=== PATIENT | female | born 1950 | race Caucasian/White ===

== ENCOUNTER 2018-10-01 01:01 | Inpatient (IN) | payer MEDICARE ==
[~2018-10-01] VITALS: Ht 170.2 cm; Wt 67.6 kg
[2018-10-01] MEDS ORDERED: METHYL SALICYLATE/MENTHOL TOPICAL OINTMENT 29GM TUBE. TP PRN (02:30)
[2018-10-01] MEDS ORDERED: MAGNESIUM HYDROXIDE 2,400 MG/30 ML ORAL.SUSP. PO PRN (02:30)
[2018-10-01] MEDS ORDERED: ACETAMINOPHEN 325 MG TABLET PO PRN (02:30)
[2018-10-01] MEDS ORDERED: MAG HYDROX/AL HYDROX/SIMETH 30 ML ORAL.SUSP PO PRN (02:30)
[2018-10-01] MEDS ORDERED: LEVO75TA PO (02:38)
[2018-10-01] MEDS ORDERED: DONE10TA61 PO (02:38)
[2018-10-01] MEDS ORDERED: FLUO40CA9 PO (02:38)
[2018-10-01] MEDS ORDERED: CLON0.5T PO (02:38)
[2018-10-01] MEDS ORDERED: QUET25TA5 PO (02:38)
[2018-10-01] MEDS ORDERED: CRESTOR5 MG PO (02:38)
[2018-10-01] MEDS ORDERED: MEMA5TAB PO (02:38)
[2018-10-01] MEDS ORDERED: QUEtiapine 25 MG TABLET. PO PRN (02:45)
[2018-10-01 02:50] VITALS: BP 130/72
[2018-10-01] MEDS: LEVOTHYROXINE 75 MCG TABLET PO SCH (05:40)
[2018-10-01] MEDS: clonazePAM 0.5 MG TABLET PO SCH ×2 (05:40→14:33)
[2018-10-01 05:45] VITALS: BP 130/67
[2018-10-01] MEDS: MEMANTINE 5 MG TABLET. PO SCH ×2 (08:22→19:58)
[2018-10-01] MEDS: FLUoxetine HCL 20 MG CAPSULE PO SCH (08:22)
[2018-10-01 13:23] LABS: BASO # 0.1 x10^3/uL (0.0-0.2); BASO % 1 % (0-3); EOS # 0.3 x10^3/uL (0.0-0.7); EOS % 3 % (0-3); HEMATOCRIT 48.5 % (36.0-47.0); LYMPH # 1.9 x10^3/uL (1.0-4.8); LYMPH % 21 % (24-48); MEAN CORPUSCULAR HEMOGLOBIN 28 pg (25-35); MEAN CORPUSCULAR HGB CONC 33 g/dL (31-37); MEAN CORPUSCULAR VOLUME 86 fL (79-100); MONO # 0.5 x10^3/uL (0.0-1.1); MONO % 6 % (0-9); NEUT # 6.1 x10^3uL (1.8-7.7); NEUT % 69 % (31-73); PLATELET COUNT 390 x10^3/uL (140-400); RED BLOOD COUNT 5.67 x10^6/uL (3.50-5.40); RED CELL DISTRIBUTION WIDTH 13.5 % (11.5-14.5); WHITE BLOOD COUNT 8.8 x10^3/uL (4.0-11.0)
[2018-10-01 13:30] LABS: ALBUMIN 3.3 g/dL (3.4-5.0); ALBUMIN/GLOBULIN RATIO 0.8 (1.0-1.7); CALCIUM 8.9 mg/dL (8.5-10.1); GFR 55.1; MAGNESIUM 2.1 mg/dL (1.8-2.4); POTASSIUM 3.5 mmol/L (3.5-5.1); TOTAL BILIRUBIN 0.4 mg/dL (0.2-1.0); TOTAL PROTEIN 7.6 g/dL (6.4-8.2)
[2018-10-01 16:58] VITALS: BP 112/73
--- NOTE | 2018-10-01 17:33 | EKG ---
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
--- NOTE | 2018-10-01 18:35 | PSYEV ---
DATE OF SERVICE: 10/01/2018 REASON FOR ADMISSION: This 68-year-old single female was admitted to inpatient program at [facility] at [facility] as a transfer from Emergency Room, [facility]. The patient was evaluated because of threatening suicide, wanting to overdose and also threatening to stab her daughter and also having hallucinations and also history of depression and extremely angry. HISTORY OF PRESENT ILLNESS: The patient apparently was kept in a quiet room today after she threatened her roommate because she was snoring and threatened her that she is going to stab her if she does not stopped snoring. The patient is unreliable informant at this time because she is not cooperative and not wants to talk about her problems. The patient admits to feeling depressed. The patient also admits to having problems with thinking, having mood swings, irritability and anger control. The patient does not want to share much information at this point. The patient denied of any alcohol or substance abuse. PAST PSYCHIATRIC HISTORY: None available. PAST MEDICAL HISTORY: The patient has a history of anxiety, asthma, breast cancer, chronic pain, depression, fibromyalgia, GERD, hyperlipidemia, hypothyroidism, insomnia, sleep apnea and Parkinson's disease. The patient also in past diagnosed with mild cognitive disorder. PSYCHOSOCIAL HISTORY: The patient states that she has a bachelor's degree in medical technology. 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 The patient states she was twice. The patient states she has 2 children. However, she is not willing to divulge any information. CURRENT MEDICATIONS: The patient has been on Klonopin 0.25 mg b.i.d., Aricept 10 mg at night, Prozac 80 mg daily, Namenda 5 mg b.i.d., Seroquel, started here at 12.5 mg q.i.d. p.r.n. FAMILY HISTORY: Not available. MENTAL STATUS EXAMINATION: The patient is withdrawn, isolating herself, avoiding any interaction with the staff or residents, extremely angry, irritable and desai. The patient was able to make eye contact. Her speech was clear, monotone, decreased rate and rhythm. Her affect and mood showed, she is irritable, angry, explosive temper, threatening others. The patient has some difficulty with the thinking process, but the patient has negative angry, not wanting to cooperate with the staff. The patient states that she needs to go back home with her family; however, is not able to give information why she is here and the problems that brought her here. The patient denies that she was suicidal. The patient is very concrete with thinking, seems to be paranoid and suspicious, but no overt psychotic symptoms. She is oriented to surroundings. She knew the month and year. The patient is not cooperating with any other testing at this time. The patient's judgment impaired. Insight limited. STRENGTH: In good health. The patient has a college degree. 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 WEAKNESSES: The patient currently not cooperating with the treatment. The patient also has problems with anger control, poor impulse control and low frustration tolerance. ADMITTING DIAGNOSES: AXIS I: 1. Psychotic disorder, not otherwise specified. 2. 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 AXIS II: None. AXIS III: History of breast cancer, chronic pain syndrome, fibromyalgia, GERD, hyperlipidemia, hypothyroidism, sleep apnea and chronic insomnia. The patient will be admitted to the unit. The patient will be seen by the primary care for a physical exam. The patient will be seen by the psychiatrist daily. MEDICATIONS: Patient's medications reviewed. The patient will continue on the Lipitor 20 mg daily, Aricept 10 mg at night, Namenda 5 mg b.i.d., fluoxetine 80 mg daily and will consider decreasing to 60 mg. Continue on the Klonopin 0.25 mg b.i.d., levothyroxine 75 mcg daily and Seroquel 12.5 mg q.i.d. p.r.n. ESTIMATED LENGTH OF STAY: 7-10 days. SAE WHITTINGTON MD DR: LEONARDO/manoj JOB#: [id number] / [id number]
[2018-10-01] MEDS: ATORVASTATIN CALCIUM 20 MG TABLET PO SCH (19:57)
[2018-10-01] MEDS: DONEPEZIL HCL 10 MG TABLET PO SCH (19:58)
[2018-10-02 03:13] LABS: HEMOGLOBIN A1C 5.5 % (4.8-5.6); THYROXINE 8.2 ug/dL (4.5-12.0)
[2018-10-02] MEDS: LEVOTHYROXINE 75 MCG TABLET PO SCH (06:03)
[2018-10-02 06:21] VITALS: BP 154/73
[2018-10-02 06:23] VITALS: BP 124/75
[2018-10-02] MEDS: MEMANTINE 5 MG TABLET. PO SCH ×2 (07:55→20:47)
[2018-10-02] MEDS: FLUoxetine HCL 20 MG CAPSULE PO SCH (07:58)
[2018-10-02] MEDS: clonazePAM 0.5 MG TABLET PO SCH ×2 (07:58→14:59)
[2018-10-02 13:40] LABS: THYROID STIM HORMONE (TSH) 2.866 uIU/mL (0.358-3.740)
[2018-10-02 15:59] VITALS: BP 106/70
[2018-10-02] MEDS ORDERED: CHOLECALCIFEROL (VITAMIN D3) 50,000 UNIT CAPSULE PO SCH (16:15)
[2018-10-02] MEDS: ATORVASTATIN CALCIUM 20 MG TABLET PO SCH (20:47)
[2018-10-02] MEDS: DONEPEZIL HCL 10 MG TABLET PO SCH (20:47)
[2018-10-02] MEDS: QUEtiapine 25 MG TABLET. PO SCH (20:47)
--- NOTE | 2018-10-02 21:13 | CONS ---
DATE OF CONSULTATION: 10/02/2018 REASON FOR CONSULTATION: Consult for medical management. HISTORY OF PRESENT ILLNESS: The patient is a 68-year-old female patient, who apparently was evaluated at [facility] and was transferred to [facility] as the patient has been threatening suicide, wanting to overdose and also threatening to stab her daughter. She has been having hallucination and history of depression and extremely angry. She apparently was kept in a quiet room. She threatened her roommate because she was snoring and threatened that she was going to stab her if she does not stop snoring. PAST MEDICAL HISTORY: Her past medical history is significant for bronchial asthma, breast cancer, chronic pain syndrome, fibromyalgia, gastroesophageal reflux disease, hyperlipidemia, hypothyroidism, insomnia, obstructive sleep apnea, Parkinson's disease. PAST PSYCHIATRIC HISTORY: Past psychiatric history is significant for anxiety, depression and mild cognitive disorder. FAMILY HISTORY: Unremarkable. SOCIAL HISTORY: The patient was twice, has 2 children. 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 ALLERGIES: She is ALLERGIC TO METOCLOPRAMIDE and PREGABALIN. MEDICATIONS: She is currently on following medications: She is on Tylenol 650 mg p.o. q.6. hourly p.r.n. for pain, fever, atorvastatin calcium 20 mg at bedtime, clonazepam 0.5 mg twice a day, Aricept 10 mg at bedtime, fluoxetine 80 mg once a day, levothyroxine 75 mcg daily and Mylanta 15 mL p.o. daily p.r.n. for constipation, magnesium hydroxide for milk of magnesia 30 mL p.o. daily, Namenda 5 mg twice a day and an analgesic balm 4 times a day, quetiapine fumarate for Seroquel 12.5 mg 4 times a day. PHYSICAL EXAMINATION: GENERAL: On examining her, she was resting flat, comfortably in bed, in no apparent respiratory distress. No pallor, jaundice, cyanosis, or thyromegaly. No jugular venous distension. No limb edema. VITAL SIGNS: Her heart rate was 80, blood pressure was 124/75, temperature was 96.8, respiratory rate was 18, and oxygen saturation was 95%. HEENT: Examination of the head, eyes, ears, nose and throat showed she is normocephalic, atraumatic. NECK: Supple. HEART: Showed normal first and second heart sounds. No gallop, rub or murmur. CHEST: Clear to auscultation. No crepitation or rhonchi. ABDOMEN: Distended, soft, nontender. No guarding or rigidity. No organomegaly. Her hernial orifices are intact and bowel sounds normal. NEUROLOGIC: She was sleepy, but arousable. She answered all questions appropriately. All her cranial nerves are intact. EXTREMITIES: She moves extremities without difficulty. She ambulates without assistance or assistive devices. LABORATORY DATA: Her lab work showed a white cell count of 8800, hemoglobin 16, hematocrit 48, MCV 86, and platelet count 390,000. Her chemistry showed a serum sodium 142, potassium 3.5, chloride 103, bicarbonate 25, anion gap of 14, BUN 9, creatinine 1, estimated GFR was 55 mL per minute. Her glucose was 143, calcium was 8.9, magnesium 2.1. Total bilirubin, AST, ALT were normal. Alkaline phosphatase was slightly elevated. Total protein was 7.6, albumin was 3.3. Her hemoglobin A1c was 5.5. Serum iron was 113, TIBC was 335, and iron saturation was 3-4. Her serum triglycerides were 154, total cholesterol was 235, LDL cholesterol was 148, VLDL was 30, HDL cholesterol was 57, and the ratio was 4. Her vitamin B12 was 601 picogram/mL. TSH and total T4 and free T4 are normal. Her 25-hydroxy vitamin D was low at 21.6. PLAN: My plan is to replenish her vitamin D. Otherwise, the patient seems to be all in all fairly medically stable. PEDRO DOW MD DR: DAYDAY/manoj JOB#: [id number] / [id number]
--- NOTE | 2018-10-02 22:02 | PN ---
DATE: 10/02/2018 SUBJECTIVE: The patient was seen today, met with the staff, chart reviewed. The patient apparently has been back in the room. She does not have a roommate, apparently was threatening her roommate yesterday because she was snoring. The patient less angry today, but still has some psychomotor retardation, still angry, wanting to go home. Staff noticed some improvement. She is much calmer, social, took her medication and cooperative. OBSERVATION: VITAL SIGNS: Temperature 97.2, pulse 106/70, respiration 18, pulse 78, O2 sat 94%. She slept about 10 hours last night. LABORATORY DATA: The patient's lab reviewed, which were all within normal range except for abnormal lipid profile. CURRENT MEDICATIONS: The patient's medications reviewed. Currently on Prozac 60 mg that was decreased from 80 mg daily, Seroquel 25 mg b.i.d., Aricept 10 mg at night, Namenda 5 mg b.i.d., Seroquel 12.5 mg q.i.d. p.r.n. She was also on clonazepam 0.25 mg b.i.d. p.r.n. The patient is not having any side effects. ASSESSMENT: AXIS I: Dementia, most likely vascular, mild with the depression and psychotic symptoms. AXIS II: None. AXIS III: History of breast cancer, chronic pain syndrome, fibromyalgia, GERD, hyperlipidemia, hypothyroidism, sleep apnea, chronic insomnia. PLAN: Continue with the treatment. SAE WHITTINGTON MD DR: LEONARDO/manoj JOB#: [id number] / [id number]
[2018-10-02 23:58] LABS: BACTERIA,URINE FEW /HPF (0-FEW); BILIRUBIN,URINE NEG (NEG); CLARITY,URINE CLOUDY; COLOR,URINE AMBER; GLUCOSE,URINE NEG (NEG); NITRITE,URINE NEG (NEG); RBC,URINE OCC /HPF (0-2); SQUAMOUS EPITHELIAL CELL,UR MOD /LPF; UROBILINOGEN,URINE 1 mg/dL (0.2 mg/dL)
[2018-10-02 23:59] LABS: AMORPHOUS SEDIMENT,UR PRESENT /HPF
[2018-10-03 05:43] VITALS: BP 144/74
[2018-10-03] MEDS: LEVOTHYROXINE 75 MCG TABLET PO SCH (06:01)
[2018-10-03] MEDS: QUEtiapine 25 MG TABLET. PO SCH ×2 (08:10→21:14)
[2018-10-03] MEDS: MEMANTINE 5 MG TABLET. PO SCH ×2 (08:11→21:14)
[2018-10-03] MEDS: FLUoxetine HCL 20 MG CAPSULE PO SCH (08:11)
[2018-10-03] MEDS: clonazePAM 0.5 MG TABLET PO SCH ×2 (08:11→14:13)
[2018-10-03] MEDS: CHOLECALCIFEROL (VITAMIN D3) 50,000 UNIT CAPSULE PO SCH ×2 (08:11→09:00)
[2018-10-03 16:02] VITALS: BP 103/69
[2018-10-03] MEDS: DONEPEZIL HCL 10 MG TABLET PO SCH (21:14)
[2018-10-03] MEDS: ATORVASTATIN CALCIUM 20 MG TABLET PO SCH (21:14)
--- NOTE | 2018-10-03 22:27 | PN ---
DATE: 10/03/2018 SUBJECTIVE: The patient was seen today, met with the staff, chart reviewed. Staff reports that she still withdrawn to her room, very quite, has slept all night, has not presented with any major behavior problems. OBSERVATION: VITAL SIGNS: Temperature 98.1, blood pressure 103/69, pulse 76, respirations 20, O2 sat 98%. The patient's appetite has improved. The patient is able to walk. Her gait is steady. The patient is able to make eye contact most of the time. She is very limited with her conversation, not wanting to share about what is going on with her. MEDICATIONS: The patient's medication reviewed. Currently, she is on Prozac 60 mg daily, Seroquel 25 mg b.i.d., Aricept 10 mg at night, Namenda 5 mg b.i.d. She is also on Klonopin 0.25 mg b.i.d. p.r.n. and Seroquel 12.5 mg q.i.d. p.r.n. for agitation. The patient is not having any side effects. ASSESSMENT: AXIS I: Dementia, most likely vascular mild with depression and psychotic symptoms. AXIS II: None. AXIS III: History of breast cancer, chronic pain syndrome, fibromyalgia, gastroesophageal reflux disease, hyperlipidemia, hypothyroidism, sleep apnea. PLAN: To continue with the treatment. SAE WHITTINGTON MD DR: LEONARDO/manoj JOB#: [id number] / [id number]
[2018-10-04] MEDS: LEVOTHYROXINE 75 MCG TABLET PO SCH (04:56)
[2018-10-04] MEDS: clonazePAM 0.5 MG TABLET PO SCH ×2 (04:56→17:26)
[2018-10-04 05:42] VITALS: BP 140/78
[2018-10-04] MEDS: FLUoxetine HCL 20 MG CAPSULE PO SCH (08:51)
[2018-10-04] MEDS: MEMANTINE 5 MG TABLET. PO SCH ×2 (08:51→20:56)
[2018-10-04] MEDS: QUEtiapine 25 MG TABLET. PO SCH ×2 (08:51→20:56)
--- NOTE | 2018-10-04 15:36 | PN ---
DATE: 10/04/2018 SUBJECTIVE: The patient was seen today. Met with the staff, chart reviewed. Staff reports the patient's behavior has improved. She is very quiet and follows the rules. The patient is able to go to lunch on her own and the patient does all the time stays in bed. OBSERVATION: VITAL SIGNS: Temperature 97.9, blood pressure 140/78, pulse 74, respirations 20, O2 sat 92%. Slept about 8 hours last night. CURRENT MEDICATIONS: The patient is compliant with the treatment. She is taking Prozac 60 mg daily, Seroquel 25 mg b.i.d., Aricept 10 mg at night, Namenda 5 mg b.i.d. The patient is also on Klonopin 0.25 mg b.i.d. p.r.n. and Seroquel 12.5 mg q.i.d. p.r.n. for agitation. The patient denies of any side effects. The patient finally admits that she has been having problems with memory forgetting things and situations where she gotten confused even she did not know where she was, sometimes remembering names. The patient is less paranoid and suspicious. The patient has not made any threats towards anyone and she is less agitated. The patient's lab reviewed. ASSESSMENT: Dementia, most likely vascular, mild with depression and psychotic symptoms. PLAN: To continue with the treatment. SAE WHITTINGTON MD DR: LEONARDO/manoj JOB#: [id number] / [id number]
[2018-10-04 17:13] VITALS: BP 121/73
[2018-10-04] MEDS: DONEPEZIL HCL 10 MG TABLET PO SCH (20:56)
[2018-10-04] MEDS: ATORVASTATIN CALCIUM 20 MG TABLET PO SCH (20:56)
[2018-10-05] MEDS: LEVOTHYROXINE 75 MCG TABLET PO SCH (04:55)
[2018-10-05] MEDS: clonazePAM 0.5 MG TABLET PO SCH ×2 (04:55→15:00)
[2018-10-05 06:07] VITALS: BP 133/72
[2018-10-05] MEDS: FLUoxetine HCL 20 MG CAPSULE PO SCH (07:37)
[2018-10-05] MEDS: QUEtiapine 25 MG TABLET. PO SCH ×2 (07:37→19:21)
[2018-10-05] MEDS: MEMANTINE 5 MG TABLET. PO SCH ×2 (07:37→19:21)
[2018-10-05 07:39] LABS: BASO % 1 % (0-3); EOS # 0.4 x10^3/uL (0.0-0.7); EOS % 5 % (0-3); HEMATOCRIT 44.4 % (36.0-47.0); HEMOGLOBIN 14.7 g/dL (12.0-15.5); LYMPH % 28 % (24-48); MEAN CORPUSCULAR HEMOGLOBIN 29 pg (25-35); MEAN CORPUSCULAR HGB CONC 33 g/dL (31-37); MEAN CORPUSCULAR VOLUME 86 fL (79-100); MONO # 0.6 x10^3/uL (0.0-1.1); MONO % 8 % (0-9); NEUT # 4.1 x10^3uL (1.8-7.7); NEUT % 58 % (31-73); PLATELET COUNT 321 x10^3/uL (140-400); RED BLOOD COUNT 5.14 x10^6/uL (3.50-5.40); RED CELL DISTRIBUTION WIDTH 13.5 % (11.5-14.5); WHITE BLOOD COUNT 7.1 x10^3/uL (4.0-11.0)
[2018-10-05 07:55] LABS: ALBUMIN/GLOBULIN RATIO 0.8 (1.0-1.7); CALCIUM 8.9 mg/dL (8.5-10.1); CREATININE 0.8 mg/dL (0.6-1.0); GFR 71.3; POTASSIUM 4.8 mmol/L (3.5-5.1); TOTAL BILIRUBIN 0.2 mg/dL (0.2-1.0); TOTAL PROTEIN 6.8 g/dL (6.4-8.2)
[2018-10-05 15:51] VITALS: BP 121/61
[2018-10-05] MEDS: ATORVASTATIN CALCIUM 20 MG TABLET PO SCH (19:21)
[2018-10-05] MEDS: DONEPEZIL HCL 10 MG TABLET PO SCH (19:21)
--- NOTE | 2018-10-05 19:51 | PDOC ---
Exam Note: Ricardo Note: Please also refer to the separate dictated note~for this date of service dictated separately.~Patient seen individually. Discussed the patient with Nursing staff reviewed the chart.~Reviewed interim history and current functioning. Reviewed vital signs,~Labs/ Radiology~and current medications noted below. Continue current treatment with the changes noted in the dictated addendum note Assessment: Vital Signs: Vital Signs Date Time Temp Pulse Resp B/P (MAP) Pulse Ox O2 Delivery O2 Flow Rate FiO2 10/05/18 15:51 98.5 80 20 121/61 (81) 94 10/04/18 05:42 Room Air I&O Intake and Output 10/05/18 07:00 Intake Total 860 ml Balance 860 ml Intake Oral 860 ml Labs: Laboratory Tests Test 10/05/18 06:54 White Blood Count 7.1 x10^3/uL (4.0-11.0) Red Blood Count 5.14 x10^6/uL (3.50-5.40) Hemoglobin 14.7 g/dL (12.0-15.5) Hematocrit 44.4 % (36.0-47.0) Mean Corpuscular Volume 86 fL (79-100) Mean Corpuscular Hemoglobin 29 pg (25-35) Mean Corpuscular Hemoglobin Concent 33 g/dL (31-37) Red Cell Distribution Width 13.5 % (11.5-14.5) Platelet Count 321 x10^3/uL (140-400) Neutrophils (%) (Auto) 58 % (31-73) Lymphocytes (%) (Auto) 28 % (24-48) Monocytes (%) (Auto) 8 % (0-9) Eosinophils (%) (Auto) 5 % (0-3) H Basophils (%) (Auto) 1 % (0-3) Neutrophils # (Auto) 4.1 x10^3uL (1.8-7.7) Lymphocytes # (Auto) 2.0 x10^3/uL (1.0-4.8) Monocytes # (Auto) 0.6 x10^3/uL (0.0-1.1) Eosinophils # (Auto) 0.4 x10^3/uL (0.0-0.7) Basophils # (Auto) 0.0 x10^3/uL (0.0-0.2) Sodium Level 145 mmol/L (136-145) Potassium Level 4.8 mmol/L (3.5-5.1) Chloride Level 107 mmol/L (98-107) Carbon Dioxide Level 30 mmol/L (21-32) Anion Gap 8 (6-14) Blood Urea Nitrogen 12 mg/dL (7-20) Creatinine 0.8 mg/dL (0.6-1.0) Estimated GFR (Cockcroft-Gault) 71.3 BUN/Creatinine Ratio 15 (6-20) Glucose Level 97 mg/dL (70-99) Calcium Level 8.9 mg/dL (8.5-10.1) Total Bilirubin 0.2 mg/dL (0.2-1.0) Aspartate Amino Transferase (AST) 20 U/L (15-37) Alanine Aminotransferase (ALT) 23 U/L (14-59) Alkaline Phosphatase 98 U/L (46-116) Total Protein 6.8 g/dL (6.4-8.2) Albumin 3.0 g/dL (3.4-5.0) L Albumin/Globulin Ratio 0.8 (1.0-1.7) L Current Medications: Meds: Current Medications Acetaminophen (Tylenol) 650 mg PRN Q6HRS PRN PO PAIN / TEMP; Start 10/01/18 at 02:30 Multi-Ingredient Ointment (Analgesic [place]) 1 debora PRN QID PRN TP MUSCLE PAIN; Start 10/01/18 at 02:30 Al Hydroxide/Mg Hydroxide (Mylanta Plus Xs) 15 ml PRN AFTMEALHC PRN PO DYSPEPSIA; Start 10/01/18 at 02:30 Magnesium Hydroxide (Milk Of Magnesia) 2,400 mg PRN QHS PRN PO CONSTIPATION; Start 10/01/18 at 02:30 Clonazepam (KlonoPIN) 0.25 mg BID@0700,1500 PO Last administered on 10/05/18at 04:55; Start 10/01/18 at 07:00 Levothyroxine Sodium (Synthroid) 75 mcg DAILY06 PO Last administered on at 04:55; Start 10/01/18 at 06:00 Donepezil HCl (Aricept) 10 mg QHS PO Last administered on 10/05/18at 19:21; Start 10/01/18 at 21:00 Fluoxetine HCl (PROzac) 80 mg DAILY PO Last administered on 10/02/18at 07:58; Start 10/01/18 at 09:00; Stop 10/02/18 at 17:33; Status DC Memantine (Namenda) 5 mg BID PO Last administered on 10/05/18at 19:21; Start 10/01/18 at 09:00 Quetiapine Fumarate (SEROquel) 12.5 mg PRN QID PRN PO ANXIETY / AGITATION; Start 10/01/18 at 02:45 Atorvastatin Calcium (Lipitor) 20 mg HS PO Last administered on 10/05/18at 19: 21; Start 10/01/18 at 21:00 Vitamin D (Vitamin D3) 50,000 unit WEEKLY PO ; Start 10/02/18 at 16:15; Stop 10/02/18 at 17:26; Status DC Vitamin D (Vitamin D3) 50,000 unit WEEKLY PO Last administered on 10/03/18at 09 :00; Start 10/03/18 at 08:00 Fluoxetine HCl (PROzac) 60 mg DAILY PO Last administered on 10/05/18at 07:37; Start 10/03/18 at 09:00 Quetiapine Fumarate (SEROquel) 25 mg BID PO Last administered on 10/05/18at 19: 21; Start 10/02/18 at 21:00 Active Scripts Active Reported Crestor (Rosuvastatin Calcium) 5 Mg Tablet 5 Mg PO DAILY Seroquel (Quetiapine Fumarate) 25 Mg Tablet 12.5 Mg PO PRN QID PRN Namenda (Memantine Hcl) 5 Mg Tablet 5 Mg PO BID Synthroid (Levothyroxine Sodium) 75 Mcg Tablet 75 Mcg PO DAILY06 Prozac (Fluoxetine Hcl) 40 Mg Capsule 80 Mg PO DAILY Aricept (Donepezil Hcl) 10 Mg Tablet 10 Mg PO QHS Klonopin (Clonazepam) 0.5 Mg Tablet 0.25 Mg PO BID@0700,1500 I have reviewed the current psychotropics carefully including drug interactions. Risk benefit ratio favors no change other than as noted in my dictated progress note. CYNDI LYN MD Oct 05, 2018 19:51
[2018-10-06] MEDS: clonazePAM 0.5 MG TABLET PO SCH ×2 (05:02→16:23)
[2018-10-06] MEDS: LEVOTHYROXINE 75 MCG TABLET PO SCH (05:02)
[2018-10-06 06:18] VITALS: BP 117/72
[2018-10-06] MEDS: FLUoxetine HCL 20 MG CAPSULE PO SCH (09:35)
[2018-10-06] MEDS: QUEtiapine 25 MG TABLET. PO SCH ×2 (09:35→19:30)
[2018-10-06] MEDS: MEMANTINE 5 MG TABLET. PO SCH ×2 (09:35→19:31)
[2018-10-06 16:17] VITALS: BP 128/81
--- NOTE | 2018-10-06 19:28 | PDOC ---
Exam Note: Ricardo Note: Please also refer to the separate dictated note~for this date of service dictated separately.~Patient seen individually. Discussed the patient with Nursing staff reviewed the chart.~Reviewed interim history and current functioning. Reviewed vital signs,~Labs/ Radiology~and current medications noted below. Continue current treatment with the changes noted in the dictated addendum note Assessment: Vital Signs: Vital Signs Date Time Temp Pulse Resp B/P (MAP) Pulse Ox O2 Delivery O2 Flow Rate FiO2 10/06/18 16:17 97.6 79 18 128/81 (97) 92 10/04/18 05:42 Room Air I&O Intake and Output 10/06/18 07:00 Intake Total 840 ml Balance 840 ml Intake Oral 840 ml Current Medications: Meds: Current Medications Acetaminophen (Tylenol) 650 mg PRN Q6HRS PRN PO PAIN / TEMP; Start 10/01/18 at 02:30 Multi-Ingredient Ointment (Analgesic [place]) 1 debora PRN QID PRN TP MUSCLE PAIN; Start 10/01/18 at 02:30 Al Hydroxide/Mg Hydroxide (Mylanta Plus Xs) 15 ml PRN AFTMEALHC PRN PO DYSPEPSIA; Start 10/01/18 at 02:30 Magnesium Hydroxide (Milk Of Magnesia) 2,400 mg PRN QHS PRN PO CONSTIPATION; Start 10/01/18 at 02:30 Clonazepam (KlonoPIN) 0.25 mg BID@0700,1500 PO Last administered on 10/06/18at 05:02; Start 10/01/18 at 07:00; Stop 10/06/18 at 16:47; Status DC Levothyroxine Sodium (Synthroid) 75 mcg DAILY06 PO Last administered on at 05:02; Start 10/01/18 at 06:00 Donepezil HCl (Aricept) 10 mg QHS PO Last administered on 10/05/18at 19:21; Start 10/01/18 at 21:00 Fluoxetine HCl (PROzac) 80 mg DAILY PO Last administered on 10/02/18at 07:58; Start 10/01/18 at 09:00; Stop 10/02/18 at 17:33; Status DC Memantine (Namenda) 5 mg BID PO Last administered on 10/06/18at 09:35; Start 10/01/18 at 09:00 Quetiapine Fumarate (SEROquel) 12.5 mg PRN QID PRN PO ANXIETY / AGITATION; Start 10/01/18 at 02:45 Atorvastatin Calcium (Lipitor) 20 mg HS PO Last administered on 10/05/18at 19: 21; Start 10/01/18 at 21:00 Vitamin D (Vitamin D3) 50,000 unit WEEKLY PO ; Start 10/02/18 at 16:15; Stop 10/02/18 at 17:26; Status DC Vitamin D (Vitamin D3) 50,000 unit WEEKLY PO Last administered on 10/03/18at 09 :00; Start 10/03/18 at 08:00 Fluoxetine HCl (PROzac) 60 mg DAILY PO Last administered on 10/06/18at 09:35; Start 10/03/18 at 09:00; Stop 10/06/18 at 16:47; Status DC Quetiapine Fumarate (SEROquel) 25 mg BID PO Last administered on 10/06/18at 09: 35; Start 10/02/18 at 21:00 Clonazepam (KlonoPIN) 0.25 mg DAILY@1500 PO ; Start 10/07/18 at 15:00 Fluoxetine HCl (PROzac) 20 mg DAILY PO ; Start 10/07/18 at 09:00 Bupropion HCl (Wellbutrin Xl) 150 mg DAILY PO ; Start 10/07/18 at 09:00 Active Scripts Active Reported Crestor (Rosuvastatin Calcium) 5 Mg Tablet 5 Mg PO DAILY Seroquel (Quetiapine Fumarate) 25 Mg Tablet 12.5 Mg PO PRN QID PRN Namenda (Memantine Hcl) 5 Mg Tablet 5 Mg PO BID Synthroid (Levothyroxine Sodium) 75 Mcg Tablet 75 Mcg PO DAILY06 Prozac (Fluoxetine Hcl) 40 Mg Capsule 80 Mg PO DAILY Aricept (Donepezil Hcl) 10 Mg Tablet 10 Mg PO QHS Klonopin (Clonazepam) 0.5 Mg Tablet 0.25 Mg PO BID@0700,1500 I have reviewed the current psychotropics carefully including drug interactions. Risk benefit ratio favors no change other than as noted in my dictated progress note. Diagnosis: Problems: (1) Agitated (2) Confusion (3) Hallucinations CYNDI LYN MD Oct 06, 2018 19:28
[2018-10-06] MEDS: ATORVASTATIN CALCIUM 20 MG TABLET PO SCH (19:30)
[2018-10-06] MEDS: DONEPEZIL HCL 10 MG TABLET PO SCH (19:30)
--- NOTE | 2018-10-06 22:04 | PN ---
DATE: 10/05/2018 PSYCHIATRIC PROGRESS NOTE This late entry 10/05/2018 covers elements not covered in my initial note. SUBJECTIVE: I met with the patient in the evening. Also discussed with Dr. Diggs who covered for me over the past week or so. The patient slept 7 hours previous evening. Reviewed her history at length. She is alert, oriented x 3, somewhat withdrawn, sleeps all day, went to groups for 15 minutes, then back in her bed. UA is negative. As I met with her, she said she just wants to go and live by herself. She feels her friends and other acquaintances will help to her grocery shopping and she can do her own cooking and cleaning. She is fairly non-practical with her ability functionally. Otherwise, she is oriented, knew it was 09/2018 that she lives in [place]. REVIEW OF SYSTEMS: Positive for tiredness. No CV, , pulmonary, eye, ENT system symptoms on review. MENTAL STATUS EXAM: Oriented to herself and situation. Speech has some latency, often responses monosyllabic. Abstraction fair, computation impaired, language function intact, attention span short. Mood and affect remains depressed. LABORATORY DATA: Reviewed. IMPRESSION: Major depressive disorder, recurrent; major neurocognitive disorder; early Alzheimer, vascular with depression, delusions; anxiety disorder, unspecified. PLAN: Continue current psychotropics for now, we will reassess and consider changing the Prozac to a lower dosage and augmentation with Wellbutrin and perhaps reducing the Klonopin since she is already quite withdrawn and sedated and is on Klonopin 0.25 mg b.i.d. Continue her Namenda and Aricept unchanged along with Seroquel for now. MAN Didi LYN MD DR: AMOS/manoj JOB#: [id number] / [id number]
[2018-10-07] MEDS: LEVOTHYROXINE 75 MCG TABLET PO SCH (05:35)
[2018-10-07 05:51] VITALS: BP 150/89
[2018-10-07] MEDS: MEMANTINE 5 MG TABLET. PO SCH ×2 (09:17→19:34)
[2018-10-07] MEDS: QUEtiapine 25 MG TABLET. PO SCH ×2 (09:17→19:35)
[2018-10-07] MEDS: buPROPion XL 150 MG TAB.ER.24H PO SCH (09:18)
[2018-10-07] MEDS: FLUoxetine HCL 20 MG CAPSULE PO SCH (09:18)
[2018-10-07 16:05] VITALS: BP 122/55
[2018-10-07] MEDS: clonazePAM 0.5 MG TABLET PO SCH (16:05)
[2018-10-07] MEDS: DONEPEZIL HCL 10 MG TABLET PO SCH (19:34)
[2018-10-07] MEDS: ATORVASTATIN CALCIUM 20 MG TABLET PO SCH (19:34)
--- NOTE | 2018-10-07 19:56 | PDOC ---
Exam Note: Ricardo Note: Please also refer to the separate dictated note~for this date of service dictated separately.~Patient seen individually. Discussed the patient with Nursing staff reviewed the chart.~Reviewed interim history and current functioning. Reviewed vital signs,~Labs/ Radiology~and current medications noted below. Continue current treatment with the changes noted in the dictated addendum note Assessment: Vital Signs: Vital Signs Date Time Temp Pulse Resp B/P (MAP) Pulse Ox O2 Delivery O2 Flow Rate FiO2 10/07/18 16:05 97.4 77 16 122/55 (77) 93 10/04/18 05:42 Room Air I&O Intake and Output 10/07/18 07:00 Intake Total 820 ml Balance 820 ml Intake Oral 820 ml Current Medications: Meds: Current Medications Acetaminophen (Tylenol) 650 mg PRN Q6HRS PRN PO PAIN / TEMP; Start 10/01/18 at 02:30 Multi-Ingredient Ointment (Analgesic [place]) 1 debora PRN QID PRN TP MUSCLE PAIN; Start 10/01/18 at 02:30 Al Hydroxide/Mg Hydroxide (Mylanta Plus Xs) 15 ml PRN AFTMEALHC PRN PO DYSPEPSIA; Start 10/01/18 at 02:30 Magnesium Hydroxide (Milk Of Magnesia) 2,400 mg PRN QHS PRN PO CONSTIPATION; Start 10/01/18 at 02:30 Clonazepam (KlonoPIN) 0.25 mg BID@0700,1500 PO Last administered on 10/06/18at 05:02; Start 10/01/18 at 07:00; Stop 10/06/18 at 16:47; Status DC Levothyroxine Sodium (Synthroid) 75 mcg DAILY06 PO Last administered on at 05:35; Start 10/01/18 at 06:00 Donepezil HCl (Aricept) 10 mg QHS PO Last administered on 10/07/18at 19:34; Start 10/01/18 at 21:00 Fluoxetine HCl (PROzac) 80 mg DAILY PO Last administered on 10/02/18at 07:58; Start 10/01/18 at 09:00; Stop 10/02/18 at 17:33; Status DC Memantine (Namenda) 5 mg BID PO Last administered on 10/07/18at 19:34; Start 10/01/18 at 09:00 Quetiapine Fumarate (SEROquel) 12.5 mg PRN QID PRN PO ANXIETY / AGITATION; Start 10/01/18 at 02:45 Atorvastatin Calcium (Lipitor) 20 mg HS PO Last administered on 10/07/18at 19: 34; Start 10/01/18 at 21:00 Vitamin D (Vitamin D3) 50,000 unit WEEKLY PO ; Start 10/02/18 at 16:15; Stop 10/02/18 at 17:26; Status DC Vitamin D (Vitamin D3) 50,000 unit WEEKLY PO Last administered on 10/03/18at 09 :00; Start 10/03/18 at 08:00 Fluoxetine HCl (PROzac) 60 mg DAILY PO Last administered on 10/06/18at 09:35; Start 10/03/18 at 09:00; Stop 10/06/18 at 16:47; Status DC Quetiapine Fumarate (SEROquel) 25 mg BID PO Last administered on 10/07/18at 19: 35; Start 10/02/18 at 21:00 Clonazepam (KlonoPIN) 0.25 mg DAILY@1500 PO Last administered on 10/07/18at 16: 05; Start 10/07/18 at 15:00 Fluoxetine HCl (PROzac) 20 mg DAILY PO Last administered on 10/07/18at 09:18; Start 10/07/18 at 09:00 Bupropion HCl (Wellbutrin Xl) 150 mg DAILY PO Last administered on 10/07/18at 09:18; Start 10/07/18 at 09:00 Active Scripts Active Reported Crestor (Rosuvastatin Calcium) 5 Mg Tablet 5 Mg PO DAILY Seroquel (Quetiapine Fumarate) 25 Mg Tablet 12.5 Mg PO PRN QID PRN Namenda (Memantine Hcl) 5 Mg Tablet 5 Mg PO BID Synthroid (Levothyroxine Sodium) 75 Mcg Tablet 75 Mcg PO DAILY06 Prozac (Fluoxetine Hcl) 40 Mg Capsule 80 Mg PO DAILY Aricept (Donepezil Hcl) 10 Mg Tablet 10 Mg PO QHS Klonopin (Clonazepam) 0.5 Mg Tablet 0.25 Mg PO BID@0700,1500 I have reviewed the current psychotropics carefully including drug interactions. Risk benefit ratio favors no change other than as noted in my dictated progress note. Diagnosis: Problems: (1) Dementia, vascular, with delusions (2) Depression (3) Impulse control disorder (4) Anxiety disorder (5) Confusion (6) Hallucinations (7) Agitated CYNDI LYN MD Oct 07, 2018 19:56
--- NOTE | 2018-10-07 21:11 | PN ---
DATE: 10/06/2018 This is a late entry for 10/06/2018 and covers elements not covered in my initial note. SUBJECTIVE: I met with the patient in the evening. The patient remains depressed, withdrawn, slept 8-1/2 hours previous night, sleeping off and on all day. REVIEW OF SYSTEMS: Positive for tiredness. No energy. No CV, , pulmonary, eye, ENT system symptoms on review. MENTAL STATUS EXAM: Oriented to herself and situation. Speech is coherent, has some latency. Abstraction fair, computation impaired, language function intact, attention span short. Mood and affect remain somewhat withdrawn, depressed, paranoid. LABORATORY DATA: Reviewed. IMPRESSION: Major depressive disorder with psychotic features; cognitive disorder, unspecified; anxiety disorder, unspecified. PLAN: The patient is on Prozac 60 mg a day. We will reduce it to 20 mg a day and augment with Wellbutrin-XL 150 mg in the morning, which should be an activating addition for her. She is on Klonopin 0.25 mg at 0700 hours and 1500 hours and we will stop the 0700 hours dosage and later consider stopping the 1500 hours given her sedation. Maintain Aricept 10 mg a day, Namenda 5 mg b.i.d. and for now, Seroquel 25 b.i.d. to augment the antidepressant. CYNDI LYN MD DR: AMOS/manoj JOB#: [id number] / [id number]
[2018-10-08] MEDS: LEVOTHYROXINE 75 MCG TABLET PO SCH (05:09)
[2018-10-08 05:39] VITALS: BP 134/76
[2018-10-08] MEDS: buPROPion XL 150 MG TAB.ER.24H PO SCH (07:38)
[2018-10-08] MEDS: QUEtiapine 25 MG TABLET. PO SCH ×2 (07:38→19:21)
[2018-10-08] MEDS: MEMANTINE 5 MG TABLET. PO SCH ×2 (07:39→19:21)
[2018-10-08] MEDS: FLUoxetine HCL 20 MG CAPSULE PO SCH (07:42)
[2018-10-08] MEDS: clonazePAM 0.5 MG TABLET PO SCH (15:02)
[2018-10-08 15:39] VITALS: BP 118/76
[2018-10-08] MEDS: DONEPEZIL HCL 10 MG TABLET PO SCH (19:21)
[2018-10-08] MEDS: ATORVASTATIN CALCIUM 20 MG TABLET PO SCH (19:21)
--- NOTE | 2018-10-08 22:56 | PDOC ---
Exam Note: Ricardo Note: Please also refer to the separate dictated note~for this date of service dictated separately.~Patient seen individually. Discussed the patient with Nursing staff reviewed the chart.~Reviewed interim history and current functioning. Reviewed vital signs,~Labs/ Radiology~and current medications noted below. Continue current treatment with the changes noted in the dictated addendum note Assessment: Vital Signs: Vital Signs Date Time Temp Pulse Resp B/P (MAP) Pulse Ox O2 Delivery O2 Flow Rate FiO2 10/08/18 15:39 98.2 74 18 118/76 (90) 98 Room Air I&O Intake and Output 10/08/18 07:01 Intake Total 480 ml Balance 480 ml Intake Oral 480 ml # Voids 1 Current Medications: Meds: Current Medications Acetaminophen (Tylenol) 650 mg PRN Q6HRS PRN PO PAIN / TEMP; Start 10/01/18 at 02:30 Multi-Ingredient Ointment (Analgesic [place]) 1 debora PRN QID PRN TP MUSCLE PAIN; Start 10/01/18 at 02:30 Al Hydroxide/Mg Hydroxide (Mylanta Plus Xs) 15 ml PRN AFTMEALHC PRN PO DYSPEPSIA; Start 10/01/18 at 02:30 Magnesium Hydroxide (Milk Of Magnesia) 2,400 mg PRN QHS PRN PO CONSTIPATION; Start 10/01/18 at 02:30 Clonazepam (KlonoPIN) 0.25 mg BID@0700,1500 PO Last administered on 10/06/18at 05:02; Start 10/01/18 at 07:00; Stop 10/06/18 at 16:47; Status DC Levothyroxine Sodium (Synthroid) 75 mcg DAILY06 PO Last administered on at 05:09; Start 10/01/18 at 06:00 Donepezil HCl (Aricept) 10 mg QHS PO Last administered on 10/08/18at 19:21; Start 10/01/18 at 21:00 Fluoxetine HCl (PROzac) 80 mg DAILY PO Last administered on 10/02/18at 07:58; Start 10/01/18 at 09:00; Stop 10/02/18 at 17:33; Status DC Memantine (Namenda) 5 mg BID PO Last administered on 10/08/18at 19:21; Start 10/01/18 at 09:00 Quetiapine Fumarate (SEROquel) 12.5 mg PRN QID PRN PO ANXIETY / AGITATION; Start 10/01/18 at 02:45 Atorvastatin Calcium (Lipitor) 20 mg HS PO Last administered on 10/08/18at 19: 21; Start 10/01/18 at 21:00 Vitamin D (Vitamin D3) 50,000 unit WEEKLY PO ; Start 10/02/18 at 16:15; Stop 10/02/18 at 17:26; Status DC Vitamin D (Vitamin D3) 50,000 unit WEEKLY PO Last administered on 10/03/18at 09 :00; Start 10/03/18 at 08:00 Fluoxetine HCl (PROzac) 60 mg DAILY PO Last administered on 10/06/18at 09:35; Start 10/03/18 at 09:00; Stop 10/06/18 at 16:47; Status DC Quetiapine Fumarate (SEROquel) 25 mg BID PO Last administered on 10/08/18at 07: 38; Start 10/02/18 at 21:00; Stop 10/08/18 at 10:33; Status DC Clonazepam (KlonoPIN) 0.25 mg DAILY@1500 PO Last administered on 10/08/18at 15: 02; Start 10/07/18 at 15:00 Fluoxetine HCl (PROzac) 20 mg DAILY PO Last administered on 10/08/18at 07:42; Start 10/07/18 at 09:00 Bupropion HCl (Wellbutrin Xl) 150 mg DAILY PO Last administered on 10/08/18at 07:38; Start 10/07/18 at 09:00 Quetiapine Fumarate (SEROquel) 25 mg QHS PO Last administered on 10/08/18at 19: 21; Start 10/08/18 at 21:00 Active Scripts Active Reported Crestor (Rosuvastatin Calcium) 5 Mg Tablet 5 Mg PO DAILY Seroquel (Quetiapine Fumarate) 25 Mg Tablet 12.5 Mg PO PRN QID PRN Namenda (Memantine Hcl) 5 Mg Tablet 5 Mg PO BID Synthroid (Levothyroxine Sodium) 75 Mcg Tablet 75 Mcg PO DAILY06 Prozac (Fluoxetine Hcl) 40 Mg Capsule 80 Mg PO DAILY Aricept (Donepezil Hcl) 10 Mg Tablet 10 Mg PO QHS Klonopin (Clonazepam) 0.5 Mg Tablet 0.25 Mg PO BID@0700,1500 I have reviewed the current psychotropics carefully including drug interactions. Risk benefit ratio favors no change other than as noted in my dictated progress note. Diagnosis: Problems: (1) Confusion (2) Hallucinations (3) Agitated (4) Anxiety disorder (5) Depression (6) Impulse control disorder (7) Dementia, vascular, with delusions CYNDI LYN MD Oct 08, 2018 22:56
[2018-10-09] MEDS: LEVOTHYROXINE 75 MCG TABLET PO SCH (05:52)
[2018-10-09 06:30] VITALS: BP 129/81
[2018-10-09] MEDS: buPROPion XL 150 MG TAB.ER.24H PO SCH (11:55)
[2018-10-09] MEDS: FLUoxetine HCL 20 MG CAPSULE PO SCH (11:55)
[2018-10-09] MEDS: MEMANTINE 5 MG TABLET. PO SCH ×2 (11:55→19:39)
[2018-10-09] MEDS: clonazePAM 0.5 MG TABLET PO SCH (14:50)
[2018-10-09 15:24] VITALS: BP 110/65
[2018-10-09] MEDS: QUEtiapine 25 MG TABLET. PO SCH (19:39)
[2018-10-09] MEDS: DONEPEZIL HCL 10 MG TABLET PO SCH (19:39)
[2018-10-09] MEDS: ATORVASTATIN CALCIUM 20 MG TABLET PO SCH (19:39)
--- NOTE | 2018-10-09 20:36 | PN ---
DATE: 10/07/2018 PSYCHIATRIC PROGRESS NOTE This late entry 10/07/2018 covers elements not covered in my initial note. SUBJECTIVE: I met with the patient in the evening. The patient slept 8-3/4 hours previous evening. The patient spends much time in her room. The patient has been less irritable, still withdrawn. Not very verbal as I met with her, still depressed. REVIEW OF SYSTEMS: No CV, , pulmonary, eye, ENT system symptoms on review. Reliability poor. She complains of being tired. MENTAL STATUS EXAM: Oriented to herself and situation. Speech moderate latency, often responses monosyllabic. Abstraction fair, computation impaired, language function intact, attention span short. Mood and affect withdrawn. LABORATORY DATA: Reviewed. IMPRESSION: Major depressive disorder, rule out psychotic features, dementia with delusion, depression. Rest unchanged. PLAN: No change from initial note. MAN Didi LYN MD DR: AMOS/manoj JOB#: [id number] / [id number]
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
--- NOTE | 2018-10-09 22:44 | PDOC ---
Exam Note: Ricardo Note: Please also refer to the separate dictated note~for this date of service dictated separately.~Patient seen individually. Discussed the patient with Nursing staff reviewed the chart.~Reviewed interim history and current functioning. Reviewed vital signs,~Labs/ Radiology~and current medications noted below. Continue current treatment with the changes noted in the dictated addendum note Assessment: Vital Signs: Vital Signs Date Time Temp Pulse Resp B/P (MAP) Pulse Ox O2 Delivery O2 Flow Rate FiO2 10/09/18 15:24 97.4 73 20 110/65 (80) 95 10/09/18 06:30 Room Air I&O Intake and Output 10/09/18 07:01 Intake Total 720 ml Balance 720 ml Intake Oral 720 ml Current Medications: Meds: Current Medications Acetaminophen (Tylenol) 650 mg PRN Q6HRS PRN PO PAIN / TEMP; Start 10/01/18 at 02:30 Multi-Ingredient Ointment (Analgesic [place]) 1 debora PRN QID PRN TP MUSCLE PAIN; Start 10/01/18 at 02:30 Al Hydroxide/Mg Hydroxide (Mylanta Plus Xs) 15 ml PRN AFTMEALHC PRN PO DYSPEPSIA; Start 10/01/18 at 02:30 Magnesium Hydroxide (Milk Of Magnesia) 2,400 mg PRN QHS PRN PO CONSTIPATION; Start 10/01/18 at 02:30 Clonazepam (KlonoPIN) 0.25 mg BID@0700,1500 PO Last administered on 10/06/18at 05:02; Start 10/01/18 at 07:00; Stop 10/06/18 at 16:47; Status DC Levothyroxine Sodium (Synthroid) 75 mcg DAILY06 PO Last administered on at 05:52; Start 10/01/18 at 06:00 Donepezil HCl (Aricept) 10 mg QHS PO Last administered on 10/09/18at 19:39; Start 10/01/18 at 21:00 Fluoxetine HCl (PROzac) 80 mg DAILY PO Last administered on 10/02/18at 07:58; Start 10/01/18 at 09:00; Stop 10/02/18 at 17:33; Status DC Memantine (Namenda) 5 mg BID PO Last administered on 10/09/18at 19:39; Start 10/01/18 at 09:00 Quetiapine Fumarate (SEROquel) 12.5 mg PRN QID PRN PO ANXIETY / AGITATION; Start 10/01/18 at 02:45 Atorvastatin Calcium (Lipitor) 20 mg HS PO Last administered on 10/09/18at 19: 39; Start 10/01/18 at 21:00 Vitamin D (Vitamin D3) 50,000 unit WEEKLY PO ; Start 10/02/18 at 16:15; Stop 10/02/18 at 17:26; Status DC Vitamin D (Vitamin D3) 50,000 unit WEEKLY PO Last administered on 10/03/18at 09 :00; Start 10/03/18 at 08:00 Fluoxetine HCl (PROzac) 60 mg DAILY PO Last administered on 10/06/18at 09:35; Start 10/03/18 at 09:00; Stop 10/06/18 at 16:47; Status DC Quetiapine Fumarate (SEROquel) 25 mg BID PO Last administered on 10/08/18at 07: 38; Start 10/02/18 at 21:00; Stop 10/08/18 at 10:33; Status DC Clonazepam (KlonoPIN) 0.25 mg DAILY@1500 PO Last administered on 10/09/18at 14: 50; Start 10/07/18 at 15:00 Fluoxetine HCl (PROzac) 20 mg DAILY PO Last administered on 10/09/18at 11:55; Start 10/07/18 at 09:00 Bupropion HCl (Wellbutrin Xl) 150 mg DAILY PO Last administered on 10/09/18at 11:55; Start 10/07/18 at 09:00; Stop 10/09/18 at 16:43; Status DC Quetiapine Fumarate (SEROquel) 25 mg QHS PO Last administered on 10/09/18at 19: 39; Start 10/08/18 at 21:00 Bupropion HCl (Wellbutrin Xl) 300 mg DAILY PO ; Start 10/10/18 at 09:00 Active Scripts Active Reported Crestor (Rosuvastatin Calcium) 5 Mg Tablet 5 Mg PO DAILY Seroquel (Quetiapine Fumarate) 25 Mg Tablet 12.5 Mg PO PRN QID PRN Namenda (Memantine Hcl) 5 Mg Tablet 5 Mg PO BID Synthroid (Levothyroxine Sodium) 75 Mcg Tablet 75 Mcg PO DAILY06 Prozac (Fluoxetine Hcl) 40 Mg Capsule 80 Mg PO DAILY Aricept (Donepezil Hcl) 10 Mg Tablet 10 Mg PO QHS Klonopin (Clonazepam) 0.5 Mg Tablet 0.25 Mg PO BID@0700,1500 I have reviewed the current psychotropics carefully including drug interactions. Risk benefit ratio favors no change other than as noted in my dictated progress note. Diagnosis: Problems: (1) Confusion (2) Hallucinations (3) Agitated (4) Anxiety disorder (5) Depression (6) Impulse control disorder (7) Dementia, vascular, with delusions CYNDI LYN MD Oct 09, 2018 22:44
[2018-10-10] MEDS: LEVOTHYROXINE 75 MCG TABLET PO SCH (04:56)
[2018-10-10 06:43] VITALS: BP 122/72
[2018-10-10] MEDS: MEMANTINE 5 MG TABLET. PO SCH ×2 (08:17→19:27)
[2018-10-10] MEDS: FLUoxetine HCL 20 MG CAPSULE PO SCH (08:17)
[2018-10-10] MEDS: CHOLECALCIFEROL (VITAMIN D3) 50,000 UNIT CAPSULE PO SCH (08:17)
[2018-10-10] MEDS: buPROPion XL 300 MG TAB.ER.24H. PO SCH (08:18)
[2018-10-10] MEDS: clonazePAM 0.5 MG TABLET PO SCH (14:02)
[2018-10-10 16:07] VITALS: BP 138/75
[2018-10-10] MEDS: QUEtiapine 25 MG TABLET. PO SCH (19:27)
[2018-10-10] MEDS: DONEPEZIL HCL 10 MG TABLET PO SCH (19:27)
[2018-10-10] MEDS: ATORVASTATIN CALCIUM 20 MG TABLET PO SCH (19:27)
--- NOTE | 2018-10-10 22:04 | PDOC ---
Exam Note: Ricardo Note: Please also refer to the separate dictated note~for this date of service dictated separately.~Patient seen individually. Discussed the patient with Nursing staff reviewed the chart.~Reviewed interim history and current functioning. Reviewed vital signs,~Labs/ Radiology~and current medications noted below. Continue current treatment with the changes noted in the dictated addendum note Assessment: Vital Signs: Vital Signs Date Time Temp Pulse Resp B/P (MAP) Pulse Ox O2 Delivery O2 Flow Rate FiO2 10/10/18 16:07 98.6 65 18 138/75 (96) 94 Room Air I&O Intake and Output 10/10/18 07:01 Intake Total 480 ml Balance 480 ml Intake Oral 480 ml Current Medications: Meds: Current Medications Acetaminophen (Tylenol) 650 mg PRN Q6HRS PRN PO PAIN / TEMP; Start 10/01/18 at 02:30 Multi-Ingredient Ointment (Analgesic [place]) 1 debora PRN QID PRN TP MUSCLE PAIN; Start 10/01/18 at 02:30 Al Hydroxide/Mg Hydroxide (Mylanta Plus Xs) 15 ml PRN AFTMEALHC PRN PO DYSPEPSIA; Start 10/01/18 at 02:30 Magnesium Hydroxide (Milk Of Magnesia) 2,400 mg PRN QHS PRN PO CONSTIPATION; Start 10/01/18 at 02:30 Clonazepam (KlonoPIN) 0.25 mg BID@0700,1500 PO Last administered on 10/06/18at 05:02; Start 10/01/18 at 07:00; Stop 10/06/18 at 16:47; Status DC Levothyroxine Sodium (Synthroid) 75 mcg DAILY06 PO Last administered on at 04:56; Start 10/01/18 at 06:00 Donepezil HCl (Aricept) 10 mg QHS PO Last administered on 10/10/18at 19:27; Start 10/01/18 at 21:00 Fluoxetine HCl (PROzac) 80 mg DAILY PO Last administered on 10/02/18at 07:58; Start 10/01/18 at 09:00; Stop 10/02/18 at 17:33; Status DC Memantine (Namenda) 5 mg BID PO Last administered on 10/10/18at 19:27; Start 10/01/18 at 09:00 Quetiapine Fumarate (SEROquel) 12.5 mg PRN QID PRN PO ANXIETY / AGITATION; Start 10/01/18 at 02:45 Atorvastatin Calcium (Lipitor) 20 mg HS PO Last administered on 10/10/18at 19: 27; Start 10/01/18 at 21:00 Vitamin D (Vitamin D3) 50,000 unit WEEKLY PO ; Start 10/02/18 at 16:15; Stop 10/02/18 at 17:26; Status DC Vitamin D (Vitamin D3) 50,000 unit WEEKLY PO Last administered on 10/10/18at 08 :17; Start 10/03/18 at 08:00 Fluoxetine HCl (PROzac) 60 mg DAILY PO Last administered on 10/06/18at 09:35; Start 10/03/18 at 09:00; Stop 10/06/18 at 16:47; Status DC Quetiapine Fumarate (SEROquel) 25 mg BID PO Last administered on 10/08/18at 07: 38; Start 10/02/18 at 21:00; Stop 10/08/18 at 10:33; Status DC Clonazepam (KlonoPIN) 0.25 mg DAILY@1500 PO Last administered on 10/10/18at 14: 02; Start 10/07/18 at 15:00; Stop 10/10/18 at 20:32; Status DC Fluoxetine HCl (PROzac) 20 mg DAILY PO Last administered on 10/10/18at 08:17; Start 10/07/18 at 09:00 Bupropion HCl (Wellbutrin Xl) 150 mg DAILY PO Last administered on 10/09/18at 11:55; Start 10/07/18 at 09:00; Stop 10/09/18 at 16:43; Status DC Quetiapine Fumarate (SEROquel) 25 mg QHS PO Last administered on 10/10/18at 19: 27; Start 10/08/18 at 21:00 Bupropion HCl (Wellbutrin Xl) 300 mg DAILY PO Last administered on 10/10/18at 08:18; Start 10/10/18 at 09:00 Trazodone HCl (Desyrel) 50 mg PRN QHS PRN PO INSOMNIA; Start 10/10/18 at 20:45 Active Scripts Active Reported Crestor (Rosuvastatin Calcium) 5 Mg Tablet 5 Mg PO DAILY Seroquel (Quetiapine Fumarate) 25 Mg Tablet 12.5 Mg PO PRN QID PRN Namenda (Memantine Hcl) 5 Mg Tablet 5 Mg PO BID Synthroid (Levothyroxine Sodium) 75 Mcg Tablet 75 Mcg PO DAILY06 Prozac (Fluoxetine Hcl) 40 Mg Capsule 80 Mg PO DAILY Aricept (Donepezil Hcl) 10 Mg Tablet 10 Mg PO QHS Klonopin (Clonazepam) 0.5 Mg Tablet 0.25 Mg PO BID@0700,1500 I have reviewed the current psychotropics carefully including drug interactions. Risk benefit ratio favors no change other than as noted in my dictated progress note. Diagnosis: Problems: (1) Confusion (2) Hallucinations (3) Agitated (4) Anxiety disorder (5) Depression (6) Impulse control disorder (7) Dementia, vascular, with delusions CYNDI LYN MD Oct 10, 2018 22:04
[2018-10-10] MEDS: traZODone 50 MG TABLET. PO PRN (22:52)
[2018-10-11] MEDS: LEVOTHYROXINE 75 MCG TABLET PO SCH (05:39)
[2018-10-11 06:17] VITALS: BP 112/60
[2018-10-11] MEDS: FLUoxetine HCL 20 MG CAPSULE PO SCH (07:44)
[2018-10-11] MEDS: buPROPion XL 300 MG TAB.ER.24H. PO SCH (07:44)
[2018-10-11] MEDS: MEMANTINE 5 MG TABLET. PO SCH ×2 (07:44→19:51)
[2018-10-11 11:20] LABS: BASO # 0.1 x10^3/uL (0.0-0.2); BASO % 1 % (0-3); EOS # 0.3 x10^3/uL (0.0-0.7); EOS % 4 % (0-3); HEMOGLOBIN 13.6 g/dL (12.0-15.5); LYMPH # 1.4 x10^3/uL (1.0-4.8); LYMPH % 19 % (24-48); MEAN CORPUSCULAR HEMOGLOBIN 29 pg (25-35); MEAN CORPUSCULAR HGB CONC 33 g/dL (31-37); MEAN CORPUSCULAR VOLUME 87 fL (79-100); MONO # 0.5 x10^3/uL (0.0-1.1); MONO % 7 % (0-9); NEUT # 5.1 x10^3uL (1.8-7.7); NEUT % 69 % (31-73); PLATELET COUNT 268 x10^3/uL (140-400); RED BLOOD COUNT 4.73 x10^6/uL (3.50-5.40); RED CELL DISTRIBUTION WIDTH 13.6 % (11.5-14.5); WHITE BLOOD COUNT 7.3 x10^3/uL (4.0-11.0)
[2018-10-11 11:30] LABS: ALBUMIN 2.9 g/dL (3.4-5.0); ALBUMIN/GLOBULIN RATIO 0.8 (1.0-1.7); CALCIUM 8.5 mg/dL (8.5-10.1); CREATININE 0.9 mg/dL (0.6-1.0); GFR 62.3; MAGNESIUM 1.8 mg/dL (1.8-2.4); POTASSIUM 3.6 mmol/L (3.5-5.1); TOTAL BILIRUBIN 0.3 mg/dL (0.2-1.0); TOTAL PROTEIN 6.5 g/dL (6.4-8.2)
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
--- NOTE | 2018-10-11 14:51 | PN ---
DATE: 10/09/2018 PSYCHIATRIC PROGRESS NOTE This late entry 10/09/2018 covers elements, not covered in my initial note. SUBJECTIVE: I met with the patient in the evening in her room. She remains withdrawn, spends much time in her room, slept 8-1/2 hours previous night. Asked for a PRN to help her sleep, but she sleeps much of the day and staff is encouraging her not to take any PRNs for sleep. Refused breakfast and lunch. REVIEW OF SYSTEMS: Positive for tiredness. No CV, , eye, ENT or pulmonary system symptoms on review. Reliability varies. MENTAL STATUS EXAM: Oriented to herself and situation. Speech has some latency, coherent. Abstraction fair, computation impaired, language function intact, attention span short. Mood and affect withdrawn. LABORATORY DATA: Reviewed. IMPRESSION: Major depressive disorder, recurrent; major neurocognitive disorder, early Alzheimer, vascular with depression, delusion. PLAN: Increase Wellbutrin-XL to 300 mg a day. Rest unchanged from initial note. MAN Didi LYN MD DR: AMOS/manoj JOB#: [id number] / [id number]
[2018-10-11 16:14] VITALS: BP 113/75
[2018-10-11] MEDS: ATORVASTATIN CALCIUM 20 MG TABLET PO SCH (19:52)
[2018-10-11] MEDS: DONEPEZIL HCL 10 MG TABLET PO SCH (19:52)
[2018-10-11] MEDS: ARIPiprazole 5 MG TABLET PO SCH (19:53)
--- NOTE | 2018-10-11 22:50 | PDOC ---
Exam Note: Ricardo Note: Please also refer to the separate dictated note~for this date of service dictated separately.~Patient seen individually. Discussed the patient with Nursing staff reviewed the chart.~Reviewed interim history and current functioning. Reviewed vital signs,~Labs/ Radiology~and current medications noted below. Continue current treatment with the changes noted in the dictated addendum note Assessment: Vital Signs: Vital Signs Date Time Temp Pulse Resp B/P (MAP) Pulse Ox O2 Delivery O2 Flow Rate FiO2 10/11/18 16:14 98.5 72 18 113/75 (88) 95 10/11/18 06:17 Room Air I&O Intake and Output 10/11/18 07:01 Intake Total 480 ml Balance 480 ml Intake Oral 480 ml Labs: Laboratory Tests Test 10/11/18 10:42 White Blood Count 7.3 x10^3/uL (4.0-11.0) Red Blood Count 4.73 x10^6/uL (3.50-5.40) Hemoglobin 13.6 g/dL (12.0-15.5) Hematocrit 41.0 % (36.0-47.0) Mean Corpuscular Volume 87 fL (79-100) Mean Corpuscular Hemoglobin 29 pg (25-35) Mean Corpuscular Hemoglobin Concent 33 g/dL (31-37) Red Cell Distribution Width 13.6 % (11.5-14.5) Platelet Count 268 x10^3/uL (140-400) Neutrophils (%) (Auto) 69 % (31-73) Lymphocytes (%) (Auto) 19 % (24-48) L Monocytes (%) (Auto) 7 % (0-9) Eosinophils (%) (Auto) 4 % (0-3) H Basophils (%) (Auto) 1 % (0-3) Neutrophils # (Auto) 5.1 x10^3uL (1.8-7.7) Lymphocytes # (Auto) 1.4 x10^3/uL (1.0-4.8) Monocytes # (Auto) 0.5 x10^3/uL (0.0-1.1) Eosinophils # (Auto) 0.3 x10^3/uL (0.0-0.7) Basophils # (Auto) 0.1 x10^3/uL (0.0-0.2) Sodium Level 143 mmol/L (136-145) Potassium Level 3.6 mmol/L (3.5-5.1) Chloride Level 106 mmol/L (98-107) Carbon Dioxide Level 26 mmol/L (21-32) Anion Gap 11 (6-14) Blood Urea Nitrogen 12 mg/dL (7-20) Creatinine 0.9 mg/dL (0.6-1.0) Estimated GFR (Cockcroft-Gault) 62.3 BUN/Creatinine Ratio 13 (6-20) Glucose Level 183 mg/dL (70-99) H Calcium Level 8.5 mg/dL (8.5-10.1) Magnesium Level 1.8 mg/dL (1.8-2.4) Total Bilirubin 0.3 mg/dL (0.2-1.0) Aspartate Amino Transferase (AST) 20 U/L (15-37) Alanine Aminotransferase (ALT) 25 U/L (14-59) Alkaline Phosphatase 91 U/L (46-116) Total Protein 6.5 g/dL (6.4-8.2) Albumin 2.9 g/dL (3.4-5.0) L Albumin/Globulin Ratio 0.8 (1.0-1.7) L Current Medications: Meds: Current Medications Acetaminophen (Tylenol) 650 mg PRN Q6HRS PRN PO PAIN / TEMP; Start 10/01/18 at 02:30 Multi-Ingredient Ointment (Analgesic [place]) 1 debora PRN QID PRN TP MUSCLE PAIN; Start 10/01/18 at 02:30 Al Hydroxide/Mg Hydroxide (Mylanta Plus Xs) 15 ml PRN AFTMEALHC PRN PO DYSPEPSIA; Start 10/01/18 at 02:30 Magnesium Hydroxide (Milk Of Magnesia) 2,400 mg PRN QHS PRN PO CONSTIPATION; Start 10/01/18 at 02:30 Clonazepam (KlonoPIN) 0.25 mg BID@0700,1500 PO Last administered on 10/06/18at 05:02; Start 10/01/18 at 07:00; Stop 10/06/18 at 16:47; Status DC Levothyroxine Sodium (Synthroid) 75 mcg DAILY06 PO Last administered on at 05:39; Start 10/01/18 at 06:00 Donepezil HCl (Aricept) 10 mg QHS PO Last administered on 10/11/18at 19:52; Start 10/01/18 at 21:00 Fluoxetine HCl (PROzac) 80 mg DAILY PO Last administered on 10/02/18at 07:58; Start 10/01/18 at 09:00; Stop 10/02/18 at 17:33; Status DC Memantine (Namenda) 5 mg BID PO Last administered on 10/11/18at 19:51; Start 10/01/18 at 09:00 Quetiapine Fumarate (SEROquel) 12.5 mg PRN QID PRN PO ANXIETY / AGITATION; Start 10/01/18 at 02:45 Atorvastatin Calcium (Lipitor) 20 mg HS PO Last administered on 10/11/18at 19: 52; Start 10/01/18 at 21:00 Vitamin D (Vitamin D3) 50,000 unit WEEKLY PO ; Start 10/02/18 at 16:15; Stop 10/02/18 at 17:26; Status DC Vitamin D (Vitamin D3) 50,000 unit WEEKLY PO Last administered on 10/10/18at 08 :17; Start 10/03/18 at 08:00 Fluoxetine HCl (PROzac) 60 mg DAILY PO Last administered on 10/06/18at 09:35; Start 10/03/18 at 09:00; Stop 10/06/18 at 16:47; Status DC Quetiapine Fumarate (SEROquel) 25 mg BID PO Last administered on 10/08/18at 07: 38; Start 10/02/18 at 21:00; Stop 10/08/18 at 10:33; Status DC Clonazepam (KlonoPIN) 0.25 mg DAILY@1500 PO Last administered on 10/10/18at 14: 02; Start 10/07/18 at 15:00; Stop 10/10/18 at 20:32; Status DC Fluoxetine HCl (PROzac) 20 mg DAILY PO Last administered on 10/11/18at 07:44; Start 10/07/18 at 09:00 Bupropion HCl (Wellbutrin Xl) 150 mg DAILY PO Last administered on 10/09/18at 11:55; Start 10/07/18 at 09:00; Stop 10/09/18 at 16:43; Status DC Quetiapine Fumarate (SEROquel) 25 mg QHS PO Last administered on 10/10/18at 19: 27; Start 10/08/18 at 21:00; Stop 10/11/18 at 18:11; Status DC Bupropion HCl (Wellbutrin Xl) 300 mg DAILY PO Last administered on 10/11/18at 07:44; Start 10/10/18 at 09:00 Trazodone HCl (Desyrel) 50 mg PRN QHS PRN PO INSOMNIA Last administered on at 22:52; Start 10/10/18 at 20:45 Aripiprazole (Abilify) 2.5 mg QHS PO Last administered on 10/11/18at 19:53; Start 10/11/18 at 21:00 Active Scripts Active Reported Crestor (Rosuvastatin Calcium) 5 Mg Tablet 5 Mg PO DAILY Seroquel (Quetiapine Fumarate) 25 Mg Tablet 12.5 Mg PO PRN QID PRN Namenda (Memantine Hcl) 5 Mg Tablet 5 Mg PO BID Synthroid (Levothyroxine Sodium) 75 Mcg Tablet 75 Mcg PO DAILY06 Prozac (Fluoxetine Hcl) 40 Mg Capsule 80 Mg PO DAILY Aricept (Donepezil Hcl) 10 Mg Tablet 10 Mg PO QHS Klonopin (Clonazepam) 0.5 Mg Tablet 0.25 Mg PO BID@0700,1500 I have reviewed the current psychotropics carefully including drug interactions. Risk benefit ratio favors no change other than as noted in my dictated progress note. Diagnosis: Problems: (1) Confusion (2) Hallucinations (3) Agitated (4) Anxiety disorder (5) Depression (6) Impulse control disorder (7) Dementia, vascular, with delusions CYNDI LYN MD Oct 11, 2018 22:50
[2018-10-11] MEDS: traZODone 50 MG TABLET. PO PRN (23:21)
[2018-10-12] MEDS: LEVOTHYROXINE 75 MCG TABLET PO SCH (03:56)
[2018-10-12 06:26] VITALS: BP 94/57
[2018-10-12] MEDS: MEMANTINE 5 MG TABLET. PO SCH ×2 (07:32→20:44)
[2018-10-12] MEDS: FLUoxetine HCL 20 MG CAPSULE PO SCH (07:32)
[2018-10-12] MEDS: buPROPion XL 300 MG TAB.ER.24H. PO SCH (07:32)
[2018-10-12 16:12] VITALS: BP 126/62
--- NOTE | 2018-10-12 18:53 | PDOC ---
Exam Note: Ricardo Note: Please also refer to the separate dictated note~for this date of service dictated separately.~Patient seen individually. Discussed the patient with Nursing staff reviewed the chart.~Reviewed interim history and current functioning. Reviewed vital signs,~Labs/ Radiology~and current medications noted below. Continue current treatment with the changes noted in the dictated addendum note Assessment: Vital Signs: Vital Signs Date Time Temp Pulse Resp B/P (MAP) Pulse Ox O2 Delivery O2 Flow Rate FiO2 10/12/18 16:12 98.3 68 20 126/62 (83) 95 Room Air I&O Intake and Output 10/12/18 07:01 Intake Total 1440 ml Balance 1440 ml Intake Oral 1440 ml Current Medications: Meds: Current Medications Acetaminophen (Tylenol) 650 mg PRN Q6HRS PRN PO PAIN / TEMP Last administered on 10/12/18at 00:14; Start 10/01/18 at 02:30 Multi-Ingredient Ointment (Analgesic [place]) 1 debora PRN QID PRN TP MUSCLE PAIN; Start 10/01/18 at 02:30 Al Hydroxide/Mg Hydroxide (Mylanta Plus Xs) 15 ml PRN AFTMEALHC PRN PO DYSPEPSIA; Start 10/01/18 at 02:30 Magnesium Hydroxide (Milk Of Magnesia) 2,400 mg PRN QHS PRN PO CONSTIPATION; Start 10/01/18 at 02:30 Clonazepam (KlonoPIN) 0.25 mg BID@0700,1500 PO Last administered on 10/06/18at 05:02; Start 10/01/18 at 07:00; Stop 10/06/18 at 16:47; Status DC Levothyroxine Sodium (Synthroid) 75 mcg DAILY06 PO Last administered on at 03:56; Start 10/01/18 at 06:00 Donepezil HCl (Aricept) 10 mg QHS PO Last administered on 10/11/18at 19:52; Start 10/01/18 at 21:00 Fluoxetine HCl (PROzac) 80 mg DAILY PO Last administered on 10/02/18at 07:58; Start 10/01/18 at 09:00; Stop 10/02/18 at 17:33; Status DC Memantine (Namenda) 5 mg BID PO Last administered on 10/12/18at 07:32; Start 10/01/18 at 09:00 Quetiapine Fumarate (SEROquel) 12.5 mg PRN QID PRN PO ANXIETY / AGITATION Last administered on 10/12/18at 00:14; Start 10/01/18 at 02:45 Atorvastatin Calcium (Lipitor) 20 mg HS PO Last administered on 10/11/18at 19: 52; Start 10/01/18 at 21:00 Vitamin D (Vitamin D3) 50,000 unit WEEKLY PO ; Start 10/02/18 at 16:15; Stop 10/02/18 at 17:26; Status DC Vitamin D (Vitamin D3) 50,000 unit WEEKLY PO Last administered on 10/10/18at 08 :17; Start 10/03/18 at 08:00 Fluoxetine HCl (PROzac) 60 mg DAILY PO Last administered on 10/06/18at 09:35; Start 10/03/18 at 09:00; Stop 10/06/18 at 16:47; Status DC Quetiapine Fumarate (SEROquel) 25 mg BID PO Last administered on 10/08/18at 07: 38; Start 10/02/18 at 21:00; Stop 10/08/18 at 10:33; Status DC Clonazepam (KlonoPIN) 0.25 mg DAILY@1500 PO Last administered on 10/10/18at 14: 02; Start 10/07/18 at 15:00; Stop 10/10/18 at 20:32; Status DC Fluoxetine HCl (PROzac) 20 mg DAILY PO Last administered on 10/12/18at 07:32; Start 10/07/18 at 09:00 Bupropion HCl (Wellbutrin Xl) 150 mg DAILY PO Last administered on 10/09/18at 11:55; Start 10/07/18 at 09:00; Stop 10/09/18 at 16:43; Status DC Quetiapine Fumarate (SEROquel) 25 mg QHS PO Last administered on 10/10/18at 19: 27; Start 10/08/18 at 21:00; Stop 10/11/18 at 18:11; Status DC Bupropion HCl (Wellbutrin Xl) 300 mg DAILY PO Last administered on 10/12/18at 07:32; Start 10/10/18 at 09:00 Trazodone HCl (Desyrel) 50 mg PRN QHS PRN PO INSOMNIA Last administered on at 23:21; Start 10/10/18 at 20:45 Aripiprazole (Abilify) 2.5 mg QHS PO Last administered on 10/11/18at 19:53; Start 10/11/18 at 21:00 Active Scripts Active Reported Crestor (Rosuvastatin Calcium) 5 Mg Tablet 5 Mg PO DAILY Seroquel (Quetiapine Fumarate) 25 Mg Tablet 12.5 Mg PO PRN QID PRN Namenda (Memantine Hcl) 5 Mg Tablet 5 Mg PO BID Synthroid (Levothyroxine Sodium) 75 Mcg Tablet 75 Mcg PO DAILY06 Prozac (Fluoxetine Hcl) 40 Mg Capsule 80 Mg PO DAILY Aricept (Donepezil Hcl) 10 Mg Tablet 10 Mg PO QHS Klonopin (Clonazepam) 0.5 Mg Tablet 0.25 Mg PO BID@0700,1500 I have reviewed the current psychotropics carefully including drug interactions. Risk benefit ratio favors no change other than as noted in my dictated progress note. Diagnosis: Problems: (1) Confusion (2) Hallucinations (3) Agitated (4) Anxiety disorder (5) Depression (6) Impulse control disorder (7) Dementia, vascular, with delusions CYNDI LYN MD Oct 12, 2018 18:53
[2018-10-12] MEDS: DONEPEZIL HCL 10 MG TABLET PO SCH (20:44)
[2018-10-12] MEDS: ATORVASTATIN CALCIUM 20 MG TABLET PO SCH (20:44)
[2018-10-12] MEDS: ARIPiprazole 5 MG TABLET PO SCH (20:45)
[2018-10-13] MEDS: traZODone 50 MG TABLET. PO PRN ×2 (01:18→22:07)
[2018-10-13 05:31] VITALS: BP 125/79
[2018-10-13] MEDS: LEVOTHYROXINE 75 MCG TABLET PO SCH (05:40)
[2018-10-13] MEDS: MEMANTINE 5 MG TABLET. PO SCH ×2 (07:43→18:54)
[2018-10-13] MEDS: buPROPion XL 300 MG TAB.ER.24H. PO SCH (07:43)
[2018-10-13] MEDS: FLUoxetine HCL 20 MG CAPSULE PO SCH (07:43)
[2018-10-13 16:39] VITALS: BP 137/79
[2018-10-13 16:47] VITALS: BP 137/79
--- NOTE | 2018-10-13 17:21 | PN ---
DATE: 10/11/2018 PSYCHIATRIC PROGRESS NOTE This late entry 10/11/2018 covers elements not covered in my initial note. SUBJECTIVE: I met with the patient in the evening. The patient slept 7 hours previous night. The patient spends much time in her room, withdrawn, still depressed, minimizes this when I questioned her, but very isolative. REVIEW OF SYSTEMS: Positive for tiredness. No CV, , pulmonary, eye system symptoms on review. MENTAL STATUS EXAM: Oriented to herself and situation. Speech has some latency, often responses monosyllabic. Abstraction fair, computation impaired, language function intact, attention span short. Mood and affect still withdrawn. She is disappointed that nursing staff have not been able to arrange reading glasses for her either themselves or from her daughter as I discussed with nursing staff the day before. She has had 2-3 books lying on the bed, but states she cannot read it and has no interest because of having no glasses. No CV, , pulmonary, eye system symptoms on review. MENTAL STATUS EXAM: Oriented to herself and situation. Speech moderate latency, often responses monosyllabic. Abstraction fair, computation impaired. No suicidal ideation. Mood and affect remains withdrawn. LABORATORY DATA: Reviewed. IMPRESSION: Major depressive disorder, recurrent with psychotic features; cognitive disorder, unspecified. Rest unchanged. PLAN: Change the Seroquel 25 mg at bedtime to Abilify 2.5 mg a day, to augment Prozac 20 mg a day, and to avoid sedation from the Seroquel. Rest unchanged from initial note. CYNDI LYN MD DR: AMOS/manoj JOB#: [id number] / [id number]
--- NOTE | 2018-10-13 17:24 | PN ---
DATE: 10/12/2018 PSYCHIATRIC PROGRESS NOTE This late entry 10/12/2018 covers elements not covered in my initial note. SUBJECTIVE: I met with the patient in the evening. The patient slept 8 hours previous night. She spends much time in her bed, again wanting some reading glasses and I have once again discussed with nursing staff to help arrange either from her daughter or we can get some readers for the unit that she could use. REVIEW OF SYSTEMS: Positive for tiredness. No CV, , pulmonary, eye system symptoms on review. MENTAL STATUS EXAM: Oriented to herself and situation. Speech coherent, has some latency, low in volume. Abstraction fair, computation impaired, language function intact. Short term memory is impaired. No suicidal or homicidal ideation. LABORATORY DATA: Reviewed. IMPRESSION: Unchanged from initial note. PLAN: No change from initial note. MAN Didi LYN MD DR: AMOS/manoj JOB#: [id number] / [id number]
[2018-10-13] MEDS: DONEPEZIL HCL 10 MG TABLET PO SCH (18:54)
[2018-10-13] MEDS: ATORVASTATIN CALCIUM 20 MG TABLET PO SCH (18:54)
[2018-10-13] MEDS: ARIPiprazole 5 MG TABLET PO SCH (18:54)
--- NOTE | 2018-10-13 19:01 | PDOC ---
Exam Note: Ricardo Note: Please also refer to the separate dictated note~for this date of service dictated separately.~Patient seen individually. Discussed the patient with Nursing staff reviewed the chart.~Reviewed interim history and current functioning. Reviewed vital signs,~Labs/ Radiology~and current medications noted below. Continue current treatment with the changes noted in the dictated addendum note Assessment: Vital Signs: Vital Signs Date Time Temp Pulse Resp B/P (MAP) Pulse Ox O2 Delivery O2 Flow Rate FiO2 10/13/18 16:47 98.3 94 17 137/79 (98) 98 10/13/18 05:31 Room Air I&O Intake and Output 10/13/18 07:01 Intake Total 1320 ml Balance 1320 ml Intake Oral 1320 ml Current Medications: Meds: Current Medications Acetaminophen (Tylenol) 650 mg PRN Q6HRS PRN PO PAIN / TEMP Last administered on 10/12/18at 00:14; Start 10/01/18 at 02:30 Multi-Ingredient Ointment (Analgesic [place]) 1 debora PRN QID PRN TP MUSCLE PAIN; Start 10/01/18 at 02:30 Al Hydroxide/Mg Hydroxide (Mylanta Plus Xs) 15 ml PRN AFTMEALHC PRN PO DYSPEPSIA; Start 10/01/18 at 02:30 Magnesium Hydroxide (Milk Of Magnesia) 2,400 mg PRN QHS PRN PO CONSTIPATION; Start 10/01/18 at 02:30 Clonazepam (KlonoPIN) 0.25 mg BID@0700,1500 PO Last administered on 10/06/18at 05:02; Start 10/01/18 at 07:00; Stop 10/06/18 at 16:47; Status DC Levothyroxine Sodium (Synthroid) 75 mcg DAILY06 PO Last administered on at 05:40; Start 10/01/18 at 06:00 Donepezil HCl (Aricept) 10 mg QHS PO Last administered on 10/13/18at 18:54; Start 10/01/18 at 21:00 Fluoxetine HCl (PROzac) 80 mg DAILY PO Last administered on 10/02/18at 07:58; Start 10/01/18 at 09:00; Stop 10/02/18 at 17:33; Status DC Memantine (Namenda) 5 mg BID PO Last administered on 10/13/18at 18:54; Start 10/01/18 at 09:00 Quetiapine Fumarate (SEROquel) 12.5 mg PRN QID PRN PO ANXIETY / AGITATION Last administered on 10/12/18at 00:14; Start 10/01/18 at 02:45 Atorvastatin Calcium (Lipitor) 20 mg HS PO Last administered on 10/13/18at 18: 54; Start 10/01/18 at 21:00 Vitamin D (Vitamin D3) 50,000 unit WEEKLY PO ; Start 10/02/18 at 16:15; Stop 10/02/18 at 17:26; Status DC Vitamin D (Vitamin D3) 50,000 unit WEEKLY PO Last administered on 10/10/18at 08 :17; Start 10/03/18 at 08:00 Fluoxetine HCl (PROzac) 60 mg DAILY PO Last administered on 10/06/18at 09:35; Start 10/03/18 at 09:00; Stop 10/06/18 at 16:47; Status DC Quetiapine Fumarate (SEROquel) 25 mg BID PO Last administered on 10/08/18at 07: 38; Start 10/02/18 at 21:00; Stop 10/08/18 at 10:33; Status DC Clonazepam (KlonoPIN) 0.25 mg DAILY@1500 PO Last administered on 10/10/18at 14: 02; Start 10/07/18 at 15:00; Stop 10/10/18 at 20:32; Status DC Fluoxetine HCl (PROzac) 20 mg DAILY PO Last administered on 10/13/18at 07:43; Start 10/07/18 at 09:00 Bupropion HCl (Wellbutrin Xl) 150 mg DAILY PO Last administered on 10/09/18at 11:55; Start 10/07/18 at 09:00; Stop 10/09/18 at 16:43; Status DC Quetiapine Fumarate (SEROquel) 25 mg QHS PO Last administered on 10/10/18at 19: 27; Start 10/08/18 at 21:00; Stop 10/11/18 at 18:11; Status DC Bupropion HCl (Wellbutrin Xl) 300 mg DAILY PO Last administered on 10/13/18at 07:43; Start 10/10/18 at 09:00 Trazodone HCl (Desyrel) 50 mg PRN QHS PRN PO INSOMNIA Last administered on at 01:18; Start 10/10/18 at 20:45 Aripiprazole (Abilify) 2.5 mg QHS PO Last administered on 10/13/18at 18:54; Start 10/11/18 at 21:00 Active Scripts Active Reported Crestor (Rosuvastatin Calcium) 5 Mg Tablet 5 Mg PO DAILY Seroquel (Quetiapine Fumarate) 25 Mg Tablet 12.5 Mg PO PRN QID PRN Namenda (Memantine Hcl) 5 Mg Tablet 5 Mg PO BID Synthroid (Levothyroxine Sodium) 75 Mcg Tablet 75 Mcg PO DAILY06 Prozac (Fluoxetine Hcl) 40 Mg Capsule 80 Mg PO DAILY Aricept (Donepezil Hcl) 10 Mg Tablet 10 Mg PO QHS Klonopin (Clonazepam) 0.5 Mg Tablet 0.25 Mg PO BID@0700,1500 I have reviewed the current psychotropics carefully including drug interactions. Risk benefit ratio favors no change other than as noted in my dictated progress note. Diagnosis: Problems: (1) Confusion (2) Hallucinations (3) Agitated (4) Anxiety disorder (5) Depression (6) Impulse control disorder (7) Dementia, vascular, with delusions CYNDI LYN MD Oct 13, 2018 19:01
[2018-10-14 06:03] VITALS: BP 119/75
[2018-10-14] MEDS: LEVOTHYROXINE 75 MCG TABLET PO SCH (06:26)
[2018-10-14] MEDS: MEMANTINE 5 MG TABLET. PO SCH ×2 (08:00→19:32)
[2018-10-14] MEDS: buPROPion XL 300 MG TAB.ER.24H. PO SCH (08:01)
[2018-10-14] MEDS: FLUoxetine HCL 20 MG CAPSULE PO SCH (08:01)
[2018-10-14 16:47] VITALS: BP 121/54
[2018-10-14] MEDS: DONEPEZIL HCL 10 MG TABLET PO SCH (19:32)
[2018-10-14] MEDS: ATORVASTATIN CALCIUM 20 MG TABLET PO SCH (19:32)
[2018-10-14] MEDS: traZODone 50 MG TABLET. PO PRN ×2 (19:35→22:15)
[2018-10-14] MEDS: ARIPiprazole 5 MG TABLET PO SCH (19:35)
--- NOTE | 2018-10-14 22:40 | PN ---
DATE: 10/13/2018 PSYCHIATRIC PROGRESS NOTE This late entry 10/13/2018 covers elements not covered in my initial note. SUBJECTIVE: I met with the patient in the evening. The patient slept 5-1/4 hours previous night. The patient remains isolative, withdrawn to her room, which is where I met with her. She still wanting some reading glasses and I have once again asked the nursing staff to contact her daughter for this. REVIEW OF SYSTEMS: No CV, , pulmonary, eye, ENT system symptoms on review. She is fixated on wanting to go home and I discussed options. She wants to live alone by herself. MENTAL STATUS EXAM: Oriented to herself and situation. Speech has some latency, coherent. Abstraction fair, computation impaired, language function intact, attention span short. Mood and affect still quite withdrawn, depressed, but improved. No active suicidal ideation. LABORATORY DATA: Reviewed. IMPRESSION: Major depressive disorder, recurrent; severe major neurocognitive disorder, Alzheimer, vascular with depression. Rest unchanged. PLAN: No change from initial note. CYNDI LYN MD DR: AMOS/manoj JOB#: [id number] / [id number]
--- NOTE | 2018-10-14 22:46 | PDOC ---
Exam Note: Ricardo Note: Please also refer to the separate dictated note~for this date of service dictated separately.~Patient seen individually. Discussed the patient with Nursing staff reviewed the chart.~Reviewed interim history and current functioning. Reviewed vital signs,~Labs/ Radiology~and current medications noted below. Continue current treatment with the changes noted in the dictated addendum note Assessment: Vital Signs: Vital Signs Date Time Temp Pulse Resp B/P (MAP) Pulse Ox O2 Delivery O2 Flow Rate FiO2 10/14/18 16:47 97.9 70 18 121/54 (76) 95 10/13/18 05:31 Room Air I&O Intake and Output 10/14/18 07:01 Intake Total 1320 ml Balance 1320 ml Intake Oral 1320 ml # Bowel Movements 1 Current Medications: Meds: Current Medications Acetaminophen (Tylenol) 650 mg PRN Q6HRS PRN PO PAIN / TEMP Last administered on 10/12/18at 00:14; Start 10/01/18 at 02:30 Multi-Ingredient Ointment (Analgesic [place]) 1 debora PRN QID PRN TP MUSCLE PAIN; Start 10/01/18 at 02:30 Al Hydroxide/Mg Hydroxide (Mylanta Plus Xs) 15 ml PRN AFTMEALHC PRN PO DYSPEPSIA; Start 10/01/18 at 02:30 Magnesium Hydroxide (Milk Of Magnesia) 2,400 mg PRN QHS PRN PO CONSTIPATION; Start 10/01/18 at 02:30 Clonazepam (KlonoPIN) 0.25 mg BID@0700,1500 PO Last administered on 10/06/18at 05:02; Start 10/01/18 at 07:00; Stop 10/06/18 at 16:47; Status DC Levothyroxine Sodium (Synthroid) 75 mcg DAILY06 PO Last administered on at 06:26; Start 10/01/18 at 06:00 Donepezil HCl (Aricept) 10 mg QHS PO Last administered on 10/14/18at 19:32; Start 10/01/18 at 21:00 Fluoxetine HCl (PROzac) 80 mg DAILY PO Last administered on 10/02/18at 07:58; Start 10/01/18 at 09:00; Stop 10/02/18 at 17:33; Status DC Memantine (Namenda) 5 mg BID PO Last administered on 10/14/18at 19:32; Start 10/01/18 at 09:00 Quetiapine Fumarate (SEROquel) 12.5 mg PRN QID PRN PO ANXIETY / AGITATION Last administered on 10/12/18at 00:14; Start 10/01/18 at 02:45 Atorvastatin Calcium (Lipitor) 20 mg HS PO Last administered on 10/14/18at 19: 32; Start 10/01/18 at 21:00 Vitamin D (Vitamin D3) 50,000 unit WEEKLY PO ; Start 10/02/18 at 16:15; Stop 10/02/18 at 17:26; Status DC Vitamin D (Vitamin D3) 50,000 unit WEEKLY PO Last administered on 10/10/18at 08 :17; Start 10/03/18 at 08:00 Fluoxetine HCl (PROzac) 60 mg DAILY PO Last administered on 10/06/18at 09:35; Start 10/03/18 at 09:00; Stop 10/06/18 at 16:47; Status DC Quetiapine Fumarate (SEROquel) 25 mg BID PO Last administered on 10/08/18at 07: 38; Start 10/02/18 at 21:00; Stop 10/08/18 at 10:33; Status DC Clonazepam (KlonoPIN) 0.25 mg DAILY@1500 PO Last administered on 10/10/18at 14: 02; Start 10/07/18 at 15:00; Stop 10/10/18 at 20:32; Status DC Fluoxetine HCl (PROzac) 20 mg DAILY PO Last administered on 10/14/18at 08:01; Start 10/07/18 at 09:00 Bupropion HCl (Wellbutrin Xl) 150 mg DAILY PO Last administered on 10/09/18at 11:55; Start 10/07/18 at 09:00; Stop 10/09/18 at 16:43; Status DC Quetiapine Fumarate (SEROquel) 25 mg QHS PO Last administered on 10/10/18at 19: 27; Start 10/08/18 at 21:00; Stop 10/11/18 at 18:11; Status DC Bupropion HCl (Wellbutrin Xl) 300 mg DAILY PO Last administered on 10/14/18at 08:01; Start 12/22/18 at 09:00 Trazodone HCl (Desyrel) 50 mg PRN QHS PRN PO INSOMNIA Last administered on at 22:15; Start 10/10/18 at 20:45 Aripiprazole (Abilify) 2.5 mg QHS PO Last administered on 10/14/18at 19:35; Start 10/11/18 at 21:00 Active Scripts Active Reported Crestor (Rosuvastatin Calcium) 5 Mg Tablet 5 Mg PO DAILY Seroquel (Quetiapine Fumarate) 25 Mg Tablet 12.5 Mg PO PRN QID PRN Namenda (Memantine Hcl) 5 Mg Tablet 5 Mg PO BID Synthroid (Levothyroxine Sodium) 75 Mcg Tablet 75 Mcg PO DAILY06 Prozac (Fluoxetine Hcl) 40 Mg Capsule 80 Mg PO DAILY Aricept (Donepezil Hcl) 10 Mg Tablet 10 Mg PO QHS Klonopin (Clonazepam) 0.5 Mg Tablet 0.25 Mg PO BID@0700,1500 I have reviewed the current psychotropics carefully including drug interactions. Risk benefit ratio favors no change other than as noted in my dictated progress note. Diagnosis: Problems: (1) Confusion (2) Hallucinations (3) Agitated (4) Anxiety disorder (5) Depression (6) Impulse control disorder (7) Dementia, vascular, with delusions CYNDI LYN MD Oct 14, 2018 22:46
[2018-10-15 05:46] VITALS: BP 119/73
[2018-10-15] MEDS: LEVOTHYROXINE 75 MCG TABLET PO SCH (06:21)
[2018-10-15] MEDS: buPROPion XL 300 MG TAB.ER.24H. PO SCH (07:29)
[2018-10-15] MEDS: FLUoxetine HCL 20 MG CAPSULE PO SCH (07:29)
[2018-10-15] MEDS: MEMANTINE 5 MG TABLET. PO SCH ×2 (07:29→19:20)
[2018-10-15 16:09] VITALS: BP 119/69
[2018-10-15] MEDS: ATORVASTATIN CALCIUM 20 MG TABLET PO SCH (19:20)
[2018-10-15] MEDS: DONEPEZIL HCL 10 MG TABLET PO SCH (19:20)
[2018-10-15] MEDS: ARIPiprazole 5 MG TABLET PO SCH (19:21)
--- NOTE | 2018-10-15 22:42 | PDOC ---
Exam Note: Ricardo Note: Please also refer to the separate dictated note~for this date of service dictated separately.~Patient seen individually. Discussed the patient with Nursing staff reviewed the chart.~Reviewed interim history and current functioning. Reviewed vital signs,~Labs/ Radiology~and current medications noted below. Continue current treatment with the changes noted in the dictated addendum note Assessment: Vital Signs: Vital Signs Date Time Temp Pulse Resp B/P (MAP) Pulse Ox O2 Delivery O2 Flow Rate FiO2 10/15/18 16:09 97.6 68 18 119/69 (86) 96 10/13/18 05:31 Room Air I&O Intake and Output 10/15/18 07:01 Intake Total 820 ml Balance 820 ml Intake Oral 820 ml Current Medications: Meds: Current Medications Acetaminophen (Tylenol) 650 mg PRN Q6HRS PRN PO PAIN / TEMP Last administered on 10/12/18at 00:14; Start 10/01/18 at 02:30 Multi-Ingredient Ointment (Analgesic [place]) 1 debora PRN QID PRN TP MUSCLE PAIN; Start 10/01/18 at 02:30 Al Hydroxide/Mg Hydroxide (Mylanta Plus Xs) 15 ml PRN AFTMEALHC PRN PO DYSPEPSIA; Start 10/01/18 at 02:30 Magnesium Hydroxide (Milk Of Magnesia) 2,400 mg PRN QHS PRN PO CONSTIPATION; Start 10/01/18 at 02:30 Clonazepam (KlonoPIN) 0.25 mg BID@0700,1500 PO Last administered on 10/06/18at 05:02; Start 10/01/18 at 07:00; Stop 10/06/18 at 16:47; Status DC Levothyroxine Sodium (Synthroid) 75 mcg DAILY06 PO Last administered on at 06:21; Start 10/01/18 at 06:00 Donepezil HCl (Aricept) 10 mg QHS PO Last administered on 10/15/18at 19:20; Start 10/01/18 at 21:00 Fluoxetine HCl (PROzac) 80 mg DAILY PO Last administered on 10/02/18at 07:58; Start 10/01/18 at 09:00; Stop 10/02/18 at 17:33; Status DC Memantine (Namenda) 5 mg BID PO Last administered on 10/15/18 19:20; Start 10/01/18 at 09:00 Quetiapine Fumarate (SEROquel) 12.5 mg PRN QID PRN PO ANXIETY / AGITATION Last administered on 10/12/18at 00:14; Start 10/01/18 at 02:45 Atorvastatin Calcium (Lipitor) 20 mg HS PO Last administered on 10/15/18at 19: 20; Start 10/01/18 at 21:00 Vitamin D (Vitamin D3) 50,000 unit WEEKLY PO ; Start 10/02/18 at 16:15; Stop 10/02/18 at 17:26; Status DC Vitamin D (Vitamin D3) 50,000 unit WEEKLY PO Last administered on 10/10/18at 08 :17; Start 10/03/18 at 08:00 Fluoxetine HCl (PROzac) 60 mg DAILY PO Last administered on 10/06/18at 09:35; Start 10/03/18 at 09:00; Stop 10/06/18 at 16:47; Status DC Quetiapine Fumarate (SEROquel) 25 mg BID PO Last administered on 10/08/18at 07: 38; Start 10/02/18 at 21:00; Stop 10/08/18 at 10:33; Status DC Clonazepam (KlonoPIN) 0.25 mg DAILY@1500 PO Last administered on 10/10/18at 14: 02; Start 10/07/18 at 15:00; Stop 10/10/18 at 20:32; Status DC Fluoxetine HCl (PROzac) 20 mg DAILY PO Last administered on 10/15/18at 07:29; Start 10/07/18 at 09:00 Bupropion HCl (Wellbutrin Xl) 150 mg DAILY PO Last administered on 10/09/18at 11:55; Start 10/07/18 at 09:00; Stop 10/09/18 at 16:43; Status DC Quetiapine Fumarate (SEROquel) 25 mg QHS PO Last administered on 10/10/18at 19: 27; Start 10/08/18 at 21:00; Stop 10/11/18 at 18:11; Status DC Bupropion HCl (Wellbutrin Xl) 300 mg DAILY PO Last administered on 10/15/18at 07:29; Start 10/10/18 at 09:00 Trazodone HCl (Desyrel) 50 mg PRN QHS PRN PO INSOMNIA Last administered on at 22:15; Start 10/10/18 at 20:45 Aripiprazole (Abilify) 2.5 mg QHS PO Last administered on 10/15/18at 19:21; Start 10/11/18 at 21:00 Active Scripts Active Reported Crestor (Rosuvastatin Calcium) 5 Mg Tablet 5 Mg PO DAILY Seroquel (Quetiapine Fumarate) 25 Mg Tablet 12.5 Mg PO PRN QID PRN Namenda (Memantine Hcl) 5 Mg Tablet 5 Mg PO BID Synthroid (Levothyroxine Sodium) 75 Mcg Tablet 75 Mcg PO DAILY06 Prozac (Fluoxetine Hcl) 40 Mg Capsule 80 Mg PO DAILY Aricept (Donepezil Hcl) 10 Mg Tablet 10 Mg PO QHS Klonopin (Clonazepam) 0.5 Mg Tablet 0.25 Mg PO BID@0700,1500 I have reviewed the current psychotropics carefully including drug interactions. Risk benefit ratio favors no change other than as noted in my dictated progress note. Diagnosis: Problems: (1) Confusion (2) Hallucinations (3) Agitated (4) Anxiety disorder (5) Depression (6) Impulse control disorder (7) Dementia, vascular, with delusions CYNDI LYN MD Oct 15, 2018 22:42
[2018-10-16] MEDS: LEVOTHYROXINE 75 MCG TABLET PO SCH (04:54)
[2018-10-16 06:02] VITALS: BP 115/68
[2018-10-16] MEDS: MEMANTINE 5 MG TABLET. PO SCH (07:25)
[2018-10-16] MEDS: buPROPion XL 300 MG TAB.ER.24H. PO SCH (07:25)
[2018-10-16] MEDS: FLUoxetine HCL 20 MG CAPSULE PO SCH (07:25)
--- NOTE | 2018-10-16 07:51 | PDOC ---
Exam Note: Ricardo Note: S/O: This is a late entry of 10/14/2018. This note covers elements not covered in my initial note. I met with the patient in the evening at length in her room. She slept five and quarter hours previous night, somewhat withdrawn. She is still looking for some reading glasses and I once again asked the nursing staff to obtain these for her from her daughter or otherwise. She is compliant with the medications, spent some time in the dayroom and later per nursing report she had slept in fact seven and a half hours. ROS: No CV, GI/, pulmonary, eye system symptoms on review. Does admit to some tiredness. MSE: Oriented to herself and situation. Speech has some latency, coherent. Abstraction is fair. Computation impaired. Language function intact. Attention span is short. Mood and affect still depressed, but much improved, very much more verbal, animated as I met with her. Labs: Reviewed. Imp: Major depressive disorder with psychotic features in partial remission. 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 Rest unchanged. Plan: No change from initial note. We have added Abilify to augment the Prozac and we may increase the Prozac gradually as well. Please also refer to the separate dictated note~for this date of service dictated separately.~Patient seen individually. Discussed the patient with Nursing staff reviewed the chart.~Reviewed interim history and current functioning. Reviewed vital signs,~Labs/ Radiology~and current medications noted below. Continue current treatment with the changes noted in the dictated addendum note Assessment: Vital Signs: Vital Signs Date Time Temp Pulse Resp B/P (MAP) Pulse Ox O2 Delivery O2 Flow Rate FiO2 10/16/18 06:02 97.5 62 20 115/68 (84) 95 10/13/18 05:31 Room Air I&O Intake and Output 10/16/18 07:01 Intake Total 960 ml Balance 960 ml Intake Oral 960 ml Current Medications: Meds: Current Medications Acetaminophen (Tylenol) 650 mg PRN Q6HRS PRN PO PAIN / TEMP Last administered on 10/12/18at 00:14; Start 10/01/18 at 02:30 Multi-Ingredient Ointment (Analgesic [place]) 1 debora PRN QID PRN TP MUSCLE PAIN; Start 10/01/18 at 02:30 Al Hydroxide/Mg Hydroxide (Mylanta Plus Xs) 15 ml PRN AFTMEALHC PRN PO DYSPEPSIA; Start 10/01/18 at 02:30 Magnesium Hydroxide (Milk Of Magnesia) 2,400 mg PRN QHS PRN PO CONSTIPATION; Start 10/01/18 at 02:30 Clonazepam (KlonoPIN) 0.25 mg BID@0700,1500 PO Last administered on 10/06/18at 05:02; Start 10/01/18 at 07:00; Stop 10/06/18 at 16:47; Status DC Levothyroxine Sodium (Synthroid) 75 mcg DAILY06 PO Last administered on at 04:54; Start 10/01/18 at 06:00 Donepezil HCl (Aricept) 10 mg QHS PO Last administered on 10/15/18at 19:20; Start 10/01/18 at 21:00 Fluoxetine HCl (PROzac) 80 mg DAILY PO Last administered on 10/02/18at 07:58; Start 10/01/18 at 09:00; Stop 10/02/18 at 17:33; Status DC Memantine (Namenda) 5 mg BID PO Last administered on 10/16/18at 07:25; Start 10/01/18 at 09:00 Quetiapine Fumarate (SEROquel) 12.5 mg PRN QID PRN PO ANXIETY / AGITATION Last administered on 10/12/18at 00:14; Start 10/01/18 at 02:45 Atorvastatin Calcium (Lipitor) 20 mg HS PO Last administered on 10/15/18at 19: 20; Start 10/01/18 at 21:00 Vitamin D (Vitamin D3) 50,000 unit WEEKLY PO ; Start 10/02/18 at 16:15; Stop 10/02/18 at 17:26; Status DC Vitamin D (Vitamin D3) 50,000 unit WEEKLY PO Last administered on 10/10/18at 08 :17; Start 10/03/18 at 08:00 Fluoxetine HCl (PROzac) 60 mg DAILY PO Last administered on 10/06/18at 09:35; Start 10/03/18 at 09:00; Stop 10/06/18 at 16:47; Status DC Quetiapine Fumarate (SEROquel) 25 mg BID PO Last administered on 10/08/18at 07: 38; Start 10/02/18 at 21:00; Stop 10/08/18 at 10:33; Status DC Clonazepam (KlonoPIN) 0.25 mg DAILY@1500 PO Last administered on 10/10/18at 14: 02; Start 10/07/18 at 15:00; Stop 10/10/18 at 20:32; Status DC Fluoxetine HCl (PROzac) 20 mg DAILY PO Last administered on 10/16/18at 07:25; Start 10/07/18 at 09:00 Bupropion HCl (Wellbutrin Xl) 150 mg DAILY PO Last administered on 10/09/18at 11:55; Start 10/07/18 at 09:00; Stop 10/09/18 at 16:43; Status DC Quetiapine Fumarate (SEROquel) 25 mg QHS PO Last administered on 10/10/18at 19: 27; Start 10/08/18 at 21:00; Stop 10/11/18 at 18:11; Status DC Bupropion HCl (Wellbutrin Xl) 300 mg DAILY PO Last administered on 10/16/18at 07:25; Start 10/10/18 at 09:00 Trazodone HCl (Desyrel) 50 mg PRN QHS PRN PO INSOMNIA Last administered on at 22:15; Start 10/10/18 at 20:45 Aripiprazole (Abilify) 2.5 mg QHS PO Last administered on 10/15/18at 19:21; Start 10/11/18 at 21:00 Active Scripts Active Reported Crestor (Rosuvastatin Calcium) 5 Mg Tablet 5 Mg PO DAILY Seroquel (Quetiapine Fumarate) 25 Mg Tablet 12.5 Mg PO PRN QID PRN Namenda (Memantine Hcl) 5 Mg Tablet 5 Mg PO BID Synthroid (Levothyroxine Sodium) 75 Mcg Tablet 75 Mcg PO DAILY06 Prozac (Fluoxetine Hcl) 40 Mg Capsule 80 Mg PO DAILY Aricept (Donepezil Hcl) 10 Mg Tablet 10 Mg PO QHS Klonopin (Clonazepam) 0.5 Mg Tablet 0.25 Mg PO BID@0700,1500 I have reviewed the current psychotropics carefully including drug interactions. Risk benefit ratio favors no change other than as noted in my dictated progress note. Diagnosis: Problems: (1) Confusion (2) Hallucinations (3) Agitated (4) Anxiety disorder (5) Depression (6) Impulse control disorder (7) Dementia, vascular, with delusions CYNDI LYN MD Oct 16, 2018 07:51
--- NOTE | 2018-10-16 07:55 | PDOC ---
Exam Note: Ricardo Note: S/O: This is a late entry of 10/14/2018. This note covers elements not covered in my initial note. I met with the patient in the evening at length in her room. She slept five and quarter hours previous night, somewhat withdrawn. She is still looking for some reading glasses and I once again asked the nursing staff to obtain these for her from her daughter or otherwise. She is compliant with the medications, spent some time in the dayroom and later per nursing report she had slept in fact seven and a half hours. ROS: No CV, GI/, pulmonary, eye system symptoms on review. Does admit to some tiredness. MSE: Oriented to herself and situation. Speech has some latency, coherent. Abstraction is fair. Computation impaired. Language function intact. Attention span is short. Mood and affect still depressed, but much improved, very much more verbal, animated as I met with her. Labs: Reviewed. Imp: Major depressive disorder with psychotic features in partial remission. 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 Rest unchanged. Plan: No change from initial note. We have added Abilify to augment the Prozac and we may increase the Prozac gradually as well. Maintain Wellbutrin, Aricept, Namenda along with Seroquel p.r.n. and trazodone for insomnia. Assessment: Vital Signs: Vital Signs Date Time Temp Pulse Resp B/P (MAP) Pulse Ox O2 Delivery O2 Flow Rate FiO2 10/16/18 06:02 97.5 62 20 115/68 (84) 95 10/13/18 05:31 Room Air I&O Intake and Output 10/16/18 07:01 Intake Total 960 ml Balance 960 ml Intake Oral 960 ml Current Medications: Meds: Current Medications Acetaminophen (Tylenol) 650 mg PRN Q6HRS PRN PO PAIN / TEMP Last administered on 10/12/18at 00:14; Start 10/01/18 at 02:30 Multi-Ingredient Ointment (Analgesic [place]) 1 debora PRN QID PRN TP MUSCLE PAIN; Start 10/01/18 at 02:30 Al Hydroxide/Mg Hydroxide (Mylanta Plus Xs) 15 ml PRN AFTMEALHC PRN PO DYSPEPSIA; Start 10/01/18 at 02:30 Magnesium Hydroxide (Milk Of Magnesia) 2,400 mg PRN QHS PRN PO CONSTIPATION; Start 10/01/18 at 02:30 Clonazepam (KlonoPIN) 0.25 mg BID@0700,1500 PO Last administered on 10/06/18at 05:02; Start 10/01/18 at 07:00; Stop 10/06/18 at 16:47; Status DC Levothyroxine Sodium (Synthroid) 75 mcg DAILY06 PO Last administered on at 04:54; Start 10/01/18 at 06:00 Donepezil HCl (Aricept) 10 mg QHS PO Last administered on 10/15/18at 19:20; Start 10/01/18 at 21:00 Fluoxetine HCl (PROzac) 80 mg DAILY PO Last administered on 10/02/18at 07:58; Start 10/01/18 at 09:00; Stop 10/02/18 at 17:33; Status DC Memantine (Namenda) 5 mg BID PO Last administered on 10/16/18at 07:25; Start 10/01/18 at 09:00 Quetiapine Fumarate (SEROquel) 12.5 mg PRN QID PRN PO ANXIETY / AGITATION Last administered on 10/12/18at 00:14; Start 10/01/18 at 02:45 Atorvastatin Calcium (Lipitor) 20 mg HS PO Last administered on 10/15/18at 19: 20; Start 10/01/18 at 21:00 Vitamin D (Vitamin D3) 50,000 unit WEEKLY PO ; Start 10/02/18 at 16:15; Stop 10/02/18 at 17:26; Status DC Vitamin D (Vitamin D3) 50,000 unit WEEKLY PO Last administered on 10/10/18at 08 :17; Start 10/03/18 at 08:00 Fluoxetine HCl (PROzac) 60 mg DAILY PO Last administered on 10/06/18at 09:35; Start 10/03/18 at 09:00; Stop 10/06/18 at 16:47; Status DC Quetiapine Fumarate (SEROquel) 25 mg BID PO Last administered on 10/08/18at 07: 38; Start 10/02/18 at 21:00; Stop 10/08/18 at 10:33; Status DC Clonazepam (KlonoPIN) 0.25 mg DAILY@1500 PO Last administered on 10/10/18at 14: 02; Start 10/07/18 at 15:00; Stop 10/10/18 at 20:32; Status DC Fluoxetine HCl (PROzac) 20 mg DAILY PO Last administered on 10/16/18at 07:25; Start 10/07/18 at 09:00 Bupropion HCl (Wellbutrin Xl) 150 mg DAILY PO Last administered on 10/09/18at 11:55; Start 10/07/18 at 09:00; Stop 10/09/18 at 16:43; Status DC Quetiapine Fumarate (SEROquel) 25 mg QHS PO Last administered on 10/10/18at 19: 27; Start 10/08/18 at 21:00; Stop 10/11/18 at 18:11; Status DC Bupropion HCl (Wellbutrin Xl) 300 mg DAILY PO Last administered on 10/16/18at 07:25; Start 10/10/18 at 09:00 Trazodone HCl (Desyrel) 50 mg PRN QHS PRN PO INSOMNIA Last administered on at 22:15; Start 10/10/18 at 20:45 Aripiprazole (Abilify) 2.5 mg QHS PO Last administered on 10/15/18at 19:21; Start 10/11/18 at 21:00 Active Scripts Active Reported Crestor (Rosuvastatin Calcium) 5 Mg Tablet 5 Mg PO DAILY Seroquel (Quetiapine Fumarate) 25 Mg Tablet 12.5 Mg PO PRN QID PRN Namenda (Memantine Hcl) 5 Mg Tablet 5 Mg PO BID Synthroid (Levothyroxine Sodium) 75 Mcg Tablet 75 Mcg PO DAILY06 Prozac (Fluoxetine Hcl) 40 Mg Capsule 80 Mg PO DAILY Aricept (Donepezil Hcl) 10 Mg Tablet 10 Mg PO QHS Klonopin (Clonazepam) 0.5 Mg Tablet 0.25 Mg PO BID@0700,1500 I have reviewed the current psychotropics carefully including drug interactions. Risk benefit ratio favors no change other than as noted in my dictated progress note. Diagnosis: Problems: (1) Confusion (2) Hallucinations (3) Agitated (4) Anxiety disorder (5) Depression (6) Impulse control disorder (7) Dementia, vascular, with delusions CYNDI LYN MD Oct 16, 2018 07:54
[2018-10-16 16:38] VITALS: BP 114/74
[2018-10-16] MEDS: DONEPEZIL HCL 10 MG TABLET PO SCH (19:38)
[2018-10-16] MEDS: ATORVASTATIN CALCIUM 20 MG TABLET PO SCH (19:38)
[2018-10-16] MEDS: ARIPiprazole 5 MG TABLET PO SCH (19:39)
[2018-10-16] MEDS: MEMANTINE 10 MG TABLET. PO SCH (19:43)
--- NOTE | 2018-10-16 20:51 | PN ---
DATE: 10/15/2018 PSYCHIATRIC PROGRESS NOTE This late entry 10/15/2018 covers elements not covered in my initial note. SUBJECTIVE: I met with the patient in the evening. The patient slept 8 hours previous night. She spends much time in her room, but did come out to the dayroom earlier in the afternoon. I met with her in her room at length. REVIEW OF SYSTEMS: No CV, , pulmonary, eye, ENT system symptoms on review. MENTAL STATUS EXAM: Oriented to herself and situation. Speech has some latency, coherent. Abstraction fair, computation impaired. Mood and affect still somewhat withdrawn, but she has for the first time told me "I feel better." She is still frustrated. She does not have reading glasses to read the books that she has on her bed. I have asked the nursing staff again to contact the daughter for this. No active suicidal ideation. LABORATORY DATA: Reviewed. IMPRESSION: Major depressive disorder, recurrent, in partial remission; major neurocognitive disorder, early Alzheimer, vascular with depression. Rest unchanged. PLAN: No change from initial note. CYNDI LYN MD DR: AMOS/manjo JOB#: [id number] / [id number]
--- NOTE | 2018-10-16 22:52 | PDOC ---
Exam Note: Ricardo Note: Please also refer to the separate dictated note~for this date of service dictated separately.~Patient seen individually. Discussed the patient with Nursing staff reviewed the chart.~Reviewed interim history and current functioning. Reviewed vital signs,~Labs/ Radiology~and current medications noted below. Continue current treatment with the changes noted in the dictated addendum note Assessment: Vital Signs: Vital Signs Date Time Temp Pulse Resp B/P (MAP) Pulse Ox O2 Delivery O2 Flow Rate FiO2 10/16/18 16:38 97.9 69 16 114/74 (87) 98 Room Air I&O Intake and Output 10/16/18 07:01 Intake Total 960 ml Balance 960 ml Intake Oral 960 ml Current Medications: Meds: Current Medications Acetaminophen (Tylenol) 650 mg PRN Q6HRS PRN PO PAIN / TEMP Last administered on 10/12/18at 00:14; Start 10/01/18 at 02:30 Multi-Ingredient Ointment (Analgesic [place]) 1 debora PRN QID PRN TP MUSCLE PAIN; Start 10/01/18 at 02:30 Al Hydroxide/Mg Hydroxide (Mylanta Plus Xs) 15 ml PRN AFTMEALHC PRN PO DYSPEPSIA; Start 10/01/18 at 02:30 Magnesium Hydroxide (Milk Of Magnesia) 2,400 mg PRN QHS PRN PO CONSTIPATION; Start 10/01/18 at 02:30 Clonazepam (KlonoPIN) 0.25 mg BID@0700,1500 PO Last administered on 10/06/18at 05:02; Start 10/01/18 at 07:00; Stop 10/06/18 at 16:47; Status DC Levothyroxine Sodium (Synthroid) 75 mcg DAILY06 PO Last administered on at 04:54; Start 10/01/18 at 06:00 Donepezil HCl (Aricept) 10 mg QHS PO Last administered on 10/16/18at 19:38; Start 10/01/18 at 21:00 Fluoxetine HCl (PROzac) 80 mg DAILY PO Last administered on 10/02/18at 07:58; Start 10/01/18 at 09:00; Stop 10/02/18 at 17:33; Status DC Memantine (Namenda) 5 mg BID PO Last administered on 10/16/18at 07:25; Start 10/01/18 at 09:00; Stop 10/16/18 at 13:30; Status DC Quetiapine Fumarate (SEROquel) 12.5 mg PRN QID PRN PO ANXIETY / AGITATION Last administered on 10/12/18at 00:14; Start 10/01/18 at 02:45 Atorvastatin Calcium (Lipitor) 20 mg HS PO Last administered on 10/16/18at 19: 38; Start 10/01/18 at 21:00 Vitamin D (Vitamin D3) 50,000 unit WEEKLY PO ; Start 10/02/18 at 16:15; Stop 10/02/18 at 17:26; Status DC Vitamin D (Vitamin D3) 50,000 unit WEEKLY PO Last administered on 10/10/18at 08 :17; Start 10/03/18 at 08:00 Fluoxetine HCl (PROzac) 60 mg DAILY PO Last administered on 10/06/18at 09:35; Start 10/03/18 at 09:00; Stop 10/06/18 at 16:47; Status DC Quetiapine Fumarate (SEROquel) 25 mg BID PO Last administered on 10/08/18at 07: 38; Start 10/02/18 at 21:00; Stop 10/08/18 at 10:33; Status DC Clonazepam (KlonoPIN) 0.25 mg DAILY@1500 PO Last administered on 10/10/18at 14: 02; Start 10/07/18 at 15:00; Stop 10/10/18 at 20:32; Status DC Fluoxetine HCl (PROzac) 20 mg DAILY PO Last administered on 10/16/18at 07:25; Start 10/07/18 at 09:00; Stop 10/16/18 at 13:30; Status DC Bupropion HCl (Wellbutrin Xl) 150 mg DAILY PO Last administered on 10/09/18at 11:55; Start 10/07/18 at 09:00; Stop 10/09/18 at 16:43; Status DC Quetiapine Fumarate (SEROquel) 25 mg QHS PO Last administered on 10/10/18at 19: 27; Start 10/08/18 at 21:00; Stop 10/11/18 at 18:11; Status DC Bupropion HCl (Wellbutrin Xl) 300 mg DAILY PO Last administered on 10/16/18at 07:25; Start 10/10/18 at 09:00 Trazodone HCl (Desyrel) 50 mg PRN QHS PRN PO INSOMNIA Last administered on at 22:15; Start 10/10/18 at 20:45 Aripiprazole (Abilify) 2.5 mg QHS PO Last administered on 10/16/18at 19:39; Start 10/11/18 at 21:00 Fluoxetine HCl (PROzac) 30 mg DAILY PO ; Start 10/17/18 at 09:00 Memantine (Namenda) 10 mg BID PO Last administered on 10/16/18at 19:43; Start 10/16/18 at 21:00 Active Scripts Active Reported Crestor (Rosuvastatin Calcium) 5 Mg Tablet 5 Mg PO DAILY Seroquel (Quetiapine Fumarate) 25 Mg Tablet 12.5 Mg PO PRN QID PRN Namenda (Memantine Hcl) 5 Mg Tablet 5 Mg PO BID Synthroid (Levothyroxine Sodium) 75 Mcg Tablet 75 Mcg PO DAILY06 Prozac (Fluoxetine Hcl) 40 Mg Capsule 80 Mg PO DAILY Aricept (Donepezil Hcl) 10 Mg Tablet 10 Mg PO QHS Klonopin (Clonazepam) 0.5 Mg Tablet 0.25 Mg PO BID@0700,1500 I have reviewed the current psychotropics carefully including drug interactions. Risk benefit ratio favors no change other than as noted in my dictated progress note. Diagnosis: Problems: (1) Confusion (2) Hallucinations (3) Agitated (4) Anxiety disorder (5) Depression (6) Impulse control disorder (7) Dementia, vascular, with delusions CYNDI LYN MD Oct 16, 2018 22:52
[2018-10-16] MEDS: traZODone 50 MG TABLET. PO PRN (23:23)
[2018-10-17] MEDS: traZODone 50 MG TABLET. PO PRN (00:58)
[2018-10-17] MEDS: LEVOTHYROXINE 75 MCG TABLET PO SCH (04:52)
[2018-10-17 05:42] VITALS: BP 114/70
[2018-10-17 07:26] LABS: BASO % 1 % (0-3); EOS # 0.3 x10^3/uL (0.0-0.7); EOS % 5 % (0-3); HEMATOCRIT 40.8 % (36.0-47.0); HEMOGLOBIN 13.5 g/dL (12.0-15.5); LYMPH # 1.9 x10^3/uL (1.0-4.8); LYMPH % 30 % (24-48); MEAN CORPUSCULAR HEMOGLOBIN 29 pg (25-35); MEAN CORPUSCULAR HGB CONC 33 g/dL (31-37); MEAN CORPUSCULAR VOLUME 87 fL (79-100); MONO # 0.6 x10^3/uL (0.0-1.1); MONO % 9 % (0-9); NEUT # 3.5 x10^3uL (1.8-7.7); NEUT % 56 % (31-73); PLATELET COUNT 266 x10^3/uL (140-400); RED BLOOD COUNT 4.71 x10^6/uL (3.50-5.40); RED CELL DISTRIBUTION WIDTH 13.5 % (11.5-14.5); WHITE BLOOD COUNT 6.3 x10^3/uL (4.0-11.0)
[2018-10-17] MEDS: buPROPion XL 300 MG TAB.ER.24H. PO SCH (07:26)
[2018-10-17] MEDS: MEMANTINE 10 MG TABLET. PO SCH ×2 (07:26→20:03)
[2018-10-17] MEDS: CHOLECALCIFEROL (VITAMIN D3) 50,000 UNIT CAPSULE PO SCH (07:26)
[2018-10-17] MEDS: FLUoxetine HCL 10 MG CAPSULE PO SCH (07:36)
[2018-10-17 07:43] LABS: ALBUMIN/GLOBULIN RATIO 0.9 (1.0-1.7); CALCIUM 8.7 mg/dL (8.5-10.1); CREATININE 0.9 mg/dL (0.6-1.0); GFR 62.3; POTASSIUM 3.7 mmol/L (3.5-5.1); TOTAL BILIRUBIN 0.3 mg/dL (0.2-1.0); TOTAL PROTEIN 6.4 g/dL (6.4-8.2)
[2018-10-17 15:45] VITALS: BP 120/60
[2018-10-17] MEDS: ATORVASTATIN CALCIUM 20 MG TABLET PO SCH (20:02)
[2018-10-17] MEDS: DONEPEZIL HCL 10 MG TABLET PO SCH (20:02)
[2018-10-17] MEDS: ARIPiprazole 5 MG TABLET PO SCH (20:03)
--- NOTE | 2018-10-17 22:02 | PDOC ---
Exam Note: Ricardo Note: Please also refer to the separate dictated note~for this date of service dictated separately.~Patient seen individually. Discussed the patient with Nursing staff reviewed the chart.~Reviewed interim history and current functioning. Reviewed vital signs,~Labs/ Radiology~and current medications noted below. Continue current treatment with the changes noted in the dictated addendum note Assessment: Vital Signs: Vital Signs Date Time Temp Pulse Resp B/P (MAP) Pulse Ox O2 Delivery O2 Flow Rate FiO2 10/17/18 15:45 97.8 71 16 120/60 (80) 94 Room Air I&O Intake and Output 10/17/18 07:01 Intake Total 540 ml Balance 540 ml Intake Oral 540 ml Labs: Laboratory Tests Test 10/17/18 06:44 White Blood Count 6.3 x10^3/uL (4.0-11.0) Red Blood Count 4.71 x10^6/uL (3.50-5.40) Hemoglobin 13.5 g/dL (12.0-15.5) Hematocrit 40.8 % (36.0-47.0) Mean Corpuscular Volume 87 fL (79-100) Mean Corpuscular Hemoglobin 29 pg (25-35) Mean Corpuscular Hemoglobin Concent 33 g/dL (31-37) Red Cell Distribution Width 13.5 % (11.5-14.5) Platelet Count 266 x10^3/uL (140-400) Neutrophils (%) (Auto) 56 % (31-73) Lymphocytes (%) (Auto) 30 % (24-48) Monocytes (%) (Auto) 9 % (0-9) Eosinophils (%) (Auto) 5 % (0-3) H Basophils (%) (Auto) 1 % (0-3) Neutrophils # (Auto) 3.5 x10^3uL (1.8-7.7) Lymphocytes # (Auto) 1.9 x10^3/uL (1.0-4.8) Monocytes # (Auto) 0.6 x10^3/uL (0.0-1.1) Eosinophils # (Auto) 0.3 x10^3/uL (0.0-0.7) Basophils # (Auto) 0.0 x10^3/uL (0.0-0.2) Sodium Level 145 mmol/L (136-145) Potassium Level 3.7 mmol/L (3.5-5.1) Chloride Level 107 mmol/L (98-107) Carbon Dioxide Level 30 mmol/L (21-32) Anion Gap 8 (6-14) Blood Urea Nitrogen 10 mg/dL (7-20) Creatinine 0.9 mg/dL (0.6-1.0) Estimated GFR (Cockcroft-Gault) 62.3 BUN/Creatinine Ratio 11 (6-20) Glucose Level 91 mg/dL (70-99) Calcium Level 8.7 mg/dL (8.5-10.1) Magnesium Level 2.1 mg/dL (1.8-2.4) Total Bilirubin 0.3 mg/dL (0.2-1.0) Aspartate Amino Transferase (AST) 19 U/L (15-37) Alanine Aminotransferase (ALT) 29 U/L (14-59) Alkaline Phosphatase 85 U/L (46-116) Total Protein 6.4 g/dL (6.4-8.2) Albumin 3.0 g/dL (3.4-5.0) L Albumin/Globulin Ratio 0.9 (1.0-1.7) L Current Medications: Meds: Current Medications Acetaminophen (Tylenol) 650 mg PRN Q6HRS PRN PO PAIN / TEMP Last administered on 10/12/18at 00:14; Start 10/01/18 at 02:30 Multi-Ingredient Ointment (Analgesic [place]) 1 debora PRN QID PRN TP MUSCLE PAIN; Start 10/01/18 at 02:30 Al Hydroxide/Mg Hydroxide (Mylanta Plus Xs) 15 ml PRN AFTMEALHC PRN PO DYSPEPSIA; Start 10/01/18 at 02:30 Magnesium Hydroxide (Milk Of Magnesia) 2,400 mg PRN QHS PRN PO CONSTIPATION; Start 10/01/18 at 02:30 Clonazepam (KlonoPIN) 0.25 mg BID@0700,1500 PO Last administered on 10/06/18at 05:02; Start 10/01/18 at 07:00; Stop 10/06/18 at 16:47; Status DC Levothyroxine Sodium (Synthroid) 75 mcg DAILY06 PO Last administered on at 04:52; Start 10/01/18 at 06:00 Donepezil HCl (Aricept) 10 mg QHS PO Last administered on 10/17/18at 20:02; Start 10/01/18 at 21:00 Fluoxetine HCl (PROzac) 80 mg DAILY PO Last administered on 10/02/18at 07:58; Start 10/01/18 at 09:00; Stop 10/02/18 at 17:33; Status DC Memantine (Namenda) 5 mg BID PO Last administered on 10/16/18at 07:25; Start 10/01/18 at 09:00; Stop 10/16/18 at 13:30; Status DC Quetiapine Fumarate (SEROquel) 12.5 mg PRN QID PRN PO ANXIETY / AGITATION Last administered on 10/12/18at 00:14; Start 10/01/18 at 02:45 Atorvastatin Calcium (Lipitor) 20 mg HS PO Last administered on 10/17/18at 20: 02; Start 10/01/18 at 21:00 Vitamin D (Vitamin D3) 50,000 unit WEEKLY PO ; Start 10/02/18 at 16:15; Stop 10/02/18 at 17:26; Status DC Vitamin D (Vitamin D3) 50,000 unit WEEKLY PO Last administered on 10/17/18at 07 :26; Start 10/03/18 at 08:00 Fluoxetine HCl (PROzac) 60 mg DAILY PO Last administered on 10/06/18at 09:35; Start 10/03/18 at 09:00; Stop 10/06/18 at 16:47; Status DC Quetiapine Fumarate (SEROquel) 25 mg BID PO Last administered on 10/08/18at 07: 38; Start 10/02/18 at 21:00; Stop 10/08/18 at 10:33; Status DC Clonazepam (KlonoPIN) 0.25 mg DAILY@1500 PO Last administered on 10/10/18at 14: 02; Start 10/07/18 at 15:00; Stop 10/10/18 at 20:32; Status DC Fluoxetine HCl (PROzac) 20 mg DAILY PO Last administered on 10/16/18at 07:25; Start 10/07/18 at 09:00; Stop 10/16/18 at 13:30; Status DC Bupropion HCl (Wellbutrin Xl) 150 mg DAILY PO Last administered on 10/09/18at 11:55; Start 10/07/18 at 09:00; Stop 10/09/18 at 16:43; Status DC Quetiapine Fumarate (SEROquel) 25 mg QHS PO Last administered on 10/10/18at 19: 27; Start 10/08/18 at 21:00; Stop 10/11/18 at 18:11; Status DC Bupropion HCl (Wellbutrin Xl) 300 mg DAILY PO Last administered on 10/17/18at 07:26; Start 10/10/18 at 09:00 Trazodone HCl (Desyrel) 50 mg PRN QHS PRN PO INSOMNIA Last administered on at 00:58; Start 10/10/18 at 20:45 Aripiprazole (Abilify) 2.5 mg QHS PO Last administered on 10/17/18at 20:03; Start 10/11/18 at 21:00 Fluoxetine HCl (PROzac) 30 mg DAILY PO Last administered on 10/17/18at 07:36; Start 10/17/18 at 09:00 Memantine (Namenda) 10 mg BID PO Last administered on 10/17/18at 20:03; Start 10/16/18 at 21:00 Active Scripts Active Reported Crestor (Rosuvastatin Calcium) 5 Mg Tablet 5 Mg PO DAILY Seroquel (Quetiapine Fumarate) 25 Mg Tablet 12.5 Mg PO PRN QID PRN Namenda (Memantine Hcl) 5 Mg Tablet 5 Mg PO BID Synthroid (Levothyroxine Sodium) 75 Mcg Tablet 75 Mcg PO DAILY06 Prozac (Fluoxetine Hcl) 40 Mg Capsule 80 Mg PO DAILY Aricept (Donepezil Hcl) 10 Mg Tablet 10 Mg PO QHS Klonopin (Clonazepam) 0.5 Mg Tablet 0.25 Mg PO BID@0700,1500 I have reviewed the current psychotropics carefully including drug interactions. Risk benefit ratio favors no change other than as noted in my dictated progress note. Diagnosis: Problems: (1) Confusion (2) Hallucinations (3) Agitated (4) Anxiety disorder (5) Depression (6) Impulse control disorder (7) Dementia, vascular, with delusions CYNDI LYN MD Oct 17, 2018 22:02
[2018-10-18] MEDS: LEVOTHYROXINE 75 MCG TABLET PO SCH (06:11)
[2018-10-18 06:37] VITALS: BP 115/79
[2018-10-18] MEDS: FLUoxetine HCL 10 MG CAPSULE PO SCH (07:21)
[2018-10-18] MEDS: MEMANTINE 10 MG TABLET. PO SCH ×2 (07:21→19:26)
[2018-10-18] MEDS: buPROPion XL 300 MG TAB.ER.24H. PO SCH (07:22)
[2018-10-18 16:11] VITALS: BP 124/57
[2018-10-18] MEDS: ARIPiprazole 5 MG TABLET PO SCH (19:26)
[2018-10-18] MEDS: ATORVASTATIN CALCIUM 20 MG TABLET PO SCH (19:26)
[2018-10-18] MEDS: DONEPEZIL HCL 10 MG TABLET PO SCH (19:26)
[2018-10-18] MEDS: traZODone 50 MG TABLET. PO PRN (19:28)
--- NOTE | 2018-10-18 23:13 | PDOC ---
Exam Note: Ricardo Note: Please also refer to the separate dictated note~for this date of service dictated separately.~Patient seen individually. Discussed the patient with Nursing staff reviewed the chart.~Reviewed interim history and current functioning. Reviewed vital signs,~Labs/ Radiology~and current medications noted below. Continue current treatment with the changes noted in the dictated addendum note Assessment: Vital Signs: Vital Signs Date Time Temp Pulse Resp B/P (MAP) Pulse Ox O2 Delivery O2 Flow Rate FiO2 10/18/18 16:11 98.3 67 20 124/57 (79) 95 10/18/18 06:37 Room Air I&O Intake and Output 10/18/18 07:01 Intake Total 720 ml Balance 720 ml Intake Oral 720 ml # Bowel Movements 1 Current Medications: Meds: Current Medications Acetaminophen (Tylenol) 650 mg PRN Q6HRS PRN PO PAIN / TEMP Last administered on 10/12/18at 00:14; Start 10/01/18 at 02:30 Multi-Ingredient Ointment (Analgesic [place]) 1 debora PRN QID PRN TP MUSCLE PAIN; Start 10/01/18 at 02:30 Al Hydroxide/Mg Hydroxide (Mylanta Plus Xs) 15 ml PRN AFTMEALHC PRN PO DYSPEPSIA; Start 10/01/18 at 02:30 Magnesium Hydroxide (Milk Of Magnesia) 2,400 mg PRN QHS PRN PO CONSTIPATION; Start 10/01/18 at 02:30 Clonazepam (KlonoPIN) 0.25 mg BID@0700,1500 PO Last administered on 10/06/18at 05:02; Start 10/01/18 at 07:00; Stop 10/06/18 at 16:47; Status DC Levothyroxine Sodium (Synthroid) 75 mcg DAILY06 PO Last administered on at 06:11; Start 10/01/18 at 06:00 Donepezil HCl (Aricept) 10 mg QHS PO Last administered on 10/18/18at 19:26; Start 10/01/18 at 21:00 Fluoxetine HCl (PROzac) 80 mg DAILY PO Last administered on 10/02/18at 07:58; Start 10/01/18 at 09:00; Stop 10/02/18 at 17:33; Status DC Memantine (Namenda) 5 mg BID PO Last administered on 10/16/18at 07:25; Start 10/01/18 at 09:00; Stop 10/16/18 at 13:30; Status DC Quetiapine Fumarate (SEROquel) 12.5 mg PRN QID PRN PO ANXIETY / AGITATION Last administered on 10/12/18at 00:14; Start 10/01/18 at 02:45 Atorvastatin Calcium (Lipitor) 20 mg HS PO Last administered on 10/18/18at 19: 26; Start 10/01/18 at 21:00 Vitamin D (Vitamin D3) 50,000 unit WEEKLY PO ; Start 10/02/18 at 16:15; Stop 10/02/18 at 17:26; Status DC Vitamin D (Vitamin D3) 50,000 unit WEEKLY PO Last administered on 10/17/18at 07 :26; Start 10/03/18 at 08:00 Fluoxetine HCl (PROzac) 60 mg DAILY PO Last administered on 10/06/18at 09:35; Start 10/03/18 at 09:00; Stop 10/06/18 at 16:47; Status DC Quetiapine Fumarate (SEROquel) 25 mg BID PO Last administered on 10/08/18at 07: 38; Start 10/02/18 at 21:00; Stop 10/08/18 at 10:33; Status DC Clonazepam (KlonoPIN) 0.25 mg DAILY@1500 PO Last administered on 10/10/18at 14: 02; Start 10/07/18 at 15:00; Stop 10/10/18 at 20:32; Status DC Fluoxetine HCl (PROzac) 20 mg DAILY PO Last administered on 10/16/18at 07:25; Start 10/07/18 at 09:00; Stop 10/16/18 at 13:30; Status DC Bupropion HCl (Wellbutrin Xl) 150 mg DAILY PO Last administered on 10/09/18at 11:55; Start 10/07/18 at 09:00; Stop 10/09/18 at 16:43; Status DC Quetiapine Fumarate (SEROquel) 25 mg QHS PO Last administered on 10/10/18at 19: 27; Start 10/08/18 at 21:00; Stop 10/11/18 at 18:11; Status DC Bupropion HCl (Wellbutrin Xl) 300 mg DAILY PO Last administered on 10/18/18 07:22; Start 10/10/18 at 09:00 Trazodone HCl (Desyrel) 50 mg PRN QHS PRN PO INSOMNIA Last administered on 19:28; Start 10/10/18 at 20:45 Aripiprazole (Abilify) 2.5 mg QHS PO Last administered on 10/18/18 19:26; Start 10/11/18 at 21:00 Fluoxetine HCl (PROzac) 30 mg DAILY PO Last administered on 10/18/18 07:21; Start 10/17/18 at 09:00 Memantine (Namenda) 10 mg BID PO Last administered on 10/18/18 19:26; Start 10/16/18 at 21:00 Active Scripts Active Reported Crestor (Rosuvastatin Calcium) 5 Mg Tablet 5 Mg PO DAILY Seroquel (Quetiapine Fumarate) 25 Mg Tablet 12.5 Mg PO PRN QID PRN Namenda (Memantine Hcl) 5 Mg Tablet 5 Mg PO BID Synthroid (Levothyroxine Sodium) 75 Mcg Tablet 75 Mcg PO DAILY06 Prozac (Fluoxetine Hcl) 40 Mg Capsule 80 Mg PO DAILY Aricept (Donepezil Hcl) 10 Mg Tablet 10 Mg PO QHS Klonopin (Clonazepam) 0.5 Mg Tablet 0.25 Mg PO BID@0700,1500 I have reviewed the current psychotropics carefully including drug interactions. Risk benefit ratio favors no change other than as noted in my dictated progress note. Diagnosis: Problems: (1) Confusion (2) Hallucinations (3) Agitated (4) Anxiety disorder (5) Depression (6) Impulse control disorder (7) Dementia, vascular, with delusions CYNDI LYN MD Oct 18, 2018 23:13
[2018-10-19] MEDS: LEVOTHYROXINE 75 MCG TABLET PO SCH (05:03)
[2018-10-19 05:44] VITALS: BP 136/63
[2018-10-19] MEDS: buPROPion XL 300 MG TAB.ER.24H. PO SCH (07:34)
[2018-10-19] MEDS: FLUoxetine HCL 10 MG CAPSULE PO SCH (07:34)
[2018-10-19] MEDS: MEMANTINE 10 MG TABLET. PO SCH ×2 (07:34→19:39)
[2018-10-19 16:50] VITALS: BP 105/56
[2018-10-19] MEDS: ARIPiprazole 5 MG TABLET PO SCH (19:39)
[2018-10-19] MEDS: ATORVASTATIN CALCIUM 20 MG TABLET PO SCH (19:39)
[2018-10-19] MEDS: DONEPEZIL HCL 10 MG TABLET PO SCH (19:39)
--- NOTE | 2018-10-19 20:22 | PN ---
DATE: 10/16/2018 PSYCHIATRIC PROGRESS NOTE This late entry 10/16/2018 covers elements not covered in my initial note. SUBJECTIVE: I met with the patient in the evening and staffed at a treatment team meeting with the entire team earlier in the day. Overall, the patient slept 5-3/4 hours previous night. She spends much time in her room, but is coming out to the day room, little bit more. REVIEW OF SYSTEMS: No CV, , pulmonary, eye, ENT system symptoms on review. MENTAL STATUS EXAM: Oriented to herself and situation. Speech has some latency, often responses monosyllabic. Abstraction fair, computation impaired, language function intact, attention span short. Mood and affect still quite withdrawn. LABORATORY DATA: Reviewed. IMPRESSION: Major depressive disorder, recurrent; major neurocognitive disorder, Alzheimer, vascular with delusion, depression. PLAN: Increase Prozac from 20 mg a day to 30 mg a day, Namenda from 5 b.i.d. to 10 mg b.i.d. Continue Aricept, Wellbutrin, Abilify, unchanged for now. MAN Didi LYN MD DR: AMOS/manoj JOB#: [id number] / [id number]
--- NOTE | 2018-10-19 22:45 | PDOC ---
Exam Note: Ricardo Note: Please also refer to the separate dictated note~for this date of service dictated separately.~Patient seen individually. Discussed the patient with Nursing staff reviewed the chart.~Reviewed interim history and current functioning. Reviewed vital signs,~Labs/ Radiology~and current medications noted below. Continue current treatment with the changes noted in the dictated addendum note Assessment: Vital Signs: Vital Signs Date Time Temp Pulse Resp B/P (MAP) Pulse Ox O2 Delivery O2 Flow Rate FiO2 10/19/18 16:50 98.1 79 18 105/56 (72) 99 10/18/18 06:37 Room Air I&O Intake and Output 10/19/18 07:01 Intake Total 600 ml Balance 600 ml Intake Oral 600 ml Current Medications: Meds: Current Medications Acetaminophen (Tylenol) 650 mg PRN Q6HRS PRN PO PAIN / TEMP Last administered on 10/12/18at 00:14; Start 10/01/18 at 02:30 Multi-Ingredient Ointment (Analgesic [place]) 1 debora PRN QID PRN TP MUSCLE PAIN; Start 10/01/18 at 02:30 Al Hydroxide/Mg Hydroxide (Mylanta Plus Xs) 15 ml PRN AFTMEALHC PRN PO DYSPEPSIA; Start 10/01/18 at 02:30 Magnesium Hydroxide (Milk Of Magnesia) 2,400 mg PRN QHS PRN PO CONSTIPATION; Start 10/01/18 at 02:30 Clonazepam (KlonoPIN) 0.25 mg BID@0700,1500 PO Last administered on 10/06/18at 05:02; Start 10/01/18 at 07:00; Stop 10/06/18 at 16:47; Status DC Levothyroxine Sodium (Synthroid) 75 mcg DAILY06 PO Last administered on at 05:03; Start 10/01/18 at 06:00 Donepezil HCl (Aricept) 10 mg QHS PO Last administered on 10/19/18at 19:39; Start 10/01/18 at 21:00 Fluoxetine HCl (PROzac) 80 mg DAILY PO Last administered on 10/02/18at 07:58; Start 10/01/18 at 09:00; Stop 10/02/18 at 17:33; Status DC Memantine (Namenda) 5 mg BID PO Last administered on 10/16/18at 07:25; Start 10/01/18 at 09:00; Stop 10/16/18 at 13:30; Status DC Quetiapine Fumarate (SEROquel) 12.5 mg PRN QID PRN PO ANXIETY / AGITATION Last administered on 10/12/18at 00:14; Start 10/01/18 at 02:45 Atorvastatin Calcium (Lipitor) 20 mg HS PO Last administered on 10/19/18at 19: 39; Start 10/01/18 at 21:00 Vitamin D (Vitamin D3) 50,000 unit WEEKLY PO ; Start 10/02/18 at 16:15; Stop 10/02/18 at 17:26; Status DC Vitamin D (Vitamin D3) 50,000 unit WEEKLY PO Last administered on 10/17/18at 07 :26; Start 10/03/18 at 08:00 Fluoxetine HCl (PROzac) 60 mg DAILY PO Last administered on 10/06/18at 09:35; Start 10/03/18 at 09:00; Stop 10/06/18 at 16:47; Status DC Quetiapine Fumarate (SEROquel) 25 mg BID PO Last administered on 10/08/18at 07: 38; Start 10/02/18 at 21:00; Stop 10/08/18 at 10:33; Status DC Clonazepam (KlonoPIN) 0.25 mg DAILY@1500 PO Last administered on 10/10/18at 14: 02; Start 10/07/18 at 15:00; Stop 10/10/18 at 20:32; Status DC Fluoxetine HCl (PROzac) 20 mg DAILY PO Last administered on 10/16/18at 07:25; Start 10/07/18 at 09:00; Stop 10/16/18 at 13:30; Status DC Bupropion HCl (Wellbutrin Xl) 150 mg DAILY PO Last administered on 10/09/18at 11:55; Start 10/07/18 at 09:00; Stop 10/09/18 at 16:43; Status DC Quetiapine Fumarate (SEROquel) 25 mg QHS PO Last administered on 10/10/18at 19: 27; Start 10/08/18 at 21:00; Stop 10/11/18 at 18:11; Status DC Bupropion HCl (Wellbutrin Xl) 300 mg DAILY PO Last administered on 10/19/18 07:34; Start 10/10/18 at 09:00 Trazodone HCl (Desyrel) 50 mg PRN QHS PRN PO INSOMNIA Last administered on 19:28; Start 10/10/18 at 20:45 Aripiprazole (Abilify) 2.5 mg QHS PO Last administered on 10/19/18 19:39; Start 10/11/18 at 21:00 Fluoxetine HCl (PROzac) 30 mg DAILY PO Last administered on 10/19/18at 07:34; Start 10/17/18 at 09:00 Memantine (Namenda) 10 mg BID PO Last administered on 10/19/18 19:39; Start 10/16/18 at 21:00 Active Scripts Active Reported Crestor (Rosuvastatin Calcium) 5 Mg Tablet 5 Mg PO DAILY Seroquel (Quetiapine Fumarate) 25 Mg Tablet 12.5 Mg PO PRN QID PRN Namenda (Memantine Hcl) 5 Mg Tablet 5 Mg PO BID Synthroid (Levothyroxine Sodium) 75 Mcg Tablet 75 Mcg PO DAILY06 Prozac (Fluoxetine Hcl) 40 Mg Capsule 80 Mg PO DAILY Aricept (Donepezil Hcl) 10 Mg Tablet 10 Mg PO QHS Klonopin (Clonazepam) 0.5 Mg Tablet 0.25 Mg PO BID@0700,1500 I have reviewed the current psychotropics carefully including drug interactions. Risk benefit ratio favors no change other than as noted in my dictated progress note. Diagnosis: Problems: (1) Confusion (2) Hallucinations (3) Agitated (4) Anxiety disorder (5) Depression (6) Impulse control disorder (7) Dementia, vascular, with delusions CYNDI LYN MD Oct 19, 2018 22:45
--- NOTE | 2018-10-19 23:50 | PN ---
DATE: 10/17/2018 PSYCHIATRIC PROGRESS NOTE This late entry 10/17/2018 covers elements not covered in my initial note. SUBJECTIVE: I met with the patient at length in her room. She slept 7 hours previous evening. She does have reading glasses and states she has been reading the book. She does come out to group areas, but only briefly. REVIEW OF SYSTEMS: No CV, , pulmonary, eyes, ENT system symptoms on review. MENTAL STATUS EXAM: Oriented to herself, situation. Eye contact is poor. Speech; moderate latency, often responses monosyllabic. Abstraction fair, computation impaired, language function intact. Short term memory is impaired. Mood and affect still withdrawn, depressed, but improved. LABORATORY DATA: Reviewed. IMPRESSION: Unchanged from initial note. PLAN: No change from initial note. MAN Didi LYN MD DR: AMOS/manoj JOB#: [id number] / [id number]
[2018-10-20] MEDS: traZODone 50 MG TABLET. PO PRN ×2 (00:31→22:42)
--- NOTE | 2018-10-20 02:26 | PN ---
DATE: 10/18/2018 PSYCHIATRIC PROGRESS NOTE This late entry of 10/18/2018 covers elements not covered in my initial note. SUBJECTIVE: I met with the patient in the evening. I met with her in her room. She is still withdrawn, but coming out a little bit more for activities and said she has been reading a book and has readers now. She still fixated on wanting to be discharged. We processed this. REVIEW OF SYSTEMS: No CV, , pulmonary, eye, ENT system symptoms on review. MENTAL STATUS EXAM: Oriented to herself and situation. Speech moderate latency, often responses monosyllabic. Abstraction fair, computation impaired, language function intact, attention span short. Mood and affect are somewhat withdrawn. LABORATORY DATA: Reviewed. IMPRESSION: Unchanged from initial note. PLAN: No change from initial note. She slept 5-1/2 hours previous night. MAN Didi LYN MD DR: AMOS/manoj JOB#: [id number] / [id number]
[2018-10-20] MEDS: LEVOTHYROXINE 75 MCG TABLET PO SCH (05:59)
[2018-10-20 06:02] VITALS: BP 106/67
[2018-10-20] MEDS: buPROPion XL 300 MG TAB.ER.24H. PO SCH (09:20)
[2018-10-20] MEDS: FLUoxetine HCL 10 MG CAPSULE PO SCH (09:20)
[2018-10-20] MEDS: MEMANTINE 10 MG TABLET. PO SCH ×2 (09:20→20:28)
[2018-10-20 16:27] VITALS: BP 121/72
[2018-10-20] MEDS: ATORVASTATIN CALCIUM 20 MG TABLET PO SCH (20:26)
[2018-10-20] MEDS: ARIPiprazole 5 MG TABLET PO SCH (20:27)
[2018-10-20] MEDS: DONEPEZIL HCL 10 MG TABLET PO SCH (20:29)
--- NOTE | 2018-10-20 22:56 | PDOC ---
Exam Note: Ricardo Note: Please also refer to the separate dictated note~for this date of service dictated separately.~Patient seen individually. Discussed the patient with Nursing staff reviewed the chart.~Reviewed interim history and current functioning. Reviewed vital signs,~Labs/ Radiology~and current medications noted below. Continue current treatment with the changes noted in the dictated addendum note Assessment: Vital Signs: Vital Signs Date Time Temp Pulse Resp B/P (MAP) Pulse Ox O2 Delivery O2 Flow Rate FiO2 10/20/18 16:27 97.7 68 18 121/72 (88) 98 10/18/18 06:37 Room Air I&O Intake and Output 10/20/18 07:01 Intake Total 840 ml Balance 840 ml Intake Oral 840 ml Current Medications: Meds: Current Medications Acetaminophen (Tylenol) 650 mg PRN Q6HRS PRN PO PAIN / TEMP Last administered on 10/12/18at 00:14; Start 10/01/18 at 02:30 Multi-Ingredient Ointment (Analgesic [place]) 1 debora PRN QID PRN TP MUSCLE PAIN; Start 10/01/18 at 02:30 Al Hydroxide/Mg Hydroxide (Mylanta Plus Xs) 15 ml PRN AFTMEALHC PRN PO DYSPEPSIA; Start 10/01/18 at 02:30 Magnesium Hydroxide (Milk Of Magnesia) 2,400 mg PRN QHS PRN PO CONSTIPATION; Start 10/01/18 at 02:30 Clonazepam (KlonoPIN) 0.25 mg BID@0700,1500 PO Last administered on 10/06/18at 05:02; Start 10/01/18 at 07:00; Stop 10/06/18 at 16:47; Status DC Levothyroxine Sodium (Synthroid) 75 mcg DAILY06 PO Last administered on at 05:59; Start 10/01/18 at 06:00 Donepezil HCl (Aricept) 10 mg QHS PO Last administered on 10/20/18at 20:29; Start 10/01/18 at 21:00 Fluoxetine HCl (PROzac) 80 mg DAILY PO Last administered on 10/02/18at 07:58; Start 10/01/18 at 09:00; Stop 10/02/18 at 17:33; Status DC Memantine (Namenda) 5 mg BID PO Last administered on 10/16/18at 07:25; Start 10/01/18 at 09:00; Stop 10/16/18 at 13:30; Status DC Quetiapine Fumarate (SEROquel) 12.5 mg PRN QID PRN PO ANXIETY / AGITATION Last administered on 10/12/18at 00:14; Start 10/01/18 at 02:45 Atorvastatin Calcium (Lipitor) 20 mg HS PO Last administered on 10/20/18at 20:26 ; Start 10/01/18 at 21:00 Vitamin D (Vitamin D3) 50,000 unit WEEKLY PO ; Start 10/02/18 at 16:15; Stop 10/02/18 at 17:26; Status DC Vitamin D (Vitamin D3) 50,000 unit WEEKLY PO Last administered on 10/17/18at 07 :26; Start 10/03/18 at 08:00 Fluoxetine HCl (PROzac) 60 mg DAILY PO Last administered on 10/06/18at 09:35; Start 10/03/18 at 09:00; Stop 10/06/18 at 16:47; Status DC Quetiapine Fumarate (SEROquel) 25 mg BID PO Last administered on 10/08/18at 07: 38; Start 10/02/18 at 21:00; Stop 10/08/18 at 10:33; Status DC Clonazepam (KlonoPIN) 0.25 mg DAILY@1500 PO Last administered on 10/10/18at 14: 02; Start 10/07/18 at 15:00; Stop 10/10/18 at 20:32; Status DC Fluoxetine HCl (PROzac) 20 mg DAILY PO Last administered on 10/16/18at 07:25; Start 10/07/18 at 09:00; Stop 10/16/18 at 13:30; Status DC Bupropion HCl (Wellbutrin Xl) 150 mg DAILY PO Last administered on 10/09/18at 11:55; Start 10/07/18 at 09:00; Stop 10/09/18 at 16:43; Status DC Quetiapine Fumarate (SEROquel) 25 mg QHS PO Last administered on 10/10/18at 19: 27; Start 10/08/18 at 21:00; Stop 10/11/18 at 18:11; Status DC Bupropion HCl (Wellbutrin Xl) 300 mg DAILY PO Last administered on 10/20/18 09: 20; Start 10/10/18 at 09:00 Trazodone HCl (Desyrel) 50 mg PRN QHS PRN PO INSOMNIA Last administered on 22:42; Start 10/10/18 at 20:45 Aripiprazole (Abilify) 2.5 mg QHS PO Last administered on 10/20/18 20:27; Start 10/11/18 at 21:00 Fluoxetine HCl (PROzac) 30 mg DAILY PO Last administered on 10/20/18 09:20; Start 10/17/18 at 09:00 Memantine (Namenda) 10 mg BID PO Last administered on 10/20/18 20:28; Start at 21:00 Active Scripts Active Reported Crestor (Rosuvastatin Calcium) 5 Mg Tablet 5 Mg PO DAILY Seroquel (Quetiapine Fumarate) 25 Mg Tablet 12.5 Mg PO PRN QID PRN Namenda (Memantine Hcl) 5 Mg Tablet 5 Mg PO BID Synthroid (Levothyroxine Sodium) 75 Mcg Tablet 75 Mcg PO DAILY06 Prozac (Fluoxetine Hcl) 40 Mg Capsule 80 Mg PO DAILY Aricept (Donepezil Hcl) 10 Mg Tablet 10 Mg PO QHS Klonopin (Clonazepam) 0.5 Mg Tablet 0.25 Mg PO BID@0700,1500 I have reviewed the current psychotropics carefully including drug interactions. Risk benefit ratio favors no change other than as noted in my dictated progress note. Diagnosis: Problems: (1) Confusion (2) Hallucinations (3) Agitated (4) Anxiety disorder (5) Depression (6) Impulse control disorder (7) Dementia, vascular, with delusions CYNDI LYN MD Oct 20, 2018 22:56
--- NOTE | 2018-10-20 23:33 | PN ---
DATE: 10/19/2018 PSYCHIATRIC PROGRESS NOTE This late entry 10/19/2018 covers elements, not covered in my initial note. SUBJECTIVE: I met with the patient in the evening at some length in her room. The patient slept 9-1/2 hours previous night. She has been somewhat withdrawn, isolative, still extremely depressed about her home situation. REVIEW OF SYSTEMS: No CV, , pulmonary, eye, ENT system symptoms on review. MENTAL STATUS EXAM: Oriented to herself and situation. Speech has some latency, often responses monosyllabic, coherent. Abstraction fair, computation impaired, language function intact, attention span short. Mood and affect withdrawn. LABORATORY DATA: Reviewed. IMPRESSION: Major depressive disorder, recurrent; anxiety disorder, unspecified; major neurocognitive disorder, Alzheimer, vascular with depression. Rest unchanged. PLAN: Continue psychotropics from initial note and she is on Prozac, Aricept, Namenda; Wellbutrin to augment the Prozac along with Abilify 2.5 mg at bedtime to augment the Prozac. MAN Didi LYN MD DR: AMOS/manoj JOB#: [id number] / [id number]
[2018-10-21 05:36] VITALS: BP 126/57
[2018-10-21] MEDS: LEVOTHYROXINE 75 MCG TABLET PO SCH (05:47)
[2018-10-21] MEDS: MEMANTINE 10 MG TABLET. PO SCH ×2 (09:06→20:04)
[2018-10-21] MEDS: buPROPion XL 300 MG TAB.ER.24H. PO SCH (09:06)
[2018-10-21] MEDS: FLUoxetine HCL 10 MG CAPSULE PO SCH (09:06)
[2018-10-21 16:13] VITALS: BP 122/72
[2018-10-21 16:18] VITALS: BP 122/72
[2018-10-21] MEDS: DONEPEZIL HCL 10 MG TABLET PO SCH (20:03)
[2018-10-21] MEDS: ATORVASTATIN CALCIUM 20 MG TABLET PO SCH (20:03)
[2018-10-21] MEDS: ARIPiprazole 5 MG TABLET PO SCH (20:03)
--- NOTE | 2018-10-21 22:46 | PDOC ---
Exam Note: Ricardo Note: Please also refer to the separate dictated note~for this date of service dictated separately.~Patient seen individually. Discussed the patient with Nursing staff reviewed the chart.~Reviewed interim history and current functioning. Reviewed vital signs,~Labs/ Radiology~and current medications noted below. Continue current treatment with the changes noted in the dictated addendum note Assessment: Vital Signs: Vital Signs Date Time Temp Pulse Resp B/P (MAP) Pulse Ox O2 Delivery O2 Flow Rate FiO2 10/21/18 16:18 98.4 69 122/72 (89) 94 10/21/18 16:13 18 Room Air I&O Intake and Output 10/21/18 07:01 Intake Total 1080 ml Balance 1080 ml Intake Oral 1080 ml # Bowel Movements 2 Current Medications: Meds: Current Medications Acetaminophen (Tylenol) 650 mg PRN Q6HRS PRN PO PAIN / TEMP Last administered on 10/12/18at 00:14; Start 10/01/18 at 02:30 Multi-Ingredient Ointment (Analgesic [place]) 1 debora PRN QID PRN TP MUSCLE PAIN; Start 10/01/18 at 02:30 Al Hydroxide/Mg Hydroxide (Mylanta Plus Xs) 15 ml PRN AFTMEALHC PRN PO DYSPEPSIA; Start 10/01/18 at 02:30 Magnesium Hydroxide (Milk Of Magnesia) 2,400 mg PRN QHS PRN PO CONSTIPATION; Start 10/01/18 at 02:30 Clonazepam (KlonoPIN) 0.25 mg BID@0700,1500 PO Last administered on 10/06/18at 05:02; Start 10/01/18 at 07:00; Stop 10/06/18 at 16:47; Status DC Levothyroxine Sodium (Synthroid) 75 mcg DAILY06 PO Last administered on at 05:47; Start 10/01/18 at 06:00 Donepezil HCl (Aricept) 10 mg QHS PO Last administered on 10/21/18at 20:03; Start 10/01/18 at 21:00 Fluoxetine HCl (PROzac) 80 mg DAILY PO Last administered on 10/02/18at 07:58; Start 10/01/18 at 09:00; Stop 10/02/18 at 17:33; Status DC Memantine (Namenda) 5 mg BID PO Last administered on 10/16/18at 07:25; Start 10/01/18 at 09:00; Stop 10/16/18 at 13:30; Status DC Quetiapine Fumarate (SEROquel) 12.5 mg PRN QID PRN PO ANXIETY / AGITATION Last administered on 10/12/18at 00:14; Start 10/01/18 at 02:45 Atorvastatin Calcium (Lipitor) 20 mg HS PO Last administered on 10/21/18at 20:03 ; Start 10/01/18 at 21:00 Vitamin D (Vitamin D3) 50,000 unit WEEKLY PO ; Start 10/02/18 at 16:15; Stop 10/02/18 at 17:26; Status DC Vitamin D (Vitamin D3) 50,000 unit WEEKLY PO Last administered on 10/17/18at 07 :26; Start 10/03/18 at 08:00 Fluoxetine HCl (PROzac) 60 mg DAILY PO Last administered on 10/06/18at 09:35; Start 10/03/18 at 09:00; Stop 10/06/18 at 16:47; Status DC Quetiapine Fumarate (SEROquel) 25 mg BID PO Last administered on 10/08/18at 07: 38; Start 10/02/18 at 21:00; Stop 10/08/18 at 10:33; Status DC Clonazepam (KlonoPIN) 0.25 mg DAILY@1500 PO Last administered on 10/10/18at 14: 02; Start 10/07/18 at 15:00; Stop 10/10/18 at 20:32; Status DC Fluoxetine HCl (PROzac) 20 mg DAILY PO Last administered on 10/16/18at 07:25; Start 10/07/18 at 09:00; Stop 10/16/18 at 13:30; Status DC Bupropion HCl (Wellbutrin Xl) 150 mg DAILY PO Last administered on 10/09/18at 11:55; Start 10/07/18 at 09:00; Stop 10/09/18 at 16:43; Status DC Quetiapine Fumarate (SEROquel) 25 mg QHS PO Last administered on 10/10/18at 19: 27; Start 10/08/18 at 21:00; Stop 10/11/18 at 18:11; Status DC Bupropion HCl (Wellbutrin Xl) 300 mg DAILY PO Last administered on 10/21/18 09: 06; Start 10/10/18 at 09:00 Trazodone HCl (Desyrel) 50 mg PRN QHS PRN PO INSOMNIA Last administered on 22:42; Start 10/10/18 at 20:45 Aripiprazole (Abilify) 2.5 mg QHS PO Last administered on 10/21/18 20:03; Start 10/11/18 at 21:00 Fluoxetine HCl (PROzac) 30 mg DAILY PO Last administered on 10/21/18 09:06; Start 10/17/18 at 09:00 Memantine (Namenda) 10 mg BID PO Last administered on 10/21/18 20:04; Start at 21:00 Active Scripts Active Reported Crestor (Rosuvastatin Calcium) 5 Mg Tablet 5 Mg PO DAILY Seroquel (Quetiapine Fumarate) 25 Mg Tablet 12.5 Mg PO PRN QID PRN Namenda (Memantine Hcl) 5 Mg Tablet 5 Mg PO BID Synthroid (Levothyroxine Sodium) 75 Mcg Tablet 75 Mcg PO DAILY06 Prozac (Fluoxetine Hcl) 40 Mg Capsule 80 Mg PO DAILY Aricept (Donepezil Hcl) 10 Mg Tablet 10 Mg PO QHS Klonopin (Clonazepam) 0.5 Mg Tablet 0.25 Mg PO BID@0700,1500 I have reviewed the current psychotropics carefully including drug interactions. Risk benefit ratio favors no change other than as noted in my dictated progress note. Diagnosis: Problems: (1) Confusion (2) Hallucinations (3) Agitated (4) Anxiety disorder (5) Depression (6) Impulse control disorder (7) Dementia, vascular, with delusions CYNDI LYN MD Oct 21, 2018 22:46
--- NOTE | 2018-10-21 23:21 | PN ---
DATE: 10/20/2018 PSYCHIATRIC PROGRESS NOTE This late entry 10/20/2018 covers elements not covered in my initial note. SUBJECTIVE: I met with the patient in the evening. The patient slept 6-3/4 hours previous night. She has been withdrawn, but compliant with medications, takes it whole. I met with her in her room, but she has been coming out into the day area much more per nursing report. REVIEW OF SYSTEMS: No CV, , pulmonary, eye, ENT system symptoms on review. Reliability fair. MENTAL STATUS EXAM: Oriented to herself and situation. Speech has moderate latency, often responses monosyllabic. Abstraction fair, computation impaired, language function intact. Mood and affect withdrawn. LABORATORY DATA: Reviewed. IMPRESSION: Major depressive disorder, recurrent with psychotic features; cognitive disorder, unspecified; psychotic disorder, unspecified. Rest unchanged. PLAN: No change from initial note. MAN Didi LYN MD DR: AMOS/manoj JOB#: [id number] / [id number]
[2018-10-22] MEDS: traZODone 50 MG TABLET. PO PRN ×2 (02:22→02:33)
[2018-10-22 05:48] VITALS: BP 117/75
[2018-10-22] MEDS: LEVOTHYROXINE 75 MCG TABLET PO SCH (06:51)
[2018-10-22] MEDS: buPROPion XL 300 MG TAB.ER.24H. PO SCH (08:39)
[2018-10-22] MEDS: MEMANTINE 10 MG TABLET. PO SCH ×2 (08:39→20:07)
[2018-10-22] MEDS: FLUoxetine HCL 10 MG CAPSULE PO SCH (08:39)
[2018-10-22 15:59] VITALS: BP 105/67
[2018-10-22] MEDS: DONEPEZIL HCL 10 MG TABLET PO SCH (20:06)
[2018-10-22] MEDS: ATORVASTATIN CALCIUM 20 MG TABLET PO SCH (20:07)
--- NOTE | 2018-10-22 22:14 | PN ---
DATE: 10/21/2018 PSYCHIATRIC PROGRESS NOTE This late entry 10/21/2018 covers elements not covered in my initial note. SUBJECTIVE: I met with the patient in the evening. The patient slept 6 hours previous night. I met with her in her room at length. She has been coming out the dayroom, little more animated, verbal, wanting the nursing staff to turn on the television set, talking a little more, interacting more with the nursing staff, although which is a slight improvement. REVIEW OF SYSTEMS: Positive for some tiredness. No CV, , pulmonary, eye, ENT system symptoms on review. She does not have any overt tremors. MENTAL STATUS EXAM: Oriented to herself and situation. Speech, moderate latency, often responses monosyllabic. Abstraction fair, computation impaired, language function intact, attention span short. Mood and affect still somewhat dysphoric, but no suicidal ideation. LABORATORY DATA: Reviewed. IMPRESSION: Major depressive disorder, recurrent major neurocognitive disorder, early Alzheimer, vascular with depression. Rest unchanged. PLAN: Continue current psychotropics. She is tolerating the Abilify 2.5 mg a day, to augment the Prozac 30 mg a day and Wellbutrin-XL 300 mg a day, again to augment the Prozac and Seroquel p.r.n., Namenda and Aricept. She is using trazodone for insomnia. We will continue to assess this and adjust as clinically indicated. Social service staff is looking for appropriate placement and coordination with the family. CYNDI LYN MD DR: AMOS/manoj JOB#: [id number] / [id number]
--- NOTE | 2018-10-22 22:55 | PDOC ---
Exam Note: Ricardo Note: Please also refer to the separate dictated note~for this date of service dictated separately.~Patient seen individually. Discussed the patient with Nursing staff reviewed the chart.~Reviewed interim history and current functioning. Reviewed vital signs,~Labs/ Radiology~and current medications noted below. Continue current treatment with the changes noted in the dictated addendum note Assessment: Vital Signs: Vital Signs Date Time Temp Pulse Resp B/P (MAP) Pulse Ox O2 Delivery O2 Flow Rate FiO2 10/22/18 15:59 97.5 74 18 105/67 (80) 95 Room Air I&O Intake and Output 10/22/18 07:01 Intake Total 960 ml Balance 960 ml Intake Oral 960 ml # Voids 1 Current Medications: Meds: Current Medications Acetaminophen (Tylenol) 650 mg PRN Q6HRS PRN PO PAIN / TEMP Last administered on 10/12/18at 00:14; Start 10/01/18 at 02:30 Multi-Ingredient Ointment (Analgesic [place]) 1 debora PRN QID PRN TP MUSCLE PAIN; Start 10/01/18 at 02:30 Al Hydroxide/Mg Hydroxide (Mylanta Plus Xs) 15 ml PRN AFTMEALHC PRN PO DYSPEPSIA; Start 10/01/18 at 02:30 Magnesium Hydroxide (Milk Of Magnesia) 2,400 mg PRN QHS PRN PO CONSTIPATION; Start 10/01/18 at 02:30 Clonazepam (KlonoPIN) 0.25 mg BID@0700,1500 PO Last administered on 10/06/18at 05:02; Start 10/01/18 at 07:00; Stop 10/06/18 at 16:47; Status DC Levothyroxine Sodium (Synthroid) 75 mcg DAILY06 PO Last administered on at 06:51; Start 10/01/18 at 06:00 Donepezil HCl (Aricept) 10 mg QHS PO Last administered on 10/22/18 20:06; Start 10/01/18 at 21:00 Fluoxetine HCl (PROzac) 80 mg DAILY PO Last administered on 10/02/18at 07:58; Start 10/01/18 at 09:00; Stop 10/02/18 at 17:33; Status DC Memantine (Namenda) 5 mg BID PO Last administered on 10/16/18at 07:25; Start 10/01/18 at 09:00; Stop 10/16/18 at 13:30; Status DC Quetiapine Fumarate (SEROquel) 12.5 mg PRN QID PRN PO ANXIETY / AGITATION Last administered on 10/12/18at 00:14; Start 10/01/18 at 02:45 Atorvastatin Calcium (Lipitor) 20 mg HS PO Last administered on 10/22/18at 20:07 ; Start 10/01/18 at 21:00 Vitamin D (Vitamin D3) 50,000 unit WEEKLY PO ; Start 10/02/18 at 16:15; Stop 10/02/18 at 17:26; Status DC Vitamin D (Vitamin D3) 50,000 unit WEEKLY PO Last administered on 10/17/18at 07 :26; Start 10/03/18 at 08:00 Fluoxetine HCl (PROzac) 60 mg DAILY PO Last administered on 10/06/18at 09:35; Start 10/03/18 at 09:00; Stop 10/06/18 at 16:47; Status DC Quetiapine Fumarate (SEROquel) 25 mg BID PO Last administered on 10/08/18at 07: 38; Start 10/02/18 at 21:00; Stop 10/08/18 at 10:33; Status DC Clonazepam (KlonoPIN) 0.25 mg DAILY@1500 PO Last administered on 10/10/18at 14: 02; Start 10/07/18 at 15:00; Stop 10/10/18 at 20:32; Status DC Fluoxetine HCl (PROzac) 20 mg DAILY PO Last administered on 10/16/18at 07:25; Start 10/07/18 at 09:00; Stop 10/16/18 at 13:30; Status DC Bupropion HCl (Wellbutrin Xl) 150 mg DAILY PO Last administered on 10/09/18at 11:55; Start 10/07/18 at 09:00; Stop 10/09/18 at 16:43; Status DC Quetiapine Fumarate (SEROquel) 25 mg QHS PO Last administered on 10/10/18at 19: 27; Start 10/08/18 at 21:00; Stop 10/11/18 at 18:11; Status DC Bupropion HCl (Wellbutrin Xl) 300 mg DAILY PO Last administered on 10/22/18 08: 39; Start 10/10/18 at 09:00; Stop 10/22/18 at 11:11; Status DC Trazodone HCl (Desyrel) 50 mg PRN QHS PRN PO INSOMNIA Last administered on 02:33; Start 10/10/18 at 20:45 Aripiprazole (Abilify) 2.5 mg QHS PO Last administered on 10/21/18 20:03; Start 10/11/18 at 21:00; Stop 10/22/18 at 11:11; Status DC Fluoxetine HCl (PROzac) 30 mg DAILY PO Last administered on 10/22/18 08:39; Start 10/17/18 at 09:00 Memantine (Namenda) 10 mg BID PO Last administered on 10/22/18 20:07; Start at 21:00 Active Scripts Active Reported Crestor (Rosuvastatin Calcium) 5 Mg Tablet 5 Mg PO DAILY Seroquel (Quetiapine Fumarate) 25 Mg Tablet 12.5 Mg PO PRN QID PRN Namenda (Memantine Hcl) 5 Mg Tablet 5 Mg PO BID Synthroid (Levothyroxine Sodium) 75 Mcg Tablet 75 Mcg PO DAILY06 Prozac (Fluoxetine Hcl) 40 Mg Capsule 80 Mg PO DAILY Aricept (Donepezil Hcl) 10 Mg Tablet 10 Mg PO QHS Klonopin (Clonazepam) 0.5 Mg Tablet 0.25 Mg PO BID@0700,1500 I have reviewed the current psychotropics carefully including drug interactions. Risk benefit ratio favors no change other than as noted in my dictated progress note. Diagnosis: Problems: (1) Confusion (2) Hallucinations (3) Agitated (4) Anxiety disorder (5) Depression (6) Impulse control disorder (7) Dementia, vascular, with delusions CYNDI LYN MD Oct 22, 2018 22:55
[2018-10-23 05:36] VITALS: BP 145/84
[2018-10-23] MEDS: LEVOTHYROXINE 75 MCG TABLET PO SCH (05:55)
[2018-10-23] MEDS: MEMANTINE 10 MG TABLET. PO SCH ×2 (08:08→20:24)
[2018-10-23] MEDS: FLUoxetine HCL 10 MG CAPSULE PO SCH (08:08)
[2018-10-23 16:47] VITALS: BP 119/71
--- NOTE | 2018-10-23 18:16 | PN ---
DATE: 10/22/2018 PSYCHIATRIC PROGRESS NOTE This late entry 10/22/2018 covers elements not covered in my initial note. SUBJECTIVE: I met with the patient in the evening and staffed at a treatment team meeting with the entire team in the morning. The patient has been sleeping reasonably well, is quite isolated, sleeps off and on during the day, does come out for some groups and activities. Reviewed her history at the treatment team meeting at length. REVIEW OF SYSTEMS: No CV, , pulmonary, eye, ENT system symptoms on review does admit to some tiredness. MENTAL STATUS EXAM: Oriented to herself and situation. Speech, moderate latency, often responses monosyllabic. Abstraction fair, computation impaired, language function intact, attention span short. Mood and affect somewhat withdrawn, but she seems to have responded positively to the addition of Abilify to augment the Prozac 30 mg a day along with Wellbutrin XL 300 mg a day. IMPRESSION: Major depressive disorder, recurrent with psychotic features, in partial remission; major neurocognitive disorder, early Alzheimer, vascular with delusion, depression. Rest unchanged. PLAN: After my attendance at the treatment team meeting, I did have e-mail from the daughter forwarded to me by Cindy social services manager. Daughter indicating the patient had been on Wellbutrin in the past and it caused tremors and she would like this discontinued and also would like the Abilify discontinued because the patient had been unable to tolerate this in the past, consequent to tremors and parkinsonian-like symptoms. A left a detailed message for the daughter on her voice mail [phone] indicating that Abilify was at a very low dosage 2.5 mg a day just enough to augment the Prozac and Wellbutrin-XL at 300 mg a day again to augment the Prozac and she was having no tremors and generally doing somewhat better, but it seemed quite clear that the daughter's perception was patient had not tolerated these meds in the past and we will go ahead and discontinue it anyway. We will monitor it closely and if symptoms of depression resurface we may have to restart with the daughter's consent and further education. Continue rest unchanged from initial note including Namenda, Prozac, Aricept along with trazodone 50 mg at bedtime p.r.n. insomnia. MAN Didi LYN MD DR: [place] JOB#: [id number] / [id number]
[2018-10-23] MEDS: DONEPEZIL HCL 10 MG TABLET PO SCH (20:24)
[2018-10-23] MEDS: ATORVASTATIN CALCIUM 20 MG TABLET PO SCH (20:24)
[2018-10-23] MEDS: traZODone 50 MG TABLET. PO PRN (20:26)
--- NOTE | 2018-10-23 22:40 | PDOC ---
Exam Note: Ricardo Note: Please also refer to the separate dictated note~for this date of service dictated separately.~Patient seen individually. Discussed the patient with Nursing staff reviewed the chart.~Reviewed interim history and current functioning. Reviewed vital signs,~Labs/ Radiology~and current medications noted below. Continue current treatment with the changes noted in the dictated addendum note Assessment: Vital Signs: Vital Signs Date Time Temp Pulse Resp B/P (MAP) Pulse Ox O2 Delivery O2 Flow Rate FiO2 10/23/18 16:47 97.9 77 18 119/71 (87) 95 10/22/18 15:59 Room Air I&O Intake and Output 10/23/18 07:01 Intake Total 840 ml Balance 840 ml Intake Oral 840 ml Current Medications: Meds: Current Medications Acetaminophen (Tylenol) 650 mg PRN Q6HRS PRN PO PAIN / TEMP Last administered on 10/12/18at 00:14; Start 10/01/18 at 02:30 Multi-Ingredient Ointment (Analgesic [place]) 1 debora PRN QID PRN TP MUSCLE PAIN; Start 10/01/18 at 02:30 Al Hydroxide/Mg Hydroxide (Mylanta Plus Xs) 15 ml PRN AFTMEALHC PRN PO DYSPEPSIA; Start 10/01/18 at 02:30 Magnesium Hydroxide (Milk Of Magnesia) 2,400 mg PRN QHS PRN PO CONSTIPATION; Start 10/01/18 at 02:30 Clonazepam (KlonoPIN) 0.25 mg BID@0700,1500 PO Last administered on 10/06/18at 05:02; Start 10/01/18 at 07:00; Stop 10/06/18 at 16:47; Status DC Levothyroxine Sodium (Synthroid) 75 mcg DAILY06 PO Last administered on at 05:55; Start 10/01/18 at 06:00 Donepezil HCl (Aricept) 10 mg QHS PO Last administered on 10/23/18 20:24; Start 10/01/18 at 21:00 Fluoxetine HCl (PROzac) 80 mg DAILY PO Last administered on 10/02/18at 07:58; Start 10/01/18 at 09:00; Stop 10/02/18 at 17:33; Status DC Memantine (Namenda) 5 mg BID PO Last administered on 10/16/18at 07:25; Start 10/01/18 at 09:00; Stop 10/16/18 at 13:30; Status DC Quetiapine Fumarate (SEROquel) 12.5 mg PRN QID PRN PO ANXIETY / AGITATION Last administered on 10/12/18at 00:14; Start 10/01/18 at 02:45 Atorvastatin Calcium (Lipitor) 20 mg HS PO Last administered on 10/23/18at 20:24 ; Start 10/01/18 at 21:00 Vitamin D (Vitamin D3) 50,000 unit WEEKLY PO ; Start 10/02/18 at 16:15; Stop 10/02/18 at 17:26; Status DC Vitamin D (Vitamin D3) 50,000 unit WEEKLY PO Last administered on 10/17/18at 07 :26; Start 10/03/18 at 08:00 Fluoxetine HCl (PROzac) 60 mg DAILY PO Last administered on 10/06/18at 09:35; Start 10/03/18 at 09:00; Stop 10/06/18 at 16:47; Status DC Quetiapine Fumarate (SEROquel) 25 mg BID PO Last administered on 10/08/18at 07: 38; Start 10/02/18 at 21:00; Stop 10/08/18 at 10:33; Status DC Clonazepam (KlonoPIN) 0.25 mg DAILY@1500 PO Last administered on 10/10/18at 14: 02; Start 10/07/18 at 15:00; Stop 10/10/18 at 20:32; Status DC Fluoxetine HCl (PROzac) 20 mg DAILY PO Last administered on 10/16/18at 07:25; Start 10/07/18 at 09:00; Stop 10/16/18 at 13:30; Status DC Bupropion HCl (Wellbutrin Xl) 150 mg DAILY PO Last administered on 10/09/18at 11:55; Start 10/07/18 at 09:00; Stop 10/09/18 at 16:43; Status DC Quetiapine Fumarate (SEROquel) 25 mg QHS PO Last administered on 10/10/18at 19: 27; Start 10/08/18 at 21:00; Stop 10/11/18 at 18:11; Status DC Bupropion HCl (Wellbutrin Xl) 300 mg DAILY PO Last administered on 10/22/18 08: 39; Start 10/10/18 at 09:00; Stop 10/22/18 at 11:11; Status DC Trazodone HCl (Desyrel) 50 mg PRN QHS PRN PO INSOMNIA Last administered on 20:26; Start 10/10/18 at 20:45 Aripiprazole (Abilify) 2.5 mg QHS PO Last administered on 10/21/18 20:03; Start 10/11/18 at 21:00; Stop 10/22/18 at 11:11; Status DC Fluoxetine HCl (PROzac) 30 mg DAILY PO Last administered on 10/23/18 08:08; Start 10/17/18 at 09:00 Memantine (Namenda) 10 mg BID PO Last administered on 10/23/18 20:24; Start at 21:00 Active Scripts Active Reported Crestor (Rosuvastatin Calcium) 5 Mg Tablet 5 Mg PO DAILY Seroquel (Quetiapine Fumarate) 25 Mg Tablet 12.5 Mg PO PRN QID PRN Namenda (Memantine Hcl) 5 Mg Tablet 5 Mg PO BID Synthroid (Levothyroxine Sodium) 75 Mcg Tablet 75 Mcg PO DAILY06 Prozac (Fluoxetine Hcl) 40 Mg Capsule 80 Mg PO DAILY Aricept (Donepezil Hcl) 10 Mg Tablet 10 Mg PO QHS Klonopin (Clonazepam) 0.5 Mg Tablet 0.25 Mg PO BID@0700,1500 I have reviewed the current psychotropics carefully including drug interactions. Risk benefit ratio favors no change other than as noted in my dictated progress note. Diagnosis: Problems: (1) Confusion (2) Hallucinations (3) Agitated (4) Anxiety disorder (5) Depression (6) Impulse control disorder (7) Dementia, vascular, with delusions CYNDI LYN MD Oct 23, 2018 22:40
[2018-10-24] MEDS: traZODone 50 MG TABLET. PO PRN ×2 (00:51→19:36)
[2018-10-24] MEDS: LEVOTHYROXINE 75 MCG TABLET PO SCH (04:59)
[2018-10-24 05:42] VITALS: BP 114/76
[2018-10-24 07:06] LABS: BASO # 0.1 x10^3/uL (0.0-0.2); BASO % 1 % (0-3); EOS # 0.4 x10^3/uL (0.0-0.7); EOS % 5 % (0-3); HEMATOCRIT 40.1 % (36.0-47.0); HEMOGLOBIN 13.5 g/dL (12.0-15.5); LYMPH % 29 % (24-48); MEAN CORPUSCULAR HEMOGLOBIN 29 pg (25-35); MEAN CORPUSCULAR HGB CONC 34 g/dL (31-37); MEAN CORPUSCULAR VOLUME 86 fL (79-100); MONO # 0.6 x10^3/uL (0.0-1.1); MONO % 9 % (0-9); NEUT # 3.8 x10^3uL (1.8-7.7); NEUT % 56 % (31-73); PLATELET COUNT 279 x10^3/uL (140-400); RED BLOOD COUNT 4.66 x10^6/uL (3.50-5.40); RED CELL DISTRIBUTION WIDTH 13.1 % (11.5-14.5); WHITE BLOOD COUNT 6.8 x10^3/uL (4.0-11.0)
[2018-10-24 07:16] LABS: ALBUMIN 2.8 g/dL (3.4-5.0); ALBUMIN/GLOBULIN RATIO 0.8 (1.0-1.7); CALCIUM 8.5 mg/dL (8.5-10.1); CREATININE 0.9 mg/dL (0.6-1.0); GFR 62.3; POTASSIUM 3.8 mmol/L (3.5-5.1); TOTAL BILIRUBIN 0.2 mg/dL (0.2-1.0); TOTAL PROTEIN 6.4 g/dL (6.4-8.2)
[2018-10-24] MEDS: FLUoxetine HCL 10 MG CAPSULE PO SCH (08:05)
[2018-10-24] MEDS: MEMANTINE 10 MG TABLET. PO SCH ×2 (08:05→19:36)
[2018-10-24] MEDS: CHOLECALCIFEROL (VITAMIN D3) 50,000 UNIT CAPSULE PO SCH (08:06)
[2018-10-24 16:16] VITALS: BP 125/65
[2018-10-24] MEDS: ATORVASTATIN CALCIUM 20 MG TABLET PO SCH (19:36)
[2018-10-24] MEDS: DONEPEZIL HCL 10 MG TABLET PO SCH (19:36)
--- NOTE | 2018-10-24 21:01 | PDOC ---
Exam Note: Ricardo Note: Please also refer to the separate dictated note~for this date of service dictated separately.~Patient seen individually. Discussed the patient with Nursing staff reviewed the chart.~Reviewed interim history and current functioning. Reviewed vital signs,~Labs/ Radiology~and current medications noted below. Continue current treatment with the changes noted in the dictated addendum note Assessment: Vital Signs: Vital Signs Date Time Temp Pulse Resp B/P (MAP) Pulse Ox O2 Delivery O2 Flow Rate FiO2 10/24/18 16:16 97.7 69 18 125/65 (85) 97 Room Air I&O Intake and Output 10/24/18 07:01 Intake Total 720 ml Balance 720 ml Intake Oral 720 ml Labs: Laboratory Tests Test 10/24/18 06:35 White Blood Count 6.8 x10^3/uL (4.0-11.0) Red Blood Count 4.66 x10^6/uL (3.50-5.40) Hemoglobin 13.5 g/dL (12.0-15.5) Hematocrit 40.1 % (36.0-47.0) Mean Corpuscular Volume 86 fL (79-100) Mean Corpuscular Hemoglobin 29 pg (25-35) Mean Corpuscular Hemoglobin Concent 34 g/dL (31-37) Red Cell Distribution Width 13.1 % (11.5-14.5) Platelet Count 279 x10^3/uL (140-400) Neutrophils (%) (Auto) 56 % (31-73) Lymphocytes (%) (Auto) 29 % (24-48) Monocytes (%) (Auto) 9 % (0-9) Eosinophils (%) (Auto) 5 % (0-3) H Basophils (%) (Auto) 1 % (0-3) Neutrophils # (Auto) 3.8 x10^3uL (1.8-7.7) Lymphocytes # (Auto) 2.0 x10^3/uL (1.0-4.8) Monocytes # (Auto) 0.6 x10^3/uL (0.0-1.1) Eosinophils # (Auto) 0.4 x10^3/uL (0.0-0.7) Basophils # (Auto) 0.1 x10^3/uL (0.0-0.2) Sodium Level 147 mmol/L (136-145) H Potassium Level 3.8 mmol/L (3.5-5.1) Chloride Level 109 mmol/L (98-107) H Carbon Dioxide Level 30 mmol/L (21-32) Anion Gap 8 (6-14) Blood Urea Nitrogen 11 mg/dL (7-20) Creatinine 0.9 mg/dL (0.6-1.0) Estimated GFR (Cockcroft-Gault) 62.3 BUN/Creatinine Ratio 12 (6-20) Glucose Level 106 mg/dL (70-99) H Calcium Level 8.5 mg/dL (8.5-10.1) Total Bilirubin 0.2 mg/dL (0.2-1.0) Aspartate Amino Transferase (AST) 18 U/L (15-37) Alanine Aminotransferase (ALT) 25 U/L (14-59) Alkaline Phosphatase 83 U/L (46-116) Total Protein 6.4 g/dL (6.4-8.2) Albumin 2.8 g/dL (3.4-5.0) L Albumin/Globulin Ratio 0.8 (1.0-1.7) L Current Medications: Meds: Current Medications Acetaminophen (Tylenol) 650 mg PRN Q6HRS PRN PO PAIN / TEMP Last administered on 10/12/18at 00:14; Start 10/01/18 at 02:30 Multi-Ingredient Ointment (Analgesic [place]) 1 debora PRN QID PRN TP MUSCLE PAIN; Start 10/01/18 at 02:30 Al Hydroxide/Mg Hydroxide (Mylanta Plus Xs) 15 ml PRN AFTMEALHC PRN PO DYSPEPSIA; Start 10/01/18 at 02:30 Magnesium Hydroxide (Milk Of Magnesia) 2,400 mg PRN QHS PRN PO CONSTIPATION; Start 10/01/18 at 02:30 Clonazepam (KlonoPIN) 0.25 mg BID@0700,1500 PO Last administered on 10/06/18at 05:02; Start 10/01/18 at 07:00; Stop 10/06/18 at 16:47; Status DC Levothyroxine Sodium (Synthroid) 75 mcg DAILY06 PO Last administered on at 04:59; Start 10/01/18 at 06:00 Donepezil HCl (Aricept) 10 mg QHS PO Last administered on 10/24/18 19:36; Start 10/01/18 at 21:00 Fluoxetine HCl (PROzac) 80 mg DAILY PO Last administered on 10/02/18at 07:58; Start 10/01/18 at 09:00; Stop 10/02/18 at 17:33; Status DC Memantine (Namenda) 5 mg BID PO Last administered on 10/16/18at 07:25; Start 10/01/18 at 09:00; Stop 10/16/18 at 13:30; Status DC Quetiapine Fumarate (SEROquel) 12.5 mg PRN QID PRN PO ANXIETY / AGITATION Last administered on 10/12/18at 00:14; Start 10/01/18 at 02:45 Atorvastatin Calcium (Lipitor) 20 mg HS PO Last administered on 10/24/18at 19:36 ; Start 10/01/18 at 21:00 Vitamin D (Vitamin D3) 50,000 unit WEEKLY PO ; Start 10/02/18 at 16:15; Stop 10/02/18 at 17:26; Status DC Vitamin D (Vitamin D3) 50,000 unit WEEKLY PO Last administered on 10/24/18at 08: 06; Start 10/03/18 at 08:00 Fluoxetine HCl (PROzac) 60 mg DAILY PO Last administered on 10/06/18at 09:35; Start 10/03/18 at 09:00; Stop 10/06/18 at 16:47; Status DC Quetiapine Fumarate (SEROquel) 25 mg BID PO Last administered on 10/08/18at 07: 38; Start 10/02/18 at 21:00; Stop 10/08/18 at 10:33; Status DC Clonazepam (KlonoPIN) 0.25 mg DAILY@1500 PO Last administered on 10/10/18at 14: 02; Start 10/07/18 at 15:00; Stop 10/10/18 at 20:32; Status DC Fluoxetine HCl (PROzac) 20 mg DAILY PO Last administered on 10/16/18at 07:25; Start 10/07/18 at 09:00; Stop 10/16/18 at 13:30; Status DC Bupropion HCl (Wellbutrin Xl) 150 mg DAILY PO Last administered on 10/09/18at 11:55; Start 10/07/18 at 09:00; Stop 10/09/18 at 16:43; Status DC Quetiapine Fumarate (SEROquel) 25 mg QHS PO Last administered on 10/10/18at 19: 27; Start 10/08/18 at 21:00; Stop 10/11/18 at 18:11; Status DC Bupropion HCl (Wellbutrin Xl) 300 mg DAILY PO Last administered on 10/22/18 08: 39; Start 10/10/18 at 09:00; Stop 10/22/18 at 11:11; Status DC Trazodone HCl (Desyrel) 50 mg PRN QHS PRN PO INSOMNIA Last administered on 19:36; Start 10/10/18 at 20:45 Aripiprazole (Abilify) 2.5 mg QHS PO Last administered on 10/21/18 20:03; Start 10/11/18 at 21:00; Stop 10/22/18 at 11:11; Status DC Fluoxetine HCl (PROzac) 30 mg DAILY PO Last administered on 10/24/18 08:05; Start 10/17/18 at 09:00 Memantine (Namenda) 10 mg BID PO Last administered on 10/24/18 19:36; Start at 21:00 Active Scripts Active Reported Crestor (Rosuvastatin Calcium) 5 Mg Tablet 5 Mg PO DAILY Seroquel (Quetiapine Fumarate) 25 Mg Tablet 12.5 Mg PO PRN QID PRN Namenda (Memantine Hcl) 5 Mg Tablet 5 Mg PO BID Synthroid (Levothyroxine Sodium) 75 Mcg Tablet 75 Mcg PO DAILY06 Prozac (Fluoxetine Hcl) 40 Mg Capsule 80 Mg PO DAILY Aricept (Donepezil Hcl) 10 Mg Tablet 10 Mg PO QHS Klonopin (Clonazepam) 0.5 Mg Tablet 0.25 Mg PO BID@0700,1500 I have reviewed the current psychotropics carefully including drug interactions. Risk benefit ratio favors no change other than as noted in my dictated progress note. Diagnosis: Problems: (1) Confusion (2) Hallucinations (3) Agitated (4) Anxiety disorder (5) Depression (6) Impulse control disorder (7) Dementia, vascular, with delusions CYNDI LYN MD Oct 24, 2018 21:01
--- NOTE | 2018-10-24 21:59 | PN ---
DATE: 10/24/2018 PSYCHIATRIC PROGRESS NOTE This note covers elements not covered in my initial note, 10/24/2018. SUBJECTIVE: I met with the patient in the evening in her room. The patient slept 7-1/4 hours previous evening. She has been withdrawn, did come out to the day room for a short period of time, not combative. Compliant with medications. As I met with her in her room, her primary focus was wanting to know when she can be discharged and we addressed this at some length. REVIEW OF SYSTEMS: No CV, , pulmonary, eye, ENT system symptoms on review. Reliability varies. MENTAL STATUS EXAM: Oriented to herself and situation. Speech moderate latency, often responses monosyllabic. Abstraction fair, computation impaired, language function intact, attention span short. Mood and affect withdrawn. LABORATORY DATA: Reviewed. IMPRESSION: Major depressive disorder, recurrent with psychotic features; major neurocognitive disorder, Alzheimer, vascular with delusion, depression. PLAN: No change from a psychiatric standpoint. Maintain Aricept, Prozac, Namenda, Seroquel along with trazodone for now. MAN Didi LYN MD DR: AMOS/manoj JOB#: [id number] / [id number]
[2018-10-25] MEDS: LEVOTHYROXINE 75 MCG TABLET PO SCH (05:06)
[2018-10-25 06:01] VITALS: BP 165/71
[2018-10-25] MEDS: MEMANTINE 10 MG TABLET. PO SCH ×2 (07:54→20:02)
[2018-10-25] MEDS: FLUoxetine HCL 10 MG CAPSULE PO SCH (07:54)
--- NOTE | 2018-10-25 10:24 | PN ---
DATE: 10/23/2018 This late entry, dater of service, 10/23/2018, covers elements not covered in my initial note. SUBJECTIVE: I met with the patient in the evening. The patient remains withdrawn, spends much time in her room. She was agitated one time early in the morning as the staff opened her room door to check on her. They also found several of her Prozac hidden in her bed and having even mouth checks to make sure she is compliant. She comes out for meals and back to her room. We are encouraging her to come out for groups. Slept 6-3/4 hours previous night, wanted to sleep in the day room. REVIEW OF SYSTEMS: No CV, , pulmonary, eye system symptoms on review. MENTAL STATUS EXAM: Oriented to herself and situation. Speech has some latency, often responses monosyllabic. Abstraction fair, computation impaired, language function intact, attention span short. Mood and affect somewhat withdrawn. LABORATORY DATA: Reviewed. IMPRESSION: Unchanged from initial note. PLAN: No change from initial note. CYNDI LYN MD DR: AMOS/manoj JOB#: [id number] / [id number]
[2018-10-25 16:05] VITALS: BP 147/84
[2018-10-25] MEDS: DONEPEZIL HCL 10 MG TABLET PO SCH (20:02)
[2018-10-25] MEDS: ATORVASTATIN CALCIUM 20 MG TABLET PO SCH (20:02)
--- NOTE | 2018-10-25 22:42 | PDOC ---
Exam Note: Ricardo Note: Please also refer to the separate dictated note~for this date of service dictated separately.~Patient seen individually. Discussed the patient with Nursing staff reviewed the chart.~Reviewed interim history and current functioning. Reviewed vital signs,~Labs/ Radiology~and current medications noted below. Continue current treatment with the changes noted in the dictated addendum note Assessment: Vital Signs: Vital Signs Date Time Temp Pulse Resp B/P (MAP) Pulse Ox O2 Delivery O2 Flow Rate FiO2 10/25/18 16:05 97.6 65 18 147/84 (105) 95 10/25/18 06:01 Room Air I&O Intake and Output 10/25/18 07:01 Intake Total 840 ml Balance 840 ml Intake Oral 840 ml Current Medications: Meds: Current Medications Acetaminophen (Tylenol) 650 mg PRN Q6HRS PRN PO PAIN / TEMP Last administered on 10/12/18at 00:14; Start 10/01/18 at 02:30 Multi-Ingredient Ointment (Analgesic [place]) 1 debora PRN QID PRN TP MUSCLE PAIN; Start 10/01/18 at 02:30 Al Hydroxide/Mg Hydroxide (Mylanta Plus Xs) 15 ml PRN AFTMEALHC PRN PO DYSPEPSIA; Start 10/01/18 at 02:30 Magnesium Hydroxide (Milk Of Magnesia) 2,400 mg PRN QHS PRN PO CONSTIPATION; Start 10/01/18 at 02:30 Clonazepam (KlonoPIN) 0.25 mg BID@0700,1500 PO Last administered on 10/06/18at 05:02; Start 10/01/18 at 07:00; Stop 10/06/18 at 16:47; Status DC Levothyroxine Sodium (Synthroid) 75 mcg DAILY06 PO Last administered on 05:06; Start 10/01/18 at 06:00 Donepezil HCl (Aricept) 10 mg QHS PO Last administered on 10/25/18at 20:02; Start 10/01/18 at 21:00 Fluoxetine HCl (PROzac) 80 mg DAILY PO Last administered on 10/02/18at 07:58; Start 10/01/18 at 09:00; Stop 10/02/18 at 17:33; Status DC Memantine (Namenda) 5 mg BID PO Last administered on 10/16/18at 07:25; Start 10/01/18 at 09:00; Stop 10/16/18 at 13:30; Status DC Quetiapine Fumarate (SEROquel) 12.5 mg PRN QID PRN PO ANXIETY / AGITATION Last administered on 10/12/18at 00:14; Start 10/01/18 at 02:45 Atorvastatin Calcium (Lipitor) 20 mg HS PO Last administered on 10/25/18at 20:02 ; Start 10/01/18 at 21:00 Vitamin D (Vitamin D3) 50,000 unit WEEKLY PO ; Start 10/02/18 at 16:15; Stop 10/02/18 at 17:26; Status DC Vitamin D (Vitamin D3) 50,000 unit WEEKLY PO Last administered on 10/24/18at 08: 06; Start 10/03/18 at 08:00 Fluoxetine HCl (PROzac) 60 mg DAILY PO Last administered on 10/06/18at 09:35; Start 10/03/18 at 09:00; Stop 10/06/18 at 16:47; Status DC Quetiapine Fumarate (SEROquel) 25 mg BID PO Last administered on 10/08/18at 07: 38; Start 10/02/18 at 21:00; Stop 10/08/18 at 10:33; Status DC Clonazepam (KlonoPIN) 0.25 mg DAILY@1500 PO Last administered on 10/10/18at 14: 02; Start 10/07/18 at 15:00; Stop 10/10/18 at 20:32; Status DC Fluoxetine HCl (PROzac) 20 mg DAILY PO Last administered on 10/16/18at 07:25; Start 10/07/18 at 09:00; Stop 10/16/18 at 13:30; Status DC Bupropion HCl (Wellbutrin Xl) 150 mg DAILY PO Last administered on 10/09/18at 11:55; Start 10/07/18 at 09:00; Stop 10/09/18 at 16:43; Status DC Quetiapine Fumarate (SEROquel) 25 mg QHS PO Last administered on 10/10/18at 19: 27; Start 10/08/18 at 21:00; Stop 10/11/18 at 18:11; Status DC Bupropion HCl (Wellbutrin Xl) 300 mg DAILY PO Last administered on 10/22/18 08: 39; Start 10/10/18 at 09:00; Stop 10/22/18 at 11:11; Status DC Trazodone HCl (Desyrel) 50 mg PRN QHS PRN PO INSOMNIA Last administered on 19:36; Start 10/10/18 at 20:45 Aripiprazole (Abilify) 2.5 mg QHS PO Last administered on 10/21/18 20:03; Start 10/11/18 at 21:00; Stop 10/22/18 at 11:11; Status DC Fluoxetine HCl (PROzac) 30 mg DAILY PO Last administered on 10/25/18 07:54; Start 10/17/18 at 09:00 Memantine (Namenda) 10 mg BID PO Last administered on 10/25/18 20:02; Start at 21:00 Active Scripts Active Reported Crestor (Rosuvastatin Calcium) 5 Mg Tablet 5 Mg PO DAILY Seroquel (Quetiapine Fumarate) 25 Mg Tablet 12.5 Mg PO PRN QID PRN Namenda (Memantine Hcl) 5 Mg Tablet 5 Mg PO BID Synthroid (Levothyroxine Sodium) 75 Mcg Tablet 75 Mcg PO DAILY06 Prozac (Fluoxetine Hcl) 40 Mg Capsule 80 Mg PO DAILY Aricept (Donepezil Hcl) 10 Mg Tablet 10 Mg PO QHS Klonopin (Clonazepam) 0.5 Mg Tablet 0.25 Mg PO BID@0700,1500 I have reviewed the current psychotropics carefully including drug interactions. Risk benefit ratio favors no change other than as noted in my dictated progress note. Diagnosis: Problems: (1) Confusion (2) Hallucinations (3) Agitated (4) Anxiety disorder (5) Depression (6) Impulse control disorder (7) Dementia, vascular, with delusions CYNDI LYN MD Oct 25, 2018 22:42
[2018-10-26 05:39] VITALS: BP 145/77
[2018-10-26] MEDS: LEVOTHYROXINE 75 MCG TABLET PO SCH (06:03)
[2018-10-26] MEDS: MEMANTINE 10 MG TABLET. PO SCH ×2 (07:24→19:52)
[2018-10-26] MEDS: FLUoxetine HCL 10 MG CAPSULE PO SCH (07:25)
[2018-10-26 16:04] VITALS: BP 148/83
[2018-10-26] MEDS: ATORVASTATIN CALCIUM 20 MG TABLET PO SCH (19:53)
[2018-10-26] MEDS: DONEPEZIL HCL 10 MG TABLET PO SCH (19:53)
--- NOTE | 2018-10-26 22:36 | PDOC ---
Exam Note: Ricardo Note: Please also refer to the separate dictated note~for this date of service dictated separately.~Patient seen individually. Discussed the patient with Nursing staff reviewed the chart.~Reviewed interim history and current functioning. Reviewed vital signs,~Labs/ Radiology~and current medications noted below. Continue current treatment with the changes noted in the dictated addendum note Assessment: Vital Signs: Vital Signs Date Time Temp Pulse Resp B/P (MAP) Pulse Ox O2 Delivery O2 Flow Rate FiO2 10/26/18 16:04 98.3 68 18 148/83 (104) 97 10/25/18 06:01 Room Air I&O Intake and Output 10/26/18 07:01 Intake Total 960 ml Balance 960 ml Intake Oral 960 ml Current Medications: Meds: Current Medications Acetaminophen (Tylenol) 650 mg PRN Q6HRS PRN PO PAIN / TEMP Last administered on 10/12/18at 00:14; Start 10/01/18 at 02:30 Multi-Ingredient Ointment (Analgesic [place]) 1 debora PRN QID PRN TP MUSCLE PAIN; Start 10/01/18 at 02:30 Al Hydroxide/Mg Hydroxide (Mylanta Plus Xs) 15 ml PRN AFTMEALHC PRN PO DYSPEPSIA; Start 10/01/18 at 02:30 Magnesium Hydroxide (Milk Of Magnesia) 2,400 mg PRN QHS PRN PO CONSTIPATION; Start 10/01/18 at 02:30 Clonazepam (KlonoPIN) 0.25 mg BID@0700,1500 PO Last administered on 10/06/18at 05:02; Start 10/01/18 at 07:00; Stop 10/06/18 at 16:47; Status DC Levothyroxine Sodium (Synthroid) 75 mcg DAILY06 PO Last administered on at 06:03; Start 10/01/18 at 06:00 Donepezil HCl (Aricept) 10 mg QHS PO Last administered on 10/26/18at 19:53; Start 10/01/18 at 21:00 Fluoxetine HCl (PROzac) 80 mg DAILY PO Last administered on 10/02/18at 07:58; Start 10/01/18 at 09:00; Stop 10/02/18 at 17:33; Status DC Memantine (Namenda) 5 mg BID PO Last administered on 10/16/18at 07:25; Start 10/01/18 at 09:00; Stop 10/16/18 at 13:30; Status DC Quetiapine Fumarate (SEROquel) 12.5 mg PRN QID PRN PO ANXIETY / AGITATION Last administered on 10/12/18at 00:14; Start 10/01/18 at 02:45 Atorvastatin Calcium (Lipitor) 20 mg HS PO Last administered on 10/26/18at 19:53 ; Start 10/01/18 at 21:00 Vitamin D (Vitamin D3) 50,000 unit WEEKLY PO ; Start 10/02/18 at 16:15; Stop 10/02/18 at 17:26; Status DC Vitamin D (Vitamin D3) 50,000 unit WEEKLY PO Last administered on 10/24/18at 08: 06; Start 10/03/18 at 08:00 Fluoxetine HCl (PROzac) 60 mg DAILY PO Last administered on 10/06/18at 09:35; Start 10/03/18 at 09:00; Stop 10/06/18 at 16:47; Status DC Quetiapine Fumarate (SEROquel) 25 mg BID PO Last administered on 10/08/18at 07: 38; Start 10/02/18 at 21:00; Stop 10/08/18 at 10:33; Status DC Clonazepam (KlonoPIN) 0.25 mg DAILY@1500 PO Last administered on 10/10/18at 14: 02; Start 10/07/18 at 15:00; Stop 10/10/18 at 20:32; Status DC Fluoxetine HCl (PROzac) 20 mg DAILY PO Last administered on 10/16/18at 07:25; Start 10/07/18 at 09:00; Stop 10/16/18 at 13:30; Status DC Bupropion HCl (Wellbutrin Xl) 150 mg DAILY PO Last administered on 10/09/18at 11:55; Start 10/07/18 at 09:00; Stop 10/09/18 at 16:43; Status DC Quetiapine Fumarate (SEROquel) 25 mg QHS PO Last administered on 10/10/18at 19: 27; Start 10/08/18 at 21:00; Stop 10/11/18 at 18:11; Status DC Bupropion HCl (Wellbutrin Xl) 300 mg DAILY PO Last administered on 10/22/18 08: 39; Start 10/10/18 at 09:00; Stop 10/22/18 at 11:11; Status DC Trazodone HCl (Desyrel) 50 mg PRN QHS PRN PO INSOMNIA Last administered on 19:36; Start 10/10/18 at 20:45 Aripiprazole (Abilify) 2.5 mg QHS PO Last administered on 10/21/18 20:03; Start 10/11/18 at 21:00; Stop 10/22/18 at 11:11; Status DC Fluoxetine HCl (PROzac) 30 mg DAILY PO Last administered on 10/26/18 07:25; Start 10/17/18 at 09:00 Memantine (Namenda) 10 mg BID PO Last administered on 10/26/18 19:52; Start at 21:00 Active Scripts Active Reported Crestor (Rosuvastatin Calcium) 5 Mg Tablet 5 Mg PO DAILY Seroquel (Quetiapine Fumarate) 25 Mg Tablet 12.5 Mg PO PRN QID PRN Namenda (Memantine Hcl) 5 Mg Tablet 5 Mg PO BID Synthroid (Levothyroxine Sodium) 75 Mcg Tablet 75 Mcg PO DAILY06 Prozac (Fluoxetine Hcl) 40 Mg Capsule 80 Mg PO DAILY Aricept (Donepezil Hcl) 10 Mg Tablet 10 Mg PO QHS Klonopin (Clonazepam) 0.5 Mg Tablet 0.25 Mg PO BID@0700,1500 I have reviewed the current psychotropics carefully including drug interactions. Risk benefit ratio favors no change other than as noted in my dictated progress note. Diagnosis: Problems: (1) Confusion (2) Hallucinations (3) Agitated (4) Anxiety disorder (5) Depression (6) Impulse control disorder (7) Dementia, vascular, with delusions CYNDI LYN MD Oct 26, 2018 22:36
[2018-10-27 05:36] VITALS: BP 135/80
[2018-10-27] MEDS: LEVOTHYROXINE 75 MCG TABLET PO SCH (05:38)
[2018-10-27] MEDS: MEMANTINE 10 MG TABLET. PO SCH ×2 (07:45→19:22)
[2018-10-27] MEDS: FLUoxetine HCL 10 MG CAPSULE PO SCH (07:46)
[2018-10-27 15:45] VITALS: BP 120/84
[2018-10-27] MEDS: traZODone 50 MG TABLET. PO PRN (19:22)
[2018-10-27] MEDS: ATORVASTATIN CALCIUM 20 MG TABLET PO SCH (19:22)
[2018-10-27] MEDS: DONEPEZIL HCL 10 MG TABLET PO SCH (19:22)
--- NOTE | 2018-10-27 22:56 | PDOC ---
Exam Note: Ricardo Note: Please also refer to the separate dictated note~for this date of service dictated separately.~Patient seen individually. Discussed the patient with Nursing staff reviewed the chart.~Reviewed interim history and current functioning. Reviewed vital signs,~Labs/ Radiology~and current medications noted below. Continue current treatment with the changes noted in the dictated addendum note Assessment: Vital Signs: Vital Signs Date Time Temp Pulse Resp B/P (MAP) Pulse Ox O2 Delivery O2 Flow Rate FiO2 10/27/18 15:45 97.8 69 16 120/84 (96) 95 10/25/18 06:01 Room Air I&O Intake and Output 10/27/18 07:01 Intake Total 360 ml Balance 360 ml Intake Oral 360 ml Current Medications: Meds: Current Medications Acetaminophen (Tylenol) 650 mg PRN Q6HRS PRN PO PAIN / TEMP Last administered on 10/12/18at 00:14; Start 10/01/18 at 02:30 Multi-Ingredient Ointment (Analgesic [place]) 1 debora PRN QID PRN TP MUSCLE PAIN; Start 10/01/18 at 02:30 Al Hydroxide/Mg Hydroxide (Mylanta Plus Xs) 15 ml PRN AFTMEALHC PRN PO DYSPEPSIA; Start 10/01/18 at 02:30 Magnesium Hydroxide (Milk Of Magnesia) 2,400 mg PRN QHS PRN PO CONSTIPATION; Start 10/01/18 at 02:30 Clonazepam (KlonoPIN) 0.25 mg BID@0700,1500 PO Last administered on 10/06/18at 05:02; Start 10/01/18 at 07:00; Stop 10/06/18 at 16:47; Status DC Levothyroxine Sodium (Synthroid) 75 mcg DAILY06 PO Last administered on at 05:38; Start 10/01/18 at 06:00 Donepezil HCl (Aricept) 10 mg QHS PO Last administered on 10/27/18 19:22; Start 10/01/18 at 21:00 Fluoxetine HCl (PROzac) 80 mg DAILY PO Last administered on 10/02/18at 07:58; Start 10/01/18 at 09:00; Stop 10/02/18 at 17:33; Status DC Memantine (Namenda) 5 mg BID PO Last administered on 10/16/18at 07:25; Start 10/01/18 at 09:00; Stop 10/16/18 at 13:30; Status DC Quetiapine Fumarate (SEROquel) 12.5 mg PRN QID PRN PO ANXIETY / AGITATION Last administered on 10/12/18at 00:14; Start 10/01/18 at 02:45 Atorvastatin Calcium (Lipitor) 20 mg HS PO Last administered on 10/27/18at 19:22 ; Start 10/01/18 at 21:00 Vitamin D (Vitamin D3) 50,000 unit WEEKLY PO ; Start 10/02/18 at 16:15; Stop 10/02/18 at 17:26; Status DC Vitamin D (Vitamin D3) 50,000 unit WEEKLY PO Last administered on 10/24/18at 08: 06; Start 10/03/18 at 08:00 Fluoxetine HCl (PROzac) 60 mg DAILY PO Last administered on 10/06/18at 09:35; Start 10/03/18 at 09:00; Stop 10/06/18 at 16:47; Status DC Quetiapine Fumarate (SEROquel) 25 mg BID PO Last administered on 10/08/18at 07: 38; Start 10/02/18 at 21:00; Stop 10/08/18 at 10:33; Status DC Clonazepam (KlonoPIN) 0.25 mg DAILY@1500 PO Last administered on 10/10/18at 14: 02; Start 10/07/18 at 15:00; Stop 10/10/18 at 20:32; Status DC Fluoxetine HCl (PROzac) 20 mg DAILY PO Last administered on 10/16/18at 07:25; Start 10/07/18 at 09:00; Stop 10/16/18 at 13:30; Status DC Bupropion HCl (Wellbutrin Xl) 150 mg DAILY PO Last administered on 10/09/18at 11:55; Start 10/07/18 at 09:00; Stop 10/09/18 at 16:43; Status DC Quetiapine Fumarate (SEROquel) 25 mg QHS PO Last administered on 10/10/18at 19: 27; Start 10/08/18 at 21:00; Stop 10/11/18 at 18:11; Status DC Bupropion HCl (Wellbutrin Xl) 300 mg DAILY PO Last administered on 10/22/18 08: 39; Start 10/10/18 at 09:00; Stop 10/22/18 at 11:11; Status DC Trazodone HCl (Desyrel) 50 mg PRN QHS PRN PO INSOMNIA Last administered on 19:22; Start 10/10/18 at 20:45 Aripiprazole (Abilify) 2.5 mg QHS PO Last administered on 10/21/18 20:03; Start 10/11/18 at 21:00; Stop 10/22/18 at 11:11; Status DC Fluoxetine HCl (PROzac) 30 mg DAILY PO Last administered on 10/27/18 07:46; Start 10/17/18 at 09:00 Memantine (Namenda) 10 mg BID PO Last administered on 10/27/18 19:22; Start at 21:00 Active Scripts Active Reported Crestor (Rosuvastatin Calcium) 5 Mg Tablet 5 Mg PO DAILY Seroquel (Quetiapine Fumarate) 25 Mg Tablet 12.5 Mg PO PRN QID PRN Namenda (Memantine Hcl) 5 Mg Tablet 5 Mg PO BID Synthroid (Levothyroxine Sodium) 75 Mcg Tablet 75 Mcg PO DAILY06 Prozac (Fluoxetine Hcl) 40 Mg Capsule 80 Mg PO DAILY Aricept (Donepezil Hcl) 10 Mg Tablet 10 Mg PO QHS Klonopin (Clonazepam) 0.5 Mg Tablet 0.25 Mg PO BID@0700,1500 I have reviewed the current psychotropics carefully including drug interactions. Risk benefit ratio favors no change other than as noted in my dictated progress note. Diagnosis: Problems: (1) Confusion (2) Hallucinations (3) Agitated (4) Anxiety disorder (5) Depression (6) Impulse control disorder (7) Dementia, vascular, with delusions CYNDI LYN MD Oct 27, 2018 22:56
--- NOTE | 2018-10-28 00:50 | PN ---
DATE: 10/26/2018 PSYCHIATRIC PROGRESS NOTE This late entry 10/26/2018 covers elements, not covered in my initial note. SUBJECTIVE: I met with the patient in the evening. The patient slept 8-1/4 hours previous night. She was in her room as I met with her in the evening, still withdrawn. She has not been aggressive, however. REVIEW OF SYSTEMS: No CV, , pulmonary, eye system symptoms on review. MENTAL STATUS EXAM: Oriented to herself and situation. Speech has some latency, low in volume, often responses monosyllabic. Abstraction fair, computation impaired, language function intact. Mood and affect still depressed, withdrawn. Nursing staff passed on to me a message from the patient's daughter, indicating that the daughter herself had done well on Celexa and wanted the mother to have a trial on Celexa. We had initially considered increasing the Prozac, but the request by the daughter is not unreasonable and we will change Prozac to Celexa 20 mg a day. Wellbutrin and Abilify, which were used to augment the SSRIs in the past, were discontinued at the daughter's insistence. LABORATORY DATA: Reviewed. IMPRESSION: Major depressive disorder with psychotic features, major neurocognitive disorder, early Alzheimer, vascular with delusion, depression; rest unchanged. PLAN: Change Prozac to Celexa; maintain Namenda, Aricept along with trazodone and Seroquel, the latter to appearance. CYNDI LYN MD DR: AMOS/manoj JOB#: [id number] / [id number]
[2018-10-28] MEDS: LEVOTHYROXINE 75 MCG TABLET PO SCH (05:43)
[2018-10-28 05:53] VITALS: BP 132/72
[2018-10-28] MEDS: FLUoxetine HCL 10 MG CAPSULE PO SCH (09:23)
[2018-10-28] MEDS: MEMANTINE 10 MG TABLET. PO SCH ×2 (09:23→20:45)
--- NOTE | 2018-10-28 12:03 | PN ---
DATE: 10/27/2018 PSYCHIATRIC PROGRESS NOTE This is a late entry for 10/27/2018 and covers elements not covered in my initial note. SUBJECTIVE: I met with the patient in her room. She remains isolative, slept 8-3/4 hours previous evening, did come out for lunch. We are still waiting clarification from the daughter before starting Celexa in place of the Prozac. REVIEW OF SYSTEMS: Positive for tiredness. No CV, , pulmonary, eye, ENT system symptoms on review. MENTAL STATUS EXAM: Oriented to herself and situation. Speech moderate latency, often responses monosyllabic. Abstraction fair, computation impaired, language function intact, attention span short. Mood and affect withdrawn. LABORATORY DATA: Reviewed. IMPRESSION: Major depressive disorder, recurrent with psychotic features; major neurocognitive disorder, Alzheimer, vascular with delusion, depression. Rest unchanged. PLAN: No change from initial note and we may change the Prozac to Celexa depending on her progress and daughter's agreement. MAN Didi LYN MD DR: AMOS/manoj JOB#: [id number] / [id number]
[2018-10-28 16:19] VITALS: BP 115/72
[2018-10-28] MEDS: ATORVASTATIN CALCIUM 20 MG TABLET PO SCH (20:45)
[2018-10-28] MEDS: DONEPEZIL 23 MG TABLET PO SCH (20:46)
--- NOTE | 2018-10-28 22:45 | PDOC ---
Exam Note: Ricardo Note: Please also refer to the separate dictated note~for this date of service dictated separately.~Patient seen individually. Discussed the patient with Nursing staff reviewed the chart.~Reviewed interim history and current functioning. Reviewed vital signs,~Labs/ Radiology~and current medications noted below. Continue current treatment with the changes noted in the dictated addendum note Assessment: Vital Signs: Vital Signs Date Time Temp Pulse Resp B/P (MAP) Pulse Ox O2 Delivery O2 Flow Rate FiO2 10/28/18 16:19 98.2 64 18 115/72 (86) 93 10/25/18 06:01 Room Air I&O Intake and Output 10/28/18 07:01 Intake Total 240 ml Balance 240 ml Intake Oral 240 ml Current Medications: Meds: Current Medications Acetaminophen (Tylenol) 650 mg PRN Q6HRS PRN PO PAIN / TEMP Last administered on 10/12/18at 00:14; Start 10/01/18 at 02:30 Multi-Ingredient Ointment (Analgesic [place]) 1 debora PRN QID PRN TP MUSCLE PAIN; Start 10/01/18 at 02:30 Al Hydroxide/Mg Hydroxide (Mylanta Plus Xs) 15 ml PRN AFTMEALHC PRN PO DYSPEPSIA; Start 10/01/18 at 02:30 Magnesium Hydroxide (Milk Of Magnesia) 2,400 mg PRN QHS PRN PO CONSTIPATION; Start 10/01/18 at 02:30 Clonazepam (KlonoPIN) 0.25 mg BID@0700,1500 PO Last administered on 10/06/18at 05:02; Start 10/01/18 at 07:00; Stop 10/06/18 at 16:47; Status DC Levothyroxine Sodium (Synthroid) 75 mcg DAILY06 PO Last administered on at 05:43; Start 10/01/18 at 06:00 Donepezil HCl (Aricept) 10 mg QHS PO Last administered on 10/27/18at 19:22; Start 10/01/18 at 21:00; Stop 10/28/18 at 18:38; Status DC Fluoxetine HCl (PROzac) 80 mg DAILY PO Last administered on 10/02/18at 07:58; Start 10/01/18 at 09:00; Stop 10/02/18 at 17:33; Status DC Memantine (Namenda) 5 mg BID PO Last administered on 10/16/18at 07:25; Start 10/01/18 at 09:00; Stop 10/16/18 at 13:30; Status DC Quetiapine Fumarate (SEROquel) 12.5 mg PRN QID PRN PO ANXIETY / AGITATION Last administered on 10/12/18at 00:14; Start 10/01/18 at 02:45 Atorvastatin Calcium (Lipitor) 20 mg HS PO Last administered on 10/28/18at 20:45 ; Start 10/01/18 at 21:00 Vitamin D (Vitamin D3) 50,000 unit WEEKLY PO ; Start 10/02/18 at 16:15; Stop 10/02/18 at 17:26; Status DC Vitamin D (Vitamin D3) 50,000 unit WEEKLY PO Last administered on 10/24/18at 08: 06; Start 10/03/18 at 08:00 Fluoxetine HCl (PROzac) 60 mg DAILY PO Last administered on 10/06/18at 09:35; Start 10/03/18 at 09:00; Stop 10/06/18 at 16:47; Status DC Quetiapine Fumarate (SEROquel) 25 mg BID PO Last administered on 10/08/18at 07: 38; Start 10/02/18 at 21:00; Stop 10/08/18 at 10:33; Status DC Clonazepam (KlonoPIN) 0.25 mg DAILY@1500 PO Last administered on 10/10/18at 14: 02; Start 10/07/18 at 15:00; Stop 10/10/18 at 20:32; Status DC Fluoxetine HCl (PROzac) 20 mg DAILY PO Last administered on 10/16/18at 07:25; Start 10/07/18 at 09:00; Stop 10/16/18 at 13:30; Status DC Bupropion HCl (Wellbutrin Xl) 150 mg DAILY PO Last administered on 10/09/18at 11:55; Start 10/07/18 at 09:00; Stop 10/09/18 at 16:43; Status DC Quetiapine Fumarate (SEROquel) 25 mg QHS PO Last administered on 10/10/18at 19: 27; Start 10/08/18 at 21:00; Stop 10/11/18 at 18:11; Status DC Bupropion HCl (Wellbutrin Xl) 300 mg DAILY PO Last administered on 10/22/18 08: 39; Start 10/10/18 at 09:00; Stop 10/22/18 at 11:11; Status DC Trazodone HCl (Desyrel) 50 mg PRN QHS PRN PO INSOMNIA Last administered on 19:22; Start 10/10/18 at 20:45 Aripiprazole (Abilify) 2.5 mg QHS PO Last administered on 10/21/18 20:03; Start 10/11/18 at 21:00; Stop 10/22/18 at 11:11; Status DC Fluoxetine HCl (PROzac) 30 mg DAILY PO Last administered on 10/28/18 09:23; Start 10/17/18 at 09:00; Stop 10/28/18 at 18:38; Status DC Memantine (Namenda) 10 mg BID PO Last administered on 10/28/18 20:45; Start at 21:00 Donepezil HCl (Aricept) 23 mg QHS PO Last administered on 10/28/18 20:46; Start 10/28/18 at 21:00 Citalopram Hydrobromide (CeleXA) 20 mg DAILY PO ; Start 10/29/18 at 09:00 Active Scripts Active Reported Crestor (Rosuvastatin Calcium) 5 Mg Tablet 5 Mg PO DAILY Seroquel (Quetiapine Fumarate) 25 Mg Tablet 12.5 Mg PO PRN QID PRN Namenda (Memantine Hcl) 5 Mg Tablet 5 Mg PO BID Synthroid (Levothyroxine Sodium) 75 Mcg Tablet 75 Mcg PO DAILY06 Prozac (Fluoxetine Hcl) 40 Mg Capsule 80 Mg PO DAILY Aricept (Donepezil Hcl) 10 Mg Tablet 10 Mg PO QHS Klonopin (Clonazepam) 0.5 Mg Tablet 0.25 Mg PO BID@0700,1500 I have reviewed the current psychotropics carefully including drug interactions. Risk benefit ratio favors no change other than as noted in my dictated progress note. Diagnosis: Problems: (1) Confusion (2) Hallucinations (3) Agitated (4) Anxiety disorder (5) Depression (6) Impulse control disorder (7) Dementia, vascular, with delusions CYNDI LYN MD Oct 28, 2018 22:45
[2018-10-29 05:48] VITALS: BP 131/74
[2018-10-29] MEDS: LEVOTHYROXINE 75 MCG TABLET PO SCH (06:27)
[2018-10-29 06:57] LABS: BASO # 0.1 x10^3/uL (0.0-0.2); BASO % 1 % (0-3); EOS # 0.3 x10^3/uL (0.0-0.7); EOS % 4 % (0-3); HEMATOCRIT 44.3 % (36.0-47.0); HEMOGLOBIN 14.8 g/dL (12.0-15.5); LYMPH # 1.8 x10^3/uL (1.0-4.8); LYMPH % 26 % (24-48); MEAN CORPUSCULAR HEMOGLOBIN 29 pg (25-35); MEAN CORPUSCULAR HGB CONC 33 g/dL (31-37); MEAN CORPUSCULAR VOLUME 85 fL (79-100); MONO # 0.6 x10^3/uL (0.0-1.1); MONO % 9 % (0-9); NEUT # 4.1 x10^3uL (1.8-7.7); NEUT % 59 % (31-73); PLATELET COUNT 289 x10^3/uL (140-400); RED BLOOD COUNT 5.18 x10^6/uL (3.50-5.40); RED CELL DISTRIBUTION WIDTH 12.9 % (11.5-14.5); WHITE BLOOD COUNT 6.9 x10^3/uL (4.0-11.0)
[2018-10-29 07:07] LABS: ALBUMIN 3.1 g/dL (3.4-5.0); ALBUMIN/GLOBULIN RATIO 0.8 (1.0-1.7); CALCIUM 8.7 mg/dL (8.5-10.1); CREATININE 0.7 mg/dL (0.6-1.0); GFR 83.2; POTASSIUM 3.7 mmol/L (3.5-5.1); TOTAL BILIRUBIN 0.4 mg/dL (0.2-1.0); TOTAL PROTEIN 6.9 g/dL (6.4-8.2)
[2018-10-29] MEDS: MEMANTINE 10 MG TABLET. PO SCH ×2 (08:21→19:21)
[2018-10-29] MEDS: CITALOPRAM 20 MG TABLET. PO SCH (08:21)
[2018-10-29 15:54] VITALS: BP 133/76
[2018-10-29] MEDS: DONEPEZIL 23 MG TABLET PO SCH (19:21)
[2018-10-29] MEDS: ATORVASTATIN CALCIUM 20 MG TABLET PO SCH (19:21)
--- NOTE | 2018-10-29 19:48 | PN ---
DATE: 10/28/2018 PSYCHIATRIC PROGRESS NOTE This late entry 10/28/2018 covers elements not covered in my initial note. SUBJECTIVE: I met with the patient in the evening and staffed at a treatment team meeting with the entire team in the afternoon. The patient slept 9 hours previous evening. She has been less tearful, still withdrawn, depressed. She has not been aggressive however. She does have short-term memory deficits. REVIEW OF SYSTEMS: No CV, , pulmonary, eye, ENT system symptoms on review. MENTAL STATUS EXAM: Oriented to herself, situation. I met with her in her room. Speech has some latency, coherent. She is again wanting to know her discharge plans via the nursing staff in order to have the social service staff discuss this with the patient. Other than tiredness, no CV, , pulmonary, eye, ENT system symptoms on review. MENTAL STATUS EXAM: Oriented to herself and situation. Speech moderate latency, often responses monosyllabic. Abstraction fair, computation somewhat impaired, language function intact. Attention span short. No active suicidal or homicidal ideation. LABORATORY DATA: Reviewed. IMPRESSION: Major depressive disorder, recurrent; cognitive disorder, unspecified versus early major neurocognitive disorder, early Alzheimer, vascular with depression. PLAN: We will increase the Aricept from 10 mg a day to 23 mg a day. Maintain Namenda 10 b.i.d., Seroquel p.r.n., trazodone 50 mg at bedtime p.r.n., february repeat x 1. The daughter had indicated preference for Celexa as opposed to Prozac and we are still awaiting consent before we do this. At the time of this dictation, we received information that daughter is pursuing guardianship for the patient. We will request a neuropsychological testing by Dr. Landon for clarification on her ability/capacity to make decisions for herself. CYNDI LYN MD DR: AMOS/manoj JOB#: [id number] / [id number]
--- NOTE | 2018-10-29 22:09 | PN ---
DATE: 10/29/2018 This note covers elements not covered in my initial note of 10/29/2018. SUBJECTIVE: I met with the patient in her room in the afternoon. The patient slept 7-1/2 hours previous night. If she is woken up in the morning, she is quite grouchy and irritable. I have received a request for completion of forms for guardianship hearing. We will have neuropsychological testing done by Dr. Landon to help clarify her capacity to make safe decisions for herself for finances and health reason. REVIEW OF SYSTEMS: Positive for some tiredness. No CV, , pulmonary, eye, ENT system symptoms on review. She is focused on wanting to go home. MENTAL STATUS EXAM: Oriented to herself and situation. Speech moderate latency, often responses monosyllabic. Abstraction fair, computation impaired, language function intact. Mood and affect somewhat withdrawn. LABORATORY DATA: Reviewed. IMPRESSION: Major depressive disorder, major neurocognitive disorder, early Alzheimer, vascular with delusion, depression. Rest unchanged. PLAN: Continue psychotropics from initial note. We have had an approval from the DPOA for the change of antidepressants to Celexa and will start 20 mg a day. She remains on Aricept 23 mg a day, Namenda 10 b.i.d., Seroquel p.r.n., trazodone p.r.n. CYNDI LYN MD DR: AMOS/manoj JOB#: [id number] / [id number]
--- NOTE | 2018-10-29 22:53 | PDOC ---
Exam Note: Ricardo Note: Please also refer to the separate dictated note~for this date of service dictated separately.~Patient seen individually. Discussed the patient with Nursing staff reviewed the chart.~Reviewed interim history and current functioning. Reviewed vital signs,~Labs/ Radiology~and current medications noted below. Continue current treatment with the changes noted in the dictated addendum note Assessment: Vital Signs: Vital Signs Date Time Temp Pulse Resp B/P (MAP) Pulse Ox O2 Delivery O2 Flow Rate FiO2 10/29/18 15:54 97.5 63 20 133/76 (95) 95 Room Air I&O Intake and Output 10/29/18 07:01 Intake Total 680 ml Balance 680 ml Intake Oral 680 ml Labs: Laboratory Tests Test 10/29/18 06:47 White Blood Count 6.9 x10^3/uL (4.0-11.0) Red Blood Count 5.18 x10^6/uL (3.50-5.40) Hemoglobin 14.8 g/dL (12.0-15.5) Hematocrit 44.3 % (36.0-47.0) Mean Corpuscular Volume 85 fL (79-100) Mean Corpuscular Hemoglobin 29 pg (25-35) Mean Corpuscular Hemoglobin Concent 33 g/dL (31-37) Red Cell Distribution Width 12.9 % (11.5-14.5) Platelet Count 289 x10^3/uL (140-400) Neutrophils (%) (Auto) 59 % (31-73) Lymphocytes (%) (Auto) 26 % (24-48) Monocytes (%) (Auto) 9 % (0-9) Eosinophils (%) (Auto) 4 % (0-3) H Basophils (%) (Auto) 1 % (0-3) Neutrophils # (Auto) 4.1 x10^3uL (1.8-7.7) Lymphocytes # (Auto) 1.8 x10^3/uL (1.0-4.8) Monocytes # (Auto) 0.6 x10^3/uL (0.0-1.1) Eosinophils # (Auto) 0.3 x10^3/uL (0.0-0.7) Basophils # (Auto) 0.1 x10^3/uL (0.0-0.2) Sodium Level 142 mmol/L (136-145) Potassium Level 3.7 mmol/L (3.5-5.1) Chloride Level 106 mmol/L (98-107) Carbon Dioxide Level 28 mmol/L (21-32) Anion Gap 8 (6-14) Blood Urea Nitrogen 13 mg/dL (7-20) Creatinine 0.7 mg/dL (0.6-1.0) Estimated GFR (Cockcroft-Gault) 83.2 BUN/Creatinine Ratio 19 (6-20) Glucose Level 102 mg/dL (70-99) H Calcium Level 8.7 mg/dL (8.5-10.1) Total Bilirubin 0.4 mg/dL (0.2-1.0) Aspartate Amino Transferase (AST) 16 U/L (15-37) Alanine Aminotransferase (ALT) 25 U/L (14-59) Alkaline Phosphatase 91 U/L (46-116) Total Protein 6.9 g/dL (6.4-8.2) Albumin 3.1 g/dL (3.4-5.0) L Albumin/Globulin Ratio 0.8 (1.0-1.7) L Current Medications: Meds: Current Medications Acetaminophen (Tylenol) 650 mg PRN Q6HRS PRN PO PAIN / TEMP Last administered on 10/12/18at 00:14; Start 10/01/18 at 02:30 Multi-Ingredient Ointment (Analgesic [place]) 1 debora PRN QID PRN TP MUSCLE PAIN; Start 10/01/18 at 02:30 Al Hydroxide/Mg Hydroxide (Mylanta Plus Xs) 15 ml PRN AFTMEALHC PRN PO DYSPEPSIA; Start 10/01/18 at 02:30 Magnesium Hydroxide (Milk Of Magnesia) 2,400 mg PRN QHS PRN PO CONSTIPATION; Start 10/01/18 at 02:30 Clonazepam (KlonoPIN) 0.25 mg BID@0700,1500 PO Last administered on 10/06/18at 05:02; Start 10/01/18 at 07:00; Stop 10/06/18 at 16:47; Status DC Levothyroxine Sodium (Synthroid) 75 mcg DAILY06 PO Last administered on at 06:27; Start 10/01/18 at 06:00 Donepezil HCl (Aricept) 10 mg QHS PO Last administered on 1/8/19at 19:22; Start 10/01/18 at 21:00; Stop 10/28/18 at 18:38; Status DC Fluoxetine HCl (PROzac) 80 mg DAILY PO Last administered on 10/02/18at 07:58; Start 10/01/18 at 09:00; Stop 10/02/18 at 17:33; Status DC Memantine (Namenda) 5 mg BID PO Last administered on 10/16/18at 07:25; Start 10/01/18 at 09:00; Stop 10/16/18 at 13:30; Status DC Quetiapine Fumarate (SEROquel) 12.5 mg PRN QID PRN PO ANXIETY / AGITATION Last administered on 10/12/18at 00:14; Start 10/01/18 at 02:45 Atorvastatin Calcium (Lipitor) 20 mg HS PO Last administered on 10/29/18at 19:21 ; Start 10/01/18 at 21:00 Vitamin D (Vitamin D3) 50,000 unit WEEKLY PO ; Start 10/02/18 at 16:15; Stop 10/02/18 at 17:26; Status DC Vitamin D (Vitamin D3) 50,000 unit WEEKLY PO Last administered on 10/24/18at 08: 06; Start 10/03/18 at 08:00 Fluoxetine HCl (PROzac) 60 mg DAILY PO Last administered on 10/06/18at 09:35; Start 10/03/18 at 09:00; Stop 10/06/18 at 16:47; Status DC Quetiapine Fumarate (SEROquel) 25 mg BID PO Last administered on 10/08/18at 07: 38; Start 10/02/18 at 21:00; Stop 10/08/18 at 10:33; Status DC Clonazepam (KlonoPIN) 0.25 mg DAILY@1500 PO Last administered on 10/10/18at 14: 02; Start 10/07/18 at 15:00; Stop 10/10/18 at 20:32; Status DC Fluoxetine HCl (PROzac) 20 mg DAILY PO Last administered on 10/16/18at 07:25; Start 10/07/18 at 09:00; Stop 10/16/18 at 13:30; Status DC Bupropion HCl (Wellbutrin Xl) 150 mg DAILY PO Last administered on 10/09/18at 11:55; Start 10/07/18 at 09:00; Stop 10/09/18 at 16:43; Status DC Quetiapine Fumarate (SEROquel) 25 mg QHS PO Last administered on 10/10/18at 19: 27; Start 10/08/18 at 21:00; Stop 10/11/18 at 18:11; Status DC Bupropion HCl (Wellbutrin Xl) 300 mg DAILY PO Last administered on 10/22/18 08: 39; Start 10/10/18 at 09:00; Stop 10/22/18 at 11:11; Status DC Trazodone HCl (Desyrel) 50 mg PRN QHS PRN PO INSOMNIA Last administered on 19:22; Start 10/10/18 at 20:45 Aripiprazole (Abilify) 2.5 mg QHS PO Last administered on 10/21/18 20:03; Start 10/11/18 at 21:00; Stop 10/22/18 at 11:11; Status DC Fluoxetine HCl (PROzac) 30 mg DAILY PO Last administered on 10/28/18at 09:23; Start 10/17/18 at 09:00; Stop 10/28/18 at 18:38; Status DC Memantine (Namenda) 10 mg BID PO Last administered on 10/29/18 19:21; Start 10/16/18 at 21:00 Donepezil HCl (Aricept) 23 mg QHS PO Last administered on 10/29/18 19:21; Start 10/28/18 at 21:00 Citalopram Hydrobromide (CeleXA) 20 mg DAILY PO Last administered on 10/29/18 08:21; Start 10/29/18 at 09:00 Active Scripts Active Reported Crestor (Rosuvastatin Calcium) 5 Mg Tablet 5 Mg PO DAILY Seroquel (Quetiapine Fumarate) 25 Mg Tablet 12.5 Mg PO PRN QID PRN Namenda (Memantine Hcl) 5 Mg Tablet 5 Mg PO BID Synthroid (Levothyroxine Sodium) 75 Mcg Tablet 75 Mcg PO DAILY06 Prozac (Fluoxetine Hcl) 40 Mg Capsule 80 Mg PO DAILY Aricept (Donepezil Hcl) 10 Mg Tablet 10 Mg PO QHS Klonopin (Clonazepam) 0.5 Mg Tablet 0.25 Mg PO BID@0700,1500 I have reviewed the current psychotropics carefully including drug interactions. Risk benefit ratio favors no change other than as noted in my dictated progress note. Diagnosis: Problems: (1) Confusion (2) Hallucinations (3) Agitated (4) Anxiety disorder (5) Depression (6) Impulse control disorder (7) Dementia, vascular, with delusions CYNDI LYN MD Oct 29, 2018 22:53
[2018-10-30] MEDS: LEVOTHYROXINE 75 MCG TABLET PO SCH (05:01)
[2018-10-30 05:30] VITALS: BP 119/65
[2018-10-30] MEDS: MEMANTINE 10 MG TABLET. PO SCH ×2 (08:18→19:26)
[2018-10-30] MEDS: CITALOPRAM 20 MG TABLET. PO SCH (08:18)
[2018-10-30 15:19] VITALS: BP 133/57
[2018-10-30] MEDS: ATORVASTATIN CALCIUM 20 MG TABLET PO SCH (19:25)
[2018-10-30] MEDS: DONEPEZIL 23 MG TABLET PO SCH (19:26)
[2018-10-31] MEDS: traZODone 50 MG TABLET. PO PRN ×2 (00:57→19:23)
[2018-10-31 06:11] VITALS: BP 147/78
[2018-10-31] MEDS: LEVOTHYROXINE 75 MCG TABLET PO SCH (06:26)
[2018-10-31] MEDS: MEMANTINE 10 MG TABLET. PO SCH ×2 (09:00→19:22)
[2018-10-31] MEDS: CHOLECALCIFEROL (VITAMIN D3) 50,000 UNIT CAPSULE PO SCH (09:00)
[2018-10-31] MEDS: CITALOPRAM 20 MG TABLET. PO SCH (09:00)
--- NOTE | 2018-10-31 13:15 | PN ---
DATE: 10/30/2018 SUBJECTIVE: The patient was seen today, met with the staff, chart reviewed and also covering for Dr. Goodson. Staff reports continued behavior problems, social isolation, wanting to stay in bed. She was angry because she cannot leave the hospital. The patient is not interacting with the staff, refusing to participate in activities. OBSERVATION: Vital signs: Temperature 97.5, blood pressure 119/65, pulse 71, respiration 18, O2 sat 95%. Slept about 10 hours last night. CURRENT MEDICATIONS: The patient's medications reviewed and she is currently on Celexa 20 mg daily, Aricept 23 mg daily, Namenda 10 mg b.i.d., trazodone 50 mg at night p.r.n., Seroquel 12.5 mg q.i.d. p.r.n. The patient is not having any side effects. The patient is not exhibiting any overt psychotic symptoms. LABORATORY DATA: The patient's lab reviewed, no significant change from the previous reports. ASSESSMENT: Dementia, most likely vascular mild with the depression and delusional thinking. PLAN: To continue with the current treatment. SAE WHITTINGTON MD DR: LEONARDO/manoj JOB#: [id number] / [id number]
[2018-10-31 15:40] VITALS: BP 115/71
[2018-10-31] MEDS: DONEPEZIL 23 MG TABLET PO SCH (19:22)
[2018-10-31] MEDS: ATORVASTATIN CALCIUM 20 MG TABLET PO SCH (19:22)
[2018-11-01] MEDS: LEVOTHYROXINE 75 MCG TABLET PO SCH (05:50)
[2018-11-01 05:57] VITALS: BP 128/68
[2018-11-01] MEDS: MEMANTINE 10 MG TABLET. PO SCH ×2 (08:07→19:48)
[2018-11-01] MEDS: CITALOPRAM 20 MG TABLET. PO SCH (08:07)
--- NOTE | 2018-11-01 12:24 | PN ---
DATE: 11/01/2018 SUBJECTIVE: The patient was seen today, met with the staff, chart reviewed. The patient continues to isolate herself, stays in her room most of the time, avoids eye contact. Staff also reports they found few pills in her bag, apparently she has been spitting out some of her medications. The patient is still paranoid and says she does not have a conversation with regard to her problems or needs. The patient also becomes very defensive. The patient has complained of chronic pain including fibromyalgia, inability to sleep. OBSERVATION: VITAL SIGNS: Temperature 97.5, blood pressure 128/68, pulse 63, respirations 17, O2 sat 97%. Slept about 6 hours last night. CURRENT MEDICATIONS: The patient's medications reviewed. She is currently on Celexa, Aricept, Namenda, trazodone and Seroquel p.r.n. The patient is not exhibiting any sedation side effects. The patient's lab reviewed. ASSESSMENT: Dementia, most likely vascular, mild with depression and delusional thinking. PLAN: To continue with the treatment. SAE WHITTINGTON MD DR: LEONARDO/manoj JOB#: [id number] / [id number]
[2018-11-01 15:55] VITALS: BP 115/63
[2018-11-01] MEDS: ATORVASTATIN CALCIUM 20 MG TABLET PO SCH (19:48)
[2018-11-01] MEDS: DONEPEZIL 23 MG TABLET PO SCH (19:48)
[2018-11-02 05:55] VITALS: BP 139/85
[2018-11-02] MEDS: LEVOTHYROXINE 75 MCG TABLET PO SCH (06:15)
[2018-11-02] MEDS: MEMANTINE 10 MG TABLET. PO SCH ×2 (08:19→19:44)
[2018-11-02] MEDS: CITALOPRAM 20 MG TABLET. PO SCH (08:19)
[2018-11-02 16:27] VITALS: BP 114/77
[2018-11-02] MEDS: DONEPEZIL 23 MG TABLET PO SCH (19:44)
[2018-11-02] MEDS: ATORVASTATIN CALCIUM 20 MG TABLET PO SCH (19:44)
[2018-11-03 05:47] VITALS: BP 142/78
[2018-11-03] MEDS: LEVOTHYROXINE 75 MCG TABLET PO SCH (06:05)
[2018-11-03] MEDS: CITALOPRAM 20 MG TABLET. PO SCH (08:30)
[2018-11-03] MEDS: MEMANTINE 10 MG TABLET. PO SCH ×2 (08:30→19:51)
--- NOTE | 2018-11-03 09:13 | PDOC ---
Exam Note: Ricardo Note: Late entry for DOS 11/02/2018. Please also refer to the separate dictated note~ for this date of service dictated separately.~Patient seen individually. Discussed the patient with Nursing staff reviewed the chart.~Reviewed interim history and current functioning. Reviewed vital signs,~Labs/ Radiology~and current medications noted below. Continue current treatment with the changes noted in the dictated addendum note Assessment: Vital Signs: VS - Last 72 Hours, by Label Date Time Temp Pulse Resp B/P (MAP) Pulse Ox O2 Delivery O2 Flow Rate FiO2 11/03/18 05:47 98.2 66 20 142/78 (99) 99 11/02/18 16:27 97.4 68 16 114/77 (89) 97 11/02/18 05:55 98.0 71 16 139/85 (103) 96 11/01/18 15:55 97.8 71 18 115/63 (80) 99 11/01/18 05:57 97.5 63 17 128/68 (88) 97 10/31/18 15:40 98.0 66 20 115/71 (86) 94 Room Air Vital Signs Date Time Temp Pulse Resp B/P (MAP) Pulse Ox O2 Delivery O2 Flow Rate FiO2 11/03/18 05:47 98.2 66 20 142/78 (99) 99 10/31/18 15:40 Room Air I&O Intake and Output 11/03/18 07:01 Intake Total 1160 ml Balance 1160 ml Intake Oral 1160 ml Current Medications: Meds: Current Medications Acetaminophen (Tylenol) 650 mg PRN Q6HRS PRN PO PAIN / TEMP Last administered on 10/12/18at 00:14; Start 10/01/18 at 02:30 Multi-Ingredient Ointment (Analgesic [place]) 1 debora PRN QID PRN TP MUSCLE PAIN; Start 10/01/18 at 02:30 Al Hydroxide/Mg Hydroxide (Mylanta Plus Xs) 15 ml PRN AFTMEALHC PRN PO DYSPEPSIA; Start 10/01/18 at 02:30 Magnesium Hydroxide (Milk Of Magnesia) 2,400 mg PRN QHS PRN PO CONSTIPATION; Start 10/01/18 at 02:30 Clonazepam (KlonoPIN) 0.25 mg BID@0700,1500 PO Last administered on 10/06/18at 05:02; Start 10/01/18 at 07:00; Stop 10/06/18 at 16:47; Status DC Levothyroxine Sodium (Synthroid) 75 mcg DAILY06 PO Last administered on at 06:05; Start 10/01/18 at 06:00 Donepezil HCl (Aricept) 10 mg QHS PO Last administered on 10/27/18at 19:22; Start 10/01/18 at 21:00; Stop 10/28/18 at 18:38; Status DC Fluoxetine HCl (PROzac) 80 mg DAILY PO Last administered on 10/02/18at 07:58; Start 10/01/18 at 09:00; Stop 10/02/18 at 17:33; Status DC Memantine (Namenda) 5 mg BID PO Last administered on 10/16/18at 07:25; Start 10/01/18 at 09:00; Stop 10/16/18 at 13:30; Status DC Quetiapine Fumarate (SEROquel) 12.5 mg PRN QID PRN PO ANXIETY / AGITATION Last administered on 10/12/18at 00:14; Start 10/01/18 at 02:45 Atorvastatin Calcium (Lipitor) 20 mg HS PO Last administered on 11/02/18at 19:44 ; Start 10/01/18 at 21:00 Vitamin D (Vitamin D3) 50,000 unit WEEKLY PO ; Start 10/02/18 at 16:15; Stop 10/02/18 at 17:26; Status DC Vitamin D (Vitamin D3) 50,000 unit WEEKLY PO Last administered on 10/31/18at 09: 00; Start 10/03/18 at 08:00 Fluoxetine HCl (PROzac) 60 mg DAILY PO Last administered on 10/06/18at 09:35; Start 10/03/18 at 09:00; Stop 10/06/18 at 16:47; Status DC Quetiapine Fumarate (SEROquel) 25 mg BID PO Last administered on 10/08/18at 07: 38; Start 10/02/18 at 21:00; Stop 10/08/18 at 10:33; Status DC Clonazepam (KlonoPIN) 0.25 mg DAILY@1500 PO Last administered on 10/10/18at 14: 02; Start 10/07/18 at 15:00; Stop 10/10/18 at 20:32; Status DC Fluoxetine HCl (PROzac) 20 mg DAILY PO Last administered on 10/16/18at 07:25; Start 10/07/18 at 09:00; Stop 10/16/18 at 13:30; Status DC Bupropion HCl (Wellbutrin Xl) 150 mg DAILY PO Last administered on 10/09/18at 11:55; Start 10/07/18 at 09:00; Stop 10/09/18 at 16:43; Status DC Quetiapine Fumarate (SEROquel) 25 mg QHS PO Last administered on 10/10/18at 19: 27; Start 10/08/18 at 21:00; Stop 10/11/18 at 18:11; Status DC Bupropion HCl (Wellbutrin Xl) 300 mg DAILY PO Last administered on 10/22/18at 08: 39; Start 10/10/18 at 09:00; Stop 10/22/18 at 11:11; Status DC Trazodone HCl (Desyrel) 50 mg PRN QHS PRN PO INSOMNIA Last administered on 10/31at 19:23; Start 10/10/18 at 20:45 Aripiprazole (Abilify) 2.5 mg QHS PO Last administered on 10/21/18 20:03; Start 10/11/18 at 21:00; Stop 10/22/18 at 11:11; Status DC Fluoxetine HCl (PROzac) 30 mg DAILY PO Last administered on 10/28/18 09:23; Start 10/17/18 at 09:00; Stop 10/28/18 at 18:38; Status DC Memantine (Namenda) 10 mg BID PO Last administered on 11/03/18at 08:30; Start 10/16/18 at 21:00 Donepezil HCl (Aricept) 23 mg QHS PO Last administered on 11/02/18at 19:44; Start 10/28/18 at 21:00 Citalopram Hydrobromide (CeleXA) 20 mg DAILY PO Last administered on 11/03/18 08:30; Start 10/29/18 at 09:00 Active Scripts Active Reported Crestor (Rosuvastatin Calcium) 5 Mg Tablet 5 Mg PO DAILY Seroquel (Quetiapine Fumarate) 25 Mg Tablet 12.5 Mg PO PRN QID PRN Namenda (Memantine Hcl) 5 Mg Tablet 5 Mg PO BID Synthroid (Levothyroxine Sodium) 75 Mcg Tablet 75 Mcg PO DAILY06 Prozac (Fluoxetine Hcl) 40 Mg Capsule 80 Mg PO DAILY Aricept (Donepezil Hcl) 10 Mg Tablet 10 Mg PO QHS Klonopin (Clonazepam) 0.5 Mg Tablet 0.25 Mg PO BID@0700,1500 I have reviewed the current psychotropics carefully including drug interactions. Risk benefit ratio favors no change other than as noted in my dictated progress note. Diagnosis: Problems: (1) Confusion (2) Hallucinations (3) Agitated (4) Anxiety disorder (5) Depression (6) Impulse control disorder (7) Dementia, vascular, with delusions CYNDI LYN MD Nov 03, 2018 09:13
[2018-11-03 17:14] VITALS: BP 137/62
[2018-11-03] MEDS: ATORVASTATIN CALCIUM 20 MG TABLET PO SCH (19:51)
[2018-11-03] MEDS: traZODone 50 MG TABLET. PO PRN (19:51)
[2018-11-03] MEDS: DONEPEZIL 23 MG TABLET PO SCH (19:52)
--- NOTE | 2018-11-03 20:41 | PN ---
DATE: 11/02/2018 PSYCHIATRIC PROGRESS NOTE This late entry 11/02/2018 covers elements not covered in my initial note. SUBJECTIVE: I met with the patient in the evening in her room. She spends much time in her room lying in bed, lights off, withdrawn, still depressed. She slept 9-3/4 hours previous night. She did come out to the day room for a short period of time. Takes her meds in bed. Over the weekend, she told Dr. Diggs that she wanted to end her life. I questioned her closely on this. She denies active suicidal ideation, but is frustrated with not being able to find a placement and resents the fact that her daughter is involved with this. REVIEW OF SYSTEMS: No CV, , pulmonary, eye system symptoms on review. Reliability varies. MENTAL STATUS EXAM: Oriented to herself and situation. Speech moderate latency, low in rate and rhythm, often responses monosyllabic. Abstraction fair, computation impaired, language function intact, attention span short. Mood and affect withdrawn. LABORATORY DATA: Reviewed. IMPRESSION: Major depressive disorder, recurrent major neurocognitive disorder, early Alzheimer, vascular with depression. Rest unchanged. PLAN: Continue psychotropics from initial note. We may need to increase the Celexa gradually as clinically indicated. MAN Didi LYN MD DR: AMOS/manoj JOB#: [id number] / [id number]
--- NOTE | 2018-11-03 22:41 | PDOC ---
Exam Note: Ricardo Note: Please also refer to the separate dictated note~for this date of service dictated separately.~Patient seen individually. Discussed the patient with Nursing staff reviewed the chart.~Reviewed interim history and current functioning. Reviewed vital signs,~Labs/ Radiology~and current medications noted below. Continue current treatment with the changes noted in the dictated addendum note Assessment: Vital Signs: Vital Signs Date Time Temp Pulse Resp B/P (MAP) Pulse Ox O2 Delivery O2 Flow Rate FiO2 11/03/18 17:14 97.2 77 16 137/62 (87) 95 10/31/18 15:40 Room Air I&O Intake and Output 11/03/18 07:01 Intake Total 1160 ml Balance 1160 ml Intake Oral 1160 ml Current Medications: Meds: Current Medications Acetaminophen (Tylenol) 650 mg PRN Q6HRS PRN PO PAIN / TEMP Last administered on 10/12/18at 00:14; Start 10/01/18 at 02:30 Multi-Ingredient Ointment (Analgesic [place]) 1 debora PRN QID PRN TP MUSCLE PAIN; Start 10/01/18 at 02:30 Al Hydroxide/Mg Hydroxide (Mylanta Plus Xs) 15 ml PRN AFTMEALHC PRN PO DYSPEPSIA; Start 10/01/18 at 02:30 Magnesium Hydroxide (Milk Of Magnesia) 2,400 mg PRN QHS PRN PO CONSTIPATION; Start 10/01/18 at 02:30 Clonazepam (KlonoPIN) 0.25 mg BID@0700,1500 PO Last administered on 10/06/18at 05:02; Start 10/01/18 at 07:00; Stop 10/06/18 at 16:47; Status DC Levothyroxine Sodium (Synthroid) 75 mcg DAILY06 PO Last administered on at 06:05; Start 10/01/18 at 06:00 Donepezil HCl (Aricept) 10 mg QHS PO Last administered on 10/27/18at 19:22; Start 10/01/18 at 21:00; Stop 10/28/18 at 18:38; Status DC Fluoxetine HCl (PROzac) 80 mg DAILY PO Last administered on 10/02/18at 07:58; Start 10/01/18 at 09:00; Stop 10/02/18 at 17:33; Status DC Memantine (Namenda) 5 mg BID PO Last administered on 10/16/18at 07:25; Start 10/01/18 at 09:00; Stop 10/16/18 at 13:30; Status DC Quetiapine Fumarate (SEROquel) 12.5 mg PRN QID PRN PO ANXIETY / AGITATION Last administered on 10/12/18at 00:14; Start 10/01/18 at 02:45 Atorvastatin Calcium (Lipitor) 20 mg HS PO Last administered on 11/03/18at 19:51 ; Start 10/01/18 at 21:00 Vitamin D (Vitamin D3) 50,000 unit WEEKLY PO ; Start 10/02/18 at 16:15; Stop 10/02/18 at 17:26; Status DC Vitamin D (Vitamin D3) 50,000 unit WEEKLY PO Last administered on 10/31/18at 09: 00; Start 10/03/18 at 08:00 Fluoxetine HCl (PROzac) 60 mg DAILY PO Last administered on 10/06/18at 09:35; Start 10/03/18 at 09:00; Stop 10/06/18 at 16:47; Status DC Quetiapine Fumarate (SEROquel) 25 mg BID PO Last administered on 10/08/18at 07: 38; Start 10/02/18 at 21:00; Stop 10/08/18 at 10:33; Status DC Clonazepam (KlonoPIN) 0.25 mg DAILY@1500 PO Last administered on 10/10/18at 14: 02; Start 10/07/18 at 15:00; Stop 10/10/18 at 20:32; Status DC Fluoxetine HCl (PROzac) 20 mg DAILY PO Last administered on 10/16/18at 07:25; Start 10/07/18 at 09:00; Stop 10/16/18 at 13:30; Status DC Bupropion HCl (Wellbutrin Xl) 150 mg DAILY PO Last administered on 10/09/18at 11:55; Start 10/07/18 at 09:00; Stop 10/09/18 at 16:43; Status DC Quetiapine Fumarate (SEROquel) 25 mg QHS PO Last administered on 10/10/18at 19: 27; Start 10/08/18 at 21:00; Stop 10/11/18 at 18:11; Status DC Bupropion HCl (Wellbutrin Xl) 300 mg DAILY PO Last administered on 10/22/18 08: 39; Start 10/10/18 at 09:00; Stop 10/22/18 at 11:11; Status DC Trazodone HCl (Desyrel) 50 mg PRN QHS PRN PO INSOMNIA Last administered on 11/03 19:51; Start 10/10/18 at 20:45 Aripiprazole (Abilify) 2.5 mg QHS PO Last administered on 10/21/18 20:03; Start 10/11/18 at 21:00; Stop 10/22/18 at 11:11; Status DC Fluoxetine HCl (PROzac) 30 mg DAILY PO Last administered on 10/28/18 09:23; Start 10/17/18 at 09:00; Stop 10/28/18 at 18:38; Status DC Memantine (Namenda) 10 mg BID PO Last administered on 11/03/18 19:51; Start 10/16/18 at 21:00 Donepezil HCl (Aricept) 23 mg QHS PO Last administered on 11/03/18 19:52; Start 10/28/18 at 21:00 Citalopram Hydrobromide (CeleXA) 20 mg DAILY PO Last administered on 11/03/18 08:30; Start 10/29/18 at 09:00; Stop 11/03/18 at 16:16; Status DC Citalopram Hydrobromide (CeleXA) 30 mg DAILY PO ; Start 11/04/18 at 09:00 Active Scripts Active Reported Crestor (Rosuvastatin Calcium) 5 Mg Tablet 5 Mg PO DAILY Seroquel (Quetiapine Fumarate) 25 Mg Tablet 12.5 Mg PO PRN QID PRN Namenda (Memantine Hcl) 5 Mg Tablet 5 Mg PO BID Synthroid (Levothyroxine Sodium) 75 Mcg Tablet 75 Mcg PO DAILY06 Prozac (Fluoxetine Hcl) 40 Mg Capsule 80 Mg PO DAILY Aricept (Donepezil Hcl) 10 Mg Tablet 10 Mg PO QHS Klonopin (Clonazepam) 0.5 Mg Tablet 0.25 Mg PO BID@0700,1500 I have reviewed the current psychotropics carefully including drug interactions. Risk benefit ratio favors no change other than as noted in my dictated progress note. Diagnosis: Problems: (1) Confusion (2) Hallucinations (3) Agitated (4) Anxiety disorder (5) Depression (6) Impulse control disorder (7) Dementia, vascular, with delusions CYNDI LYN MD Nov 03, 2018 22:41
[2018-11-04 05:46] VITALS: BP 165/60
[2018-11-04] MEDS: LEVOTHYROXINE 75 MCG TABLET PO SCH (06:06)
[2018-11-04 07:15] LABS: BASO % 1 % (0-3); EOS # 0.3 x10^3/uL (0.0-0.7); EOS % 5 % (0-3); HEMATOCRIT 43.7 % (36.0-47.0); HEMOGLOBIN 14.5 g/dL (12.0-15.5); LYMPH # 1.7 x10^3/uL (1.0-4.8); LYMPH % 30 % (24-48); MEAN CORPUSCULAR HEMOGLOBIN 28 pg (25-35); MEAN CORPUSCULAR HGB CONC 33 g/dL (31-37); MEAN CORPUSCULAR VOLUME 86 fL (79-100); MONO # 0.5 x10^3/uL (0.0-1.1); MONO % 9 % (0-9); NEUT # 3.2 x10^3uL (1.8-7.7); NEUT % 56 % (31-73); PLATELET COUNT 276 x10^3/uL (140-400); WHITE BLOOD COUNT 5.8 x10^3/uL (4.0-11.0)
[2018-11-04 07:28] LABS: ALBUMIN 3.1 g/dL (3.4-5.0); ALBUMIN/GLOBULIN RATIO 0.9 (1.0-1.7); CALCIUM 8.8 mg/dL (8.5-10.1); CREATININE 0.9 mg/dL (0.6-1.0); GFR 62.3; TOTAL BILIRUBIN 0.4 mg/dL (0.2-1.0); TOTAL PROTEIN 6.7 g/dL (6.4-8.2)
[2018-11-04] MEDS: MEMANTINE 10 MG TABLET. PO SCH ×2 (07:50→19:15)
[2018-11-04] MEDS: CITALOPRAM 10 MG TABLET. PO SCH (07:51)
[2018-11-04 15:49] VITALS: BP 125/73
[2018-11-04] MEDS: ATORVASTATIN CALCIUM 20 MG TABLET PO SCH (19:15)
[2018-11-04] MEDS: DONEPEZIL 23 MG TABLET PO SCH (19:15)
--- NOTE | 2018-11-04 20:09 | PN ---
DATE: 11/03/2018 PSYCHIATRIC PROGRESS NOTE This late entry 11/03/2018 covers elements not covered in my initial note. SUBJECTIVE: I met with the patient in the evening. The patient slept reasonably previous night, but she sleeps off and on most of the day as well, stays in her room; isolated, still withdrawn. REVIEW OF SYSTEMS: No CV, , pulmonary, eye, ENT system symptoms on review, remains quite withdrawn. MENTAL STATUS EXAM: Oriented to herself, situation. Insight, judgment, recent memory is impaired. Language function intact. Attention span short. Mood and affect remain somewhat depressed. LABORATORY DATA: Reviewed. No active suicidal ideation. IMPRESSION: Major depressive disorder, recurrent; major neurocognitive disorder, early Alzheimer, vascular with depression. Rest unchanged. PLAN: Increase the Celexa from 20 mg a day to 30 mg a day. Rest unchanged from initial note. MAN Didi LYN MD DR: AMOS/manoj JOB#: [id number] / [id number]
--- NOTE | 2018-11-04 22:37 | PDOC ---
Exam Note: Ricardo Note: Please also refer to the separate dictated note~for this date of service dictated separately.~Patient seen individually. Discussed the patient with Nursing staff reviewed the chart.~Reviewed interim history and current functioning. Reviewed vital signs,~Labs/ Radiology~and current medications noted below. Continue current treatment with the changes noted in the dictated addendum note Assessment: Vital Signs: Vital Signs Date Time Temp Pulse Resp B/P (MAP) Pulse Ox O2 Delivery O2 Flow Rate FiO2 11/04/18 15:49 98.8 62 18 125/73 (90) 95 10/31/18 15:40 Room Air I&O Intake and Output 11/04/18 07:01 Intake Total 840 ml Balance 840 ml Intake Oral 840 ml # Voids 1 # Bowel Movements 1 Labs: Laboratory Tests Test 11/04/18 06:44 White Blood Count 5.8 x10^3/uL (4.0-11.0) Red Blood Count 5.10 x10^6/uL (3.50-5.40) Hemoglobin 14.5 g/dL (12.0-15.5) Hematocrit 43.7 % (36.0-47.0) Mean Corpuscular Volume 86 fL (79-100) Mean Corpuscular Hemoglobin 28 pg (25-35) Mean Corpuscular Hemoglobin Concent 33 g/dL (31-37) Red Cell Distribution Width 13.0 % (11.5-14.5) Platelet Count 276 x10^3/uL (140-400) Neutrophils (%) (Auto) 56 % (31-73) Lymphocytes (%) (Auto) 30 % (24-48) Monocytes (%) (Auto) 9 % (0-9) Eosinophils (%) (Auto) 5 % (0-3) H Basophils (%) (Auto) 1 % (0-3) Neutrophils # (Auto) 3.2 x10^3uL (1.8-7.7) Lymphocytes # (Auto) 1.7 x10^3/uL (1.0-4.8) Monocytes # (Auto) 0.5 x10^3/uL (0.0-1.1) Eosinophils # (Auto) 0.3 x10^3/uL (0.0-0.7) Basophils # (Auto) 0.0 x10^3/uL (0.0-0.2) Sodium Level 144 mmol/L (136-145) Potassium Level 4.0 mmol/L (3.5-5.1) Chloride Level 106 mmol/L (98-107) Carbon Dioxide Level 32 mmol/L (21-32) Anion Gap 6 (6-14) Blood Urea Nitrogen 9 mg/dL (7-20) Creatinine 0.9 mg/dL (0.6-1.0) Estimated GFR (Cockcroft-Gault) 62.3 BUN/Creatinine Ratio 10 (6-20) Glucose Level 101 mg/dL (70-99) H Calcium Level 8.8 mg/dL (8.5-10.1) Total Bilirubin 0.4 mg/dL (0.2-1.0) Aspartate Amino Transferase (AST) 18 U/L (15-37) Alanine Aminotransferase (ALT) 25 U/L (14-59) Alkaline Phosphatase 90 U/L (46-116) Total Protein 6.7 g/dL (6.4-8.2) Albumin 3.1 g/dL (3.4-5.0) L Albumin/Globulin Ratio 0.9 (1.0-1.7) L Current Medications: Meds: Current Medications Acetaminophen (Tylenol) 650 mg PRN Q6HRS PRN PO PAIN / TEMP Last administered on 10/12/18at 00:14; Start 10/01/18 at 02:30 Multi-Ingredient Ointment (Analgesic [place]) 1 debora PRN QID PRN TP MUSCLE PAIN; Start 10/01/18 at 02:30 Al Hydroxide/Mg Hydroxide (Mylanta Plus Xs) 15 ml PRN AFTMEALHC PRN PO DYSPEPSIA; Start 10/01/18 at 02:30 Magnesium Hydroxide (Milk Of Magnesia) 2,400 mg PRN QHS PRN PO CONSTIPATION; Start 10/01/18 at 02:30 Clonazepam (KlonoPIN) 0.25 mg BID@0700,1500 PO Last administered on 10/06/18at 05:02; Start 10/01/18 at 07:00; Stop 10/06/18 at 16:47; Status DC Levothyroxine Sodium (Synthroid) 75 mcg DAILY06 PO Last administered on at 06:06; Start 12/13/18 at 06:00 Donepezil HCl (Aricept) 10 mg QHS PO Last administered on 10/27/18at 19:22; Start 10/01/18 at 21:00; Stop 10/28/18 at 18:38; Status DC Fluoxetine HCl (PROzac) 80 mg DAILY PO Last administered on 10/02/18at 07:58; Start 10/01/18 at 09:00; Stop 10/02/18 at 17:33; Status DC Memantine (Namenda) 5 mg BID PO Last administered on 10/16/18at 07:25; Start 10/01/18 at 09:00; Stop 10/16/18 at 13:30; Status DC Quetiapine Fumarate (SEROquel) 12.5 mg PRN QID PRN PO ANXIETY / AGITATION Last administered on 10/12/18at 00:14; Start 10/01/18 at 02:45 Atorvastatin Calcium (Lipitor) 20 mg HS PO Last administered on 11/04/18at 19:15 ; Start 10/01/18 at 21:00 Vitamin D (Vitamin D3) 50,000 unit WEEKLY PO ; Start 10/02/18 at 16:15; Stop 10/02/18 at 17:26; Status DC Vitamin D (Vitamin D3) 50,000 unit WEEKLY PO Last administered on 10/31/18at 09: 00; Start 10/03/18 at 08:00 Fluoxetine HCl (PROzac) 60 mg DAILY PO Last administered on 10/06/18at 09:35; Start 10/03/18 at 09:00; Stop 10/06/18 at 16:47; Status DC Quetiapine Fumarate (SEROquel) 25 mg BID PO Last administered on 10/08/18at 07: 38; Start 10/02/18 at 21:00; Stop 10/08/18 at 10:33; Status DC Clonazepam (KlonoPIN) 0.25 mg DAILY@1500 PO Last administered on 10/10/18at 14: 02; Start 10/07/18 at 15:00; Stop 10/10/18 at 20:32; Status DC Fluoxetine HCl (PROzac) 20 mg DAILY PO Last administered on 10/16/18at 07:25; Start 10/07/18 at 09:00; Stop 10/16/18 at 13:30; Status DC Bupropion HCl (Wellbutrin Xl) 150 mg DAILY PO Last administered on 10/09/18at 11:55; Start 10/07/18 at 09:00; Stop 10/09/18 at 16:43; Status DC Quetiapine Fumarate (SEROquel) 25 mg QHS PO Last administered on 10/10/18at 19: 27; Start 10/08/18 at 21:00; Stop 10/11/18 at 18:11; Status DC Bupropion HCl (Wellbutrin Xl) 300 mg DAILY PO Last administered on 10/22/18at 08: 39; Start 10/10/18 at 09:00; Stop 10/22/18 at 11:11; Status DC Trazodone HCl (Desyrel) 50 mg PRN QHS PRN PO INSOMNIA Last administered on 11/03at 19:51; Start 10/10/18 at 20:45 Aripiprazole (Abilify) 2.5 mg QHS PO Last administered on 10/21/18 20:03; Start 10/11/18 at 21:00; Stop 10/22/18 at 11:11; Status DC Fluoxetine HCl (PROzac) 30 mg DAILY PO Last administered on 10/28/18 09:23; Start 10/17/18 at 09:00; Stop 10/28/18 at 18:38; Status DC Memantine (Namenda) 10 mg BID PO Last administered on 11/04/18 19:15; Start 10/16/18 at 21:00 Donepezil HCl (Aricept) 23 mg QHS PO Last administered on 11/04/18 19:15; Start 10/28/18 at 21:00 Citalopram Hydrobromide (CeleXA) 20 mg DAILY PO Last administered on 11/03/18 08:30; Start 10/29/18 at 09:00; Stop 11/03/18 at 16:16; Status DC Citalopram Hydrobromide (CeleXA) 30 mg DAILY PO Last administered on 11/04/18at 07:51; Start 11/04/18 at 09:00 Active Scripts Active Reported Crestor (Rosuvastatin Calcium) 5 Mg Tablet 5 Mg PO DAILY Seroquel (Quetiapine Fumarate) 25 Mg Tablet 12.5 Mg PO PRN QID PRN Namenda (Memantine Hcl) 5 Mg Tablet 5 Mg PO BID Synthroid (Levothyroxine Sodium) 75 Mcg Tablet 75 Mcg PO DAILY06 Prozac (Fluoxetine Hcl) 40 Mg Capsule 80 Mg PO DAILY Aricept (Donepezil Hcl) 10 Mg Tablet 10 Mg PO QHS Klonopin (Clonazepam) 0.5 Mg Tablet 0.25 Mg PO BID@0700,1500 I have reviewed the current psychotropics carefully including drug interactions. Risk benefit ratio favors no change other than as noted in my dictated progress note. Diagnosis: Problems: (1) Confusion (2) Hallucinations (3) Agitated (4) Anxiety disorder (5) Depression (6) Impulse control disorder (7) Dementia, vascular, with delusions CYNDI LYN MD Nov 04, 2018 22:37
[2018-11-05 05:12] VITALS: BP 145/83
[2018-11-05] MEDS: LEVOTHYROXINE 75 MCG TABLET PO SCH (05:41)
[2018-11-05] MEDS: MEMANTINE 10 MG TABLET. PO SCH ×2 (08:31→20:23)
[2018-11-05] MEDS: CITALOPRAM 10 MG TABLET. PO SCH (08:31)
[2018-11-05 15:50] VITALS: BP 121/81
[2018-11-05] MEDS: DONEPEZIL 23 MG TABLET PO SCH (20:23)
[2018-11-05] MEDS: ATORVASTATIN CALCIUM 20 MG TABLET PO SCH (20:23)
--- NOTE | 2018-11-05 23:10 | PDOC ---
Exam Note: Ricardo Note: Please also refer to the separate dictated note~for this date of service dictated separately.~Patient seen individually. Discussed the patient with Nursing staff reviewed the chart.~Reviewed interim history and current functioning. Reviewed vital signs,~Labs/ Radiology~and current medications noted below. Continue current treatment with the changes noted in the dictated addendum note Assessment: Vital Signs: Vital Signs Date Time Temp Pulse Resp B/P (MAP) Pulse Ox O2 Delivery O2 Flow Rate FiO2 11/05/18 15:50 97.8 74 17 121/81 (94) 93 Room Air I&O Intake and Output 11/05/18 07:01 Intake Total 720 ml Balance 720 ml Intake Oral 720 ml Current Medications: Meds: Current Medications Acetaminophen (Tylenol) 650 mg PRN Q6HRS PRN PO PAIN / TEMP Last administered on 10/12/18at 00:14; Start 10/01/18 at 02:30 Multi-Ingredient Ointment (Analgesic [place]) 1 debora PRN QID PRN TP MUSCLE PAIN; Start 10/01/18 at 02:30 Al Hydroxide/Mg Hydroxide (Mylanta Plus Xs) 15 ml PRN AFTMEALHC PRN PO DYSPEPSIA; Start 10/01/18 at 02:30 Magnesium Hydroxide (Milk Of Magnesia) 2,400 mg PRN QHS PRN PO CONSTIPATION; Start 10/01/18 at 02:30 Clonazepam (KlonoPIN) 0.25 mg BID@0700,1500 PO Last administered on 10/06/18at 05:02; Start 10/01/18 at 07:00; Stop 10/06/18 at 16:47; Status DC Levothyroxine Sodium (Synthroid) 75 mcg DAILY06 PO Last administered on at 05:41; Start 10/01/18 at 06:00 Donepezil HCl (Aricept) 10 mg QHS PO Last administered on 10/27/18at 19:22; Start 10/01/18 at 21:00; Stop 10/28/18 at 18:38; Status DC Fluoxetine HCl (PROzac) 80 mg DAILY PO Last administered on 10/02/18at 07:58; Start 10/01/18 at 09:00; Stop 10/02/18 at 17:33; Status DC Memantine (Namenda) 5 mg BID PO Last administered on 10/16/18at 07:25; Start 10/01/18 at 09:00; Stop 10/16/18 at 13:30; Status DC Quetiapine Fumarate (SEROquel) 12.5 mg PRN QID PRN PO ANXIETY / AGITATION Last administered on 10/12/18at 00:14; Start 10/01/18 at 02:45 Atorvastatin Calcium (Lipitor) 20 mg HS PO Last administered on 11/05/18at 20:23 ; Start 10/01/18 at 21:00 Vitamin D (Vitamin D3) 50,000 unit WEEKLY PO ; Start 10/02/18 at 16:15; Stop 10/02/18 at 17:26; Status DC Vitamin D (Vitamin D3) 50,000 unit WEEKLY PO Last administered on 10/31/18at 09: 00; Start 10/03/18 at 08:00 Fluoxetine HCl (PROzac) 60 mg DAILY PO Last administered on 10/06/18at 09:35; Start 10/03/18 at 09:00; Stop 10/06/18 at 16:47; Status DC Quetiapine Fumarate (SEROquel) 25 mg BID PO Last administered on 10/08/18at 07: 38; Start 10/02/18 at 21:00; Stop 10/08/18 at 10:33; Status DC Clonazepam (KlonoPIN) 0.25 mg DAILY@1500 PO Last administered on 10/10/18at 14: 02; Start 10/07/18 at 15:00; Stop 10/10/18 at 20:32; Status DC Fluoxetine HCl (PROzac) 20 mg DAILY PO Last administered on 10/16/18at 07:25; Start 10/07/18 at 09:00; Stop 10/16/18 at 13:30; Status DC Bupropion HCl (Wellbutrin Xl) 150 mg DAILY PO Last administered on 10/09/18at 11:55; Start 10/07/18 at 09:00; Stop 10/09/18 at 16:43; Status DC Quetiapine Fumarate (SEROquel) 25 mg QHS PO Last administered on 10/10/18at 19: 27; Start 10/08/18 at 21:00; Stop 10/11/18 at 18:11; Status DC Bupropion HCl (Wellbutrin Xl) 300 mg DAILY PO Last administered on 10/22/18 08: 39; Start 10/10/18 at 09:00; Stop 10/22/18 at 11:11; Status DC Trazodone HCl (Desyrel) 50 mg PRN QHS PRN PO INSOMNIA Last administered on 11/03 19:51; Start 10/10/18 at 20:45 Aripiprazole (Abilify) 2.5 mg QHS PO Last administered on 10/21/18 20:03; Start 10/11/18 at 21:00; Stop 10/22/18 at 11:11; Status DC Fluoxetine HCl (PROzac) 30 mg DAILY PO Last administered on 10/28/18 09:23; Start 10/17/18 at 09:00; Stop 10/28/18 at 18:38; Status DC Memantine (Namenda) 10 mg BID PO Last administered on 11/05/18 20:23; Start 10/16/18 at 21:00 Donepezil HCl (Aricept) 23 mg QHS PO Last administered on 11/05/18at 20:23; Start 10/28/18 at 21:00 Citalopram Hydrobromide (CeleXA) 20 mg DAILY PO Last administered on 11/03/18 08:30; Start 10/29/18 at 09:00; Stop 11/03/18 at 16:16; Status DC Citalopram Hydrobromide (CeleXA) 30 mg DAILY PO Last administered on 11/05/18 08:31; Start 11/04/18 at 09:00 Active Scripts Active Reported Crestor (Rosuvastatin Calcium) 5 Mg Tablet 5 Mg PO DAILY Seroquel (Quetiapine Fumarate) 25 Mg Tablet 12.5 Mg PO PRN QID PRN Namenda (Memantine Hcl) 5 Mg Tablet 5 Mg PO BID Synthroid (Levothyroxine Sodium) 75 Mcg Tablet 75 Mcg PO DAILY06 Prozac (Fluoxetine Hcl) 40 Mg Capsule 80 Mg PO DAILY Aricept (Donepezil Hcl) 10 Mg Tablet 10 Mg PO QHS Klonopin (Clonazepam) 0.5 Mg Tablet 0.25 Mg PO BID@0700,1500 I have reviewed the current psychotropics carefully including drug interactions. Risk benefit ratio favors no change other than as noted in my dictated progress note. Diagnosis: Problems: (1) Confusion (2) Hallucinations (3) Agitated (4) Anxiety disorder (5) Depression (6) Impulse control disorder (7) Dementia, vascular, with delusions CYNDI LYN MD Nov 05, 2018 23:10
[2018-11-06] MEDS: LEVOTHYROXINE 75 MCG TABLET PO SCH (05:32)
[2018-11-06 05:39] VITALS: BP 139/75
[2018-11-06] MEDS: CITALOPRAM 10 MG TABLET. PO SCH (07:57)
[2018-11-06] MEDS: MEMANTINE 10 MG TABLET. PO SCH ×2 (07:57→20:10)
[2018-11-06 16:09] VITALS: BP 118/75
--- NOTE | 2018-11-06 20:08 | PN ---
DATE: 11/05/2018 PSYCHIATRIC PROGRESS NOTE This late entry 11/05/2018 covers elements not covered in my initial note. SUBJECTIVE: I met with the patient in the evening and staffed at a treatment team meeting with the entire team in the morning. The patient sleeps an average of 8-1/2 hours. Appetite 50%, slept 7-1/2 hours previous night. She did have psychological testing to assess for capacity to make decisions for herself and this was completed by Dr. Landon and a guardianship report. Paperwork completed by Dr. Landon. She is compliant with her medications, isolated, spends much time in her room. However, evening of 11/05/2018, I met her after she just finished her supper outside the supper area. She remains somewhat withdrawn, isolative. No CV, , pulmonary, eye system symptoms on review. MENTAL STATUS EXAM: Oriented to herself and situation. Speech has some latency, coherent. Abstraction is fair, computation impaired, language function intact, attention span short. Mood and affect is withdrawn. LABORATORY DATA: Reviewed. IMPRESSION: Major depressive disorder, recurrent with psychotic features; major neurocognitive disorder, early Alzheimer, vascular with depression. Rest unchanged. PLAN: Continue psychotropics from initial note including the Celexa, Aricept, Namenda, along with Seroquel and trazodone p.r.n. CYNDI LYN MD DR: AMOS/manoj JOB#: [id number] / [id number]
[2018-11-06] MEDS: ATORVASTATIN CALCIUM 20 MG TABLET PO SCH (20:11)
[2018-11-06] MEDS: DONEPEZIL 23 MG TABLET PO SCH (20:11)
--- NOTE | 2018-11-06 23:54 | PDOC ---
Exam Note: Ricardo Note: Please also refer to the separate dictated note~for this date of service dictated separately.~Patient seen individually. Discussed the patient with Nursing staff reviewed the chart.~Reviewed interim history and current functioning. Reviewed vital signs,~Labs/ Radiology~and current medications noted below. Continue current treatment with the changes noted in the dictated addendum note Assessment: Vital Signs: Vital Signs Date Time Temp Pulse Resp B/P (MAP) Pulse Ox O2 Delivery O2 Flow Rate FiO2 11/06/18 16:09 98.0 69 20 118/75 (89) 97 11/06/18 05:39 Room Air I&O Intake and Output 11/06/18 07:01 Intake Total 960 ml Balance 960 ml Intake Oral 960 ml Current Medications: Meds: Current Medications Acetaminophen (Tylenol) 650 mg PRN Q6HRS PRN PO PAIN / TEMP Last administered on 10/12/18at 00:14; Start 10/01/18 at 02:30 Multi-Ingredient Ointment (Analgesic [place]) 1 debora PRN QID PRN TP MUSCLE PAIN; Start 10/01/18 at 02:30 Al Hydroxide/Mg Hydroxide (Mylanta Plus Xs) 15 ml PRN AFTMEALHC PRN PO DYSPEPSIA; Start 10/01/18 at 02:30 Magnesium Hydroxide (Milk Of Magnesia) 2,400 mg PRN QHS PRN PO CONSTIPATION; Start 10/01/18 at 02:30 Clonazepam (KlonoPIN) 0.25 mg BID@0700,1500 PO Last administered on 10/06/18at 05:02; Start 10/01/18 at 07:00; Stop 10/06/18 at 16:47; Status DC Levothyroxine Sodium (Synthroid) 75 mcg DAILY06 PO Last administered on at 05:32; Start 10/01/18 at 06:00 Donepezil HCl (Aricept) 10 mg QHS PO Last administered on 10/27/18at 19:22; Start 10/01/18 at 21:00; Stop 10/28/18 at 18:38; Status DC Fluoxetine HCl (PROzac) 80 mg DAILY PO Last administered on 10/02/18at 07:58; Start 10/01/18 at 09:00; Stop 10/02/18 at 17:33; Status DC Memantine (Namenda) 5 mg BID PO Last administered on 10/16/18at 07:25; Start 10/01/18 at 09:00; Stop 10/16/18 at 13:30; Status DC Quetiapine Fumarate (SEROquel) 12.5 mg PRN QID PRN PO ANXIETY / AGITATION Last administered on 10/12/18at 00:14; Start 10/01/18 at 02:45 Atorvastatin Calcium (Lipitor) 20 mg HS PO Last administered on 11/06/18at 20:11 ; Start 10/01/18 at 21:00 Vitamin D (Vitamin D3) 50,000 unit WEEKLY PO ; Start 10/02/18 at 16:15; Stop 10/02/18 at 17:26; Status DC Vitamin D (Vitamin D3) 50,000 unit WEEKLY PO Last administered on 10/31/18at 09: 00; Start 10/03/18 at 08:00 Fluoxetine HCl (PROzac) 60 mg DAILY PO Last administered on 10/06/18at 09:35; Start 10/03/18 at 09:00; Stop 10/06/18 at 16:47; Status DC Quetiapine Fumarate (SEROquel) 25 mg BID PO Last administered on 10/08/18at 07: 38; Start 10/02/18 at 21:00; Stop 10/08/18 at 10:33; Status DC Clonazepam (KlonoPIN) 0.25 mg DAILY@1500 PO Last administered on 10/10/18at 14: 02; Start 10/07/18 at 15:00; Stop 10/10/18 at 20:32; Status DC Fluoxetine HCl (PROzac) 20 mg DAILY PO Last administered on 10/16/18at 07:25; Start 10/07/18 at 09:00; Stop 10/16/18 at 13:30; Status DC Bupropion HCl (Wellbutrin Xl) 150 mg DAILY PO Last administered on 10/09/18at 11:55; Start 10/07/18 at 09:00; Stop 10/09/18 at 16:43; Status DC Quetiapine Fumarate (SEROquel) 25 mg QHS PO Last administered on 10/10/18at 19: 27; Start 10/08/18 at 21:00; Stop 10/11/18 at 18:11; Status DC Bupropion HCl (Wellbutrin Xl) 300 mg DAILY PO Last administered on 10/22/18 08: 39; Start 10/10/18 at 09:00; Stop 10/22/18 at 11:11; Status DC Trazodone HCl (Desyrel) 50 mg PRN QHS PRN PO INSOMNIA Last administered on 11/03 19:51; Start 10/10/18 at 20:45 Aripiprazole (Abilify) 2.5 mg QHS PO Last administered on 10/21/18 20:03; Start 10/11/18 at 21:00; Stop 10/22/18 at 11:11; Status DC Fluoxetine HCl (PROzac) 30 mg DAILY PO Last administered on 10/28/18 09:23; Start 10/17/18 at 09:00; Stop 10/28/18 at 18:38; Status DC Memantine (Namenda) 10 mg BID PO Last administered on 11/06/18 20:10; Start 10/16/18 at 21:00 Donepezil HCl (Aricept) 23 mg QHS PO Last administered on 11/06/18 20:11; Start 10/28/18 at 21:00 Citalopram Hydrobromide (CeleXA) 20 mg DAILY PO Last administered on 11/03/18 08:30; Start 10/29/18 at 09:00; Stop 11/03/18 at 16:16; Status DC Citalopram Hydrobromide (CeleXA) 30 mg DAILY PO Last administered on 11/06/18 07:57; Start 11/04/18 at 09:00 Active Scripts Active Reported Crestor (Rosuvastatin Calcium) 5 Mg Tablet 5 Mg PO DAILY Seroquel (Quetiapine Fumarate) 25 Mg Tablet 12.5 Mg PO PRN QID PRN Namenda (Memantine Hcl) 5 Mg Tablet 5 Mg PO BID Synthroid (Levothyroxine Sodium) 75 Mcg Tablet 75 Mcg PO DAILY06 Prozac (Fluoxetine Hcl) 40 Mg Capsule 80 Mg PO DAILY Aricept (Donepezil Hcl) 10 Mg Tablet 10 Mg PO QHS Klonopin (Clonazepam) 0.5 Mg Tablet 0.25 Mg PO BID@0700,1500 I have reviewed the current psychotropics carefully including drug interactions. Risk benefit ratio favors no change other than as noted in my dictated progress note. Diagnosis: Problems: (1) Confusion (2) Hallucinations (3) Agitated (4) Anxiety disorder (5) Depression (6) Impulse control disorder (7) Dementia, vascular, with delusions CYNDI LYN MD Nov 06, 2018 23:54
[2018-11-07 05:25] VITALS: BP 120/73
[2018-11-07] MEDS: LEVOTHYROXINE 75 MCG TABLET PO SCH (05:36)
[2018-11-07] MEDS: MEMANTINE 10 MG TABLET. PO SCH ×2 (07:45→20:42)
[2018-11-07] MEDS: CITALOPRAM 10 MG TABLET. PO SCH (07:45)
[2018-11-07] MEDS: CHOLECALCIFEROL (VITAMIN D3) 50,000 UNIT CAPSULE PO SCH (07:45)
[2018-11-07 15:41] VITALS: BP 133/82
[2018-11-07] MEDS: DONEPEZIL 23 MG TABLET PO SCH (20:42)
[2018-11-07] MEDS: ATORVASTATIN CALCIUM 20 MG TABLET PO SCH (20:42)
--- NOTE | 2018-11-07 23:57 | PDOC ---
Exam Note: Ricardo Note: Please also refer to the separate dictated note~for this date of service dictated separately.~Patient seen individually. Discussed the patient with Nursing staff reviewed the chart.~Reviewed interim history and current functioning. Reviewed vital signs,~Labs/ Radiology~and current medications noted below. Continue current treatment with the changes noted in the dictated addendum note Assessment: Vital Signs: Vital Signs Date Time Temp Pulse Resp B/P (MAP) Pulse Ox O2 Delivery O2 Flow Rate FiO2 11/07/18 15:41 98.6 64 16 133/82 (99) 95 11/06/18 05:39 Room Air I&O Intake and Output 11/07/18 07:01 Intake Total 360 ml Balance 360 ml Intake Oral 360 ml # Voids 1 Current Medications: Meds: Current Medications Acetaminophen (Tylenol) 650 mg PRN Q6HRS PRN PO PAIN / TEMP Last administered on 10/12/18at 00:14; Start 10/01/18 at 02:30 Multi-Ingredient Ointment (Analgesic [place]) 1 debora PRN QID PRN TP MUSCLE PAIN; Start 10/01/18 at 02:30 Al Hydroxide/Mg Hydroxide (Mylanta Plus Xs) 15 ml PRN AFTMEALHC PRN PO DYSPEPSIA; Start 10/01/18 at 02:30 Magnesium Hydroxide (Milk Of Magnesia) 2,400 mg PRN QHS PRN PO CONSTIPATION; Start 10/01/18 at 02:30 Clonazepam (KlonoPIN) 0.25 mg BID@0700,1500 PO Last administered on 10/06/18at 05:02; Start 10/01/18 at 07:00; Stop 10/06/18 at 16:47; Status DC Levothyroxine Sodium (Synthroid) 75 mcg DAILY06 PO Last administered on at 05:36; Start 10/01/18 at 06:00 Donepezil HCl (Aricept) 10 mg QHS PO Last administered on 10/27/18at 19:22; Start 10/01/18 at 21:00; Stop 10/28/18 at 18:38; Status DC Fluoxetine HCl (PROzac) 80 mg DAILY PO Last administered on 10/02/18at 07:58; Start 10/01/18 at 09:00; Stop 10/02/18 at 17:33; Status DC Memantine (Namenda) 5 mg BID PO Last administered on 10/16/18at 07:25; Start 10/01/18 at 09:00; Stop 10/16/18 at 13:30; Status DC Quetiapine Fumarate (SEROquel) 12.5 mg PRN QID PRN PO ANXIETY / AGITATION Last administered on 10/12/18at 00:14; Start 10/01/18 at 02:45 Atorvastatin Calcium (Lipitor) 20 mg HS PO Last administered on 11/07/18at 20:42 ; Start 10/01/18 at 21:00 Vitamin D (Vitamin D3) 50,000 unit WEEKLY PO ; Start 10/02/18 at 16:15; Stop 10/02/18 at 17:26; Status DC Vitamin D (Vitamin D3) 50,000 unit WEEKLY PO Last administered on 11/07/18at 07: 45; Start 10/03/18 at 08:00 Fluoxetine HCl (PROzac) 60 mg DAILY PO Last administered on 10/06/18at 09:35; Start 10/03/18 at 09:00; Stop 10/06/18 at 16:47; Status DC Quetiapine Fumarate (SEROquel) 25 mg BID PO Last administered on 10/08/18at 07: 38; Start 10/02/18 at 21:00; Stop 10/08/18 at 10:33; Status DC Clonazepam (KlonoPIN) 0.25 mg DAILY@1500 PO Last administered on 10/10/18at 14: 02; Start 10/07/18 at 15:00; Stop 10/10/18 at 20:32; Status DC Fluoxetine HCl (PROzac) 20 mg DAILY PO Last administered on 10/16/18at 07:25; Start 10/07/18 at 09:00; Stop 10/16/18 at 13:30; Status DC Bupropion HCl (Wellbutrin Xl) 150 mg DAILY PO Last administered on 10/09/18at 11:55; Start 10/07/18 at 09:00; Stop 10/09/18 at 16:43; Status DC Quetiapine Fumarate (SEROquel) 25 mg QHS PO Last administered on 10/10/18at 19: 27; Start 10/08/18 at 21:00; Stop 10/11/18 at 18:11; Status DC Bupropion HCl (Wellbutrin Xl) 300 mg DAILY PO Last administered on 10/22/18 08: 39; Start 10/10/18 at 09:00; Stop 10/22/18 at 11:11; Status DC Trazodone HCl (Desyrel) 50 mg PRN QHS PRN PO INSOMNIA Last administered on 11/03 19:51; Start 10/10/18 at 20:45 Aripiprazole (Abilify) 2.5 mg QHS PO Last administered on 10/21/18 20:03; Start 10/11/18 at 21:00; Stop 10/22/18 at 11:11; Status DC Fluoxetine HCl (PROzac) 30 mg DAILY PO Last administered on 10/28/18 09:23; Start 10/17/18 at 09:00; Stop 10/28/18 at 18:38; Status DC Memantine (Namenda) 10 mg BID PO Last administered on 11/07/18 20:42; Start 10/16/18 at 21:00 Donepezil HCl (Aricept) 23 mg QHS PO Last administered on 11/07/18 20:42; Start 10/28/18 at 21:00 Citalopram Hydrobromide (CeleXA) 20 mg DAILY PO Last administered on 11/03/18 08:30; Start 10/29/18 at 09:00; Stop 11/03/18 at 16:16; Status DC Citalopram Hydrobromide (CeleXA) 30 mg DAILY PO Last administered on 11/07/18 07:45; Start 11/04/18 at 09:00 Active Scripts Active Reported Crestor (Rosuvastatin Calcium) 5 Mg Tablet 5 Mg PO DAILY Seroquel (Quetiapine Fumarate) 25 Mg Tablet 12.5 Mg PO PRN QID PRN Namenda (Memantine Hcl) 5 Mg Tablet 5 Mg PO BID Synthroid (Levothyroxine Sodium) 75 Mcg Tablet 75 Mcg PO DAILY06 Prozac (Fluoxetine Hcl) 40 Mg Capsule 80 Mg PO DAILY Aricept (Donepezil Hcl) 10 Mg Tablet 10 Mg PO QHS Klonopin (Clonazepam) 0.5 Mg Tablet 0.25 Mg PO BID@0700,1500 I have reviewed the current psychotropics carefully including drug interactions. Risk benefit ratio favors no change other than as noted in my dictated progress note. Diagnosis: Problems: (1) Confusion (2) Hallucinations (3) Agitated (4) Anxiety disorder (5) Depression (6) Impulse control disorder (7) Dementia, vascular, with delusions CYNDI LYN MD Nov 07, 2018 23:57
[2018-11-08] MEDS: LEVOTHYROXINE 75 MCG TABLET PO SCH (05:18)
[2018-11-08 05:48] VITALS: BP 140/82
[2018-11-08] MEDS: CITALOPRAM 10 MG TABLET. PO SCH (07:41)
[2018-11-08] MEDS: MEMANTINE 10 MG TABLET. PO SCH ×2 (07:41→20:36)
[2018-11-08 15:37] VITALS: BP 114/79
[2018-11-08] MEDS: ATORVASTATIN CALCIUM 20 MG TABLET PO SCH (20:36)
[2018-11-08] MEDS: DONEPEZIL 23 MG TABLET PO SCH (20:36)
--- NOTE | 2018-11-08 22:29 | PDOC ---
Exam Note: Ricardo Note: Please also refer to the separate dictated note~for this date of service dictated separately. Discussed the patient with Nursing staff reviewed the chart.~Reviewed interim history and current functioning. Reviewed vital signs,~ Labs/ Radiology~and current medications noted below. Continue current treatment with the changes noted in the dictated addendum note Assessment: Vital Signs: Vital Signs Date Time Temp Pulse Resp B/P (MAP) Pulse Ox O2 Delivery O2 Flow Rate FiO2 11/08/18 15:37 97.8 64 16 114/79 (91) 94 11/06/18 05:39 Room Air I&O Intake and Output 11/08/18 07:01 Intake Total 1080 ml Balance 1080 ml Intake Oral 1080 ml # Voids 1 Current Medications: Meds: Current Medications Acetaminophen (Tylenol) 650 mg PRN Q6HRS PRN PO PAIN / TEMP Last administered on 10/12/18at 00:14; Start 10/01/18 at 02:30 Multi-Ingredient Ointment (Analgesic [place]) 1 debora PRN QID PRN TP MUSCLE PAIN; Start 10/01/18 at 02:30 Al Hydroxide/Mg Hydroxide (Mylanta Plus Xs) 15 ml PRN AFTMEALHC PRN PO DYSPEPSIA; Start 10/01/18 at 02:30 Magnesium Hydroxide (Milk Of Magnesia) 2,400 mg PRN QHS PRN PO CONSTIPATION; Start 10/01/18 at 02:30 Clonazepam (KlonoPIN) 0.25 mg BID@0700,1500 PO Last administered on 10/06/18at 05:02; Start 10/01/18 at 07:00; Stop 10/06/18 at 16:47; Status DC Levothyroxine Sodium (Synthroid) 75 mcg DAILY06 PO Last administered on at 05:18; Start 10/01/18 at 06:00 Donepezil HCl (Aricept) 10 mg QHS PO Last administered on 10/27/18 19:22; Start 10/01/18 at 21:00; Stop 10/28/18 at 18:38; Status DC Fluoxetine HCl (PROzac) 80 mg DAILY PO Last administered on 10/02/18at 07:58; Start 10/01/18 at 09:00; Stop 10/02/18 at 17:33; Status DC Memantine (Namenda) 5 mg BID PO Last administered on 10/16/18at 07:25; Start 10/01/18 at 09:00; Stop 10/16/18 at 13:30; Status DC Quetiapine Fumarate (SEROquel) 12.5 mg PRN QID PRN PO ANXIETY / AGITATION Last administered on 10/12/18at 00:14; Start 10/01/18 at 02:45 Atorvastatin Calcium (Lipitor) 20 mg HS PO Last administered on 11/08/18at 20:36 ; Start 10/01/18 at 21:00 Vitamin D (Vitamin D3) 50,000 unit WEEKLY PO ; Start 10/02/18 at 16:15; Stop 10/02/18 at 17:26; Status DC Vitamin D (Vitamin D3) 50,000 unit WEEKLY PO Last administered on 11/07/18at 07: 45; Start 10/03/18 at 08:00 Fluoxetine HCl (PROzac) 60 mg DAILY PO Last administered on 10/06/18at 09:35; Start 10/03/18 at 09:00; Stop 10/06/18 at 16:47; Status DC Quetiapine Fumarate (SEROquel) 25 mg BID PO Last administered on 10/08/18at 07: 38; Start 10/02/18 at 21:00; Stop 10/08/18 at 10:33; Status DC Clonazepam (KlonoPIN) 0.25 mg DAILY@1500 PO Last administered on 10/10/18at 14: 02; Start 10/07/18 at 15:00; Stop 10/10/18 at 20:32; Status DC Fluoxetine HCl (PROzac) 20 mg DAILY PO Last administered on 10/16/18at 07:25; Start 10/07/18 at 09:00; Stop 10/16/18 at 13:30; Status DC Bupropion HCl (Wellbutrin Xl) 150 mg DAILY PO Last administered on 10/09/18at 11:55; Start 10/07/18 at 09:00; Stop 10/09/18 at 16:43; Status DC Quetiapine Fumarate (SEROquel) 25 mg QHS PO Last administered on 10/10/18at 19: 27; Start 10/08/18 at 21:00; Stop 10/11/18 at 18:11; Status DC Bupropion HCl (Wellbutrin Xl) 300 mg DAILY PO Last administered on 10/22/18 08: 39; Start 10/10/18 at 09:00; Stop 10/22/18 at 11:11; Status DC Trazodone HCl (Desyrel) 50 mg PRN QHS PRN PO INSOMNIA Last administered on 11/03 19:51; Start 10/10/18 at 20:45 Aripiprazole (Abilify) 2.5 mg QHS PO Last administered on 10/21/18 20:03; Start 10/11/18 at 21:00; Stop 10/22/18 at 11:11; Status DC Fluoxetine HCl (PROzac) 30 mg DAILY PO Last administered on 10/28/18 09:23; Start 10/17/18 at 09:00; Stop 10/28/18 at 18:38; Status DC Memantine (Namenda) 10 mg BID PO Last administered on 11/08/18at 20:36; Start 10/16/18 at 21:00 Donepezil HCl (Aricept) 23 mg QHS PO Last administered on 11/08/18at 20:36; Start 10/28/18 at 21:00 Citalopram Hydrobromide (CeleXA) 20 mg DAILY PO Last administered on 11/03/18 08:30; Start 10/29/18 at 09:00; Stop 11/03/18 at 16:16; Status DC Citalopram Hydrobromide (CeleXA) 30 mg DAILY PO Last administered on 11/08/18at 07:41; Start 11/04/18 at 09:00 Active Scripts Active Reported Crestor (Rosuvastatin Calcium) 5 Mg Tablet 5 Mg PO DAILY Seroquel (Quetiapine Fumarate) 25 Mg Tablet 12.5 Mg PO PRN QID PRN Namenda (Memantine Hcl) 5 Mg Tablet 5 Mg PO BID Synthroid (Levothyroxine Sodium) 75 Mcg Tablet 75 Mcg PO DAILY06 Prozac (Fluoxetine Hcl) 40 Mg Capsule 80 Mg PO DAILY Aricept (Donepezil Hcl) 10 Mg Tablet 10 Mg PO QHS Klonopin (Clonazepam) 0.5 Mg Tablet 0.25 Mg PO BID@0700,1500 I have reviewed the current psychotropics carefully including drug interactions. Risk benefit ratio favors no change other than as noted in my dictated progress note. Diagnosis: Problems: (1) Confusion (2) Hallucinations (3) Agitated (4) Anxiety disorder (5) Depression (6) Impulse control disorder (7) Dementia, vascular, with delusions CYNDI LYN MD Nov 08, 2018 22:29
[2018-11-09 05:55] VITALS: BP 135/66
[2018-11-09] MEDS: LEVOTHYROXINE 75 MCG TABLET PO SCH (06:10)
--- NOTE | 2018-11-09 06:48 | PDOC ---
Exam Note: Ricardo Note: PSYCHIATRIC PROGRESS NOTE This late entry 11/06/2018 covers elements, not covered in my initial note. SUBJECTIVE: I met with the patient individually in the evening of 11/06/2018. Reviewed information from nursing staff. Reviewed the chart. She slept 6-1/2 hours. She did get up for lunch. Otherwise, withdrawn, isolative. She is awaiting placement and guardianship per social service staff. REVIEW OF SYTEMS: No CV, GI/, pulmonary, eye system symptoms on review. Does admit to some tiredness. MENTAL STATUS EXAMINATION: Oriented to herself and situation. Speech is coherent, has some latency. Abstraction is fair. Computation impaired. Mood and affect depressed, verbal. Language function is intact. Attention span is short. LABORATORY DATA: Reviewed. IMPRESSION: Major depressive disorder with psychotic features in partial remission. 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 Rest unchanged. PLAN: I have reviewed carefully current psychotropics and drug interactions. There is no change from my initial note. Assessment: Vital Signs: VS - Last 72 Hours, by Label Date Time Temp Pulse Resp B/P (MAP) Pulse Ox O2 Delivery O2 Flow Rate FiO2 11/09/18 05:55 97.2 64 16 135/66 (89) 94 11/08/18 15:37 97.8 64 16 114/79 (91) 94 11/08/18 05:48 96.6 63 14 140/82 (101) 94 11/07/18 15:41 98.6 64 16 133/82 (99) 95 11/07/18 05:25 96.9 79 20 120/73 (89) 96 11/06/18 16:09 98.0 69 20 118/75 (89) 97 Vital Signs Date Time Temp Pulse Resp B/P (MAP) Pulse Ox O2 Delivery O2 Flow Rate FiO2 11/09/18 05:55 97.2 64 16 135/66 (89) 94 11/06/18 05:39 Room Air I&O Intake and Output 11/09/18 07:01 Intake Total 960 ml Balance 960 ml Intake Oral 960 ml Current Medications: Meds: Current Medications Acetaminophen (Tylenol) 650 mg PRN Q6HRS PRN PO PAIN / TEMP Last administered on 10/12/18at 00:14; Start 10/01/18 at 02:30 Multi-Ingredient Ointment (Analgesic [place]) 1 debora PRN QID PRN TP MUSCLE PAIN; Start 10/01/18 at 02:30 Al Hydroxide/Mg Hydroxide (Mylanta Plus Xs) 15 ml PRN AFTMEALHC PRN PO DYSPEPSIA; Start 10/01/18 at 02:30 Magnesium Hydroxide (Milk Of Magnesia) 2,400 mg PRN QHS PRN PO CONSTIPATION; Start 10/01/18 at 02:30 Clonazepam (KlonoPIN) 0.25 mg BID@0700,1500 PO Last administered on 10/06/18at 05:02; Start 10/01/18 at 07:00; Stop 10/06/18 at 16:47; Status DC Levothyroxine Sodium (Synthroid) 75 mcg DAILY06 PO Last administered on at 06:10; Start 10/01/18 at 06:00 Donepezil HCl (Aricept) 10 mg QHS PO Last administered on 10/27/18at 19:22; Start 10/01/18 at 21:00; Stop 10/28/18 at 18:38; Status DC Fluoxetine HCl (PROzac) 80 mg DAILY PO Last administered on 10/02/18at 07:58; Start 10/01/18 at 09:00; Stop 10/02/18 at 17:33; Status DC Memantine (Namenda) 5 mg BID PO Last administered on 10/16/18at 07:25; Start 10/01/18 at 09:00; Stop 10/16/18 at 13:30; Status DC Quetiapine Fumarate (SEROquel) 12.5 mg PRN QID PRN PO ANXIETY / AGITATION Last administered on 10/12/18at 00:14; Start 10/01/18 at 02:45 Atorvastatin Calcium (Lipitor) 20 mg HS PO Last administered on 11/08/18at 20:36 ; Start 10/01/18 at 21:00 Vitamin D (Vitamin D3) 50,000 unit WEEKLY PO ; Start 10/02/18 at 16:15; Stop 10/02/18 at 17:26; Status DC Vitamin D (Vitamin D3) 50,000 unit WEEKLY PO Last administered on 11/07/18at 07: 45; Start 10/03/18 at 08:00 Fluoxetine HCl (PROzac) 60 mg DAILY PO Last administered on 10/06/18at 09:35; Start 10/03/18 at 09:00; Stop 10/06/18 at 16:47; Status DC Quetiapine Fumarate (SEROquel) 25 mg BID PO Last administered on 10/08/18at 07: 38; Start 10/02/18 at 21:00; Stop 10/08/18 at 10:33; Status DC Clonazepam (KlonoPIN) 0.25 mg DAILY@1500 PO Last administered on 10/10/18at 14: 02; Start 10/07/18 at 15:00; Stop 10/10/18 at 20:32; Status DC Fluoxetine HCl (PROzac) 20 mg DAILY PO Last administered on 10/16/18at 07:25; Start 10/07/18 at 09:00; Stop 10/16/18 at 13:30; Status DC Bupropion HCl (Wellbutrin Xl) 150 mg DAILY PO Last administered on 10/09/18at 11:55; Start 10/07/18 at 09:00; Stop 10/09/18 at 16:43; Status DC Quetiapine Fumarate (SEROquel) 25 mg QHS PO Last administered on 10/10/18at 19: 27; Start 10/08/18 at 21:00; Stop 10/11/18 at 18:11; Status DC Bupropion HCl (Wellbutrin Xl) 300 mg DAILY PO Last administered on 10/22/18at 08: 39; Start 10/10/18 at 09:00; Stop 10/22/18 at 11:11; Status DC Trazodone HCl (Desyrel) 50 mg PRN QHS PRN PO INSOMNIA Last administered on 11/03at 19:51; Start 10/10/18 at 20:45 Aripiprazole (Abilify) 2.5 mg QHS PO Last administered on 10/21/18 20:03; Start 10/11/18 at 21:00; Stop 10/22/18 at 11:11; Status DC Fluoxetine HCl (PROzac) 30 mg DAILY PO Last administered on 10/28/18 09:23; Start 10/17/18 at 09:00; Stop 10/28/18 at 18:38; Status DC Memantine (Namenda) 10 mg BID PO Last administered on 11/08/18at 20:36; Start 10/16/18 at 21:00 Donepezil HCl (Aricept) 23 mg QHS PO Last administered on 11/08/18at 20:36; Start 10/28/18 at 21:00 Citalopram Hydrobromide (CeleXA) 20 mg DAILY PO Last administered on 11/03/18at 08:30; Start 10/29/18 at 09:00; Stop 11/03/18 at 16:16; Status DC Citalopram Hydrobromide (CeleXA) 30 mg DAILY PO Last administered on 11/08/18at 07:41; Start 11/04/18 at 09:00 Active Scripts Active Reported Crestor (Rosuvastatin Calcium) 5 Mg Tablet 5 Mg PO DAILY Seroquel (Quetiapine Fumarate) 25 Mg Tablet 12.5 Mg PO PRN QID PRN Namenda (Memantine Hcl) 5 Mg Tablet 5 Mg PO BID Synthroid (Levothyroxine Sodium) 75 Mcg Tablet 75 Mcg PO DAILY06 Prozac (Fluoxetine Hcl) 40 Mg Capsule 80 Mg PO DAILY Aricept (Donepezil Hcl) 10 Mg Tablet 10 Mg PO QHS Klonopin (Clonazepam) 0.5 Mg Tablet 0.25 Mg PO BID@0700,1500 I have reviewed the current psychotropics carefully including drug interactions. Risk benefit ratio favors no change other than as noted in my dictated progress note. Diagnosis: Problems: (1) Confusion (2) Hallucinations (3) Agitated (4) Anxiety disorder (5) Depression (6) Impulse control disorder (7) Dementia, vascular, with delusions CYNDI LYN MD Nov 09, 2018 06:48
--- NOTE | 2018-11-09 07:07 | PDOC ---
Exam Note: Ricardo Note: PSYCHIATRIC PROGRESS NOTE This late entry 11/07/2018 covers elements, not covered in my initial note. SUBJECTIVE: I met with the patient individually in the evening of 11/07/2018. Reviewed information from nursing staff. Reviewed the chart. She has been in bed most of the day. I met with her in her room. REVIEW OF SYTEMS: No CV, , pulmonary, eye system symptoms on review. Does admit to some tiredness. MENTAL STATUS EXAMINATION: Oriented to herself and situation. Speech is coherent, has some latency. Abstraction is fair. Computation impaired. Mood and affect depressed, verbal. Language function is intact. Attention span is short. LABORATORY DATA: Reviewed. IMPRESSION: Major depressive disorder with psychotic features in partial remission. 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 Rest unchanged. Plan: I have reviewed carefully current psychotropics. Continue Aricept 23 mg a day, Celexa 30 mg a day, Namenda 10 mg b.i.d., Seroquel p.r.n., trazodone p.r.n.noted below. Assessment: Vital Signs: VS - Last 72 Hours, by Label Date Time Temp Pulse Resp B/P (MAP) Pulse Ox O2 Delivery O2 Flow Rate FiO2 11/09/18 05:55 97.2 64 16 135/66 (89) 94 11/08/18 15:37 97.8 64 16 114/79 (91) 94 11/08/18 05:48 96.6 63 14 140/82 (101) 94 11/07/18 15:41 98.6 64 16 133/82 (99) 95 11/07/18 05:25 96.9 79 20 120/73 (89) 96 11/06/18 16:09 98.0 69 20 118/75 (89) 97 Vital Signs Date Time Temp Pulse Resp B/P (MAP) Pulse Ox O2 Delivery O2 Flow Rate FiO2 11/09/18 05:55 97.2 64 16 135/66 (89) 94 11/06/18 05:39 Room Air I&O Intake and Output 11/09/18 07:01 Intake Total 960 ml Balance 960 ml Intake Oral 960 ml Current Medications: Meds: Current Medications Acetaminophen (Tylenol) 650 mg PRN Q6HRS PRN PO PAIN / TEMP Last administered on 10/12/18at 00:14; Start 12/13/18 at 02:30 Multi-Ingredient Ointment (Analgesic [place]) 1 debora PRN QID PRN TP MUSCLE PAIN; Start 10/01/18 at 02:30 Al Hydroxide/Mg Hydroxide (Mylanta Plus Xs) 15 ml PRN AFTMEALHC PRN PO DYSPEPSIA; Start 10/01/18 at 02:30 Magnesium Hydroxide (Milk Of Magnesia) 2,400 mg PRN QHS PRN PO CONSTIPATION; Start 10/01/18 at 02:30 Clonazepam (KlonoPIN) 0.25 mg BID@0700,1500 PO Last administered on 10/06/18at 05:02; Start 10/01/18 at 07:00; Stop 10/06/18 at 16:47; Status DC Levothyroxine Sodium (Synthroid) 75 mcg DAILY06 PO Last administered on at 06:10; Start 10/01/18 at 06:00 Donepezil HCl (Aricept) 10 mg QHS PO Last administered on 10/27/18at 19:22; Start 10/01/18 at 21:00; Stop 10/28/18 at 18:38; Status DC Fluoxetine HCl (PROzac) 80 mg DAILY PO Last administered on 10/02/18at 07:58; Start 10/01/18 at 09:00; Stop 10/02/18 at 17:33; Status DC Memantine (Namenda) 5 mg BID PO Last administered on 10/16/18at 07:25; Start 10/01/18 at 09:00; Stop 10/16/18 at 13:30; Status DC Quetiapine Fumarate (SEROquel) 12.5 mg PRN QID PRN PO ANXIETY / AGITATION Last administered on 10/12/18at 00:14; Start 10/01/18 at 02:45 Atorvastatin Calcium (Lipitor) 20 mg HS PO Last administered on 11/08/18at 20:36 ; Start 10/01/18 at 21:00 Vitamin D (Vitamin D3) 50,000 unit WEEKLY PO ; Start 10/02/18 at 16:15; Stop 10/02/18 at 17:26; Status DC Vitamin D (Vitamin D3) 50,000 unit WEEKLY PO Last administered on 11/07/18at 07: 45; Start 10/03/18 at 08:00 Fluoxetine HCl (PROzac) 60 mg DAILY PO Last administered on 10/06/18at 09:35; Start 10/03/18 at 09:00; Stop 10/06/18 at 16:47; Status DC Quetiapine Fumarate (SEROquel) 25 mg BID PO Last administered on 10/08/18at 07: 38; Start 10/02/18 at 21:00; Stop 10/08/18 at 10:33; Status DC Clonazepam (KlonoPIN) 0.25 mg DAILY@1500 PO Last administered on 10/10/18at 14: 02; Start 10/07/18 at 15:00; Stop 10/10/18 at 20:32; Status DC Fluoxetine HCl (PROzac) 20 mg DAILY PO Last administered on 10/16/18at 07:25; Start 10/07/18 at 09:00; Stop 10/16/18 at 13:30; Status DC Bupropion HCl (Wellbutrin Xl) 150 mg DAILY PO Last administered on 10/09/18at 11:55; Start 10/07/18 at 09:00; Stop 10/09/18 at 16:43; Status DC Quetiapine Fumarate (SEROquel) 25 mg QHS PO Last administered on 10/10/18at 19: 27; Start 10/08/18 at 21:00; Stop 10/11/18 at 18:11; Status DC Bupropion HCl (Wellbutrin Xl) 300 mg DAILY PO Last administered on 10/22/18at 08: 39; Start 10/10/18 at 09:00; Stop 10/22/18 at 11:11; Status DC Trazodone HCl (Desyrel) 50 mg PRN QHS PRN PO INSOMNIA Last administered on 11/03at 19:51; Start 10/10/18 at 20:45 Aripiprazole (Abilify) 2.5 mg QHS PO Last administered on 10/21/18at 20:03; Start 10/11/18 at 21:00; Stop 10/22/18 at 11:11; Status DC Fluoxetine HCl (PROzac) 30 mg DAILY PO Last administered on 10/28/18at 09:23; Start 10/17/18 at 09:00; Stop 10/28/18 at 18:38; Status DC Memantine (Namenda) 10 mg BID PO Last administered on 11/08/18at 20:36; Start 10/16/18 at 21:00 Donepezil HCl (Aricept) 23 mg QHS PO Last administered on 11/08/18at 20:36; Start 10/28/18 at 21:00 Citalopram Hydrobromide (CeleXA) 20 mg DAILY PO Last administered on 11/03/18at 08:30; Start 10/29/18 at 09:00; Stop 11/03/18 at 16:16; Status DC Citalopram Hydrobromide (CeleXA) 30 mg DAILY PO Last administered on 11/08/18at 07:41; Start 11/04/18 at 09:00 Active Scripts Active Reported Crestor (Rosuvastatin Calcium) 5 Mg Tablet 5 Mg PO DAILY Seroquel (Quetiapine Fumarate) 25 Mg Tablet 12.5 Mg PO PRN QID PRN Namenda (Memantine Hcl) 5 Mg Tablet 5 Mg PO BID Synthroid (Levothyroxine Sodium) 75 Mcg Tablet 75 Mcg PO DAILY06 Prozac (Fluoxetine Hcl) 40 Mg Capsule 80 Mg PO DAILY Aricept (Donepezil Hcl) 10 Mg Tablet 10 Mg PO QHS Klonopin (Clonazepam) 0.5 Mg Tablet 0.25 Mg PO BID@0700,1500 I have reviewed the current psychotropics carefully including drug interactions. Risk benefit ratio favors no change other than as noted in my dictated progress note. Diagnosis: Problems: (1) Confusion (2) Hallucinations (3) Agitated (4) Anxiety disorder (5) Depression (6) Impulse control disorder (7) Dementia, vascular, with delusions CYNDI LYN MD Nov 09, 2018 07:07
[2018-11-09] MEDS: CITALOPRAM 10 MG TABLET. PO SCH (07:49)
[2018-11-09] MEDS: MEMANTINE 10 MG TABLET. PO SCH ×2 (07:49→20:38)
[2018-11-09 16:38] VITALS: BP 156/63
[2018-11-09] MEDS: traZODone 50 MG TABLET. PO PRN (20:38)
[2018-11-09] MEDS: ATORVASTATIN CALCIUM 20 MG TABLET PO SCH (20:38)
[2018-11-09] MEDS: DONEPEZIL 23 MG TABLET PO SCH (20:38)
--- NOTE | 2018-11-09 21:14 | PN ---
DATE: 11/09/2018 PSYCHIATRIC PROGRESS NOTE This note covers elements, not covered in my initial note 11/09/2018. SUBJECTIVE: I met with the patient in the evening. She has come out of her room, was in the dayroom, somewhat withdrawn, otherwise, irritable with a flat affect. REVIEW OF SYSTEMS: No CV, , pulmonary, eye, ENT system symptoms on review. Reliability varies. MENTAL STATUS EXAM: Oriented to herself and situation. Speech moderate latency, often responses monosyllabic. Abstraction fair, computation impaired, language function intact, attention span short. Mood and affect withdrawn, depressed. No suicidal ideation. LABORATORY DATA: Reviewed. IMPRESSION: Major depressive disorder with psychotic features; cognitive disorder, unspecified. Rest unchanged. PLAN: No change from initial note. MAN Didi LYN MD DR: AMOS/manoj JOB#: [id number] / [id number]
--- NOTE | 2018-11-09 22:30 | PDOC ---
Exam Note: Ricardo Note: Please also refer to the separate dictated note~for this date of service dictated separately.~Patient seen individually. Discussed the patient with Nursing staff reviewed the chart.~Reviewed interim history and current functioning. Reviewed vital signs,~Labs/ Radiology~and current medications noted below. Continue current treatment with the changes noted in the dictated addendum note Assessment: Vital Signs: Vital Signs Date Time Temp Pulse Resp B/P (MAP) Pulse Ox O2 Delivery O2 Flow Rate FiO2 11/09/18 16:38 98.0 74 20 156/63 (94) 97 11/06/18 05:39 Room Air I&O Intake and Output 11/09/18 07:01 Intake Total 960 ml Balance 960 ml Intake Oral 960 ml Current Medications: Meds: Current Medications Acetaminophen (Tylenol) 650 mg PRN Q6HRS PRN PO PAIN / TEMP Last administered on 10/12/18at 00:14; Start 10/01/18 at 02:30 Multi-Ingredient Ointment (Analgesic [place]) 1 debora PRN QID PRN TP MUSCLE PAIN; Start 10/01/18 at 02:30 Al Hydroxide/Mg Hydroxide (Mylanta Plus Xs) 15 ml PRN AFTMEALHC PRN PO DYSPEPSIA; Start 10/01/18 at 02:30 Magnesium Hydroxide (Milk Of Magnesia) 2,400 mg PRN QHS PRN PO CONSTIPATION; Start 10/01/18 at 02:30 Clonazepam (KlonoPIN) 0.25 mg BID@0700,1500 PO Last administered on 10/06/18at 05:02; Start 10/01/18 at 07:00; Stop 10/06/18 at 16:47; Status DC Levothyroxine Sodium (Synthroid) 75 mcg DAILY06 PO Last administered on at 06:10; Start 10/01/18 at 06:00 Donepezil HCl (Aricept) 10 mg QHS PO Last administered on 10/27/18at 19:22; Start 10/01/18 at 21:00; Stop 10/28/18 at 18:38; Status DC Fluoxetine HCl (PROzac) 80 mg DAILY PO Last administered on 10/02/18at 07:58; Start 10/01/18 at 09:00; Stop 10/02/18 at 17:33; Status DC Memantine (Namenda) 5 mg BID PO Last administered on 10/16/18at 07:25; Start 10/01/18 at 09:00; Stop 10/16/18 at 13:30; Status DC Quetiapine Fumarate (SEROquel) 12.5 mg PRN QID PRN PO ANXIETY / AGITATION Last administered on 10/12/18at 00:14; Start 10/01/18 at 02:45 Atorvastatin Calcium (Lipitor) 20 mg HS PO Last administered on 11/09/18at 20:38 ; Start 10/01/18 at 21:00 Vitamin D (Vitamin D3) 50,000 unit WEEKLY PO ; Start 10/02/18 at 16:15; Stop 10/02/18 at 17:26; Status DC Vitamin D (Vitamin D3) 50,000 unit WEEKLY PO Last administered on 11/07/18at 07: 45; Start 10/03/18 at 08:00 Fluoxetine HCl (PROzac) 60 mg DAILY PO Last administered on 10/06/18at 09:35; Start 10/03/18 at 09:00; Stop 10/06/18 at 16:47; Status DC Quetiapine Fumarate (SEROquel) 25 mg BID PO Last administered on 10/08/18at 07: 38; Start 10/02/18 at 21:00; Stop 10/08/18 at 10:33; Status DC Clonazepam (KlonoPIN) 0.25 mg DAILY@1500 PO Last administered on 10/10/18at 14: 02; Start 10/07/18 at 15:00; Stop 10/10/18 at 20:32; Status DC Fluoxetine HCl (PROzac) 20 mg DAILY PO Last administered on 10/16/18at 07:25; Start 10/07/18 at 09:00; Stop 10/16/18 at 13:30; Status DC Bupropion HCl (Wellbutrin Xl) 150 mg DAILY PO Last administered on 10/09/18at 11:55; Start 10/07/18 at 09:00; Stop 10/09/18 at 16:43; Status DC Quetiapine Fumarate (SEROquel) 25 mg QHS PO Last administered on 10/10/18at 19: 27; Start 10/08/18 at 21:00; Stop 10/11/18 at 18:11; Status DC Bupropion HCl (Wellbutrin Xl) 300 mg DAILY PO Last administered on 10/22/18 08: 39; Start 10/10/18 at 09:00; Stop 10/22/18 at 11:11; Status DC Trazodone HCl (Desyrel) 50 mg PRN QHS PRN PO INSOMNIA Last administered on 11/09 20:38; Start 10/10/18 at 20:45 Aripiprazole (Abilify) 2.5 mg QHS PO Last administered on 10/21/18 20:03; Start 10/11/18 at 21:00; Stop 10/22/18 at 11:11; Status DC Fluoxetine HCl (PROzac) 30 mg DAILY PO Last administered on 10/28/18 09:23; Start 10/17/18 at 09:00; Stop 10/28/18 at 18:38; Status DC Memantine (Namenda) 10 mg BID PO Last administered on 11/09/18at 20:38; Start 10/16/18 at 21:00 Donepezil HCl (Aricept) 23 mg QHS PO Last administered on 11/09/18 20:38; Start 10/28/18 at 21:00 Citalopram Hydrobromide (CeleXA) 20 mg DAILY PO Last administered on 11/03/18 08:30; Start 10/29/18 at 09:00; Stop 11/03/18 at 16:16; Status DC Citalopram Hydrobromide (CeleXA) 30 mg DAILY PO Last administered on 11/09/18 07:49; Start 11/04/18 at 09:00 Active Scripts Active Reported Crestor (Rosuvastatin Calcium) 5 Mg Tablet 5 Mg PO DAILY Seroquel (Quetiapine Fumarate) 25 Mg Tablet 12.5 Mg PO PRN QID PRN Namenda (Memantine Hcl) 5 Mg Tablet 5 Mg PO BID Synthroid (Levothyroxine Sodium) 75 Mcg Tablet 75 Mcg PO DAILY06 Prozac (Fluoxetine Hcl) 40 Mg Capsule 80 Mg PO DAILY Aricept (Donepezil Hcl) 10 Mg Tablet 10 Mg PO QHS Klonopin (Clonazepam) 0.5 Mg Tablet 0.25 Mg PO BID@0700,1500 I have reviewed the current psychotropics carefully including drug interactions. Risk benefit ratio favors no change other than as noted in my dictated progress note. Diagnosis: Problems: (1) Confusion (2) Hallucinations (3) Agitated (4) Anxiety disorder (5) Depression (6) Impulse control disorder (7) Dementia, vascular, with delusions CYNDI LYN MD Nov 09, 2018 22:30
[2018-11-10 05:34] VITALS: BP 120/66
[2018-11-10] MEDS: LEVOTHYROXINE 75 MCG TABLET PO SCH (05:55)
[2018-11-10] MEDS: CITALOPRAM 10 MG TABLET. PO SCH (07:57)
[2018-11-10] MEDS: MEMANTINE 10 MG TABLET. PO SCH ×2 (07:57→19:36)
[2018-11-10 15:44] VITALS: BP 150/79
--- NOTE | 2018-11-10 16:34 | PN ---
DATE: 11/08/2018 This is a late entry, date of service 11/08/2018, covers elements not covered in my initial note. SUBJECTIVE: The patient slept 9-1/2 hours previous night. She remains withdrawn, spends much time in her room. Short term memory is impaired. REVIEW OF SYSTEMS: No suicidal or homicidal ideation. She is still obsessing about wanting to be discharged. Feels she can live alone by herself. IMPRESSION: Unchanged from initial note. PLAN: No change from initial note. Maintain psychotropics mentioned in initial note and await placement per social service staff. MAN Didi LYN MD DR: AMOS/manoj JOB#: [id number] / [id number]
[2018-11-10] MEDS: ATORVASTATIN CALCIUM 20 MG TABLET PO SCH (19:36)
[2018-11-10] MEDS: DONEPEZIL 23 MG TABLET PO SCH (19:36)
[2018-11-10] MEDS: traZODone 50 MG TABLET. PO PRN (21:49)
--- NOTE | 2018-11-10 22:20 | PDOC ---
Exam Note: Ricardo Note: Please also refer to the separate dictated note~for this date of service dictated separately.~Patient seen individually. Discussed the patient with Nursing staff reviewed the chart.~Reviewed interim history and current functioning. Reviewed vital signs,~Labs/ Radiology~and current medications noted below. Continue current treatment with the changes noted in the dictated addendum note Assessment: Vital Signs: Vital Signs Date Time Temp Pulse Resp B/P (MAP) Pulse Ox O2 Delivery O2 Flow Rate FiO2 11/10/18 15:44 97.6 77 18 150/79 (102) 96 11/10/18 05:34 Room Air I&O Intake and Output 11/10/18 07:01 Intake Total 1560 ml Balance 1560 ml Intake Oral 1560 ml # Voids 1 Current Medications: Meds: Current Medications Acetaminophen (Tylenol) 650 mg PRN Q6HRS PRN PO PAIN / TEMP Last administered on 10/12/18at 00:14; Start 10/01/18 at 02:30 Multi-Ingredient Ointment (Analgesic [place]) 1 debora PRN QID PRN TP MUSCLE PAIN; Start 10/01/18 at 02:30 Al Hydroxide/Mg Hydroxide (Mylanta Plus Xs) 15 ml PRN AFTMEALHC PRN PO DYSPEPSIA; Start 10/01/18 at 02:30 Magnesium Hydroxide (Milk Of Magnesia) 2,400 mg PRN QHS PRN PO CONSTIPATION; Start 10/01/18 at 02:30 Clonazepam (KlonoPIN) 0.25 mg BID@0700,1500 PO Last administered on 10/06/18at 05:02; Start 10/01/18 at 07:00; Stop 10/06/18 at 16:47; Status DC Levothyroxine Sodium (Synthroid) 75 mcg DAILY06 PO Last administered on at 05:55; Start 10/01/18 at 06:00 Donepezil HCl (Aricept) 10 mg QHS PO Last administered on 10/27/18at 19:22; Start 10/01/18 at 21:00; Stop 10/28/18 at 18:38; Status DC Fluoxetine HCl (PROzac) 80 mg DAILY PO Last administered on 10/02/18at 07:58; Start 10/01/18 at 09:00; Stop 10/02/18 at 17:33; Status DC Memantine (Namenda) 5 mg BID PO Last administered on 10/16/18at 07:25; Start 10/01/18 at 09:00; Stop 10/16/18 at 13:30; Status DC Quetiapine Fumarate (SEROquel) 12.5 mg PRN QID PRN PO ANXIETY / AGITATION Last administered on 10/12/18at 00:14; Start 10/01/18 at 02:45 Atorvastatin Calcium (Lipitor) 20 mg HS PO Last administered on 11/10/18at 19:36 ; Start 10/01/18 at 21:00 Vitamin D (Vitamin D3) 50,000 unit WEEKLY PO ; Start 10/02/18 at 16:15; Stop 10/02/18 at 17:26; Status DC Vitamin D (Vitamin D3) 50,000 unit WEEKLY PO Last administered on 11/07/18at 07: 45; Start 10/03/18 at 08:00 Fluoxetine HCl (PROzac) 60 mg DAILY PO Last administered on 10/06/18at 09:35; Start 10/03/18 at 09:00; Stop 10/06/18 at 16:47; Status DC Quetiapine Fumarate (SEROquel) 25 mg BID PO Last administered on 10/08/18at 07: 38; Start 10/02/18 at 21:00; Stop 10/08/18 at 10:33; Status DC Clonazepam (KlonoPIN) 0.25 mg DAILY@1500 PO Last administered on 10/10/18at 14: 02; Start 10/07/18 at 15:00; Stop 10/10/18 at 20:32; Status DC Fluoxetine HCl (PROzac) 20 mg DAILY PO Last administered on 10/16/18at 07:25; Start 10/07/18 at 09:00; Stop 10/16/18 at 13:30; Status DC Bupropion HCl (Wellbutrin Xl) 150 mg DAILY PO Last administered on 10/09/18at 11:55; Start 10/07/18 at 09:00; Stop 10/09/18 at 16:43; Status DC Quetiapine Fumarate (SEROquel) 25 mg QHS PO Last administered on 10/10/18at 19: 27; Start 10/08/18 at 21:00; Stop 10/11/18 at 18:11; Status DC Bupropion HCl (Wellbutrin Xl) 300 mg DAILY PO Last administered on 10/22/18 08: 39; Start 10/10/18 at 09:00; Stop 10/22/18 at 11:11; Status DC Trazodone HCl (Desyrel) 50 mg PRN QHS PRN PO INSOMNIA Last administered on 11/10 21:49; Start 10/10/18 at 20:45 Aripiprazole (Abilify) 2.5 mg QHS PO Last administered on 10/21/18 20:03; Start 10/11/18 at 21:00; Stop 10/22/18 at 11:11; Status DC Fluoxetine HCl (PROzac) 30 mg DAILY PO Last administered on 10/28/18 09:23; Start 10/17/18 at 09:00; Stop 10/28/18 at 18:38; Status DC Memantine (Namenda) 10 mg BID PO Last administered on 11/10/18at 19:36; Start 10/16/18 at 21:00 Donepezil HCl (Aricept) 23 mg QHS PO Last administered on 11/10/18 19:36; Start 10/28/18 at 21:00 Citalopram Hydrobromide (CeleXA) 20 mg DAILY PO Last administered on 11/03/18 08:30; Start 10/29/18 at 09:00; Stop 11/03/18 at 16:16; Status DC Citalopram Hydrobromide (CeleXA) 30 mg DAILY PO Last administered on 11/10/18at 07:57; Start 11/04/18 at 09:00 Active Scripts Active Reported Crestor (Rosuvastatin Calcium) 5 Mg Tablet 5 Mg PO DAILY Seroquel (Quetiapine Fumarate) 25 Mg Tablet 12.5 Mg PO PRN QID PRN Namenda (Memantine Hcl) 5 Mg Tablet 5 Mg PO BID Synthroid (Levothyroxine Sodium) 75 Mcg Tablet 75 Mcg PO DAILY06 Prozac (Fluoxetine Hcl) 40 Mg Capsule 80 Mg PO DAILY Aricept (Donepezil Hcl) 10 Mg Tablet 10 Mg PO QHS Klonopin (Clonazepam) 0.5 Mg Tablet 0.25 Mg PO BID@0700,1500 I have reviewed the current psychotropics carefully including drug interactions. Risk benefit ratio favors no change other than as noted in my dictated progress note. Diagnosis: Problems: (1) Confusion (2) Hallucinations (3) Agitated (4) Anxiety disorder (5) Depression (6) Impulse control disorder (7) Dementia, vascular, with delusions CYNDI LYN MD Nov 10, 2018 22:20
[2018-11-11 06:15] VITALS: BP 125/65
[2018-11-11] MEDS: LEVOTHYROXINE 75 MCG TABLET PO SCH (06:29)
[2018-11-11] MEDS: CITALOPRAM 10 MG TABLET. PO SCH (07:11)
[2018-11-11] MEDS: MEMANTINE 10 MG TABLET. PO SCH ×2 (07:11→20:15)
[2018-11-11 16:56] VITALS: BP 132/79
[2018-11-11] MEDS: DONEPEZIL 23 MG TABLET PO SCH (20:15)
[2018-11-11] MEDS: ATORVASTATIN CALCIUM 20 MG TABLET PO SCH (20:15)
--- NOTE | 2018-11-11 20:41 | PN ---
DATE: 11/10/2018 PSYCHIATRIC PROGRESS NOTE This late entry 11/10/2018 covers elements not covered in my initial note. SUBJECTIVE: I met with the patient in the evening. The patient slept 7 hours previous night. I met with her in her room. The patient remains withdrawn, was lying in bed, but did sit up to interact with me. She did come out for breakfast and lunch, came out for a short while to the day room as well, which is an improvement. REVIEW OF SYSTEMS: No CV, , pulmonary, eye, ENT system symptoms on review. MENTAL STATUS EXAM: Oriented to herself and situation. Speech moderate latency, often responses monosyllabic. Abstraction fair, computation impaired, language function intact, attention span short. Mood and affect withdrawn. LABORATORY DATA: Reviewed. IMPRESSION: Major depressive disorder with psychotic features in partial remission; cognitive disorder, unspecified. Rest unchanged. PLAN: No change from initial note. Await placement that social service staff is coordinating with the family. CYNDI LYN MD DR: AMOS/manoj JOB#: [id number] / [id number]
--- NOTE | 2018-11-11 22:34 | PDOC ---
Exam Note: Ricardo Note: Please also refer to the separate dictated note~for this date of service dictated separately.~Patient seen individually. Discussed the patient with Nursing staff reviewed the chart.~Reviewed interim history and current functioning. Reviewed vital signs,~Labs/ Radiology~and current medications noted below. Continue current treatment with the changes noted in the dictated addendum note Assessment: Vital Signs: Vital Signs Date Time Temp Pulse Resp B/P (MAP) Pulse Ox O2 Delivery O2 Flow Rate FiO2 11/11/18 16:56 97.8 82 18 132/79 (96) 94 11/10/18 05:34 Room Air I&O Intake and Output 11/11/18 07:01 Intake Total 720 ml Balance 720 ml Intake Oral 720 ml Current Medications: Meds: Current Medications Acetaminophen (Tylenol) 650 mg PRN Q6HRS PRN PO PAIN / TEMP Last administered on 10/12/18at 00:14; Start 10/01/18 at 02:30 Multi-Ingredient Ointment (Analgesic [place]) 1 debora PRN QID PRN TP MUSCLE PAIN; Start 10/01/18 at 02:30 Al Hydroxide/Mg Hydroxide (Mylanta Plus Xs) 15 ml PRN AFTMEALHC PRN PO DYSPEPSIA; Start 10/01/18 at 02:30 Magnesium Hydroxide (Milk Of Magnesia) 2,400 mg PRN QHS PRN PO CONSTIPATION; Start 10/01/18 at 02:30 Clonazepam (KlonoPIN) 0.25 mg BID@0700,1500 PO Last administered on 10/06/18at 05:02; Start 10/01/18 at 07:00; Stop 10/06/18 at 16:47; Status DC Levothyroxine Sodium (Synthroid) 75 mcg DAILY06 PO Last administered on at 06:29; Start 10/01/18 at 06:00 Donepezil HCl (Aricept) 10 mg QHS PO Last administered on 10/27/18at 19:22; Start 10/01/18 at 21:00; Stop 10/28/18 at 18:38; Status DC Fluoxetine HCl (PROzac) 80 mg DAILY PO Last administered on 10/02/18at 07:58; Start 10/01/18 at 09:00; Stop 10/02/18 at 17:33; Status DC Memantine (Namenda) 5 mg BID PO Last administered on 10/16/18at 07:25; Start 10/01/18 at 09:00; Stop 10/16/18 at 13:30; Status DC Quetiapine Fumarate (SEROquel) 12.5 mg PRN QID PRN PO ANXIETY / AGITATION Last administered on 10/12/18at 00:14; Start 10/01/18 at 02:45 Atorvastatin Calcium (Lipitor) 20 mg HS PO Last administered on 11/11/18at 20:15 ; Start 10/01/18 at 21:00 Vitamin D (Vitamin D3) 50,000 unit WEEKLY PO ; Start 10/02/18 at 16:15; Stop 10/02/18 at 17:26; Status DC Vitamin D (Vitamin D3) 50,000 unit WEEKLY PO Last administered on 11/07/18at 07: 45; Start 10/03/18 at 08:00 Fluoxetine HCl (PROzac) 60 mg DAILY PO Last administered on 10/06/18at 09:35; Start 10/03/18 at 09:00; Stop 10/06/18 at 16:47; Status DC Quetiapine Fumarate (SEROquel) 25 mg BID PO Last administered on 10/08/18at 07: 38; Start 10/02/18 at 21:00; Stop 10/08/18 at 10:33; Status DC Clonazepam (KlonoPIN) 0.25 mg DAILY@1500 PO Last administered on 10/10/18at 14: 02; Start 10/07/18 at 15:00; Stop 10/10/18 at 20:32; Status DC Fluoxetine HCl (PROzac) 20 mg DAILY PO Last administered on 10/16/18at 07:25; Start 10/07/18 at 09:00; Stop 10/16/18 at 13:30; Status DC Bupropion HCl (Wellbutrin Xl) 150 mg DAILY PO Last administered on 10/09/18at 11:55; Start 10/07/18 at 09:00; Stop 10/09/18 at 16:43; Status DC Quetiapine Fumarate (SEROquel) 25 mg QHS PO Last administered on 10/10/18at 19: 27; Start 10/08/18 at 21:00; Stop 10/11/18 at 18:11; Status DC Bupropion HCl (Wellbutrin Xl) 300 mg DAILY PO Last administered on 10/22/18 08: 39; Start 10/10/18 at 09:00; Stop 10/22/18 at 11:11; Status DC Trazodone HCl (Desyrel) 50 mg PRN QHS PRN PO INSOMNIA Last administered on 11/10 21:49; Start 10/10/18 at 20:45 Aripiprazole (Abilify) 2.5 mg QHS PO Last administered on 10/21/18 20:03; Start 10/11/18 at 21:00; Stop 10/22/18 at 11:11; Status DC Fluoxetine HCl (PROzac) 30 mg DAILY PO Last administered on 10/28/18 09:23; Start 10/17/18 at 09:00; Stop 10/28/18 at 18:38; Status DC Memantine (Namenda) 10 mg BID PO Last administered on 11/11/18 20:15; Start 10/16/18 at 21:00 Donepezil HCl (Aricept) 23 mg QHS PO Last administered on 11/11/18 20:15; Start 10/28/18 at 21:00 Citalopram Hydrobromide (CeleXA) 20 mg DAILY PO Last administered on 11/03/18 08:30; Start 10/29/18 at 09:00; Stop 11/03/18 at 16:16; Status DC Citalopram Hydrobromide (CeleXA) 30 mg DAILY PO Last administered on 11/11/18 07:11; Start 11/04/18 at 09:00 Active Scripts Active Reported Crestor (Rosuvastatin Calcium) 5 Mg Tablet 5 Mg PO DAILY Seroquel (Quetiapine Fumarate) 25 Mg Tablet 12.5 Mg PO PRN QID PRN Namenda (Memantine Hcl) 5 Mg Tablet 5 Mg PO BID Synthroid (Levothyroxine Sodium) 75 Mcg Tablet 75 Mcg PO DAILY06 Prozac (Fluoxetine Hcl) 40 Mg Capsule 80 Mg PO DAILY Aricept (Donepezil Hcl) 10 Mg Tablet 10 Mg PO QHS Klonopin (Clonazepam) 0.5 Mg Tablet 0.25 Mg PO BID@0700,1500 I have reviewed the current psychotropics carefully including drug interactions. Risk benefit ratio favors no change other than as noted in my dictated progress note. Diagnosis: Problems: (1) Confusion (2) Hallucinations (3) Agitated (4) Anxiety disorder (5) Depression (6) Impulse control disorder (7) Dementia, vascular, with delusions CYNDI LYN MD Nov 11, 2018 22:34
[2018-11-12] MEDS: LEVOTHYROXINE 75 MCG TABLET PO SCH (05:04)
[2018-11-12 05:31] VITALS: BP 103/68
[2018-11-12] MEDS: CITALOPRAM 10 MG TABLET. PO SCH (08:08)
[2018-11-12] MEDS: MEMANTINE 10 MG TABLET. PO SCH ×2 (08:08→20:39)
[2018-11-12 08:17] LABS: BASO # 0.1 x10^3/uL (0.0-0.2); BASO % 1 % (0-3); EOS # 0.3 x10^3/uL (0.0-0.7); EOS % 5 % (0-3); HEMATOCRIT 43.3 % (36.0-47.0); HEMOGLOBIN 14.4 g/dL (12.0-15.5); LYMPH # 2.1 x10^3/uL (1.0-4.8); LYMPH % 33 % (24-48); MEAN CORPUSCULAR HEMOGLOBIN 28 pg (25-35); MEAN CORPUSCULAR HGB CONC 33 g/dL (31-37); MEAN CORPUSCULAR VOLUME 84 fL (79-100); MONO # 0.6 x10^3/uL (0.0-1.1); MONO % 9 % (0-9); NEUT # 3.5 x10^3uL (1.8-7.7); NEUT % 54 % (31-73); PLATELET COUNT 285 x10^3/uL (140-400); RED BLOOD COUNT 5.13 x10^6/uL (3.50-5.40); RED CELL DISTRIBUTION WIDTH 12.5 % (11.5-14.5); WHITE BLOOD COUNT 6.5 x10^3/uL (4.0-11.0)
[2018-11-12 08:25] LABS: ALBUMIN/GLOBULIN RATIO 0.8 (1.0-1.7); CALCIUM 8.9 mg/dL (8.5-10.1); CREATININE 0.9 mg/dL (0.6-1.0); GFR 62.3; POTASSIUM 3.5 mmol/L (3.5-5.1); TOTAL BILIRUBIN 0.3 mg/dL (0.2-1.0); TOTAL PROTEIN 6.7 g/dL (6.4-8.2)
[2018-11-12 16:35] VITALS: BP 114/73
[2018-11-12] MEDS: ATORVASTATIN CALCIUM 20 MG TABLET PO SCH (20:38)
[2018-11-12] MEDS: DONEPEZIL 23 MG TABLET PO SCH (20:38)
--- NOTE | 2018-11-12 22:46 | PDOC ---
Exam Note: Ricardo Note: Please also refer to the separate dictated note~for this date of service dictated separately.~Patient seen individually. Discussed the patient with Nursing staff reviewed the chart.~Reviewed interim history and current functioning. Reviewed vital signs,~Labs/ Radiology~and current medications noted below. Continue current treatment with the changes noted in the dictated addendum note Assessment: Vital Signs: Vital Signs Date Time Temp Pulse Resp B/P (MAP) Pulse Ox O2 Delivery O2 Flow Rate FiO2 11/12/18 16:35 97.8 70 16 114/73 (87) 100 11/10/18 05:34 Room Air I&O Intake and Output 11/12/18 07:01 Intake Total 960 ml Balance 960 ml Intake Oral 960 ml Labs: Laboratory Tests Test 11/12/18 07:37 White Blood Count 6.5 x10^3/uL (4.0-11.0) Red Blood Count 5.13 x10^6/uL (3.50-5.40) Hemoglobin 14.4 g/dL (12.0-15.5) Hematocrit 43.3 % (36.0-47.0) Mean Corpuscular Volume 84 fL (79-100) Mean Corpuscular Hemoglobin 28 pg (25-35) Mean Corpuscular Hemoglobin Concent 33 g/dL (31-37) Red Cell Distribution Width 12.5 % (11.5-14.5) Platelet Count 285 x10^3/uL (140-400) Neutrophils (%) (Auto) 54 % (31-73) Lymphocytes (%) (Auto) 33 % (24-48) Monocytes (%) (Auto) 9 % (0-9) Eosinophils (%) (Auto) 5 % (0-3) H Basophils (%) (Auto) 1 % (0-3) Neutrophils # (Auto) 3.5 x10^3uL (1.8-7.7) Lymphocytes # (Auto) 2.1 x10^3/uL (1.0-4.8) Monocytes # (Auto) 0.6 x10^3/uL (0.0-1.1) Eosinophils # (Auto) 0.3 x10^3/uL (0.0-0.7) Basophils # (Auto) 0.1 x10^3/uL (0.0-0.2) Sodium Level 143 mmol/L (136-145) Potassium Level 3.5 mmol/L (3.5-5.1) Chloride Level 105 mmol/L (98-107) Carbon Dioxide Level 29 mmol/L (21-32) Anion Gap 9 (6-14) Blood Urea Nitrogen 13 mg/dL (7-20) Creatinine 0.9 mg/dL (0.6-1.0) Estimated GFR (Cockcroft-Gault) 62.3 BUN/Creatinine Ratio 14 (6-20) Glucose Level 97 mg/dL (70-99) Calcium Level 8.9 mg/dL (8.5-10.1) Total Bilirubin 0.3 mg/dL (0.2-1.0) Aspartate Amino Transferase (AST) 21 U/L (15-37) Alanine Aminotransferase (ALT) 28 U/L (14-59) Alkaline Phosphatase 90 U/L (46-116) Total Protein 6.7 g/dL (6.4-8.2) Albumin 3.0 g/dL (3.4-5.0) L Albumin/Globulin Ratio 0.8 (1.0-1.7) L Current Medications: Meds: Current Medications Acetaminophen (Tylenol) 650 mg PRN Q6HRS PRN PO PAIN / TEMP Last administered on 10/12/18at 00:14; Start 10/01/18 at 02:30 Multi-Ingredient Ointment (Analgesic [place]) 1 debora PRN QID PRN TP MUSCLE PAIN; Start 10/01/18 at 02:30 Al Hydroxide/Mg Hydroxide (Mylanta Plus Xs) 15 ml PRN AFTMEALHC PRN PO DYSPEPSIA; Start 10/01/18 at 02:30 Magnesium Hydroxide (Milk Of Magnesia) 2,400 mg PRN QHS PRN PO CONSTIPATION; Start 10/01/18 at 02:30 Clonazepam (KlonoPIN) 0.25 mg BID@0700,1500 PO Last administered on 10/06/18at 05:02; Start 10/01/18 at 07:00; Stop 10/06/18 at 16:47; Status DC Levothyroxine Sodium (Synthroid) 75 mcg DAILY06 PO Last administered on at 05:04; Start 10/01/18 at 06:00 Donepezil HCl (Aricept) 10 mg QHS PO Last administered on 10/27/18at 19:22; Start 10/01/18 at 21:00; Stop 10/28/18 at 18:38; Status DC Fluoxetine HCl (PROzac) 80 mg DAILY PO Last administered on 10/02/18at 07:58; Start 10/01/18 at 09:00; Stop 10/02/18 at 17:33; Status DC Memantine (Namenda) 5 mg BID PO Last administered on 10/16/18at 07:25; Start 10/01/18 at 09:00; Stop 10/16/18 at 13:30; Status DC Quetiapine Fumarate (SEROquel) 12.5 mg PRN QID PRN PO ANXIETY / AGITATION Last administered on 10/12/18at 00:14; Start 10/01/18 at 02:45 Atorvastatin Calcium (Lipitor) 20 mg HS PO Last administered on 11/12/18at 20:38 ; Start 10/01/18 at 21:00 Vitamin D (Vitamin D3) 50,000 unit WEEKLY PO ; Start 10/02/18 at 16:15; Stop 10/02/18 at 17:26; Status DC Vitamin D (Vitamin D3) 50,000 unit WEEKLY PO Last administered on 11/07/18at 07: 45; Start 10/03/18 at 08:00 Fluoxetine HCl (PROzac) 60 mg DAILY PO Last administered on 10/06/18at 09:35; Start 10/03/18 at 09:00; Stop 10/06/18 at 16:47; Status DC Quetiapine Fumarate (SEROquel) 25 mg BID PO Last administered on 10/08/18at 07: 38; Start 10/02/18 at 21:00; Stop 10/08/18 at 10:33; Status DC Clonazepam (KlonoPIN) 0.25 mg DAILY@1500 PO Last administered on 10/10/18at 14: 02; Start 10/07/18 at 15:00; Stop 10/10/18 at 20:32; Status DC Fluoxetine HCl (PROzac) 20 mg DAILY PO Last administered on 10/16/18at 07:25; Start 10/07/18 at 09:00; Stop 10/16/18 at 13:30; Status DC Bupropion HCl (Wellbutrin Xl) 150 mg DAILY PO Last administered on 10/09/18at 11:55; Start 10/07/18 at 09:00; Stop 10/09/18 at 16:43; Status DC Quetiapine Fumarate (SEROquel) 25 mg QHS PO Last administered on 10/10/18at 19: 27; Start 10/08/18 at 21:00; Stop 10/11/18 at 18:11; Status DC Bupropion HCl (Wellbutrin Xl) 300 mg DAILY PO Last administered on 10/22/18 08: 39; Start 10/10/18 at 09:00; Stop 10/22/18 at 11:11; Status DC Trazodone HCl (Desyrel) 50 mg PRN QHS PRN PO INSOMNIA Last administered on 11/10at 21:49; Start 10/10/18 at 20:45 Aripiprazole (Abilify) 2.5 mg QHS PO Last administered on 10/21/18 20:03; Start 10/11/18 at 21:00; Stop 10/22/18 at 11:11; Status DC Fluoxetine HCl (PROzac) 30 mg DAILY PO Last administered on 10/28/18 09:23; Start 10/17/18 at 09:00; Stop 10/28/18 at 18:38; Status DC Memantine (Namenda) 10 mg BID PO Last administered on 11/12/18 20:39; Start 10/16/18 at 21:00 Donepezil HCl (Aricept) 23 mg QHS PO Last administered on 11/12/18 20:38; Start 10/28/18 at 21:00 Citalopram Hydrobromide (CeleXA) 20 mg DAILY PO Last administered on 11/03/18 08:30; Start 10/29/18 at 09:00; Stop 11/03/18 at 16:16; Status DC Citalopram Hydrobromide (CeleXA) 30 mg DAILY PO Last administered on 11/12/18 08:08; Start 11/04/18 at 09:00 Active Scripts Active Reported Crestor (Rosuvastatin Calcium) 5 Mg Tablet 5 Mg PO DAILY Seroquel (Quetiapine Fumarate) 25 Mg Tablet 12.5 Mg PO PRN QID PRN Namenda (Memantine Hcl) 5 Mg Tablet 5 Mg PO BID Synthroid (Levothyroxine Sodium) 75 Mcg Tablet 75 Mcg PO DAILY06 Prozac (Fluoxetine Hcl) 40 Mg Capsule 80 Mg PO DAILY Aricept (Donepezil Hcl) 10 Mg Tablet 10 Mg PO QHS Klonopin (Clonazepam) 0.5 Mg Tablet 0.25 Mg PO BID@0700,1500 I have reviewed the current psychotropics carefully including drug interactions. Risk benefit ratio favors no change other than as noted in my dictated progress note. Diagnosis: Problems: (1) Confusion (2) Hallucinations (3) Agitated (4) Anxiety disorder (5) Depression (6) Impulse control disorder (7) Dementia, vascular, with delusions CYNDI LYN MD Nov 12, 2018 22:46
[2018-11-13 05:57] VITALS: BP 119/77
[2018-11-13] MEDS: LEVOTHYROXINE 75 MCG TABLET PO SCH (06:13)
[2018-11-13] MEDS: CITALOPRAM 10 MG TABLET. PO SCH (08:06)
[2018-11-13] MEDS: MEMANTINE 10 MG TABLET. PO SCH ×2 (08:06→19:35)
--- NOTE | 2018-11-13 15:46 | PN ---
DATE: 11/11/2018 PSYCHIATRIC PROGRESS NOTE This late entry 11/11/2018 covers elements not covered in my initial note. SUBJECTIVE: I met with the patient in the evening. The patient slept 8-1/4 hours previous evening. She has been withdrawn, spends much time in her room, but does come out for meals, but I met with her in her room in the evening. REVIEW OF SYSTEMS: No CV, , pulmonary, eye, ENT system symptoms on review. Reliability poor. MENTAL STATUS EXAM: Oriented to herself and situation. Speech has moderate latency, often responses monosyllabic. Abstraction fair, computation impaired, language function intact, attention span short. Mood and affect still somewhat withdrawn. She denies being depressed. Short term memory is impaired. No suicidal or homicidal ideation. LABORATORY DATA: Reviewed. IMPRESSION: Major depressive disorder with psychotic features in partial remission; major neurocognitive disorder, early Alzheimer, vascular with depression. Rest unchanged. PLAN: No change from initial note. Discussed with social service staff who are actively pursuing placement with the family. MAN Didi LYN MD DR: AMOS/manoj JOB#: [id number] / [id number]
[2018-11-13 16:42] VITALS: BP 150/60
--- NOTE | 2018-11-13 17:18 | PN ---
DATE: 11/12/2018 PSYCHIATRIC PROGRESS NOTE This late entry 11/12/2018 covers elements not covered in my initial note. SUBJECTIVE: Met with the patient in the evening and staffed at a treatment team meeting with the entire team in the morning. The patient slept 8 hours previous night. Appetite is 45%. She has been somewhat irritable, withdrawn. REVIEW OF SYSTEMS: No CV, , pulmonary, eye, ENT system symptoms on review. MENTAL STATUS EXAM: Oriented to herself and situation. Speech is moderate latency, often responses monosyllabic. Abstraction fair, computation impaired, language function intact. Mood and affect still somewhat dysphoric, but improved. She does come out for groups, which is an improvement. No suicidal ideation. LABORATORY DATA: Reviewed. IMPRESSION: Major depressive disorder with psychotic features; cognitive disorder, unspecified versus major neurocognitive disorder, Alzheimer, vascular with depression. Rest unchanged. PLAN: No change from initial note. Discussed with social service staff. Placement is being secured. CYNDI LYN MD DR: AMOS/manoj JOB#: [id number] / [id number]
[2018-11-13] MEDS: ATORVASTATIN CALCIUM 20 MG TABLET PO SCH (19:35)
[2018-11-13] MEDS: DONEPEZIL 23 MG TABLET PO SCH (19:35)
--- NOTE | 2018-11-13 22:35 | PDOC ---
Exam Note: Ricardo Note: Please also refer to the separate dictated note~for this date of service dictated separately.~Patient seen individually. Discussed the patient with Nursing staff reviewed the chart.~Reviewed interim history and current functioning. Reviewed vital signs,~Labs/ Radiology~and current medications noted below. Continue current treatment with the changes noted in the dictated addendum note Assessment: Vital Signs: Vital Signs Date Time Temp Pulse Resp B/P (MAP) Pulse Ox O2 Delivery O2 Flow Rate FiO2 11/13/18 16:42 97.8 77 18 150/60 (90) 97 Room Air I&O Intake and Output 11/13/18 07:01 Intake Total 680 ml Balance 680 ml Intake Oral 680 ml # Voids 1 Current Medications: Meds: Current Medications Acetaminophen (Tylenol) 650 mg PRN Q6HRS PRN PO PAIN / TEMP Last administered on 10/12/18at 00:14; Start 10/01/18 at 02:30 Multi-Ingredient Ointment (Analgesic [place]) 1 debora PRN QID PRN TP MUSCLE PAIN; Start 10/01/18 at 02:30 Al Hydroxide/Mg Hydroxide (Mylanta Plus Xs) 15 ml PRN AFTMEALHC PRN PO DYSPEPSIA; Start 10/01/18 at 02:30 Magnesium Hydroxide (Milk Of Magnesia) 2,400 mg PRN QHS PRN PO CONSTIPATION; Start 10/01/18 at 02:30 Clonazepam (KlonoPIN) 0.25 mg BID@0700,1500 PO Last administered on 10/06/18at 05:02; Start 10/01/18 at 07:00; Stop 10/06/18 at 16:47; Status DC Levothyroxine Sodium (Synthroid) 75 mcg DAILY06 PO Last administered on at 06:13; Start 10/01/18 at 06:00 Donepezil HCl (Aricept) 10 mg QHS PO Last administered on 10/27/18at 19:22; Start 10/01/18 at 21:00; Stop 10/28/18 at 18:38; Status DC Fluoxetine HCl (PROzac) 80 mg DAILY PO Last administered on 10/02/18at 07:58; Start 10/01/18 at 09:00; Stop 10/02/18 at 17:33; Status DC Memantine (Namenda) 5 mg BID PO Last administered on 10/16/18at 07:25; Start 10/01/18 at 09:00; Stop 10/16/18 at 13:30; Status DC Quetiapine Fumarate (SEROquel) 12.5 mg PRN QID PRN PO ANXIETY / AGITATION Last administered on 10/12/18at 00:14; Start 10/01/18 at 02:45 Atorvastatin Calcium (Lipitor) 20 mg HS PO Last administered on 11/13/18at 19:35 ; Start 10/01/18 at 21:00 Vitamin D (Vitamin D3) 50,000 unit WEEKLY PO ; Start 10/02/18 at 16:15; Stop 10/02/18 at 17:26; Status DC Vitamin D (Vitamin D3) 50,000 unit WEEKLY PO Last administered on 11/07/18at 07: 45; Start 10/03/18 at 08:00 Fluoxetine HCl (PROzac) 60 mg DAILY PO Last administered on 10/06/18at 09:35; Start 10/03/18 at 09:00; Stop 10/06/18 at 16:47; Status DC Quetiapine Fumarate (SEROquel) 25 mg BID PO Last administered on 10/08/18at 07: 38; Start 10/02/18 at 21:00; Stop 10/08/18 at 10:33; Status DC Clonazepam (KlonoPIN) 0.25 mg DAILY@1500 PO Last administered on 10/10/18at 14: 02; Start 10/07/18 at 15:00; Stop 10/10/18 at 20:32; Status DC Fluoxetine HCl (PROzac) 20 mg DAILY PO Last administered on 10/16/18at 07:25; Start 10/07/18 at 09:00; Stop 10/16/18 at 13:30; Status DC Bupropion HCl (Wellbutrin Xl) 150 mg DAILY PO Last administered on 10/09/18at 11:55; Start 10/07/18 at 09:00; Stop 10/09/18 at 16:43; Status DC Quetiapine Fumarate (SEROquel) 25 mg QHS PO Last administered on 10/10/18at 19: 27; Start 10/08/18 at 21:00; Stop 10/11/18 at 18:11; Status DC Bupropion HCl (Wellbutrin Xl) 300 mg DAILY PO Last administered on 10/22/18 08: 39; Start 10/10/18 at 09:00; Stop 10/22/18 at 11:11; Status DC Trazodone HCl (Desyrel) 50 mg PRN QHS PRN PO INSOMNIA Last administered on 11/10 21:49; Start 10/10/18 at 20:45 Aripiprazole (Abilify) 2.5 mg QHS PO Last administered on 10/21/18 20:03; Start 10/11/18 at 21:00; Stop 10/22/18 at 11:11; Status DC Fluoxetine HCl (PROzac) 30 mg DAILY PO Last administered on 10/28/18 09:23; Start 10/17/18 at 09:00; Stop 10/28/18 at 18:38; Status DC Memantine (Namenda) 10 mg BID PO Last administered on 11/13/18 19:35; Start 10/16/18 at 21:00 Donepezil HCl (Aricept) 23 mg QHS PO Last administered on 11/13/18 19:35; Start 10/28/18 at 21:00 Citalopram Hydrobromide (CeleXA) 20 mg DAILY PO Last administered on 11/03/18 08:30; Start 10/29/18 at 09:00; Stop 11/03/18 at 16:16; Status DC Citalopram Hydrobromide (CeleXA) 30 mg DAILY PO Last administered on 11/13/18 08:06; Start 11/04/18 at 09:00 Active Scripts Active Reported Crestor (Rosuvastatin Calcium) 5 Mg Tablet 5 Mg PO DAILY Seroquel (Quetiapine Fumarate) 25 Mg Tablet 12.5 Mg PO PRN QID PRN Namenda (Memantine Hcl) 5 Mg Tablet 5 Mg PO BID Synthroid (Levothyroxine Sodium) 75 Mcg Tablet 75 Mcg PO DAILY06 Prozac (Fluoxetine Hcl) 40 Mg Capsule 80 Mg PO DAILY Aricept (Donepezil Hcl) 10 Mg Tablet 10 Mg PO QHS Klonopin (Clonazepam) 0.5 Mg Tablet 0.25 Mg PO BID@0700,1500 I have reviewed the current psychotropics carefully including drug interactions. Risk benefit ratio favors no change other than as noted in my dictated progress note. Diagnosis: Problems: (1) Confusion (2) Hallucinations (3) Agitated (4) Anxiety disorder (5) Depression (6) Impulse control disorder (7) Dementia, vascular, with delusions CYNDI LYN MD Nov 13, 2018 22:35
[2018-11-14] MEDS: LEVOTHYROXINE 75 MCG TABLET PO SCH (05:03)
[2018-11-14 06:25] VITALS: BP 122/64
[2018-11-14] MEDS: CITALOPRAM 10 MG TABLET. PO SCH (07:33)
[2018-11-14] MEDS: MEMANTINE 10 MG TABLET. PO SCH ×2 (07:33→19:41)
[2018-11-14] MEDS: CHOLECALCIFEROL (VITAMIN D3) 50,000 UNIT CAPSULE PO SCH (07:34)
[2018-11-14 15:45] VITALS: BP 92/51
[2018-11-14] MEDS: DONEPEZIL 23 MG TABLET PO SCH (19:41)
[2018-11-14] MEDS: ATORVASTATIN CALCIUM 20 MG TABLET PO SCH (19:41)
--- NOTE | 2018-11-14 22:14 | PDOC ---
Exam Note: Ricardo Note: Please also refer to the separate dictated note~for this date of service dictated separately.~Patient seen individually. Discussed the patient with Nursing staff reviewed the chart.~Reviewed interim history and current functioning. Reviewed vital signs,~Labs/ Radiology~and current medications noted below. Continue current treatment with the changes noted in the dictated addendum note Assessment: Vital Signs: Vital Signs Date Time Temp Pulse Resp B/P (MAP) Pulse Ox O2 Delivery O2 Flow Rate FiO2 11/14/18 15:45 97.5 64 18 92/51 (65) 96 11/13/18 16:42 Room Air I&O Intake and Output 11/14/18 07:01 Intake Total 840 ml Balance 840 ml Intake Oral 840 ml Current Medications: Meds: Current Medications Acetaminophen (Tylenol) 650 mg PRN Q6HRS PRN PO PAIN / TEMP Last administered on 10/12/18at 00:14; Start 10/01/18 at 02:30 Multi-Ingredient Ointment (Analgesic [place]) 1 debora PRN QID PRN TP MUSCLE PAIN; Start 10/01/18 at 02:30 Al Hydroxide/Mg Hydroxide (Mylanta Plus Xs) 15 ml PRN AFTMEALHC PRN PO DYSPEPSIA; Start 10/01/18 at 02:30 Magnesium Hydroxide (Milk Of Magnesia) 2,400 mg PRN QHS PRN PO CONSTIPATION; Start 10/01/18 at 02:30 Clonazepam (KlonoPIN) 0.25 mg BID@0700,1500 PO Last administered on 10/06/18at 05:02; Start 10/01/18 at 07:00; Stop 10/06/18 at 16:47; Status DC Levothyroxine Sodium (Synthroid) 75 mcg DAILY06 PO Last administered on at 05:03; Start 10/01/18 at 06:00 Donepezil HCl (Aricept) 10 mg QHS PO Last administered on 10/27/18at 19:22; Start 10/01/18 at 21:00; Stop 10/28/18 at 18:38; Status DC Fluoxetine HCl (PROzac) 80 mg DAILY PO Last administered on 10/02/18at 07:58; Start 10/01/18 at 09:00; Stop 10/02/18 at 17:33; Status DC Memantine (Namenda) 5 mg BID PO Last administered on 10/16/18at 07:25; Start 10/01/18 at 09:00; Stop 10/16/18 at 13:30; Status DC Quetiapine Fumarate (SEROquel) 12.5 mg PRN QID PRN PO ANXIETY / AGITATION Last administered on 10/12/18at 00:14; Start 10/01/18 at 02:45 Atorvastatin Calcium (Lipitor) 20 mg HS PO Last administered on 11/14/18at 19:41 ; Start 10/01/18 at 21:00 Vitamin D (Vitamin D3) 50,000 unit WEEKLY PO ; Start 10/02/18 at 16:15; Stop 10/02/18 at 17:26; Status DC Vitamin D (Vitamin D3) 50,000 unit WEEKLY PO Last administered on 11/14/18at 07: 34; Start 10/03/18 at 08:00 Fluoxetine HCl (PROzac) 60 mg DAILY PO Last administered on 10/06/18at 09:35; Start 10/03/18 at 09:00; Stop 10/06/18 at 16:47; Status DC Quetiapine Fumarate (SEROquel) 25 mg BID PO Last administered on 10/08/18at 07: 38; Start 10/02/18 at 21:00; Stop 10/08/18 at 10:33; Status DC Clonazepam (KlonoPIN) 0.25 mg DAILY@1500 PO Last administered on 10/10/18at 14: 02; Start 10/07/18 at 15:00; Stop 10/10/18 at 20:32; Status DC Fluoxetine HCl (PROzac) 20 mg DAILY PO Last administered on 10/16/18at 07:25; Start 10/07/18 at 09:00; Stop 10/16/18 at 13:30; Status DC Bupropion HCl (Wellbutrin Xl) 150 mg DAILY PO Last administered on 10/09/18at 11:55; Start 10/07/18 at 09:00; Stop 10/09/18 at 16:43; Status DC Quetiapine Fumarate (SEROquel) 25 mg QHS PO Last administered on 10/10/18at 19: 27; Start 10/08/18 at 21:00; Stop 10/11/18 at 18:11; Status DC Bupropion HCl (Wellbutrin Xl) 300 mg DAILY PO Last administered on 10/22/18 08: 39; Start 10/10/18 at 09:00; Stop 10/22/18 at 11:11; Status DC Trazodone HCl (Desyrel) 50 mg PRN QHS PRN PO INSOMNIA Last administered on 11/10 21:49; Start 10/10/18 at 20:45 Aripiprazole (Abilify) 2.5 mg QHS PO Last administered on 10/21/18 20:03; Start 10/11/18 at 21:00; Stop 10/22/18 at 11:11; Status DC Fluoxetine HCl (PROzac) 30 mg DAILY PO Last administered on 10/28/18 09:23; Start 10/17/18 at 09:00; Stop 10/28/18 at 18:38; Status DC Memantine (Namenda) 10 mg BID PO Last administered on 11/14/18 19:41; Start 10/16/18 at 21:00 Donepezil HCl (Aricept) 23 mg QHS PO Last administered on 11/14/18 19:41; Start 10/28/18 at 21:00 Citalopram Hydrobromide (CeleXA) 20 mg DAILY PO Last administered on 11/03/18 08:30; Start 10/29/18 at 09:00; Stop 11/03/18 at 16:16; Status DC Citalopram Hydrobromide (CeleXA) 30 mg DAILY PO Last administered on 11/14/18 07:33; Start 11/04/18 at 09:00 Active Scripts Active Reported Crestor (Rosuvastatin Calcium) 5 Mg Tablet 5 Mg PO DAILY Seroquel (Quetiapine Fumarate) 25 Mg Tablet 12.5 Mg PO PRN QID PRN Namenda (Memantine Hcl) 5 Mg Tablet 5 Mg PO BID Synthroid (Levothyroxine Sodium) 75 Mcg Tablet 75 Mcg PO DAILY06 Prozac (Fluoxetine Hcl) 40 Mg Capsule 80 Mg PO DAILY Aricept (Donepezil Hcl) 10 Mg Tablet 10 Mg PO QHS Klonopin (Clonazepam) 0.5 Mg Tablet 0.25 Mg PO BID@0700,1500 I have reviewed the current psychotropics carefully including drug interactions. Risk benefit ratio favors no change other than as noted in my dictated progress note. Diagnosis: Problems: (1) Confusion (2) Hallucinations (3) Agitated (4) Anxiety disorder (5) Depression (6) Impulse control disorder (7) Dementia, vascular, with delusions CYNDI LYN MD Nov 14, 2018 22:14
--- NOTE | 2018-11-15 01:31 | PN ---
DATE: 11/13/2018 PSYCHIATRIC PROGRESS NOTE This is a late entry 11/13/2018, covers elements not covered in my initial note. SUBJECTIVE: I met with the patient in the evening. The patient slept 8-1/2 hours previous night. The patient remains withdrawn, isolative, spends much time in her room. She has not been aggressive. No suicidal ideation. REVIEW OF SYSTEMS: No CV, , pulmonary, eye, ENT system symptoms on review. MENTAL STATUS EXAM: Oriented to herself and situation. Speech, moderate latency, often responses monosyllabic. Abstraction fair, computation impaired, language function intact, attention span short. Mood and affect is withdrawn. No suicidal ideation. LABORATORY DATA: Reviewed. IMPRESSION: Major depressive disorder, recurrent with psychotic features, in partial remission; cognitive disorder, unspecified. PLAN: No change from initial note. Await placement per social service staff. MAN Didi LYN MD DR: AMOS/manoj JOB#: [id number] / [id number]
[2018-11-15 05:50] VITALS: BP 128/75
[2018-11-15] MEDS: LEVOTHYROXINE 75 MCG TABLET PO SCH (06:01)
[2018-11-15] MEDS: MEMANTINE 10 MG TABLET. PO SCH ×2 (07:42→20:22)
[2018-11-15] MEDS: CITALOPRAM 10 MG TABLET. PO SCH (07:43)
[2018-11-15 16:09] VITALS: BP 138/86
[2018-11-15] MEDS: DONEPEZIL 23 MG TABLET PO SCH (20:22)
[2018-11-15] MEDS: ATORVASTATIN CALCIUM 20 MG TABLET PO SCH (20:22)
--- NOTE | 2018-11-15 22:52 | PDOC ---
Exam Note: Ricardo Note: Please also refer to the separate dictated note~for this date of service dictated separately.~Patient seen individually. Discussed the patient with Nursing staff reviewed the chart.~Reviewed interim history and current functioning. Reviewed vital signs,~Labs/ Radiology~and current medications noted below. Continue current treatment with the changes noted in the dictated addendum note Assessment: Vital Signs: Vital Signs Date Time Temp Pulse Resp B/P (MAP) Pulse Ox O2 Delivery O2 Flow Rate FiO2 11/15/18 16:09 97.8 65 18 138/86 (103) 95 11/13/18 16:42 Room Air I&O Intake and Output 11/15/18 07:01 Intake Total 840 ml Balance 840 ml Intake Oral 840 ml Current Medications: Meds: Current Medications Acetaminophen (Tylenol) 650 mg PRN Q6HRS PRN PO PAIN / TEMP Last administered on 10/12/18at 00:14; Start 10/01/18 at 02:30 Multi-Ingredient Ointment (Analgesic [place]) 1 debora PRN QID PRN TP MUSCLE PAIN; Start 10/01/18 at 02:30 Al Hydroxide/Mg Hydroxide (Mylanta Plus Xs) 15 ml PRN AFTMEALHC PRN PO DYSPEPSIA; Start 10/01/18 at 02:30 Magnesium Hydroxide (Milk Of Magnesia) 2,400 mg PRN QHS PRN PO CONSTIPATION; Start 10/01/18 at 02:30 Clonazepam (KlonoPIN) 0.25 mg BID@0700,1500 PO Last administered on 10/06/18at 05:02; Start 10/01/18 at 07:00; Stop 10/06/18 at 16:47; Status DC Levothyroxine Sodium (Synthroid) 75 mcg DAILY06 PO Last administered on at 06:01; Start 10/01/18 at 06:00 Donepezil HCl (Aricept) 10 mg QHS PO Last administered on 10/27/18at 19:22; Start 10/01/18 at 21:00; Stop 10/28/18 at 18:38; Status DC Fluoxetine HCl (PROzac) 80 mg DAILY PO Last administered on 10/02/18at 07:58; Start 10/01/18 at 09:00; Stop 10/02/18 at 17:33; Status DC Memantine (Namenda) 5 mg BID PO Last administered on 10/16/18at 07:25; Start 10/01/18 at 09:00; Stop 10/16/18 at 13:30; Status DC Quetiapine Fumarate (SEROquel) 12.5 mg PRN QID PRN PO ANXIETY / AGITATION Last administered on 10/12/18at 00:14; Start 10/01/18 at 02:45 Atorvastatin Calcium (Lipitor) 20 mg HS PO Last administered on 11/15/18at 20:22 ; Start 10/01/18 at 21:00 Vitamin D (Vitamin D3) 50,000 unit WEEKLY PO ; Start 10/02/18 at 16:15; Stop 10/02/18 at 17:26; Status DC Vitamin D (Vitamin D3) 50,000 unit WEEKLY PO Last administered on 11/14/18at 07: 34; Start 10/03/18 at 08:00 Fluoxetine HCl (PROzac) 60 mg DAILY PO Last administered on 10/06/18at 09:35; Start 10/03/18 at 09:00; Stop 10/06/18 at 16:47; Status DC Quetiapine Fumarate (SEROquel) 25 mg BID PO Last administered on 10/08/18at 07: 38; Start 10/02/18 at 21:00; Stop 10/08/18 at 10:33; Status DC Clonazepam (KlonoPIN) 0.25 mg DAILY@1500 PO Last administered on 10/10/18at 14: 02; Start 10/07/18 at 15:00; Stop 10/10/18 at 20:32; Status DC Fluoxetine HCl (PROzac) 20 mg DAILY PO Last administered on 10/16/18at 07:25; Start 10/07/18 at 09:00; Stop 10/16/18 at 13:30; Status DC Bupropion HCl (Wellbutrin Xl) 150 mg DAILY PO Last administered on 10/09/18at 11:55; Start 10/07/18 at 09:00; Stop 10/09/18 at 16:43; Status DC Quetiapine Fumarate (SEROquel) 25 mg QHS PO Last administered on 10/10/18at 19: 27; Start 10/08/18 at 21:00; Stop 10/11/18 at 18:11; Status DC Bupropion HCl (Wellbutrin Xl) 300 mg DAILY PO Last administered on 10/22/18 08: 39; Start 10/10/18 at 09:00; Stop 10/22/18 at 11:11; Status DC Trazodone HCl (Desyrel) 50 mg PRN QHS PRN PO INSOMNIA Last administered on 11/10 21:49; Start 10/10/18 at 20:45 Aripiprazole (Abilify) 2.5 mg QHS PO Last administered on 10/21/18 20:03; Start 10/11/18 at 21:00; Stop 10/22/18 at 11:11; Status DC Fluoxetine HCl (PROzac) 30 mg DAILY PO Last administered on 10/28/18 09:23; Start 10/17/18 at 09:00; Stop 10/28/18 at 18:38; Status DC Memantine (Namenda) 10 mg BID PO Last administered on 11/15/18 20:22; Start 10/16/18 at 21:00 Donepezil HCl (Aricept) 23 mg QHS PO Last administered on 11/15/18 20:22; Start 10/28/18 at 21:00 Citalopram Hydrobromide (CeleXA) 20 mg DAILY PO Last administered on 11/03/18 08:30; Start 10/29/18 at 09:00; Stop 11/03/18 at 16:16; Status DC Citalopram Hydrobromide (CeleXA) 30 mg DAILY PO Last administered on 11/15/18 07:43; Start 11/04/18 at 09:00 Active Scripts Active Reported Crestor (Rosuvastatin Calcium) 5 Mg Tablet 5 Mg PO DAILY Seroquel (Quetiapine Fumarate) 25 Mg Tablet 12.5 Mg PO PRN QID PRN Namenda (Memantine Hcl) 5 Mg Tablet 5 Mg PO BID Synthroid (Levothyroxine Sodium) 75 Mcg Tablet 75 Mcg PO DAILY06 Prozac (Fluoxetine Hcl) 40 Mg Capsule 80 Mg PO DAILY Aricept (Donepezil Hcl) 10 Mg Tablet 10 Mg PO QHS Klonopin (Clonazepam) 0.5 Mg Tablet 0.25 Mg PO BID@0700,1500 I have reviewed the current psychotropics carefully including drug interactions. Risk benefit ratio favors no change other than as noted in my dictated progress note. Diagnosis: Problems: (1) Confusion (2) Hallucinations (3) Agitated (4) Anxiety disorder (5) Depression (6) Impulse control disorder (7) Dementia, vascular, with delusions CYNDI LYN MD Nov 15, 2018 22:52
[2018-11-16 05:44] VITALS: BP 120/68
[2018-11-16] MEDS: LEVOTHYROXINE 75 MCG TABLET PO SCH (05:47)
[2018-11-16] MEDS: CITALOPRAM 10 MG TABLET. PO SCH (07:53)
[2018-11-16] MEDS: MEMANTINE 10 MG TABLET. PO SCH ×2 (07:53→20:44)
--- NOTE | 2018-11-16 09:19 | PN ---
DATE: 11/15/2018 PSYCHIATRIC PROGRESS NOTE This note covers elements not covered in my initial note 11/15/2018. SUBJECTIVE: I met with the patient in her room. The patient slept 7-3/4 hours previous night. The patient remains somewhat withdrawn, but no suicidal or homicidal ideation. REVIEW OF SYSTEMS: No CV, , pulmonary, eye, ENT system symptoms on review. Reliability poor. MENTAL STATUS EXAM: Oriented to herself and situation. Speech has some latency, coherent, often responses monosyllabic. Abstraction fair, computation impaired, language function intact, attention span short. Mood and affect withdrawn. LABORATORY DATA: Reviewed. IMPRESSION: Major depressive disorder with psychotic features; cognitive disorder, unspecified. Rest unchanged. PLAN: No change from initial note. MAN Didi LYN MD DR: AMOS/manoj JOB#: [id number] / [id number]
[2018-11-16 15:40] VITALS: BP 142/78
[2018-11-16] MEDS: ATORVASTATIN CALCIUM 20 MG TABLET PO SCH (20:44)
[2018-11-16] MEDS: DONEPEZIL 23 MG TABLET PO SCH (20:44)
--- NOTE | 2018-11-16 22:16 | PN ---
DATE: 11/14/2018 This late entry for 11/14/2018 covers elements not covered in my initial note. SUBJECTIVE: I met with the patient in her room at length in the evening of 11/14/2018. The patient slept 7-3/4 hours previous night. The patient remains withdrawn, spends much time in her room. No suicidal ideation. REVIEW OF SYSTEMS: Positive for tiredness. No CV, , pulmonary, eye, ENT system symptoms on review. MENTAL STATUS EXAM: Oriented to herself and situation. Speech moderate latency, often responses monosyllabic. Abstraction fair, computation impaired, language function intact, attention span short. Mood and affect remains somewhat withdrawn. LABORATORY DATA: Reviewed. IMPRESSION: Major depressive disorder with psychotic features; major neurocognitive disorder, early Alzheimer, vascular with depression. Rest unchanged. PLAN: Continue psychotropics from initial note. Awaiting placement per social service staff. MAN Didi LYN MD DR: AMOS/manoj JOB#: [id number] / [id number]
--- NOTE | 2018-11-16 22:48 | PDOC ---
Exam Note: Ricardo Note: Please also refer to the separate dictated note~for this date of service dictated separately.~Patient seen individually. Discussed the patient with Nursing staff reviewed the chart.~Reviewed interim history and current functioning. Reviewed vital signs,~Labs/ Radiology~and current medications noted below. Continue current treatment with the changes noted in the dictated addendum note Assessment: Vital Signs: Vital Signs Date Time Temp Pulse Resp B/P (MAP) Pulse Ox O2 Delivery O2 Flow Rate FiO2 11/16/18 15:40 97.9 84 16 142/78 (99) 95 11/13/18 16:42 Room Air I&O Intake and Output 11/16/18 07:01 Intake Total 720 ml Balance 720 ml Intake Oral 720 ml # Voids 1 Current Medications: Meds: Current Medications Acetaminophen (Tylenol) 650 mg PRN Q6HRS PRN PO PAIN / TEMP Last administered on 10/12/18at 00:14; Start 10/01/18 at 02:30 Multi-Ingredient Ointment (Analgesic [place]) 1 debora PRN QID PRN TP MUSCLE PAIN; Start 10/01/18 at 02:30 Al Hydroxide/Mg Hydroxide (Mylanta Plus Xs) 15 ml PRN AFTMEALHC PRN PO DYSPEPSIA; Start 10/01/18 at 02:30 Magnesium Hydroxide (Milk Of Magnesia) 2,400 mg PRN QHS PRN PO CONSTIPATION; Start 10/01/18 at 02:30 Clonazepam (KlonoPIN) 0.25 mg BID@0700,1500 PO Last administered on 10/06/18at 05:02; Start 10/01/18 at 07:00; Stop 10/06/18 at 16:47; Status DC Levothyroxine Sodium (Synthroid) 75 mcg DAILY06 PO Last administered on at 05:47; Start 10/01/18 at 06:00 Donepezil HCl (Aricept) 10 mg QHS PO Last administered on 10/27/18at 19:22; Start 10/01/18 at 21:00; Stop 10/28/18 at 18:38; Status DC Fluoxetine HCl (PROzac) 80 mg DAILY PO Last administered on 10/02/18at 07:58; Start 10/01/18 at 09:00; Stop 10/02/18 at 17:33; Status DC Memantine (Namenda) 5 mg BID PO Last administered on 10/16/18at 07:25; Start 10/01/18 at 09:00; Stop 10/16/18 at 13:30; Status DC Quetiapine Fumarate (SEROquel) 12.5 mg PRN QID PRN PO ANXIETY / AGITATION Last administered on 10/12/18at 00:14; Start 10/01/18 at 02:45 Atorvastatin Calcium (Lipitor) 20 mg HS PO Last administered on 11/16/18at 20:44 ; Start 10/01/18 at 21:00 Vitamin D (Vitamin D3) 50,000 unit WEEKLY PO ; Start 10/02/18 at 16:15; Stop 10/02/18 at 17:26; Status DC Vitamin D (Vitamin D3) 50,000 unit WEEKLY PO Last administered on 11/14/18at 07: 34; Start 10/03/18 at 08:00 Fluoxetine HCl (PROzac) 60 mg DAILY PO Last administered on 10/06/18at 09:35; Start 10/03/18 at 09:00; Stop 10/06/18 at 16:47; Status DC Quetiapine Fumarate (SEROquel) 25 mg BID PO Last administered on 10/08/18at 07: 38; Start 10/02/18 at 21:00; Stop 10/08/18 at 10:33; Status DC Clonazepam (KlonoPIN) 0.25 mg DAILY@1500 PO Last administered on 10/10/18at 14: 02; Start 10/07/18 at 15:00; Stop 10/10/18 at 20:32; Status DC Fluoxetine HCl (PROzac) 20 mg DAILY PO Last administered on 10/16/18at 07:25; Start 10/07/18 at 09:00; Stop 10/16/18 at 13:30; Status DC Bupropion HCl (Wellbutrin Xl) 150 mg DAILY PO Last administered on 10/09/18at 11:55; Start 10/07/18 at 09:00; Stop 10/09/18 at 16:43; Status DC Quetiapine Fumarate (SEROquel) 25 mg QHS PO Last administered on 10/10/18at 19: 27; Start 10/08/18 at 21:00; Stop 10/11/18 at 18:11; Status DC Bupropion HCl (Wellbutrin Xl) 300 mg DAILY PO Last administered on 10/22/18 08: 39; Start 10/10/18 at 09:00; Stop 10/22/18 at 11:11; Status DC Trazodone HCl (Desyrel) 50 mg PRN QHS PRN PO INSOMNIA Last administered on 11/10 21:49; Start 10/10/18 at 20:45 Aripiprazole (Abilify) 2.5 mg QHS PO Last administered on 10/21/18 20:03; Start 10/11/18 at 21:00; Stop 10/22/18 at 11:11; Status DC Fluoxetine HCl (PROzac) 30 mg DAILY PO Last administered on 10/28/18 09:23; Start 10/17/18 at 09:00; Stop 10/28/18 at 18:38; Status DC Memantine (Namenda) 10 mg BID PO Last administered on 11/16/18 20:44; Start 10/16/18 at 21:00 Donepezil HCl (Aricept) 23 mg QHS PO Last administered on 11/16/18 20:44; Start 10/28/18 at 21:00 Citalopram Hydrobromide (CeleXA) 20 mg DAILY PO Last administered on 11/03/18 08:30; Start 10/29/18 at 09:00; Stop 11/03/18 at 16:16; Status DC Citalopram Hydrobromide (CeleXA) 30 mg DAILY PO Last administered on 11/16/18 07:53; Start 11/04/18 at 09:00 Active Scripts Active Reported Crestor (Rosuvastatin Calcium) 5 Mg Tablet 5 Mg PO DAILY Seroquel (Quetiapine Fumarate) 25 Mg Tablet 12.5 Mg PO PRN QID PRN Namenda (Memantine Hcl) 5 Mg Tablet 5 Mg PO BID Synthroid (Levothyroxine Sodium) 75 Mcg Tablet 75 Mcg PO DAILY06 Prozac (Fluoxetine Hcl) 40 Mg Capsule 80 Mg PO DAILY Aricept (Donepezil Hcl) 10 Mg Tablet 10 Mg PO QHS Klonopin (Clonazepam) 0.5 Mg Tablet 0.25 Mg PO BID@0700,1500 I have reviewed the current psychotropics carefully including drug interactions. Risk benefit ratio favors no change other than as noted in my dictated progress note. Diagnosis: Problems: (1) Confusion (2) Hallucinations (3) Agitated (4) Anxiety disorder (5) Depression (6) Impulse control disorder (7) Dementia, vascular, with delusions CYNDI LYN MD Nov 16, 2018 22:48
[2018-11-17 06:18] VITALS: BP 136/80
[2018-11-17] MEDS: LEVOTHYROXINE 75 MCG TABLET PO SCH (06:18)
[2018-11-17] MEDS: CITALOPRAM 10 MG TABLET. PO SCH (07:57)
[2018-11-17] MEDS: MEMANTINE 10 MG TABLET. PO SCH ×2 (07:57→21:04)
[2018-11-17 16:10] VITALS: BP 137/79
[2018-11-17] MEDS: DONEPEZIL 23 MG TABLET PO SCH (21:04)
[2018-11-17] MEDS: ATORVASTATIN CALCIUM 20 MG TABLET PO SCH (21:04)
--- NOTE | 2018-11-17 22:12 | PN ---
DATE: 11/16/2018 PSYCHIATRIC PROGRESS NOTE This late entry 11/16/2018 covers elements not covered in my initial note. SUBJECTIVE: I met with the patient in the evening. The patient slept 9-1/4 hours previous night. The patient remains withdrawn, isolated, spends much time in her room, which is where I met with her and encouraged her to come out. She is fixated on wanting to be discharged and social service staff is coordinating with the family and the attorneys to make all this happened. REVIEW OF SYSTEMS: Positive for tiredness. No CV, , pulmonary, eye system symptoms on review. MENTAL STATUS EXAM: Oriented to herself and situation. Speech moderate latency, low in rate and rhythm, low in volume. Abstraction fair, computation impaired, language function intact, attention span short. Mood and affect withdrawn. LABORATORY DATA: Reviewed. IMPRESSION: Major depressive disorder, recurrent with psychotic features; cognitive disorder, unspecified; anxiety disorder, unspecified. Rest unchanged. PLAN: No change from initial note. CYNDI LYN MD DR: AMOS/manoj JOB#: [id number] / [id number]
--- NOTE | 2018-11-17 22:41 | PDOC ---
Exam Note: Ricardo Note: Please also refer to the separate dictated note~for this date of service dictated separately.~Patient seen individually. Discussed the patient with Nursing staff reviewed the chart.~Reviewed interim history and current functioning. Reviewed vital signs,~Labs/ Radiology~and current medications noted below. Continue current treatment with the changes noted in the dictated addendum note Assessment: Vital Signs: Vital Signs Date Time Temp Pulse Resp B/P (MAP) Pulse Ox O2 Delivery O2 Flow Rate FiO2 11/17/18 16:10 98.4 67 18 137/79 (98) 97 Room Air I&O Intake and Output 11/17/18 07:01 Intake Total 440 ml Balance 440 ml Intake Oral 440 ml Current Medications: Meds: Current Medications Acetaminophen (Tylenol) 650 mg PRN Q6HRS PRN PO PAIN / TEMP Last administered on 10/12/18at 00:14; Start 10/01/18 at 02:30 Multi-Ingredient Ointment (Analgesic [place]) 1 debora PRN QID PRN TP MUSCLE PAIN; Start 10/01/18 at 02:30 Al Hydroxide/Mg Hydroxide (Mylanta Plus Xs) 15 ml PRN AFTMEALHC PRN PO DYSPEPSIA; Start 10/01/18 at 02:30 Magnesium Hydroxide (Milk Of Magnesia) 2,400 mg PRN QHS PRN PO CONSTIPATION; Start 10/01/18 at 02:30 Clonazepam (KlonoPIN) 0.25 mg BID@0700,1500 PO Last administered on 10/06/18at 05:02; Start 10/01/18 at 07:00; Stop 10/06/18 at 16:47; Status DC Levothyroxine Sodium (Synthroid) 75 mcg DAILY06 PO Last administered on at 06:18; Start 10/01/18 at 06:00 Donepezil HCl (Aricept) 10 mg QHS PO Last administered on 10/27/18at 19:22; Start 10/01/18 at 21:00; Stop 10/28/18 at 18:38; Status DC Fluoxetine HCl (PROzac) 80 mg DAILY PO Last administered on 10/02/18at 07:58; Start 10/01/18 at 09:00; Stop 10/02/18 at 17:33; Status DC Memantine (Namenda) 5 mg BID PO Last administered on 10/16/18at 07:25; Start 10/01/18 at 09:00; Stop 10/16/18 at 13:30; Status DC Quetiapine Fumarate (SEROquel) 12.5 mg PRN QID PRN PO ANXIETY / AGITATION Last administered on 10/12/18at 00:14; Start 10/01/18 at 02:45 Atorvastatin Calcium (Lipitor) 20 mg HS PO Last administered on 11/17/18at 21:04 ; Start 10/01/18 at 21:00 Vitamin D (Vitamin D3) 50,000 unit WEEKLY PO ; Start 10/02/18 at 16:15; Stop 10/02/18 at 17:26; Status DC Vitamin D (Vitamin D3) 50,000 unit WEEKLY PO Last administered on 11/14/18at 07: 34; Start 10/03/18 at 08:00 Fluoxetine HCl (PROzac) 60 mg DAILY PO Last administered on 10/06/18at 09:35; Start 10/03/18 at 09:00; Stop 10/06/18 at 16:47; Status DC Quetiapine Fumarate (SEROquel) 25 mg BID PO Last administered on 10/08/18at 07: 38; Start 10/02/18 at 21:00; Stop 10/08/18 at 10:33; Status DC Clonazepam (KlonoPIN) 0.25 mg DAILY@1500 PO Last administered on 10/10/18at 14: 02; Start 10/07/18 at 15:00; Stop 10/10/18 at 20:32; Status DC Fluoxetine HCl (PROzac) 20 mg DAILY PO Last administered on 10/16/18at 07:25; Start 10/07/18 at 09:00; Stop 10/16/18 at 13:30; Status DC Bupropion HCl (Wellbutrin Xl) 150 mg DAILY PO Last administered on 10/09/18at 11:55; Start 10/07/18 at 09:00; Stop 10/09/18 at 16:43; Status DC Quetiapine Fumarate (SEROquel) 25 mg QHS PO Last administered on 10/10/18at 19: 27; Start 10/08/18 at 21:00; Stop 10/11/18 at 18:11; Status DC Bupropion HCl (Wellbutrin Xl) 300 mg DAILY PO Last administered on 10/22/18 08: 39; Start 10/10/18 at 09:00; Stop 10/22/18 at 11:11; Status DC Trazodone HCl (Desyrel) 50 mg PRN QHS PRN PO INSOMNIA Last administered on 11/10 21:49; Start 10/10/18 at 20:45 Aripiprazole (Abilify) 2.5 mg QHS PO Last administered on 10/21/18 20:03; Start 10/11/18 at 21:00; Stop 10/22/18 at 11:11; Status DC Fluoxetine HCl (PROzac) 30 mg DAILY PO Last administered on 10/28/18 09:23; Start 10/17/18 at 09:00; Stop 10/28/18 at 18:38; Status DC Memantine (Namenda) 10 mg BID PO Last administered on 11/17/18 21:04; Start 10/16/18 at 21:00 Donepezil HCl (Aricept) 23 mg QHS PO Last administered on 11/17/18at 21:04; Start 10/28/18 at 21:00 Citalopram Hydrobromide (CeleXA) 20 mg DAILY PO Last administered on 11/03/18 08:30; Start 10/29/18 at 09:00; Stop 11/03/18 at 16:16; Status DC Citalopram Hydrobromide (CeleXA) 30 mg DAILY PO Last administered on 11/17/18 07:57; Start 11/04/18 at 09:00 Active Scripts Active Reported Crestor (Rosuvastatin Calcium) 5 Mg Tablet 5 Mg PO DAILY Seroquel (Quetiapine Fumarate) 25 Mg Tablet 12.5 Mg PO PRN QID PRN Namenda (Memantine Hcl) 5 Mg Tablet 5 Mg PO BID Synthroid (Levothyroxine Sodium) 75 Mcg Tablet 75 Mcg PO DAILY06 Prozac (Fluoxetine Hcl) 40 Mg Capsule 80 Mg PO DAILY Aricept (Donepezil Hcl) 10 Mg Tablet 10 Mg PO QHS Klonopin (Clonazepam) 0.5 Mg Tablet 0.25 Mg PO BID@0700,1500 I have reviewed the current psychotropics carefully including drug interactions. Risk benefit ratio favors no change other than as noted in my dictated progress note. Diagnosis: Problems: (1) Confusion (2) Hallucinations (3) Agitated (4) Anxiety disorder (5) Depression (6) Impulse control disorder (7) Dementia, vascular, with delusions CYNDI LYN MD Nov 17, 2018 22:41
[2018-11-18] MEDS: LEVOTHYROXINE 75 MCG TABLET PO SCH (05:52)
[2018-11-18 05:53] VITALS: BP 144/83
[2018-11-18] MEDS: CITALOPRAM 10 MG TABLET. PO SCH (08:04)
[2018-11-18] MEDS: MEMANTINE 10 MG TABLET. PO SCH ×2 (08:04→20:39)
[2018-11-18 16:28] VITALS: BP 119/65
[2018-11-18] MEDS: DONEPEZIL 23 MG TABLET PO SCH (20:38)
[2018-11-18] MEDS: ATORVASTATIN CALCIUM 20 MG TABLET PO SCH (20:38)
--- NOTE | 2018-11-18 21:18 | PN ---
DATE: 11/17/2018 PSYCHIATRIC PROGRESS NOTE This late entry 11/17/2018 covers elements not covered in my initial note. SUBJECTIVE: I met with the patient in the evening in her room. The patient slept 7 hours previous night. She has been withdrawn, spends much time in her room, does come out for some groups. REVIEW OF SYSTEM: No CV, , pulmonary, eye, ENT system symptoms on review. Reliability fair. Often verbal responses monosyllabic. MENTAL STATUS EXAM: Oriented to herself and situation. Speech as above. Abstraction fair, computation impaired, language function intact, attention span short. Mood and affect withdrawn. LABORATORY DATA: Reviewed. IMPRESSION: Major depressive disorder with psychotic features; cognitive disorder, unspecified. Rest unchanged. PLAN: No change from initial note. MAN Didi LYN MD DR: AMOS/manoj JOB#: [id number] / [id number]
--- NOTE | 2018-11-18 22:31 | PDOC ---
Exam Note: Ricardo Note: Please also refer to the separate dictated note~for this date of service dictated separately.~Patient seen individually. Discussed the patient with Nursing staff reviewed the chart.~Reviewed interim history and current functioning. Reviewed vital signs,~Labs/ Radiology~and current medications noted below. Continue current treatment with the changes noted in the dictated addendum note Assessment: Vital Signs: Vital Signs Date Time Temp Pulse Resp B/P (MAP) Pulse Ox O2 Delivery O2 Flow Rate FiO2 11/18/18 16:28 97.5 72 16 119/65 (83) 95 11/17/18 16:10 Room Air I&O Intake and Output 11/18/18 07:01 Intake Total 840 ml Balance 840 ml Intake Oral 840 ml Current Medications: Meds: Current Medications Acetaminophen (Tylenol) 650 mg PRN Q6HRS PRN PO PAIN / TEMP Last administered on 10/12/18at 00:14; Start 10/01/18 at 02:30 Multi-Ingredient Ointment (Analgesic [place]) 1 debora PRN QID PRN TP MUSCLE PAIN; Start 10/01/18 at 02:30 Al Hydroxide/Mg Hydroxide (Mylanta Plus Xs) 15 ml PRN AFTMEALHC PRN PO DYSPEPSIA; Start 10/01/18 at 02:30 Magnesium Hydroxide (Milk Of Magnesia) 2,400 mg PRN QHS PRN PO CONSTIPATION; Start 10/01/18 at 02:30 Clonazepam (KlonoPIN) 0.25 mg BID@0700,1500 PO Last administered on 10/06/18at 05:02; Start 10/01/18 at 07:00; Stop 10/06/18 at 16:47; Status DC Levothyroxine Sodium (Synthroid) 75 mcg DAILY06 PO Last administered on at 05:52; Start 10/01/18 at 06:00 Donepezil HCl (Aricept) 10 mg QHS PO Last administered on 10/27/18at 19:22; Start 10/01/18 at 21:00; Stop 10/28/18 at 18:38; Status DC Fluoxetine HCl (PROzac) 80 mg DAILY PO Last administered on 10/02/18at 07:58; Start 10/01/18 at 09:00; Stop 10/02/18 at 17:33; Status DC Memantine (Namenda) 5 mg BID PO Last administered on 10/16/18at 07:25; Start 10/01/18 at 09:00; Stop 10/16/18 at 13:30; Status DC Quetiapine Fumarate (SEROquel) 12.5 mg PRN QID PRN PO ANXIETY / AGITATION Last administered on 10/12/18at 00:14; Start 10/01/18 at 02:45 Atorvastatin Calcium (Lipitor) 20 mg HS PO Last administered on 11/18/18at 20:38 ; Start 10/01/18 at 21:00 Vitamin D (Vitamin D3) 50,000 unit WEEKLY PO ; Start 10/02/18 at 16:15; Stop 10/02/18 at 17:26; Status DC Vitamin D (Vitamin D3) 50,000 unit WEEKLY PO Last administered on 11/14/18at 07: 34; Start 10/03/18 at 08:00 Fluoxetine HCl (PROzac) 60 mg DAILY PO Last administered on 10/06/18at 09:35; Start 10/03/18 at 09:00; Stop 10/06/18 at 16:47; Status DC Quetiapine Fumarate (SEROquel) 25 mg BID PO Last administered on 10/08/18at 07: 38; Start 10/02/18 at 21:00; Stop 10/08/18 at 10:33; Status DC Clonazepam (KlonoPIN) 0.25 mg DAILY@1500 PO Last administered on 10/10/18at 14: 02; Start 10/07/18 at 15:00; Stop 10/10/18 at 20:32; Status DC Fluoxetine HCl (PROzac) 20 mg DAILY PO Last administered on 10/16/18at 07:25; Start 10/07/18 at 09:00; Stop 10/16/18 at 13:30; Status DC Bupropion HCl (Wellbutrin Xl) 150 mg DAILY PO Last administered on 10/09/18at 11:55; Start 10/07/18 at 09:00; Stop 10/09/18 at 16:43; Status DC Quetiapine Fumarate (SEROquel) 25 mg QHS PO Last administered on 10/10/18at 19: 27; Start 10/08/18 at 21:00; Stop 10/11/18 at 18:11; Status DC Bupropion HCl (Wellbutrin Xl) 300 mg DAILY PO Last administered on 10/22/18 08: 39; Start 10/10/18 at 09:00; Stop 10/22/18 at 11:11; Status DC Trazodone HCl (Desyrel) 50 mg PRN QHS PRN PO INSOMNIA Last administered on 11/10 21:49; Start 10/10/18 at 20:45 Aripiprazole (Abilify) 2.5 mg QHS PO Last administered on 10/21/18 20:03; Start 10/11/18 at 21:00; Stop 10/22/18 at 11:11; Status DC Fluoxetine HCl (PROzac) 30 mg DAILY PO Last administered on 10/28/18 09:23; Start 10/17/18 at 09:00; Stop 10/28/18 at 18:38; Status DC Memantine (Namenda) 10 mg BID PO Last administered on 11/18/18 20:39; Start 10/16/18 at 21:00 Donepezil HCl (Aricept) 23 mg QHS PO Last administered on 11/18/18 20:38; Start 10/28/18 at 21:00 Citalopram Hydrobromide (CeleXA) 20 mg DAILY PO Last administered on 11/03/18 08:30; Start 10/29/18 at 09:00; Stop 11/03/18 at 16:16; Status DC Citalopram Hydrobromide (CeleXA) 30 mg DAILY PO Last administered on 11/18/18 08:04; Start 11/04/18 at 09:00 Active Scripts Active Reported Crestor (Rosuvastatin Calcium) 5 Mg Tablet 5 Mg PO DAILY Seroquel (Quetiapine Fumarate) 25 Mg Tablet 12.5 Mg PO PRN QID PRN Namenda (Memantine Hcl) 5 Mg Tablet 5 Mg PO BID Synthroid (Levothyroxine Sodium) 75 Mcg Tablet 75 Mcg PO DAILY06 Prozac (Fluoxetine Hcl) 40 Mg Capsule 80 Mg PO DAILY Aricept (Donepezil Hcl) 10 Mg Tablet 10 Mg PO QHS Klonopin (Clonazepam) 0.5 Mg Tablet 0.25 Mg PO BID@0700,1500 I have reviewed the current psychotropics carefully including drug interactions. Risk benefit ratio favors no change other than as noted in my dictated progress note. Diagnosis: Problems: (1) Confusion (2) Hallucinations (3) Agitated (4) Anxiety disorder (5) Depression (6) Impulse control disorder (7) Dementia, vascular, with delusions CYNDI LYN MD Nov 18, 2018 22:31
[2018-11-19] MEDS: LEVOTHYROXINE 75 MCG TABLET PO SCH (06:11)
[2018-11-19 06:50] VITALS: BP 136/79
[2018-11-19 07:37] LABS: BASO % 1 % (0-3); EOS # 0.3 x10^3/uL (0.0-0.7); EOS % 4 % (0-3); HEMATOCRIT 43.1 % (36.0-47.0); HEMOGLOBIN 14.3 g/dL (12.0-15.5); LYMPH # 2.6 x10^3/uL (1.0-4.8); LYMPH % 33 % (24-48); MEAN CORPUSCULAR HEMOGLOBIN 28 pg (25-35); MEAN CORPUSCULAR HGB CONC 33 g/dL (31-37); MEAN CORPUSCULAR VOLUME 84 fL (79-100); MONO # 0.7 x10^3/uL (0.0-1.1); MONO % 9 % (0-9); NEUT # 4.1 x10^3uL (1.8-7.7); NEUT % 53 % (31-73); PLATELET COUNT 283 x10^3/uL (140-400); RED BLOOD COUNT 5.12 x10^6/uL (3.50-5.40); RED CELL DISTRIBUTION WIDTH 12.6 % (11.5-14.5); WHITE BLOOD COUNT 7.8 x10^3/uL (4.0-11.0)
[2018-11-19 07:47] LABS: ALBUMIN/GLOBULIN RATIO 0.8 (1.0-1.7); CALCIUM 8.5 mg/dL (8.5-10.1); CREATININE 0.8 mg/dL (0.6-1.0); GFR 71.3; POTASSIUM 3.5 mmol/L (3.5-5.1); TOTAL BILIRUBIN 0.4 mg/dL (0.2-1.0); TOTAL PROTEIN 6.6 g/dL (6.4-8.2)
[2018-11-19] MEDS: CITALOPRAM 10 MG TABLET. PO SCH (08:02)
[2018-11-19] MEDS: MEMANTINE 10 MG TABLET. PO SCH ×2 (08:03→21:20)
[2018-11-19 16:13] VITALS: BP 136/83
[2018-11-19] MEDS: ATORVASTATIN CALCIUM 20 MG TABLET PO SCH (21:20)
[2018-11-19] MEDS: DONEPEZIL 23 MG TABLET PO SCH (21:20)
--- NOTE | 2018-11-19 22:29 | PDOC ---
Exam Note: Ricardo Note: Please also refer to the separate dictated note~for this date of service dictated separately.~Patient seen individually. Discussed the patient with Nursing staff reviewed the chart.~Reviewed interim history and current functioning. Reviewed vital signs,~Labs/ Radiology~and current medications noted below. Continue current treatment with the changes noted in the dictated addendum note Assessment: Vital Signs: Vital Signs Date Time Temp Pulse Resp B/P (MAP) Pulse Ox O2 Delivery O2 Flow Rate FiO2 11/19/18 16:13 98.0 67 18 136/83 (100) 95 11/17/18 16:10 Room Air I&O Intake and Output 11/19/18 07:01 Intake Total 540 ml Balance 540 ml Intake Oral 540 ml Labs: Laboratory Tests Test 11/19/18 06:50 White Blood Count 7.8 x10^3/uL (4.0-11.0) Red Blood Count 5.12 x10^6/uL (3.50-5.40) Hemoglobin 14.3 g/dL (12.0-15.5) Hematocrit 43.1 % (36.0-47.0) Mean Corpuscular Volume 84 fL (79-100) Mean Corpuscular Hemoglobin 28 pg (25-35) Mean Corpuscular Hemoglobin Concent 33 g/dL (31-37) Red Cell Distribution Width 12.6 % (11.5-14.5) Platelet Count 283 x10^3/uL (140-400) Neutrophils (%) (Auto) 53 % (31-73) Lymphocytes (%) (Auto) 33 % (24-48) Monocytes (%) (Auto) 9 % (0-9) Eosinophils (%) (Auto) 4 % (0-3) H Basophils (%) (Auto) 1 % (0-3) Neutrophils # (Auto) 4.1 x10^3uL (1.8-7.7) Lymphocytes # (Auto) 2.6 x10^3/uL (1.0-4.8) Monocytes # (Auto) 0.7 x10^3/uL (0.0-1.1) Eosinophils # (Auto) 0.3 x10^3/uL (0.0-0.7) Basophils # (Auto) 0.0 x10^3/uL (0.0-0.2) Sodium Level 143 mmol/L (136-145) Potassium Level 3.5 mmol/L (3.5-5.1) Chloride Level 106 mmol/L (98-107) Carbon Dioxide Level 28 mmol/L (21-32) Anion Gap 9 (6-14) Blood Urea Nitrogen 11 mg/dL (7-20) Creatinine 0.8 mg/dL (0.6-1.0) Estimated GFR (Cockcroft-Gault) 71.3 BUN/Creatinine Ratio 14 (6-20) Glucose Level 87 mg/dL (70-99) Calcium Level 8.5 mg/dL (8.5-10.1) Total Bilirubin 0.4 mg/dL (0.2-1.0) Aspartate Amino Transferase (AST) 19 U/L (15-37) Alanine Aminotransferase (ALT) 27 U/L (14-59) Alkaline Phosphatase 80 U/L (46-116) Total Protein 6.6 g/dL (6.4-8.2) Albumin 3.0 g/dL (3.4-5.0) L Albumin/Globulin Ratio 0.8 (1.0-1.7) L Current Medications: Meds: Current Medications Acetaminophen (Tylenol) 650 mg PRN Q6HRS PRN PO PAIN / TEMP Last administered on 10/12/18at 00:14; Start 10/01/18 at 02:30 Multi-Ingredient Ointment (Analgesic Pullman) 1 debora PRN QID PRN TP MUSCLE PAIN; Start 10/01/18 at 02:30 Al Hydroxide/Mg Hydroxide (Mylanta Plus Xs) 15 ml PRN AFTMEALHC PRN PO DYSPEPSIA; Start 10/01/18 at 02:30 Magnesium Hydroxide (Milk Of Magnesia) 2,400 mg PRN QHS PRN PO CONSTIPATION; Start 10/01/18 at 02:30 Clonazepam (KlonoPIN) 0.25 mg BID@0700,1500 PO Last administered on 10/06/18at 05:02; Start 10/01/18 at 07:00; Stop 10/06/18 at 16:47; Status DC Levothyroxine Sodium (Synthroid) 75 mcg DAILY06 PO Last administered on at 06:11; Start 10/01/18 at 06:00 Donepezil HCl (Aricept) 10 mg QHS PO Last administered on 10/27/18at 19:22; Start 10/01/18 at 21:00; Stop 10/28/18 at 18:38; Status DC Fluoxetine HCl (PROzac) 80 mg DAILY PO Last administered on 10/02/18at 07:58; Start 10/01/18 at 09:00; Stop 10/02/18 at 17:33; Status DC Memantine (Namenda) 5 mg BID PO Last administered on 10/16/18at 07:25; Start 10/01/18 at 09:00; Stop 10/16/18 at 13:30; Status DC Quetiapine Fumarate (SEROquel) 12.5 mg PRN QID PRN PO ANXIETY / AGITATION Last administered on 10/12/18at 00:14; Start 10/01/18 at 02:45 Atorvastatin Calcium (Lipitor) 20 mg HS PO Last administered on 11/19/18at 21:20 ; Start 10/01/18 at 21:00 Vitamin D (Vitamin D3) 50,000 unit WEEKLY PO ; Start 10/02/18 at 16:15; Stop 10/02/18 at 17:26; Status DC Vitamin D (Vitamin D3) 50,000 unit WEEKLY PO Last administered on 11/14/18at 07: 34; Start 10/03/18 at 08:00 Fluoxetine HCl (PROzac) 60 mg DAILY PO Last administered on 10/06/18at 09:35; Start 10/03/18 at 09:00; Stop 10/06/18 at 16:47; Status DC Quetiapine Fumarate (SEROquel) 25 mg BID PO Last administered on 10/08/18at 07: 38; Start 10/02/18 at 21:00; Stop 10/08/18 at 10:33; Status DC Clonazepam (KlonoPIN) 0.25 mg DAILY@1500 PO Last administered on 10/10/18at 14: 02; Start 10/07/18 at 15:00; Stop 10/10/18 at 20:32; Status DC Fluoxetine HCl (PROzac) 20 mg DAILY PO Last administered on 10/16/18at 07:25; Start 10/07/18 at 09:00; Stop 10/16/18 at 13:30; Status DC Bupropion HCl (Wellbutrin Xl) 150 mg DAILY PO Last administered on 10/09/18at 11:55; Start 10/07/18 at 09:00; Stop 10/09/18 at 16:43; Status DC Quetiapine Fumarate (SEROquel) 25 mg QHS PO Last administered on 10/10/18at 19: 27; Start 10/08/18 at 21:00; Stop 10/11/18 at 18:11; Status DC Bupropion HCl (Wellbutrin Xl) 300 mg DAILY PO Last administered on 10/22/18 08: 39; Start 10/10/18 at 09:00; Stop 10/22/18 at 11:11; Status DC Trazodone HCl (Desyrel) 50 mg PRN QHS PRN PO INSOMNIA Last administered on 11/10 21:49; Start 10/10/18 at 20:45 Aripiprazole (Abilify) 2.5 mg QHS PO Last administered on 10/21/18 20:03; Start 10/11/18 at 21:00; Stop 10/22/18 at 11:11; Status DC Fluoxetine HCl (PROzac) 30 mg DAILY PO Last administered on 10/28/18 09:23; Start 10/17/18 at 09:00; Stop 10/28/18 at 18:38; Status DC Memantine (Namenda) 10 mg BID PO Last administered on 11/19/18 21:20; Start 10/16/18 at 21:00 Donepezil HCl (Aricept) 23 mg QHS PO Last administered on 11/19/18 21:20; Start 10/28/18 at 21:00 Citalopram Hydrobromide (CeleXA) 20 mg DAILY PO Last administered on 11/03/18 08:30; Start 10/29/18 at 09:00; Stop 11/03/18 at 16:16; Status DC Citalopram Hydrobromide (CeleXA) 30 mg DAILY PO Last administered on 11/19/18 08:02; Start 11/04/18 at 09:00 Active Scripts Active Reported Crestor (Rosuvastatin Calcium) 5 Mg Tablet 5 Mg PO DAILY Seroquel (Quetiapine Fumarate) 25 Mg Tablet 12.5 Mg PO PRN QID PRN Namenda (Memantine Hcl) 5 Mg Tablet 5 Mg PO BID Synthroid (Levothyroxine Sodium) 75 Mcg Tablet 75 Mcg PO DAILY06 Prozac (Fluoxetine Hcl) 40 Mg Capsule 80 Mg PO DAILY Aricept (Donepezil Hcl) 10 Mg Tablet 10 Mg PO QHS Klonopin (Clonazepam) 0.5 Mg Tablet 0.25 Mg PO BID@0700,1500 I have reviewed the current psychotropics carefully including drug interactions. Risk benefit ratio favors no change other than as noted in my dictated progress note. Diagnosis: Problems: (1) Confusion (2) Hallucinations (3) Agitated (4) Anxiety disorder (5) Depression (6) Impulse control disorder (7) Dementia, vascular, with delusions CYNDI LYN MD Nov 19, 2018 22:29
[2018-11-20] MEDS ORDERED: ACET325T9 PO (02:06)
[2018-11-20] MEDS ORDERED: ATOR20TA PO (02:06)
[2018-11-20] MEDS ORDERED: CHOL500021 PO (02:08)
[2018-11-20] MEDS ORDERED: CITA10TA8 PO (02:09)
[2018-11-20] MEDS ORDERED: DONE23TA PO (02:11)
[2018-11-20] MEDS ORDERED: MAG30ORA2 PO (02:14)
[2018-11-20] MEDS ORDERED: MAGN2400 PO (02:14)
[2018-11-20] MEDS ORDERED: MEMA10TA PO (02:15)
[2018-11-20] MEDS ORDERED: METH29OI TP (02:16)
[2018-11-20] MEDS ORDERED: TRAZ-85 PO ×2 (02:27→09:59)
[2018-11-20] MEDS: LEVOTHYROXINE 75 MCG TABLET PO SCH (05:57)
[2018-11-20 06:19] VITALS: BP 138/79
[2018-11-20] MEDS: MEMANTINE 10 MG TABLET. PO SCH (08:03)
[2018-11-20] MEDS: CITALOPRAM 10 MG TABLET. PO SCH (08:03)
--- NOTE | 2018-11-20 21:00 | PN ---
DATE: 11/18/2018 PSYCHIATRIC PROGRESS NOTE This late entry 11/18/2018 covers elements not covered in my initial note. SUBJECTIVE: I met with the patient in the evening at some length in her room. The patient continues to be isolative. She is feeling cold. I did give her some extra covers. She was appreciative of this, but not very verbal. She is fixated on wanting to know her discharge plans and some of her frustration in this respect is understandable. REVIEW OF SYSTEMS: No CV, , pulmonary, eye, ENT system symptoms on review. Reliability varies. MENTAL STATUS EXAM: Oriented to herself and situation. Speech moderate to marked latency, often responses monosyllabic. Abstraction fair, computation impaired, language function intact, attention span short. Mood and affect somewhat withdrawn. No active suicidal ideation. LABORATORY DATA: Reviewed. IMPRESSION: Major depressive disorder with psychotic features; major depressive disorder, cognitive disorder, unspecified; anxiety disorder, unspecified. PLAN: Continue psychotropics from initial note. Adjust further as clinically indicated. MAN Didi LYN MD DR: AMOS/manoj JOB#: [id number] / [id number]
--- NOTE | 2018-11-20 22:46 | PDOC ---
Exam Note: Ricardo Note: Please also refer to the separate dictated note~for this date of service dictated separately.~Patient seen individually. Discussed the patient with Nursing staff reviewed the chart.~Reviewed interim history and current functioning. Reviewed vital signs,~Labs/ Radiology~and current medications noted below. Continue current treatment with the changes noted in the dictated addendum note Assessment: Vital Signs: Vital Signs Date Time Temp Pulse Resp B/P (MAP) Pulse Ox O2 Delivery O2 Flow Rate FiO2 11/20/18 06:19 98.6 71 18 138/79 (98) 97 Room Air I&O Intake and Output 11/20/18 07:01 Intake Total 820 ml Balance 820 ml Intake Oral 820 ml Current Medications: Meds: Current Medications Acetaminophen (Tylenol) 650 mg PRN Q6HRS PRN PO PAIN / TEMP Last administered on 10/12/18at 00:14; Start 10/01/18 at 02:30; Stop 11/20/18 at 11:08; Status DC Multi-Ingredient Ointment (Analgesic Rugby) 1 jazmín PRN QID PRN TP MUSCLE PAIN; Start 10/01/18 at 02:30; Stop 11/20/18 at 11:08; Status DC Al Hydroxide/Mg Hydroxide (Mylanta Plus Xs) 15 ml PRN AFTMEALHC PRN PO DYSPEPSIA; Start 10/01/18 at 02:30; Stop 11/20/18 at 11:08; Status DC Magnesium Hydroxide (Milk Of Magnesia) 2,400 mg PRN QHS PRN PO CONSTIPATION; Start 10/01/18 at 02:30; Stop 11/20/18 at 11:08; Status DC Clonazepam (KlonoPIN) 0.25 mg BID@0700,1500 PO Last administered on 10/06/18at 05:02; Start 10/01/18 at 07:00; Stop 10/06/18 at 16:47; Status DC Levothyroxine Sodium (Synthroid) 75 mcg DAILY06 PO Last administered on at 05:57; Start 10/01/18 at 06:00; Stop 11/20/18 at 11:08; Status DC Donepezil HCl (Aricept) 10 mg QHS PO Last administered on 10/27/18at 19:22; Start 10/01/18 at 21:00; Stop 10/28/18 at 18:38; Status DC Fluoxetine HCl (PROzac) 80 mg DAILY PO Last administered on 10/02/18at 07:58; Start 10/01/18 at 09:00; Stop 10/02/18 at 17:33; Status DC Memantine (Namenda) 5 mg BID PO Last administered on 10/16/18at 07:25; Start 10/01/18 at 09:00; Stop 10/16/18 at 13:30; Status DC Quetiapine Fumarate (SEROquel) 12.5 mg PRN QID PRN PO ANXIETY / AGITATION Last administered on 10/12/18at 00:14; Start 10/01/18 at 02:45; Stop 11/20/18 at 11: 08; Status DC Atorvastatin Calcium (Lipitor) 20 mg HS PO Last administered on 11/19/18at 21:20 ; Start 10/01/18 at 21:00; Stop 11/20/18 at 11:08; Status DC Vitamin D (Vitamin D3) 50,000 unit WEEKLY PO ; Start 10/02/18 at 16:15; Stop 10/02/18 at 17:26; Status DC Vitamin D (Vitamin D3) 50,000 unit WEEKLY PO Last administered on 11/14/18at 07: 34; Start 10/03/18 at 08:00; Stop 11/20/18 at 11:08; Status DC Fluoxetine HCl (PROzac) 60 mg DAILY PO Last administered on 10/06/18at 09:35; Start 10/03/18 at 09:00; Stop 10/06/18 at 16:47; Status DC Quetiapine Fumarate (SEROquel) 25 mg BID PO Last administered on 10/08/18at 07: 38; Start 10/02/18 at 21:00; Stop 10/08/18 at 10:33; Status DC Clonazepam (KlonoPIN) 0.25 mg DAILY@1500 PO Last administered on 10/10/18at 14: 02; Start 10/07/18 at 15:00; Stop 10/10/18 at 20:32; Status DC Fluoxetine HCl (PROzac) 20 mg DAILY PO Last administered on 10/16/18at 07:25; Start 10/07/18 at 09:00; Stop 10/16/18 at 13:30; Status DC Bupropion HCl (Wellbutrin Xl) 150 mg DAILY PO Last administered on 10/09/18at 11:55; Start 10/07/18 at 09:00; Stop 10/09/18 at 16:43; Status DC Quetiapine Fumarate (SEROquel) 25 mg QHS PO Last administered on 10/10/18at 19: 27; Start 10/08/18 at 21:00; Stop 10/11/18 at 18:11; Status DC Bupropion HCl (Wellbutrin Xl) 300 mg DAILY PO Last administered on 10/22/18at 08: 39; Start 10/10/18 at 09:00; Stop 10/22/18 at 11:11; Status DC Trazodone HCl (Desyrel) 50 mg PRN QHS PRN PO INSOMNIA Last administered on 11/10at 21:49; Start 10/10/18 at 20:45; Stop 11/20/18 at 11:08; Status DC Aripiprazole (Abilify) 2.5 mg QHS PO Last administered on 10/21/18 20:03; Start 10/11/18 at 21:00; Stop 10/22/18 at 11:11; Status DC Fluoxetine HCl (PROzac) 30 mg DAILY PO Last administered on 10/28/18at 09:23; Start 10/17/18 at 09:00; Stop 10/28/18 at 18:38; Status DC Memantine (Namenda) 10 mg BID PO Last administered on 11/20/18 08:03; Start at 21:00; Stop 11/20/18 at 11:08; Status DC Donepezil HCl (Aricept) 23 mg QHS PO Last administered on 11/19/18at 21:20; Start 10/28/18 at 21:00; Stop 11/20/18 at 11:08; Status DC Citalopram Hydrobromide (CeleXA) 20 mg DAILY PO Last administered on 11/03/18at 08:30; Start 10/29/18 at 09:00; Stop 11/03/18 at 16:16; Status DC Citalopram Hydrobromide (CeleXA) 30 mg DAILY PO Last administered on 11/20/18at 08:03; Start 11/04/18 at 09:00; Stop 11/20/18 at 11:08; Status DC Active Scripts Active Reported Trazodone Hcl 50 Mg Tablet 50 Mg PO PRN QHS PRN Analgesic Rugby (Methyl Salicylate/Menthol) 28 Gm Oint...g. 1 Jazmín TP PRN QID PRN Namenda (Memantine Hcl) 10 Mg Tablet 10 Mg PO BID Milk Of Magnesia (Magnesium Hydroxide) 2,400 Mg/10 Ml Oral.susp 2,400 Mg PO PRN QHS PRN Mag-Al Plus Xs Suspension (Mag Hydrox/Al Hydrox/Simeth) 30 Ml Oral.susp 15 Ml PO PRN AFTMEALHC PRN Donepezil Hcl 23 Mg Tablet 23 Mg PO QHS Celexa (Citalopram Hydrobromide) 10 Mg Tablet 30 Mg PO DAILY D3-50 (Cholecalciferol (Vitamin D3)) 50,000 Unit Capsule 50,000 Unit PO QSA Lipitor (Atorvastatin Calcium) 20 Mg Tablet 20 Mg PO QHS Tylenol (Acetaminophen) 325 Mg Tablet 650 Mg PO PRN Q6HRS PRN Seroquel (Quetiapine Fumarate) 25 Mg Tablet 12.5 Mg PO PRN QID PRN Synthroid (Levothyroxine Sodium) 75 Mcg Tablet 75 Mcg PO DAILY06 I have reviewed the current psychotropics carefully including drug interactions. Risk benefit ratio favors no change other than as noted in my dictated progress note. Diagnosis: Problems: (1) Confusion (2) Hallucinations (3) Agitated (4) Anxiety disorder (5) Depression (6) Impulse control disorder (7) Dementia, vascular, with delusions CYNDI LYN MD Nov 20, 2018 22:46
--- NOTE | 2018-11-21 04:59 | PN ---
DATE: 11/19/2018 PSYCHIATRIC PROGRESS NOTE This late entry 11/19/2018 covers elements not covered in my initial note. SUBJECTIVE: I met with the patient in the evening and staffed at treatment team meeting with the entire team in the morning. Reviewed the patient's history, progress, and disposition plans with social service staff. She sleeps a lot during the day, isolative, withdrawn, has been accepted at [facility] in [place]. No CV, , pulmonary, eye system symptoms on review. She is lying in bed, admitted to feeling cold. Did not have all her covers and was very appreciative when I put 4 different covers one over the other for her. Not very verbal, nevertheless. REVIEW OF SYSTEMS: No CV, , pulmonary, eye system symptoms on review. MENTAL STATUS EXAM: Oriented to herself and situation. Speech has some latency, often responses monosyllabic. Abstraction fair, computation impaired, language function intact, attention span short. Mood and affect somewhat withdrawn. LABORATORY DATA: Reviewed. IMPRESSION: Unchanged from initial note. PLAN: No change from initial note. MAN Didi LYN MD DR: AMOS/manoj JOB#: [id number] / [id number]
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
== END 2018-11-20 11:07 | DRG 57 ==
LOC: GEROPSY 02:05
PROVIDERS: ADMIT Psychiatry & Neurology Psychiatry; ATTEND Psychiatry & Neurology Psychiatry
DX: G30.9 Alzheimer's disease, unspecified (principal); F33.3 Major depressive disorder, recurrent, severe with psychotic symptoms; R45.851 Suicidal ideations; F01.50 Vascular dementia, unspecified severity, without behavioral disturbance, psychotic disturbance, mood disturbance, and anxiety; F33.41 Major depressive disorder, recurrent, in partial remission; F41.9 Anxiety disorder, unspecified; E03.9 Hypothyroidism, unspecified; E78.5 Hyperlipidemia, unspecified; G20 Parkinson's disease; G89.4 Chronic pain syndrome; G47.33 Obstructive sleep apnea (adult) (pediatric); J45.909 Unspecified asthma, uncomplicated; K21.9 Gastro-esophageal reflux disease without esophagitis; M79.7 Fibromyalgia; Z79.899 Other long term (current) drug therapy; Z85.3 Personal history of malignant neoplasm of breast
CPT/HCPCS: 36415; 80053; 80061; 81001; 82306; 82607; 83036; 83540; 83550; 83735; 84436; 84443; 84480; 85025; 86592; 87086; 93005